=== PATIENT | male | born 1960 | race Caucasian/White ===

== ENCOUNTER 2017-01-20 23:49 | Inpatient (IN) | payer MEDICARE, OTHER ==
[2017-01-21] MEDS ORDERED: methylPREDNISolone SOD SUCCI 125 MG/2 ML VIAL IV STA (00:07)
[2017-01-21] MEDS ORDERED: SODIUM CHLORIDE 0.9% 500 ML IV STA (00:07)
[2017-01-21] MEDS ORDERED: SODIUM CHLORIDE 0.9% 1,000 ML IV STA (00:07)
[2017-01-21] MEDS ORDERED: IPRATROPIUM 0.5 MG/2.5 ML NEBU INHALATION STA (00:07)
[2017-01-21] MEDS ORDERED: ALBUTEROL NEBULIZED 2.5 MG/3 ML INHALATION STA (00:07)
[2017-01-21] MEDS ORDERED: ACETAMINOPHEN TAB 500 MG TAB PO STA (00:09)
[2017-01-21 00:23] LABS: Basophils # (A) 0.1 k/uL (0-0.2); Basophils % (A) 0 %; CH 32.5; CHCM 33.1; Eosinophils # (A) 0.1 k/uL (0-0.7); Eosinophils % (A) 0 %; HCT 37.3 % (39.0-53.0); HDW 2.47; HGB 12.6 gm/dL (13.0-17.5); Luc # (Auto) 0.12; Luc % (Auto) 1; Lymphocytes # (A) 0.4 k/uL (1.0-4.8); Lymphocytes % (A) 2 %; MCH 33.4 pg (25.0-35.0); MCHC 33.8 g/dL (31.0-37.0); MCV 98.6 fL (80.0-100.0); Monocytes % (A) 5 %; Neutrophils # (A) 20.5 k/uL (1.3-7.7); Neutrophils % (A) 92 %; RBC 3.78 m/uL (4.30-5.90); RDW 13.5 % (11.5-15.5); WBC 22.3 k/uL (3.8-10.6); WBC (Perox) 21.92
[2017-01-21 00:31] LABS: INR 1.1 (<1.2); Partial Thromboplastin Time 23.6 sec (22.0-30.0); Prothrombin Time 10.7 sec (9.0-12.0)
[2017-01-21 00:35] LABS: ALT 81 U/L (21-72); AST 54 U/L (17-59); Alkaline Phosphatase 142 U/L (38-126); Blood Urea Nitrogen 18 mg/dL (9-20); Calcium 9.7 mg/dL (8.4-10.2); Carbon Dioxide 20 mmol/L (22-30); Glucose 290 mg/dL (74-99); Magnesium 1.6 mg/dL (1.6-2.3); Non-African American GFR(MDRD) >60 (>60 ml/min/1.73 sqM); Total Bilirubin 2.4 mg/dL (0.2-1.3); Total Protein 7.2 g/dL (6.3-8.2)
--- NOTE | 2017-01-21 00:45 | XR ---
EXAM: XR Chest, 2 Views CLINICAL HISTORY: Reason: difficulty breathing TECHNIQUE: Frontal and lateral views of the chest. COMPARISON: No relevant prior studies available. FINDINGS: Lungs: Subsegmental atelectasis noted in the lingula. Pleural space: Small right pleural effusion. No pneumothorax. Heart: Unremarkable. No cardiomegaly. Mediastinum: Unremarkable. Bones/joints: Unremarkable. IMPRESSION: No lobar consolidation or pulmonary edema. Small left pleural effusion.
[2017-01-21 00:55] LABS: Chloride 104 mmol/L (98-107)
[2017-01-21 00:58] LABS: Anion Gap 11 mmol/L; Sodium 135 mmol/L (137-145)
[2017-01-21 01:02] LABS: Creatine Kinase 37 U/L (55-170)
[2017-01-21 01:11] LABS: Appearance,Urine Clear (Clear); Bilirubin,Urine Negative (Negative); Glucose,Urine (UA) 4+ (Negative); Ketones,Urine Trace (Negative); Leukocyte Esterase,Urine Negative (Negative); Mucus,Urine Rare /hpf; Nitrite,Urine Negative (Negative); Particle Count 700; Protein,Urine 2+ (Negative); RBC,Urine 2 /hpf (0-5); Specific Gravity,Urine 1.011 (1.001-1.035); UA Billing (MACRO vs. MICRO) MICRO; WBC,Urine 1 /hpf (0-5)
[2017-01-21 01:15] LABS: Creatine Kinase MB 0.3 ng/mL (0.0-2.4); Troponin I <0.012 ng/mL (0.000-0.034)
--- NOTE | 2017-01-21 02:38 | US ---
ADDENDUM - Added by Sanford Mcgee MD on 01/24/2017 11:35 AM (-07:00) Correction. Exam should read as follows: EXAM: US Abdomen limited EXAM: US Abdomen Complete CLINICAL HISTORY: Reason: Pain TECHNIQUE: Real-time ultrasound of the abdomen (complete) with image documentation. COMPARISON: No relevant prior studies available. FINDINGS: Liver: Unremarkable. No mass. No intrahepatic bile duct dilation. Gallbladder: Unremarkable. No gallstones. Positive sonographic Candelario sign. Common bile duct: Unremarkable as visualized. No stones. No dilation. Pancreas: Unremarkable as visualized. Kidneys: Unremarkable. No stones. No solid mass. No hydronephrosis. Spleen: Unremarkable. No splenomegaly. Aorta: Unremarkable. No aneurysm. Inferior vena cava: Unremarkable. IMPRESSION: Normal ultrasound exam of the abdomen. Positive sonographic Candelario sign was elicited; however, gallbladder imaging was otherwise normal.
[2017-01-21] MEDS ORDERED: AZITHROMYCIN 500 MG in SODIUM CHLORIDE 0.9% 250 ML IVPB STA (03:16)
[2017-01-21] MEDS ORDERED: ALPRAZolam 0.5 MG TAB PO PRN (03:21)
[2017-01-21] MEDS ORDERED: SODIUM CHLORIDE 0.9% 1,000 ML IV SCH (03:30)
--- NOTE | 2017-01-21 03:35 | ED ---
General Adult HPI - General Chief complaint: Shortness of Breath Stated complaint: ZOLTAN Time Seen by Provider: 01/20/17 23:50 Source: patient, EMS, RN notes reviewed Mode of arrival: EMS Limitations: no limitations - History of Present Illness Initial comments: 50 male with history diabetes, hypertension, and COPD presents with four-hour history of cough, fever. Patient's cough is productive of sputum. Patient also reports worsening shortness of breath. Has been taking his inhalers at home with minimal relief. He does have baseline dyspnea and is on 2 L home O2. Denies any chest pain. Denies nausea vomiting or diarrhea. Patient does report some right upper quadrant abdominal pain which isn't present for approximately one week. This is dull achy pain. Constant in nature. - Related Data Home Medications Medication Instructions Recorded Confirmed ALPRAZolam [Xanax] 0.5 mg PO HS PRN 01/21/17 01/21/17 Fluticasone Propionate 1 spray EA NOSTRIL DAILY 01/21/17 01/21/17 Furosemide [Lasix] 20 mg PO DAILY 01/21/17 01/21/17 Gabapentin [Neurontin] 100 mg PO BID 01/21/17 01/21/17 Insulin Aspart [NovoLOG] 10 unit SQ QID 01/21/17 01/21/17 Insulin Glargine [Lantus] 37 unit SQ HS 01/21/17 01/21/17 Ipratropium [place] [Atrovent Hfa] 2 puff INHALATION QID PRN 01/21/17 01/21/17 Lisinopril 40 mg PO DAILY 01/21/17 01/21/17 Montelukast [Singulair] 10 mg PO HS 01/21/17 01/21/17 metFORMIN HCL [Glucophage] 500 mg PO TID 01/21/17 01/21/17 Allergies Allergy/AdvReac Type Severity Reaction Status Date / Time iodine Allergy Unknown Verified 01/20/17 23:56 Penicillins Allergy Unknown Verified 01/20/17 23:56 Sulfa (Sulfonamide Allergy Unknown Verified 01/20/17 23:56 Antibiotics) Review of Systems ROS Statement: Those systems with pertinent positive or pertinent negative responses have been documented in the HPI. ROS Other: All systems not noted in ROS Statement are negative. Past Medical History Past Medical History: Asthma, COPD, Diabetes Mellitus, Sleep Apnea/CPAP/BIPAP Additional Past Medical History / Comment(s): edema, type 1 diabetic History of Any Multi-Drug Resistant Organisms: None Reported Past Surgical History: Orthopedic Surgery, Tonsillectomy Past Psychological History: No Psychological Hx Reported Smoking Status: Former smoker Past Alcohol Use History: None Reported Past Drug Use History: None Reported General Exam Limitations: no limitations General appearance: alert, in distress Head exam: Present: atraumatic, normocephalic Eye exam: Present: normal appearance, PERRL ENT exam: Present: normal exam, mucous membranes moist Neck exam: Present: normal inspection. Absent: meningismus Respiratory exam: Present: respiratory distress, wheezes, decreased breath sounds, prolonged expiratory. Absent: rhonchi Cardiovascular Exam: Present: normal rhythm, tachycardia GI/Abdominal exam: Present: soft, tenderness (Tenderness in the right upper quadrant). Absent: distended, guarding, rebound Extremities exam: Present: normal capillary refill, pedal edema Back exam: Present: normal inspection Neurological exam: Present: alert, oriented X3. Absent: motor sensory deficit Psychiatric exam: Present: normal affect, normal mood Skin exam: Present: warm, dry. Absent: cyanosis, diaphoretic Course Vital Signs 01/20/17 01/21/17 01/21/17 23:51 00:38 01:01 Temperature 101.4 F H Pulse Rate 117 H 102 H 104 H Respiratory 22 Rate Blood Pressure 169/81 O2 Sat by Pulse 93 L Oximetry - Reevaluation(s) Reevaluation #1: 01/21/17 03:31 On reevaluation patient is feeling somewhat better. As an extremely wheeze. Still moderate respiratory distress. EKG Findings - EKG Comments: EKG Findings:: EKG shows sinus tachycardia with ventricular rate of 108, NV interval 148, castration 82, QTC 436, there is no ST segment elevation or depression, no signs of ischemia Medical Decision Making - Medical Decision Making 56-year-old male with history of COPD presents with a one-day history of cough and fever. At one week history of right upper quadrant abdominal pain. On examination patient is in moderate respiratory distress, with end expiratory wheezing and decreased air entry throughout. He also has tenderness in the right upper quadrant. No rebound or guarding. Chest x-ray shows no lobar consolidation, no pulmonary edema. Patient's history is consistent with pneumonia. I do suspect early clinical pneumonia. Ultrasound is obtained of the abdomen given the right upper quadrant tenderness and fever. This is negative for acute cholecystitis. Laboratory studies reveal white blood cell count 22.3, mild hyponatremia 134, alk phos 142, and bili is mildly elevated at 2.5. Patient is started on IV antibiotics. He will be admitted for acquired pneumonia and COPD exacerbation. - Lab Data Result diagrams: 01/21/17 00:00 01/21/17 00:00 Lab Results 01/21/17 01/21/17 01/21/17 Range/Units 00:00 00:00 00:00 WBC 22.3 H (3.8-10.6) k/uL RBC 3.78 L (4.30-5.90) m/uL Hgb 12.6 L (13.0-17.5) gm/dL Hct 37.3 L (39.0-53.0) % MCV 98.6 (80.0-100.0) fL MCH 33.4 (25.0-35.0) pg MCHC 33.8 (31.0-37.0) g/dL RDW 13.5 (11.5-15.5) % Plt Count 266 (150-450) k/uL Neutrophils % 92 % Lymphocytes % 2 % Monocytes % 5 % Eosinophils % 0 % Basophils % 0 % Neutrophils # 20.5 H (1.3-7.7) k/uL Lymphocytes # 0.4 L (1.0-4.8) k/uL Monocytes # 1.0 (0-1.0) k/uL Eosinophils # 0.1 (0-0.7) k/uL Basophils # 0.1 (0-0.2) k/uL PT (9.0-12.0) sec INR (<1.2) APTT (22.0-30.0) sec Sodium 135 L (137-145) mmol/L Potassium 4.0 (3.5-5.1) mmol/L Chloride 104 (98-107) mmol/L Carbon Dioxide 20 L (22-30) mmol/L Anion Gap 11 mmol/L BUN 18 (9-20) mg/dL Creatinine 0.80 (0.66-1.25) mg/dL Est GFR (MDRD) Af Amer >60 (>60 ml/min/1.73 sqM) Est GFR (MDRD) Non-Af >60 (>60 ml/min/1.73 sqM) Glucose 290 H (74-99) mg/dL Calcium 9.7 (8.4-10.2) mg/dL Magnesium 1.6 (1.6-2.3) mg/dL Total Bilirubin 2.4 H (0.2-1.3) mg/dL AST 54 (17-59) U/L ALT 81 H (21-72) U/L Alkaline Phosphatase 142 H (38-126) U/L Total Creatine Kinase 37 L (55-170) U/L CK-MB (CK-2) 0.3 (0.0-2.4) ng/mL CK-MB (CK-2) Rel Index 0.8 Troponin I <0.012 (0.000-0.034) ng/mL NT-Pro-B Natriuret Pep pg/mL Total Protein 7.2 (6.3-8.2) g/dL Albumin 3.7 (3.5-5.0) g/dL Lipase 53 (23-300) U/L Urine Color Urine Appearance (Clear) Urine pH (5.0-8.0) Ur Specific [place] (1.001-1.035) Urine Protein (Negative) Urine Glucose (UA) (Negative) Urine Ketones (Negative) Urine Blood (Negative) Urine Nitrite (Negative) Urine Bilirubin (Negative) Urine Urobilinogen (<2.0) mg/dL Ur Leukocyte Esterase (Negative) Urine RBC (0-5) /hpf Urine WBC (0-5) /hpf Urine Mucus (None) /hpf 01/21/17 01/21/17 01/21/17 Range/Units 00:00 00:00 01:01 WBC (3.8-10.6) k/uL RBC (4.30-5.90) m/uL Hgb (13.0-17.5) gm/dL Hct (39.0-53.0) % MCV (80.0-100.0) fL MCH (25.0-35.0) pg MCHC (31.0-37.0) g/dL RDW (11.5-15.5) % Plt Count (150-450) k/uL Neutrophils % % Lymphocytes % % Monocytes % % Eosinophils % % Basophils % % Neutrophils # (1.3-7.7) k/uL Lymphocytes # (1.0-4.8) k/uL Monocytes # (0-1.0) k/uL Eosinophils # (0-0.7) k/uL Basophils # (0-0.2) k/uL PT 10.7 (9.0-12.0) sec INR 1.1 (<1.2) APTT 23.6 (22.0-30.0) sec Sodium (137-145) mmol/L Potassium (3.5-5.1) mmol/L Chloride (98-107) mmol/L Carbon Dioxide (22-30) mmol/L Anion Gap mmol/L BUN (9-20) mg/dL Creatinine (0.66-1.25) mg/dL Est GFR (MDRD) Af Amer (>60 ml/min/1.73 sqM) Est GFR (MDRD) Non-Af (>60 ml/min/1.73 sqM) Glucose (74-99) mg/dL Calcium (8.4-10.2) mg/dL Magnesium (1.6-2.3) mg/dL Total Bilirubin (0.2-1.3) mg/dL AST (17-59) U/L ALT (21-72) U/L Alkaline Phosphatase (38-126) U/L Total Creatine Kinase (55-170) U/L CK-MB (CK-2) (0.0-2.4) ng/mL CK-MB (CK-2) Rel Index Troponin I (0.000-0.034) ng/mL NT-Pro-B Natriuret Pep 284 pg/mL Total Protein (6.3-8.2) g/dL Albumin (3.5-5.0) g/dL Lipase (23-300) U/L Urine Color Yellow Urine Appearance Clear (Clear) Urine pH 6.0 (5.0-8.0) Ur Specific [place] 1.011 (1.001-1.035) Urine Protein 2+ H (Negative) Urine Glucose (UA) 4+ H (Negative) Urine Ketones Trace H (Negative) Urine Blood Trace H (Negative) Urine Nitrite Negative (Negative) Urine Bilirubin Negative (Negative) Urine Urobilinogen 3.0 (<2.0) mg/dL Ur Leukocyte Esterase Negative (Negative) Urine RBC 2 (0-5) /hpf Urine WBC 1 (0-5) /hpf Urine Mucus Rare H (None) /hpf Critical Care Time Critical Care Time: Yes Total Critical Care Time: 35 Disposition Clinical Impression: Community acquired pneumonia, COPD exacerbation Disposition: ADMITTED IP TO THIS [facility] Condition: Stable Referrals: Maciej Valles MD [Primary Care Provider] - 1-2 days Decision to Admit Reason: Admit from EC Decision Date: 01/21/17 Decision Time: 02:50
[2017-01-21 05:26] VITALS: BMI 34.9
[2017-01-21] MEDS: INSULIN LISPRO (humaLOG) 300 UNIT/3 ML VIAL SQ SCH ×4 (08:00→13:13)
[2017-01-21] MEDS: IPRATROPIUM-ALBUTEROL 3 ML NEB INHALATION PRN ×3 (08:37→14:43)
[2017-01-21] MEDS ORDERED: FUROSEMIDE 20 MG TAB PO SCH (09:00)
[2017-01-21] MEDS ORDERED: LISINOPRIL 20 MG TAB PO SCH (09:00)
[2017-01-21] MEDS ORDERED: metFORMIN 500 MG TAB PO SCH (09:00)
[2017-01-21] MEDS ORDERED: predniSONE 20 MG TAB PO SCH (09:00)
[2017-01-21 09:47] LABS: Glucose,Whole Blood 418 mg/dL (75-99)
[2017-01-21] MEDS ORDERED: INSULIN REGULAR 100 UNIT/ML VIAL IV ONE (10:03)
--- NOTE | 2017-01-21 10:07 | P.HPIM ---
History of Present Illness H&P Date: 01/21/17 (discharge Summary as well) This is a 56-year-old gentleman with history of COPD comes into the hospital with an episode of fever and chills. Patient apparently has had episodes of hypoxemia in the past and so scared and came to the hospital patient was noted to have leukocytosis and chest x-ray reviewed by me was noted to have a right lower lobe infiltrate. Patient does state to have increased sputum production Patient was given Rocephin and Zithromax breathing treatment has improved significantly since his admission Is able to ambulate without any need for oxygen is tolerating oral intake Patient states that his symptoms are improved No episode of fever in the last 12 hours Denies having headaches blurry vision nausea vomiting diarrhea chest pain his only symptom is cough with increased sputum production and transient episode of difficulty breathing prior to admission. Review of Systems All systems: negative (Noted in HPI) Past Medical History Past Medical History: Asthma, COPD, Diabetes Mellitus, Hypertension, Sleep Apnea /CPAP/BIPAP Additional Past Medical History / Comment(s): edema, type 1 diabetic History of Any Multi-Drug Resistant Organisms: None Reported Past Surgical History: Orthopedic Surgery, Tonsillectomy Additional Past Surgical History / Comment(s): right leg and hip surgery Past Anesthesia/Blood Transfusion Reactions: No Reported Reaction Past Psychological History: No Psychological Hx Reported Smoking Status: Former smoker Past Alcohol Use History: None Reported Past Drug Use History: None Reported - Past Family History Father Family Medical History: Diabetes Mellitus Mother Family Medical History: COPD Medications and Allergies Home Medications Medication Instructions Recorded Confirmed Type ALPRAZolam [Xanax] 0.5 mg PO HS PRN 01/21/17 01/21/17 History Fluticasone Propionate 1 spray EA NOSTRIL DAILY 01/21/17 01/21/17 History Furosemide [Lasix] 20 mg PO DAILY 01/21/17 01/21/17 History Gabapentin [Neurontin] 100 mg PO BID 01/21/17 01/21/17 History Insulin Aspart [NovoLOG] 10 unit SQ QID 01/21/17 01/21/17 History Insulin Glargine [Lantus] 37 unit SQ HS 01/21/17 01/21/17 History Ipratropium [place] [Atrovent Hfa] 2 puff INHALATION QID PRN 01/21/17 01/21/17 History Lisinopril 40 mg PO DAILY 01/21/17 01/21/17 History Montelukast [Singulair] 10 mg PO HS 01/21/17 01/21/17 History metFORMIN HCL [Glucophage] 500 mg PO TID 01/21/17 01/21/17 History Allergies Allergy/AdvReac Type Severity Reaction Status Date / Time iodine Allergy Unknown Verified 01/21/17 08:09 Penicillins Allergy Unknown Verified 01/21/17 08:09 Sulfa (Sulfonamide Allergy Unknown Verified 01/21/17 08:09 Antibiotics) Physical Exam Vitals: Vital Signs Temp Pulse Pulse Resp BP BP Pulse Ox 01/21/17 08:46 85 01/21/17 08:37 80 01/21/17 07:00 97.4 F L 79 18 158/74 95 01/21/17 04:11 97.3 F L 01/21/17 03:52 90 20 156/74 95 01/21/17 01:01 104 H 01/21/17 00:38 102 H 01/20/17 23:51 101.4 F H 117 H 22 169/81 93 L Intake and Output 01/20/17 01/21/17 01/21/17 22:59 06:59 14:59 Intake Total 800 Balance 800 Intake: Intake, IV Titration 500 Amount Sodium Chloride 0.9% 500 500 ml @ 999 mls/hr IV .Q31M STA Rx#:[id number] Oral 300 Other: # Voids 1 Weight 104.326 kg Physical exam Gen. appearance oriented 3 in no distress Neck is supple no JVD Lungs diminished breath sounds no expiratory wheezing appreciated no rhonchi noted Heart S1-S2 heard regular rate and rhythm no murmurs appreciated Abdomen is soft nontender no organomegaly bowel sounds are intact Neurologically cranial nerves II-12 grossly intact no focal motor or sensory deficits noted Skin no abnormalities appreciated Results CBC & Chem 7: 01/21/17 00:00 01/21/17 00:00 Labs: Abnormal Lab Results - Last 24 Hours (Table) 01/21/17 01/21/17 01/21/17 Range/Units 00:00 00:00 00:00 WBC 22.3 H (3.8-10.6) k/uL RBC 3.78 L (4.30-5.90) m/uL Hgb 12.6 L (13.0-17.5) gm/dL Hct 37.3 L (39.0-53.0) % Neutrophils # 20.5 H (1.3-7.7) k/uL Lymphocytes # 0.4 L (1.0-4.8) k/uL Sodium 135 L (137-145) mmol/L Carbon Dioxide 20 L (22-30) mmol/L Glucose 290 H (74-99) mg/dL POC Glucose (mg/dL) (75-99) mg/dL Total Bilirubin 2.4 H (0.2-1.3) mg/dL ALT 81 H (21-72) U/L Alkaline Phosphatase 142 H (38-126) U/L Total Creatine Kinase 37 L (55-170) U/L Urine Protein (Negative) Urine Glucose (UA) (Negative) Urine Ketones (Negative) Urine Blood (Negative) Urine Mucus (None) /hpf 01/21/17 01/21/17 Range/Units 01:01 09:35 WBC (3.8-10.6) k/uL RBC (4.30-5.90) m/uL Hgb (13.0-17.5) gm/dL Hct (39.0-53.0) % Neutrophils # (1.3-7.7) k/uL Lymphocytes # (1.0-4.8) k/uL Sodium (137-145) mmol/L Carbon Dioxide (22-30) mmol/L Glucose (74-99) mg/dL POC Glucose (mg/dL) 418 H (75-99) mg/dL Total Bilirubin (0.2-1.3) mg/dL ALT (21-72) U/L Alkaline Phosphatase (38-126) U/L Total Creatine Kinase (55-170) U/L Urine Protein 2+ H (Negative) Urine Glucose (UA) 4+ H (Negative) Urine Ketones Trace H (Negative) Urine Blood Trace H (Negative) Urine Mucus Rare H (None) /hpf Thrombosis Risk Factor Assmnt - Choose All That Apply Any of the Below Risk Factors Present?: Yes Each Factor Represents 1 point: Abnormal pulmonary function (COPD), Age 41-60 years, Obesity (BMI >25), Serious lung disease incl. pneumonia (< 1month), Swollen legs (current) Other Risk Factors: Yes Each Risk Factor Represents 3 Points: Family history of DVT/PE Thrombosis Risk Factor Assessment Total Risk Factor Score: 8 Thrombosis Risk Factor Assessment Level: High Risk Assessment and Plan Plan: #1 sepsis secondary to an acute right lower lobe community-acquired pneumonia #2 COPD with an acute exacerbation #3 essential hypertension #4 diabetes mellitus type 2 poorly controlled #5 dyslipidemia #6 obesity #7 BPH Plan Patient will be monitored for another 12 hours if there is no recurrent episodes of fever it appears to be a community-acquired organism. Hence we'll discharge the patient on Ceftin 500 mg by mouth twice a day for a total of 7 days patient will also be given a burst of steroids for 5 days discussed increasing his Levemir to 45 units and using sliding scale in addition to his pre-meal insulin Patient's blood glucose level at this time is 418 patient will be given 1 dose of 10 units IV regular insulin will be monitored and discharged home later if patient is stable and is able to ambulate without the need of any supplemental oxygen.
[2017-01-21 15:34] VITALS: BP 164/72; PULSE 86; RESP 20; TEMP 97.8
[2017-01-21] MEDS ORDERED: MONTELUKAST 10 MG TAB PO SCH (21:00)
[2017-01-21] MEDS ORDERED: INSULIN GLARGINE 100 UNIT/ML 10 ML VIAL SQ SCH (21:00)
[2017-01-22] MEDS ORDERED: AZITHROMYCIN 500 MG in SODIUM CHLORIDE 0.9% 250 ML IVPB SCH (06:00)
[2017-01-22 07:34] LABS: Glucose,Whole Blood 345 mg/dL (75-99)
[2017-01-22 07:34] LABS: Glucose,Whole Blood 350 mg/dL (75-99)
== END 2017-01-21 16:55 | disposition home or self-care (01) | DRG 871 ==
LOC: EC 23:49 → SUPCPDRO 23:49 → 5MS5E 01-21 03:19
PROVIDERS: ADMIT Hospitalist; ATTEND Hospitalist
DX: A41.9 Sepsis, unspecified organism (principal); J18.9 Pneumonia, unspecified organism; Z99.81 Dependence on supplemental oxygen; J44.0 Chronic obstructive pulmonary disease with (acute) lower respiratory infection; J44.1 Chronic obstructive pulmonary disease with (acute) exacerbation; E87.1 Hypo-osmolality and hyponatremia; I10 Essential (primary) hypertension; E10.65 Type 1 diabetes mellitus with hyperglycemia; E78.5 Hyperlipidemia, unspecified; G47.30 Sleep apnea, unspecified; E66.9 Obesity, unspecified; N40.0 Benign prostatic hyperplasia without lower urinary tract symptoms; Z79.84 Long term (current) use of oral hypoglycemic drugs; Z79.4 Long term (current) use of insulin; Z79.899 Other long term (current) drug therapy; Z87.891 Personal history of nicotine dependence; Z88.0 Allergy status to penicillin; Z88.2 Allergy status to sulfonamides; Z91.041 Radiographic dye allergy status; Z82.5 Family history of asthma and other chronic lower respiratory diseases
CPT/HCPCS: 36415; 71020; 76705; 80053; 81001; 82550; 82553; 83690; 83735; 83880; 84484; 85025; 85610; 85730; 87040; 93005; 94640; 96361; 96365; 96375; 99291

== ENCOUNTER 2019-12-18 14:54 | Inpatient (IN) | payer MEDICARE ==
[2019-12-18] MEDS ORDERED: SODIUM CHLORIDE 0.9% 1,000 ML IV STA ×2 (15:26→17:33)
--- NOTE | 2019-12-18 15:45 | ED ---
Fall HPI - General Chief Complaint: Fall Stated Complaint: Fall Time Seen by Provider: 12/18/19 15:16 Source: patient, RN notes reviewed, old records reviewed Mode of arrival: EMS - History of Present Illness Initial Comments: This is a 59-year-old male DF for evaluation patient is found to have multiple complaints today. He states he has significantly elevated blood pressure elevated heart rate overall not feeling well. Patient of fall yesterday landing on his chest as anterior chest wall pain and some abdominal pain. Patient states he did not take his medications today. 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 Witnessed: no Place Fall Occurred: home Loss of Consciousness: none Prolonged Down Time?: no Symptoms Prior to Fall: none Location: chest Severity: moderate Severity scale (1-10): 6 Quality: dull Context: tripped/slipped Associated Symptoms: denies - Related Data Home Medications Medication Instructions Recorded Confirmed ALPRAZolam [Xanax] 0.5 mg PO HS PRN 01/21/17 12/18/19 Diltiazem HCl [Diltiazem 24Hr ER] 180 mg PO DAILY 01/21/17 12/18/19 Fluticasone Propionate 1 spray EA NOSTRIL DAILY 01/21/17 12/18/19 INSULIN ASPART (NovoLOG) [NovoLOG See Protocol SQ TID 01/21/17 12/18/19 (formulary)] Lisinopril 40 mg PO DAILY 01/21/17 12/18/19 Montelukast [Singulair] 10 mg PO DAILY 01/21/17 12/18/19 metFORMIN HCL [Glucophage] 500 mg PO TID 01/21/17 12/18/19 Albuterol Sulfate [Ventolin HFA] 2 puff INHALATION RT-Q6H PRN 12/18/19 12/18/19 Furosemide [Lasix] 40 mg PO DAILY 12/18/19 12/18/19 Ibuprofen 200 - 400 mg PO Q6H PRN 12/18/19 12/18/19 Insulin Glargine,Hum.rec.anlog 45 unit SQ HS 12/18/19 12/18/19 [Basaglar Kwikpen U-100] Umeclidinium [place] [Incruse 1 puff INHALATION RT-DAILY 12/18/19 12/18/19 Ellipta] Allergies Allergy/AdvReac Type Severity Reaction Status Date / Time iodine Allergy Unknown Verified 12/18/19 17:51 Penicillins Allergy Unknown Verified 12/18/19 17:51 Sulfa (Sulfonamide Allergy Unknown Verified 12/18/19 17:51 Antibiotics) Review of Systems ROS Statement: Those systems with pertinent positive or pertinent negative responses have been documented in the HPI. ROS Other: All systems not noted in ROS Statement are negative. Past Medical History Past Medical History: Asthma, COPD, Diabetes Mellitus, Hypertension, Sleep Apnea/CPAP/BIPAP Additional Past Medical History / Comment(s): edema, type 1 diabetic History of Any Multi-Drug Resistant Organisms: None Reported Past Surgical History: Orthopedic Surgery, Tonsillectomy Additional Past Surgical History / Comment(s): right leg and hip surgery Past Anesthesia/Blood Transfusion Reactions: No Reported Reaction Past Psychological History: No Psychological Hx Reported Smoking Status: Former smoker Past Alcohol Use History: None Reported Past Drug Use History: None Reported - Past Family History Father Family Medical History: Diabetes Mellitus Mother Family Medical History: COPD General Exam Limitations: no limitations, physical limitation General appearance: alert, in no apparent distress Head exam: Present: atraumatic, normocephalic, normal inspection Eye exam: Present: normal appearance, PERRL, EOMI. Absent: scleral icterus, conjunctival injection, periorbital swelling ENT exam: Present: normal exam, mucous membranes moist Neck exam: Present: normal inspection. Absent: tenderness, meningismus, lymphadenopathy Respiratory exam: Present: normal lung sounds bilaterally. Absent: respiratory distress, wheezes, rales, rhonchi, stridor Cardiovascular Exam: Present: normal rhythm, tachycardia, normal heart sounds. Absent: systolic murmur, diastolic murmur, rubs, gallop, clicks GI/Abdominal exam: Present: soft, normal bowel sounds. Absent: distended, tenderness, guarding, rebound, rigid Extremities exam: Present: normal inspection, full ROM, normal capillary refill. Absent: tenderness, pedal edema, joint swelling, calf tenderness Back exam: Present: normal inspection Neurological exam: Present: alert, oriented X3, CN II-XII intact Psychiatric exam: Present: normal affect, normal mood Skin exam: Present: warm, dry, intact, normal color. Absent: rash Course Vital Signs 12/18/19 12/18/19 12/18/19 14:56 16:29 16:30 Temperature 98.5 F Pulse Rate 128 H 121 H 121 H Respiratory 24 22 Rate Blood Pressure 203/93 194/94 170/79 O2 Sat by Pulse 92 L 92 L Oximetry 12/18/19 12/18/19 12/18/19 16:42 17:04 17:30 Temperature Pulse Rate 122 H 129 H 129 H Respiratory 20 22 22 Rate Blood Pressure 180/69 163/76 O2 Sat by Pulse 94 L 94 L Oximetry 12/18/19 12/18/19 12/18/19 19:00 20:00 20:08 Temperature Pulse Rate 129 H 125 H 125 H Respiratory 20 20 22 Rate Blood Pressure 190/92 O2 Sat by Pulse 94 L Oximetry 12/18/19 12/18/19 12/18/19 20:22 20:30 21:46 Temperature 98.5 F Pulse Rate 128 H 129 H 131 H Respiratory 23 26 H 24 Rate Blood Pressure 192/93 180/76 184/81 O2 Sat by Pulse 94 L 94 L 94 L Oximetry 12/18/19 22:00 Temperature Pulse Rate 119 H Respiratory 25 H Rate Blood Pressure 172/96 O2 Sat by Pulse 94 L Oximetry - Reevaluation(s) Reevaluation #1: 12/18/19 17:58 Medical records reviewed Reevaluation #2: 12/18/19 17:58 Blood pressure heart rate still remained elevated Reevaluation #3: 12/18/19 20:37 Family denies any history of alcohol or drug abuse patient's blood pressure remained significantly elevated Medical Decision Making - Medical Decision Making 59-year-old male DF for evaluation of fall and chest pain. Patient has some bruising from fall with no significant injury persistent chest pain [place] for persistent chest pain blood pressure control blood pressure severely elevated patient also found to be in significant COPD exacerbation with hypoxia and increased work of breathing - Lab Data Result diagrams: 12/22/19 04:06 12/22/19 04:06 Lab Results 12/18/19 12/18/19 12/18/19 Range/Units 15:57 16:01 16:01 WBC 14.6 H (3.8-10.6) k/uL RBC 3.31 L (4.30-5.90) m/uL Hgb 11.3 L (13.0-17.5) gm/dL Hct 34.2 L (39.0-53.0) % MCV 103.4 H (80.0-100.0) fL MCH 34.2 (25.0-35.0) pg MCHC 33.1 (31.0-37.0) g/dL RDW 13.9 (11.5-15.5) % Plt Count 258 (150-450) k/uL Neutrophils % 84 % Lymphocytes % 9 % Monocytes % 6 % Eosinophils % 0 % Basophils % 0 % Neutrophils # 12.3 H (1.3-7.7) k/uL Lymphocytes # 1.3 (1.0-4.8) k/uL Monocytes # 0.9 (0-1.0) k/uL Eosinophils # 0.1 (0-0.7) k/uL Basophils # 0.1 (0-0.2) k/uL Macrocytosis Slight PT 10.0 (9.0-12.0) sec INR 1.0 (<1.2) APTT 23.8 (22.0-30.0) sec Sodium 135 L (137-145) mmol/L Potassium 4.7 (3.5-5.1) mmol/L Chloride 107 (98-107) mmol/L Carbon Dioxide 26 (22-30) mmol/L Anion Gap 2 mmol/L BUN 20 (9-20) mg/dL Creatinine 0.69 (0.66-1.25) mg/dL Est GFR (CKD-EPI)AfAm >90 (>60 ml/min/1.73 sqM) Est GFR (CKD-EPI)NonAf >90 (>60 ml/min/1.73 sqM) Glucose 213 H (74-99) mg/dL Plasma Lactic Acid Ruddy (0.7-2.0) mmol/L Calcium 8.7 (8.4-10.2) mg/dL Phosphorus 3.5 (2.5-4.5) mg/dL Magnesium 2.2 (1.6-2.3) mg/dL Total Bilirubin 2.6 H (0.2-1.3) mg/dL AST 68 H (17-59) U/L ALT 65 H (4-49) U/L Alkaline Phosphatase 158 H (38-126) U/L Troponin I (0.000-0.034) ng/mL Total Protein 6.7 (6.3-8.2) g/dL Albumin 3.1 L (3.5-5.0) g/dL TSH 1.680 (0.465-4.680) mIU/L Urine Color Urine Appearance (Clear) Urine pH (5.0-8.0) Ur Specific [place] (1.001-1.035) Urine Protein (Negative) Urine Glucose (UA) (Negative) Urine Ketones (Negative) Urine Blood (Negative) Urine Nitrite (Negative) Urine Bilirubin (Negative) Urine Urobilinogen (<2.0) mg/dL Ur Leukocyte Esterase (Negative) Urine WBC (0-5) /hpf Ur Squamous Epith Cells (0-4) /hpf Hyaline Casts (0-2) /lpf Urine Mucus (None) /hpf 12/18/19 12/18/19 12/18/19 Range/Units 16:01 16:01 18:38 WBC (3.8-10.6) k/uL RBC (4.30-5.90) m/uL Hgb (13.0-17.5) gm/dL Hct (39.0-53.0) % MCV (80.0-100.0) fL MCH (25.0-35.0) pg MCHC (31.0-37.0) g/dL RDW (11.5-15.5) % Plt Count (150-450) k/uL Neutrophils % % Lymphocytes % % Monocytes % % Eosinophils % % Basophils % % Neutrophils # (1.3-7.7) k/uL Lymphocytes # (1.0-4.8) k/uL Monocytes # (0-1.0) k/uL Eosinophils # (0-0.7) k/uL Basophils # (0-0.2) k/uL Macrocytosis PT (9.0-12.0) sec INR (<1.2) APTT (22.0-30.0) sec Sodium (137-145) mmol/L Potassium (3.5-5.1) mmol/L Chloride (98-107) mmol/L Carbon Dioxide (22-30) mmol/L Anion Gap mmol/L BUN (9-20) mg/dL Creatinine (0.66-1.25) mg/dL Est GFR (CKD-EPI)AfAm (>60 ml/min/1.73 sqM) Est GFR (CKD-EPI)NonAf (>60 ml/min/1.73 sqM) Glucose (74-99) mg/dL Plasma Lactic Acid Ruddy 1.1 (0.7-2.0) mmol/L Calcium (8.4-10.2) mg/dL Phosphorus (2.5-4.5) mg/dL Magnesium (1.6-2.3) mg/dL Total Bilirubin (0.2-1.3) mg/dL AST (17-59) U/L ALT (4-49) U/L Alkaline Phosphatase (38-126) U/L Troponin I <0.012 (0.000-0.034) ng/mL Total Protein (6.3-8.2) g/dL Albumin (3.5-5.0) g/dL TSH (0.465-4.680) mIU/L Urine Color Yellow Urine Appearance Clear (Clear) Urine pH 6.5 (5.0-8.0) Ur Specific [place] 1.020 (1.001-1.035) Urine Protein 3+ H (Negative) Urine Glucose (UA) 2+ H (Negative) Urine Ketones Trace H (Negative) Urine Blood Small H (Negative) Urine Nitrite Negative (Negative) Urine Bilirubin 1+ H (Negative) Urine Urobilinogen 2.0 (<2.0) mg/dL Ur Leukocyte Esterase Negative (Negative) Urine WBC 1 (0-5) /hpf Ur Squamous Epith Cells <1 (0-4) /hpf Hyaline Casts 7 H (0-2) /lpf Urine Mucus Rare H (None) /hpf - EKG Data -: EKG Interpreted by Me (EKG shows sinus tachycardia 122 MN 154 QRS 76 QTc 461) - Radiology Data Radiology results: report reviewed (Chest x-rays negative for acute disease ultrasound of the gallbladder possible for acute cholecystitis), image reviewed Critical Care Time Critical Care Time: Yes Total Critical Care Time: 31 Disposition Clinical Impression: Community acquired pneumonia, COPD exacerbation, Hypertensive urgency, Fall, Chest pain, Cholecystitis, Pneumonia, Hypoxia Disposition: ADMITTED IP TO THIS HOSP Condition: Serious Is patient prescribed a controlled substance at d/c from ED?: No
[2019-12-18 16:12] LABS: Basophils # (A) 0.1 k/uL (0-0.2); Basophils % (A) 0 %; Eosinophils # (A) 0.1 k/uL (0-0.7); Eosinophils % (A) 0 %; HCT 34.2 % (39.0-53.0); HGB 11.3 gm/dL (13.0-17.5); Lymphocytes # (A) 1.3 k/uL (1.0-4.8); Lymphocytes % (A) 9 %; MCH 34.2 pg (25.0-35.0); MCHC 33.1 g/dL (31.0-37.0); MCV 103.4 fL (80.0-100.0); Macrocytosis Slight; Mean Platelet Volume 9.1; Monocytes # (A) 0.9 k/uL (0-1.0); Monocytes % (A) 6 %; Neutrophils # (A) 12.3 k/uL (1.3-7.7); Neutrophils % (A) 84 %; Platelet Count 258 k/uL (150-450); RBC 3.31 m/uL (4.30-5.90); RDW 13.9 % (11.5-15.5); WBC 14.6 k/uL (3.8-10.6)
[2019-12-18] MEDS ORDERED: MORPHINE SULFATE 4 MG/ML SYRINGE IVP STA (16:12)
[2019-12-18] MEDS ORDERED: IPRATROPIUM-ALBUTEROL 3 ML NEB INHALATION STA (16:12)
[2019-12-18] MEDS ORDERED: hydrALAZINE HCL 20 MG/ML 1 ML VIAL IVP STA ×2 (16:12→20:13)
[2019-12-18] MEDS ORDERED: IPRATROPIUM 0.5 MG/2.5 ML NEBU INHALATION STA (16:16)
[2019-12-18] MEDS ORDERED: BUDESONIDE 0.5 MG/2 ML NEBU INHALATION STA (16:16)
[2019-12-18 16:18] LABS: Partial Thromboplastin Time 23.8 sec (22.0-30.0)
[2019-12-18 16:37] LABS: ALT 65 U/L (4-49); AST 68 U/L (17-59); African American GFR (CKD) >90 (>60 ml/min/1.73 sqM); Albumin 3.1 g/dL (3.5-5.0); Alkaline Phosphatase 158 U/L (38-126); Anion Gap 2 mmol/L; Blood Urea Nitrogen 20 mg/dL (9-20); Calcium 8.7 mg/dL (8.4-10.2); Carbon Dioxide 26 mmol/L (22-30); Chloride 107 mmol/L (98-107); Glucose 213 mg/dL (74-99); Magnesium 2.2 mg/dL (1.6-2.3); Non-African American GFR(CKD) >90 (>60 ml/min/1.73 sqM); Phosphorus 3.5 mg/dL (2.5-4.5); Potassium 4.7 mmol/L (3.5-5.1); Sodium 135 mmol/L (137-145); Total Bilirubin 2.6 mg/dL (0.2-1.3); Total Protein 6.7 g/dL (6.3-8.2)
--- NOTE | 2019-12-18 17:13 | XR ---
EXAMINATION TYPE: XR chest 2V DATE OF EXAM: 12/18/2019 COMPARISON: Prior chest x-ray dated 01/21/2017, 12/26/2017 HISTORY: COPD TECHNIQUE: Frontal and lateral views of the chest are obtained. FINDINGS: Technique somewhat apical lordotic and rotated. The pulmonary vascularity is not changed, there is questionable left hilar prominence. Heart size is likely stable. There is some blunting of t he right costophrenic angle, patchy increased density at the right lung base. There is no pneumothora x. Increased AP diameter chest with relative flattening of hemidiaphragms is noted. Suspect some pleu ral thickening may be present. IMPRESSION: Question some prominence of left hilum, there is blunting of the right costophrenic angl e which may be indicative of effusion, patchy basilar density, correlate for possible atelectasis, sc arring, difficult to exclude pneumonia, likely there is underlying COPD
[2019-12-18] MEDS ORDERED: LORazepam 2 MG/ML INJ IV STA (17:33)
[2019-12-18 18:51] LABS: Appearance,Urine Clear (Clear); Bilirubin,Urine 1+ (Negative); Blood,Urine Small (Negative); Color,Urine Yellow; Glucose,Urine (UA) 2+ (Negative); Hyaline Casts,Urine 7 /lpf (0-2); Ketones,Urine Trace (Negative); Leukocyte Esterase,Urine Negative (Negative); Mucus,Urine Rare /hpf; Nitrite,Urine Negative (Negative); PH, Urine 6.5 (5.0-8.0); Protein,Urine 3+ (Negative); Squamous Epithelial Cell,Urine <1 /hpf (0-4); WBC,Urine 1 /hpf (0-5)
--- NOTE | 2019-12-18 18:53 | US ---
EXAMINATION TYPE: US gallbladder DATE OF EXAM: 12/18/2019 COMPARISON: Ultrasound dated 01/21/2017 CLINICAL HISTORY: pain. abdominal pain EXAM MEASUREMENTS: Liver Length: 22.1 cm Gallbladder Wall: 0.4 cm CBD: 0.5 cm Right Kidney: 13.2 x 4.9 x 5.3 cm Technical limitations, patient unable to turn into LLD position, patient breathing heavily with selina p breaths Pancreas: Obscured by bowel gas Liver: enlarged with heterogeneous echotexture Gallbladder: hydropic, GB wall upper limits of normal Evidence for sonographic Candelario's sign: no CBD: wnl Right Kidney: no evidence of hydronephrosis IMPRESSION: Findings suggest hepatocellular disease, hepatic steatosis. Hydropic gallbladder. Suspect there is wall thickening, correlate for cholecystitis. Exam is limited.
[2019-12-18] MEDS ORDERED: THIAMINE 100 MG/ML 2 ML VIAL IM STA (19:13)
[2019-12-18] MEDS ORDERED: LORazepam 2 MG/ML INJ IV PRN ×3 (19:13)
[2019-12-18] MEDS ORDERED: ALBUTEROL NEBULIZED 2.5 MG/3 ML INHALATION PRN (19:13)
[2019-12-18] MEDS ORDERED: methylPREDNISolone SOD SUCCI 125 MG/2 ML VIAL IV STA (19:13)
[2019-12-18] MEDS ORDERED: hydrALAZINE HCL 20 MG/ML 1 ML VIAL IVP PRN (20:13)
[2019-12-18] MEDS: MORPHINE SULFATE 4 MG/ML SYRINGE IVP PRN ×2 (20:17→23:14)
[2019-12-18] MEDS ORDERED: PNEUMONIA PROTOCOL UTILIZED 1 EACH MISC PO PRN (20:39)
[2019-12-18] MEDS ORDERED: LEVOFLOXACIN 750MG-D5W PMX 750 MG in DEXTROSE/WATER 1 150ML.BAG IVPB STA (20:39)
[2019-12-18] MEDS ORDERED: SODIUM CHLORIDE 0.9% 1,000 ML IV SCH (20:45)
[2019-12-18] MEDS: cloNIDine 0.3 MG/24HR PATCH TRANSDERM SCH (20:46)
[2019-12-18] MEDS ORDERED: DILTIAZEM DRIP BOLUS FROM BAG 1 MG SOLN IV ONE (21:16)
[2019-12-18] MEDS: IPRATROPIUM-ALBUTEROL 3 ML NEB INHALATION SCH (21:20)
[2019-12-18] MEDS ORDERED: DILTIAZEM 5 MG/ML 10 ML VIAL IVP STA (21:42)
[2019-12-18] MEDS ORDERED: FUROSEMIDE 10 MG/ML 4 ML VIAL ONE (22:46)
[2019-12-18 23:05] LABS: Glucose,Whole Blood 288 mg/dL (75-99)
[2019-12-18 23:11] LABS: ABG Base Excess -2.2 mmol/L; ABG HCO3 24 mmol/L (21-25); ABG Oxygen Saturation 99.4 % (94-97); ABG PCO2 45 mmHg (35-45); ABG PH 7.33 (7.35-7.45); ABG PO2 186 mmHg (83-108); ABG TCO2 25 mmol/L (19-24); Allen Test Performed? Yes
[2019-12-18] MEDS ORDERED: FUROSEMIDE 10 MG/ML 4 ML VIAL IV STA (23:15)
--- NOTE | 2019-12-18 23:42 | XR ---
EXAMINATION TYPE: XR chest 1V portable DATE OF EXAM: 12/18/2019 COMPARISON: Today HISTORY: Weakness respiratory distress. TECHNIQUE: FINDINGS: There is some patchy airspace infiltrate right lower lobe. There is no gross heart failure. There is coarsening of interstitial markings. There are chest leads. There is no obvious heart failu re. IMPRESSION: There is some right lower lobe infiltrate that is increased compared to exam 6 hours ago. No obvious heart failure.
[2019-12-19] MEDS: methylPREDNISolone SOD SUCCI 125 MG/2 ML VIAL IV SCH ×4 (00:30→18:06)
[2019-12-19] MEDS: INSULIN ASPART (NovoLOG) 100 UNIT/ML VIAL SQ SCH ×2 (00:31→07:43)
[2019-12-19] MEDS: CLEVIDIPINE BUTYRATE 25 MG in EMPTY BAG 1 BAG IV SCH ×4 (01:30→10:40)
[2019-12-19] MEDS ORDERED: NALOXONE 0.4 MG/ML 1 ML VIAL IV PRN (04:47)
[2019-12-19 04:58] LABS: Basophils % (A) 0 %; Eosinophils % (A) 0 %; HCT 35.1 % (39.0-53.0); HGB 11.4 gm/dL (13.0-17.5); Hypochromasia Slight; Lymphocytes # (A) 0.7 k/uL (1.0-4.8); Lymphocytes % (A) 4 %; MCH 34.2 pg (25.0-35.0); MCHC 32.3 g/dL (31.0-37.0); MCV 105.8 fL (80.0-100.0); Macrocytosis Moderate; Mean Platelet Volume 8.6; Monocytes # (A) 0.4 k/uL (0-1.0); Monocytes % (A) 2 %; Neutrophils # (A) 18.9 k/uL (1.3-7.7); Neutrophils % (A) 94 %; Platelet Count 377 k/uL (150-450); RBC 3.32 m/uL (4.30-5.90); RDW 14.1 % (11.5-15.5)
[2019-12-19] MEDS: MORPHINE SULFATE 4 MG/ML SYRINGE IVP PRN ×4 (05:05→21:59)
[2019-12-19 05:18] LABS: African American GFR (CKD) >90 (>60 ml/min/1.73 sqM); Anion Gap 5 mmol/L; Blood Urea Nitrogen 25 mg/dL (9-20); Calcium 8.4 mg/dL (8.4-10.2); Carbon Dioxide 23 mmol/L (22-30); Chloride 106 mmol/L (98-107); Glucose 316 mg/dL (74-99); Non-African American GFR(CKD) >90 (>60 ml/min/1.73 sqM); Sodium 134 mmol/L (137-145)
[2019-12-19 07:17] LABS: Glucose,Whole Blood 413 mg/dL (75-99)
--- NOTE | 2019-12-19 07:26 | XR ---
EXAMINATION TYPE: XR chest 1V portable DATE OF EXAM: 12/19/2019 HISTORY: Shortness of breath. COMPARISON: 12/18/2019 TECHNIQUE: Single view of the chest is submitted. FINDINGS: Demonstrated are scattered senescent parenchymal change. Right lower lobe infiltrate is unchanged. Correlate clinically and progress studies are advised. The heart is stable. Hilar and mediastinal structures are within normal limits. Degenerative changes are seen of the dorsal spine. IMPRESSION: 1. Right lower lobe infiltrate is unchanged. Correlate clinically and progress studies are advised.
[2019-12-19] MEDS ORDERED: THIAMINE 100 MG TAB PO SCH (07:30)
[2019-12-19] MEDS: IPRATROPIUM-ALBUTEROL 3 ML NEB INHALATION SCH ×4 (07:36→20:42)
[2019-12-19] MEDS ORDERED: INSULIN REGULAR BOLUS (FROM DRIP BAG) IV PRN (08:18)
[2019-12-19] MEDS: PANTOPRAZOLE 40 MG/10 ML VIAL IV SCH (09:04)
[2019-12-19] MEDS: lisinopriL 20 MG TAB PO SCH (09:04)
[2019-12-19] MEDS: HEPARIN SODIUM,PORCINE 5,000 UNIT/ML 1 ML VIAL SQ SCH ×2 (09:04→16:01)
[2019-12-19] MEDS: METOPROLOL TARTRATE 12.5 MG TAB PO SCH ×3 (09:04→21:29)
[2019-12-19] MEDS: DILTIAZEM CD 180 MG CAP.ER.24H PO SCH (09:05)
[2019-12-19] MEDS: amLODIPine 5 MG TAB PO SCH ×2 (09:05→21:29)
[2019-12-19 09:20] LABS: Glucose,Whole Blood 348 mg/dL (75-99)
[2019-12-19] MEDS: INSULIN REGULAR 100 UNIT in SODIUM CHLORIDE 0.9% 100 ML IV SCH (09:20)
[2019-12-19] MEDS: metroNIDAZOLE-NS PMX 500 MG in SALINE 1 100ML.BAG IVPB SCH ×2 (09:26→16:01)
[2019-12-19 09:53] LABS: Glucose,Whole Blood 365 mg/dL (75-99)
[2019-12-19 11:02] LABS: Glucose,Whole Blood 230 mg/dL (75-99)
[2019-12-19 11:54] LABS: Glucose,Whole Blood 158 mg/dL (75-99)
[2019-12-19] MEDS ORDERED: IPRATROPIUM-ALBUTEROL 3 ML NEB INHALATION SCH (12:00)
[2019-12-19] MEDS ORDERED: SODIUM CHLORIDE 0.9% 1,000 ML IV ONE (12:40)
--- NOTE | 2019-12-19 12:51 | P.CNPUL ---
History of Present Illness Consult date: 12/19/19 Reason for consult: dyspnea, COPD History of present illness: This is a 59-year-old male patient with known history of severe COPD with an FEV1 of 34% of predicted maintained on a cruise on outpatient basis. He also doesn't rescue inhaler and albuterol chest on a when necessary basis. The patient has obstructive sleep apnea maintained on CPAP therapy, and his other comorbidities include obesity, diabetes mellitus, hypertension and he has c hronic peripheral edema. The patient had a fall prior to him coming to the hospital. He landed on his left side of the chest. He has bruising over the left lateral wall of the abdomen and upper thigh. He did also have some blunt trauma to his chest. He started complaining of increased pain and for that reason he came into the hospital. His blood pressure was found to be quite elevated and he was also getting progressively more short of breath. Apparently the patient stopped taking his medication. No head trauma. No altered mentation. No nausea or vomiting. No abdominal pain. At a time of the arrival to the emergency department, the patient's blood pressure was in the order of 190/92. In any rate, he was admitted to the medical floor where he was found to be progressively more short of breath. He COPD exacerbated. A chest x-ray was done that showed also some right lower lobe pulmonary infiltrate without any obvious signs of congestion heart failure. There was some patchy airspace infiltrate in the right lung base. Also, there was some prominence of the left hilum and blunting of the right costophrenic angle. He got ultimately transferred to the intensive care unit. He was placed on Levophed drip which is currently running at 8 mg an hour. IV fluids were cut down to KVO. His blood pressure is under better control. He was placed on BiPAP throughout the night at a pressure of 14/7 cm of water with an FiO2 of 40%. The blood gases showed a pH of 7.33 with a pCO2 of 45 and a pO2 of 186 and this was done while him on the BiPAP with an FiO2 of 100%. This blood gas isfrom yesterday. He was given empiric antibiotic coverage with a combination of Rocephin and Levaquin. His blood work also showed abnormal LFTs including a bilirubin of 2.6 with an AST of 68 ALT of 65 and alkaline phosphatase of 158. Ultrasound of the liver was done and the patient was found to have hepatocellular disease, hepatic steatosis, hydropic gallbladder. Suspect some thickening yet there was no sonographic evidence of any Candelario's sign and the common bile duct was within normal limits and there was evidence hydronephrosis. Review of Systems Constitutional: Reports fatigue, Reports weight gain Eyes: denies as per HPI, denies blurred vision, denies bulging eye, denies decreased vision, denies diplopia, denies discharge, denies dry eye, denies irritation, denies itching, denies pain, denies photophobia, denies loss of peripheral vision, denies loss of vision, denies tunnel vision/blind spots Ears: deny: decreased hearing, ear discharge, earache, tinnitus Ears, nose, mouth and throat: Denies headache, Denies sore throat Breasts: absent: as per HPI, gynecomastia Cardiovascular: Reports decreased exercise tolerance, Reports leg edema Respiratory: Reports cough, Reports dyspnea, Reports sleep apnea, Reports wheezing Gastrointestinal: Reports as per HPI Genitourinary: Reports as per HPI Musculoskeletal: Reports as per HPI (On the left side of the body) Musculoskeletal: bilateral: ankle swelling, absent: ankle pain, ankle stiffness Integumentary: Reports as per HPI Neurological: Reports as per HPI Psychiatric: Reports as per HPI Endocrine: Reports as per HPI, Reports fatigue Hematologic/Lymphatic: Reports as per HPI Allergic/Immunologic: Reports as per HPI Past Medical History Past Medical History: COPD, Diabetes Mellitus, Hypertension, Sleep Apnea/CPAP/BIPAP Additional Past Medical History / Comment(s): Severe COPD, obstructive sleep apnea, diabetes mellitus type 2, hypertension, chronic anxiety, chronic lower extremity edema History of Any Multi-Drug Resistant Organisms: None Reported Past Surgical History: Orthopedic Surgery, Tonsillectomy Additional Past Surgical History / Comment(s): right leg and hip surgery Past Anesthesia/Blood Transfusion Reactions: No Reported Reaction Past Psychological History: No Psychological Hx Reported Smoking Status: Former smoker Past Alcohol Use History: None Reported Past Drug Use History: None Reported - Past Family History Father Family Medical History: Diabetes Mellitus Mother Family Medical History: COPD Medications and Allergies Home Medications Medication Instructions Recorded Confirmed Type ALPRAZolam [Xanax] 0.5 mg PO HS PRN 01/21/12/18/19 History Diltiazem HCl [Diltiazem 24Hr ER] 180 mg PO DAILY 01/21/17 12/18/19 History Fluticasone Propionate 1 spray EA NOSTRIL DAILY 01/21/17 12/18/19 History INSULIN ASPART (NovoLOG) [NovoLOG See Protocol SQ TID 01/21/17 12/18/19 History (formulary)] Lisinopril 40 mg PO DAILY 01/21/17 12/18/19 History Montelukast [Singulair] 10 mg PO DAILY 01/21/17 12/18/19 History metFORMIN HCL [Glucophage] 500 mg PO TID 01/21/17 12/18/19 History Albuterol Sulfate [Ventolin HFA] 2 puff INHALATION RT-Q6H PRN 12/18/19 12/18/19 History Furosemide [Lasix] 40 mg PO DAILY 12/18/19 12/18/19 History Ibuprofen 200 - 400 mg PO Q6H PRN 12/18/19 12/18/19 History Insulin Glargine,Hum.rec.anlog 45 unit SQ HS 12/18/19 12/18/19 History [Basaglar Kwikpen U-100] Umeclidinium [place] [Incruse 1 puff INHALATION RT-DAILY 12/18/19 12/18/19 History Ellipta] Allergies Allergy/AdvReac Type Severity Reaction Status Date / Time iodine Allergy Unknown Verified 12/18/19 17:51 Penicillins Allergy Unknown Verified 12/18/19 17:51 Sulfa (Sulfonamide Allergy Unknown Verified 12/18/19 17:51 Antibiotics) Physical Exam Vitals: Vital Signs Temp Pulse Pulse Resp BP BP Pulse Ox 12/19/19 12:30 101 H 24 122/65 92 L 12/19/19 12:15 94 20 130/65 94 L 12/19/19 12:00 98.1 F 98 23 126/71 96 12/19/19 11:56 98 12/19/19 11:46 96 12/19/19 11:45 93 20 120/67 92 L 12/19/19 11:30 95 21 125/63 92 L 12/19/19 11:15 93 21 132/70 92 L 12/19/19 11:00 94 20 135/65 92 L 12/19/19 10:45 101 H 21 137/60 93 L 12/19/19 10:30 95 19 142/64 95 12/19/19 10:15 101 H 22 149/86 97 12/19/19 10:00 101 H 23 149/73 92 L 12/19/19 09:45 98 21 167/87 93 L 12/19/19 09:30 110 H 21 195/80 96 12/19/19 09:15 121 H 24 172/86 95 12/19/19 09:00 116 H 24 175/85 95 12/19/19 08:45 115 H 24 174/70 97 12/19/19 08:30 116 H 19 170/92 96 12/19/19 08:15 97.6 F 115 H 24 171/79 96 12/19/19 08:00 114 H 23 167/77 98 12/19/19 07:47 112 H 12/19/19 07:45 112 H 22 162/75 99 12/19/19 07:36 113 H 12/19/19 07:30 112 H 21 169/82 96 12/19/19 07:15 115 H 26 H 164/78 96 12/19/19 07:00 113 H 21 157/83 97 12/19/19 06:45 112 H 21 166/73 96 12/19/19 06:30 113 H 22 166/77 97 12/19/19 06:15 113 H 23 157/72 97 12/19/19 06:00 113 H 21 165/94 97 12/19/19 05:45 113 H 22 160/80 95 12/19/19 05:30 111 H 22 162/82 98 12/19/19 05:15 115 H 22 186/87 99 12/19/19 05:00 116 H 27 H 172/84 99 12/19/19 04:45 120 H 25 H 163/79 100 12/19/19 04:30 121 H 24 148/78 99 12/19/19 04:15 112 H 23 156/77 98 12/19/19 04:00 97.9 F 113 H 23 163/79 98 12/19/19 03:45 114 H 26 H 161/75 98 12/19/19 03:30 115 H 24 164/78 98 12/19/19 03:15 116 H 23 156/72 99 12/19/19 03:00 115 H 25 H 133/72 98 12/19/19 02:45 115 H 24 152/77 98 12/19/19 02:30 115 H 24 140/66 99 12/19/19 02:15 98.7 F 117 H 24 179/78 99 12/19/19 00:52 124 H 44 H 168/93 99 12/19/19 00:39 110 H 180/77 12/19/19 00:24 122 H 170/87 12/19/19 00:16 146 H 193/101 12/19/19 00:04 132 H 42 H 211/99 99 12/18/19 23:58 134 H 42 H 174/147 88 L 12/18/19 22:00 119 H 25 H 172/96 94 L 12/18/19 21:46 98.5 F 131 H 24 184/81 94 L 12/18/19 20:30 129 H 26 H 180/76 94 L 12/18/19 20:22 128 H 23 192/93 94 L 12/18/19 20:08 125 H 22 12/18/19 20:00 125 H 20 12/18/19 19:00 129 H 20 190/92 94 L 12/18/19 17:30 129 H 22 163/76 94 L 12/18/19 17:04 129 H 22 180/69 94 L 12/18/19 16:42 122 H 20 12/18/19 16:30 121 H 170/79 12/18/19 16:29 121 H 22 194/94 92 L 12/18/19 14:56 98.5 F 128 H 24 203/93 92 L Intake and Output 12/18/19 12/19/19 12/19/19 22:59 06:59 14:59 Intake Total 174.001 445.100 Output Total 1375 205 Balance -1200.999 240.100 Intake: IV 40 300 .9 NS 40 150 cefTRIAXone 1 gm In 50 Sodium Chloride 0.9% 50 ml @ 100 mls/hr IVPB Q24HR [facility] Rx#:[id number] metroNIDAZOLE-NS PMX 500 100 mg In Saline 1 100ml.bag @ 100 mls/hr IVPB Q8HR [facility] Rx#:[id number] Intake, IV Titration 34.001 145.100 Amount Clevidipine Butyrate 25 34.001 89.467 mg In Empty Bag 1 bag @ 1 MG/HR 2 mls/hr IV .Q24H [facility] Rx#:[id number] Insulin Regular 100 unit 55.633 In Sodium Chloride 0.9% 100 ml @ Per Protocol IV .Q0M [facility] Rx#:[id number] Oral 100 Output: Urine 1375 205 Other: Voiding Method Indwelling Catheter Indwelling Catheter Weight 113.398 kg 116.3 kg The patient is in a mild degree of respiratory distress on a BiPAP at a pressure of 14/7 cm of water with an FiO2 of 40% Head exam was generally normal. There was no scleral icterus or corneal arcus. Mucous membranes were moist. Neck was supple and without jugular venous distension, thyromegaly, or carotid bruits. Carotids were easily palpable bilaterally. There was no adenopathy. The patient is a Mallampati class IV with significant crowding of the posterior pharynx. No goiter or neck masses. He is able to tolerate a full face BiPAP ma sk without any major difficulties. Lungs sounds are diminished and the patient has scattered expiratory wheezes throughout the lung dunn bilaterally. Cardiac exam revealed the PMI to be normally situated and sized. The rhythm was regular and no extrasystoles were noted during several minutes of auscultation. The first and second heart sounds were normal and physiologic splitting of the second heart sound was noted. There were no murmurs, rubs, clicks, or gallops. Abdomen is obese soft nontender. No direct tenderness no rebound tensile guarding. No tenderness in the right upper quadrant. Extremities revealed +1-2 pitting edema. Distal cyanosis or clubbing. Examination of the skin revealed no evidence of significant rashes, suspicious appearing nevi or other concerning lesions. Neurologically the patient is awake and alert. No focal neurological deficits. Results - Laboratory Findings CBC and BMP: 12/19/19 04:45 12/19/19 04:45 ABG ABG pH 7.33 (7.35-7.45) L 12/18/19 23:08 ABG pCO2 45 mmHg (35-45) 12/18/19 23:08 ABG pO2 186 mmHg (83-108) H 12/18/19 23:08 ABG O2 Saturation 99.4 % (94-97) H 12/18/19 23:08 PT/INR, D-dimer PT 10.0 sec (9.0-12.0) 12/18/19 16:01 INR 1.0 (<1.2) 12/18/19 16:01 Abnormal lab findings: Abnormal Labs 12/18/19 12/18/19 12/18/19 15:57 16:01 18:38 WBC 14.6 H RBC 3.31 L Hgb 11.3 L Hct 34.2 L MCV 103.4 H Neutrophils # 12.3 H Lymphocytes # ABG pH ABG pO2 ABG Total CO2 ABG O2 Saturation Sodium 135 L BUN Glucose 213 H POC Glucose (mg/dL) Total Bilirubin 2.6 H AST 68 H ALT 65 H Alkaline Phosphatase 158 H Albumin 3.1 L Urine Protein 3+ H Urine Glucose (UA) 2+ H Urine Ketones Trace H Urine Blood Small H Urine Bilirubin 1+ H Hyaline Casts 7 H Urine Mucus Rare H 12/18/19 12/18/19 12/19/19 23:03 23:08 04:45 WBC 20.0 H RBC 3.32 L Hgb 11.4 L Hct 35.1 L MCV 105.8 H Neutrophils # 18.9 H Lymphocytes # 0.7 L ABG pH 7.33 L ABG pO2 186 H ABG Total CO2 25 H ABG O2 Saturation 99.4 H Sodium BUN Glucose POC Glucose (mg/dL) 288 H Total Bilirubin AST ALT Alkaline Phosphatase Albumin Urine Protein Urine Glucose (UA) Urine Ketones Urine Blood Urine Bilirubin Hyaline Casts Urine Mucus 12/19/19 12/19/19 12/19/19 04:45 07:16 09:18 WBC RBC Hgb Hct MCV Neutrophils # Lymphocytes # ABG pH ABG pO2 ABG Total CO2 ABG O2 Saturation Sodium 134 L BUN 25 H Glucose 316 H POC Glucose (mg/dL) 413 H 348 H Total Bilirubin AST ALT Alkaline Phosphatase Albumin Urine Protein Urine Glucose (UA) Urine Ketones Urine Blood Urine Bilirubin Hyaline Casts Urine Mucus 12/19/19 12/19/19 12/19/19 09:52 11:01 11:52 WBC RBC Hgb Hct MCV Neutrophils # Lymphocytes # ABG pH ABG pO2 ABG Total CO2 ABG O2 Saturation Sodium BUN Glucose POC Glucose (mg/dL) 365 H 230 H 158 H Total Bilirubin AST ALT Alkaline Phosphatase Albumin Urine Protein Urine Glucose (UA) Urine Ketones Urine Blood Urine Bilirubin Hyaline Casts Urine Mucus - Diagnostic Findings Chest x-ray: image reviewed Assessment and Plan Plan: 1 acute COPD exacerbation with a suspected right lower lobe pneumonia, currently on a BiPAP at a pressure of 14/7 cm of water. Blood gas showed acute respiratory acidosis, acute hypoxic and hypercapnic respiratory failure secondary to above 2 severe COPD with an FEV1 of 34% of predicted at baseline 3 hypertensive urgency treated with Cleviprex drip currently running at 8 mg an hour 4 fall with blunt trauma to the left abdomen and chest area without any fractures 5 abnormal LFTs with suspected cholelithiasis/cholecystitis 6 obstructive sleep apnea maintained on CPAP therapy on outpatient basis 7 diabetes mellitus type 2, on insulin outpatient basis 8 history of hypertension 9 chronic anxiety 10 obesity with a BMI of 40.2. 11 leukocytosis, secondary to above Plan Continue BiPAP for respiratory support Start the patient on a combination of IV Rocephin and Flagyl Nebulized albuterol and Atrovent nebulized treatments around the clock IV Solu Medrol 60 mg every 6 hours Restart the patient a combination of Norvasc and Cardizem and Lopressor was added also by cardiology. We will going to gradually wean off the clevidipine drip. Initiate insulin drip for blood sugar control Surgical consultation regarding his gallbladder findings Check an echocardiogram to evaluate his LV function Awaiting coronavirus Covid 19 nasal swab Check pro calcitonin level We'll continue to follow Time with Patient: Greater than 30
--- NOTE | 2019-12-19 12:56 | CONS ---
CONSULTATION Sammy Bates is a gentleman with a history of is hypertension, COPD, who came into the hospital after having fallen. It is unclear how he fell or the circumstances, but the insists he did not lose consciousness. He fell on his left side, hurt himself and had some discomfort on the left side of the chest. I was asked to see him for chest pain. However, after he arrived here, he was hypertensive and was quite short of breath and tachycardic, placed on a BiPAP and his breathing improved. Heart rate came down. He feels better. However, he also complained of some abdominal discomfort. There is a question of cholecystitis with ultrasound of the gallbladder suggesting the same. The patient is resting comfortably. Denies chest pain, but is tachycardic. We do not know the status of his LV function. He has of a history of alcoholism and smoking in the past which he insists he has quit a few years ago. He has type 2 diabetes, hypertension, and history of alcoholism in the past. At the time of my evaluation, he seems comfortable, but is tachycardic, hemodynamically stable. Blood pressure is somewhat elevated. PAST MEDICAL HISTORY: 1. Type 2 diabetes. 2. Hypertension. 3. History of alcoholism and smoking in the past, which he has quit. MEDICATIONS: At home include insulin, metformin, lisinopril, Lasix 40 mg daily, diltiazem ASR 180 mg daily, and he takes the inhalers. ALLERGIES: He is allergic to IODINE, PENICILLIN and SULFA. PHYSICAL EXAMINATION: On examination, blood pressure is 150/70, pulse rate is 108 per minute. HEENT: Unremarkable. Fundus was not examined by me. NECK: Supple. There is JVD. There is no carotid bruit. HEART: Heart exam reveals S1, S2. No significant murmurs. LUNGS: Lungs reveal diminished air entry. ABDOMEN: Distended. Cannot appreciate organomegaly. Cannot appreciate organomegaly. There is mild right upper quadrant tenderness. EXTREMITIES: Lower extremities reveal diminished pulses. 1+ edema. CENTRAL NERVOUS SYSTEM: Grossly no focal deficits. IMPRESSION: 1. Sinus tachycardia of unclear etiology, rule out congestive heart failure as a possibility, or sepsis. 2. Possible cholecystitis. 3. History of fall, unsteady on his feet. No syncope. 4. Hypertension. 5. History of alcoholism and smoking in the past. 6. Type 2 diabetes mellitus. RECOMMENDATIONS: I am recommending that we will obtain an echocardiogram to assess LV function. Initiate him on Lopressor 12.5 mg t.i.d., amlodipine 5 mg b.i.d. Pursue septic workup. Based on clinical course, I will make further recommendations. The patient's chest pain appears to be purely musculoskeletal and his initial troponin was remarkable. Discussed my thoughts in detail with the patient. Thank you very much for the consult. DANA / DEMARCO: [id number] / GENTRY
[2019-12-19] MEDS: SODIUM CHLORIDE 0.9% 1,000 ML IV SCH (12:58)
--- NOTE | 2019-12-19 12:58 | P.GSCN ---
History of Present Illness Consult date: 12/19/19 History of present illness: 59-year-old male presented to the emergency department with complaints of generally not feeling well. He states that he did have a fall yesterday and landed on his chest. Since that time he has had some chest pain and abdominal pain. On workup in the emergency department patient was noted to have significant hypertension and tachycardia. He is noted to have a history of COPD, diabetes mellitus and hypertension. Due to complaint of abdominal pain, patient did have an ultrasound of the abdomen. The ultrasound of the abdomen revealed hydropic gallbladder that was questionable for cholecystitis. Due to his multiple medical issues, he was admitted to ICU and is under ICU care at this time. He is currently on BiPAP. Review of Systems All systems: negative Past Medical History Past Medical History: Asthma, COPD, Diabetes Mellitus, Hypertension, Sleep Apnea/CPAP/BIPAP Additional Past Medical History / Comment(s): edema, type 1 diabetic History of Any Multi-Drug Resistant Organisms: None Reported Past Surgical History: Orthopedic Surgery, Tonsillectomy Additional Past Surgical History / Comment(s): right leg and hip surgery Past Anesthesia/Blood Transfusion Reactions: No Reported Reaction Past Psychological History: No Psychological Hx Reported Smoking Status: Former smoker Past Alcohol Use History: None Reported Past Drug Use History: None Reported - Past Family History Father Family Medical History: Diabetes Mellitus Mother Family Medical History: COPD Medications and Allergies Home Medications Medication Instructions Recorded Confirmed Type ALPRAZolam [Xanax] 0.5 mg PO HS PRN 01/21/17 12/18/19 History Diltiazem HCl [Diltiazem 24Hr ER] 180 mg PO DAILY 01/21/17 12/18/19 History Fluticasone Propionate 1 spray EA NOSTRIL DAILY 01/21/17 12/18/19 History INSULIN ASPART (NovoLOG) [NovoLOG See Protocol SQ TID 01/21/17 12/18/19 History (formulary)] Lisinopril 40 mg PO DAILY 01/21/17 12/18/19 History Montelukast [Singulair] 10 mg PO DAILY 01/21/17 12/18/19 History metFORMIN HCL [Glucophage] 500 mg PO TID 01/21/17 12/18/19 History Albuterol Sulfate [Ventolin HFA] 2 puff INHALATION RT-Q6H PRN 12/18/19 12/18/19 History Furosemide [Lasix] 40 mg PO DAILY 12/18/19 12/18/19 History Ibuprofen 200 - 400 mg PO Q6H PRN 12/18/19 12/18/19 History Insulin Glargine,Hum.rec.anlog 45 unit SQ HS 12/18/19 12/18/19 History [Basaglar Kwikpen U-100] Umeclidinium [place] [Incruse 1 puff INHALATION RT-DAILY 12/18/19 12/18/19 History Ellipta] Allergies Allergy/AdvReac Type Severity Reaction Status Date / Time iodine Allergy Unknown Verified 12/18/19 17:51 Penicillins Allergy Unknown Verified 12/18/19 17:51 Sulfa (Sulfonamide Allergy Unknown Verified 12/18/19 17:51 Antibiotics) Surgical - Exam Osteopathic Statement: *. No significant issues noted on an osteopathic structural exam other than those noted in the History and Physical/Consult. Vital Signs Temp Pulse Resp BP Pulse Ox 98.5 F 128 H 24 203/93 92 L 12/18/19 14:56 12/18/19 14:56 12/18/19 14:56 12/18/19 14:56 12/18/19 14:56 - General well nourished, no distress - Eyes PERRL, normal ocular movement - ENT normal nares, no hearing loss - Neck trachea midline - Respiratory Currently on BiPAP - Abdomen Soft, nontender, nondistended, no rebound, no guarding - Neurologic normal coordination, normal sensation - Psychiatric oriented to time, oriented to person, oriented to place Results - Labs 12/19/19 04:45 12/19/19 04:45 Abnormal Lab Results - Last 24 Hours (Table) 12/18/19 12/18/19 12/18/19 Range/Units 15:57 16:01 18:38 WBC 14.6 H (3.8-10.6) k/uL RBC 3.31 L (4.30-5.90) m/uL Hgb 11.3 L (13.0-17.5) gm/dL Hct 34.2 L (39.0-53.0) % MCV 103.4 H (80.0-100.0) fL Neutrophils # 12.3 H (1.3-7.7) k/uL Lymphocytes # (1.0-4.8) k/uL ABG pH (7.35-7.45) ABG pO2 (83-108) mmHg ABG Total CO2 (19-24) mmol/L ABG O2 Saturation (94-97) % Sodium 135 L (137-145) mmol/L BUN (9-20) mg/dL Glucose 213 H (74-99) mg/dL POC Glucose (mg/dL) (75-99) mg/dL Total Bilirubin 2.6 H (0.2-1.3) mg/dL AST 68 H (17-59) U/L ALT 65 H (4-49) U/L Alkaline Phosphatase 158 H (38-126) U/L Albumin 3.1 L (3.5-5.0) g/dL Urine Protein 3+ H (Negative) Urine Glucose (UA) 2+ H (Negative) Urine Ketones Trace H (Negative) Urine Blood Small H (Negative) Urine Bilirubin 1+ H (Negative) Hyaline Casts 7 H (0-2) /lpf Urine Mucus Rare H (None) /hpf 12/18/19 12/18/19 12/19/19 Range/Units 23:03 23:08 04:45 WBC 20.0 H (3.8-10.6) k/uL RBC 3.32 L (4.30-5.90) m/uL Hgb 11.4 L (13.0-17.5) gm/dL Hct 35.1 L (39.0-53.0) % MCV 105.8 H (80.0-100.0) fL Neutrophils # 18.9 H (1.3-7.7) k/uL Lymphocytes # 0.7 L (1.0-4.8) k/uL ABG pH 7.33 L (7.35-7.45) ABG pO2 186 H (83-108) mmHg ABG Total CO2 25 H (19-24) mmol/L ABG O2 Saturation 99.4 H (94-97) % Sodium (137-145) mmol/L BUN (9-20) mg/dL Glucose (74-99) mg/dL POC Glucose (mg/dL) 288 H (75-99) mg/dL Total Bilirubin (0.2-1.3) mg/dL AST (17-59) U/L ALT (4-49) U/L Alkaline Phosphatase (38-126) U/L Albumin (3.5-5.0) g/dL Urine Protein (Negative) Urine Glucose (UA) (Negative) Urine Ketones (Negative) Urine Blood (Negative) Urine Bilirubin (Negative) Hyaline Casts (0-2) /lpf Urine Mucus (None) /hpf 12/19/19 12/19/19 12/19/19 Range/Units 04:45 07:16 09:18 WBC (3.8-10.6) k/uL RBC (4.30-5.90) m/uL Hgb (13.0-17.5) gm/dL Hct (39.0-53.0) % MCV (80.0-100.0) fL Neutrophils # (1.3-7.7) k/uL Lymphocytes # (1.0-4.8) k/uL ABG pH (7.35-7.45) ABG pO2 (83-108) mmHg ABG Total CO2 (19-24) mmol/L ABG O2 Saturation (94-97) % Sodium 134 L (137-145) mmol/L BUN 25 H (9-20) mg/dL Glucose 316 H (74-99) mg/dL POC Glucose (mg/dL) 413 H 348 H (75-99) mg/dL Total Bilirubin (0.2-1.3) mg/dL AST (17-59) U/L ALT (4-49) U/L Alkaline Phosphatase (38-126) U/L Albumin (3.5-5.0) g/dL Urine Protein (Negative) Urine Glucose (UA) (Negative) Urine Ketones (Negative) Urine Blood (Negative) Urine Bilirubin (Negative) Hyaline Casts (0-2) /lpf Urine Mucus (None) /hpf 12/19/19 12/19/19 12/19/19 Range/Units 09:52 11:01 11:52 WBC (3.8-10.6) k/uL RBC (4.30-5.90) m/uL Hgb (13.0-17.5) gm/dL Hct (39.0-53.0) % MCV (80.0-100.0) fL Neutrophils # (1.3-7.7) k/uL Lymphocytes # (1.0-4.8) k/uL ABG pH (7.35-7.45) ABG pO2 (83-108) mmHg ABG Total CO2 (19-24) mmol/L ABG O2 Saturation (94-97) % Sodium (137-145) mmol/L BUN (9-20) mg/dL Glucose (74-99) mg/dL POC Glucose (mg/dL) 365 H 230 H 158 H (75-99) mg/dL Total Bilirubin (0.2-1.3) mg/dL AST (17-59) U/L ALT (4-49) U/L Alkaline Phosphatase (38-126) U/L Albumin (3.5-5.0) g/dL Urine Protein (Negative) Urine Glucose (UA) (Negative) Urine Ketones (Negative) Urine Blood (Negative) Urine Bilirubin (Negative) Hyaline Casts (0-2) /lpf Urine Mucus (None) /hpf Diabetes panel 12/18/19 12/19/19 Range/Units 16:01 04:45 Sodium 135 L 134 L (137-145) mmol/L Potassium 4.7 5.0 (3.5-5.1) mmol/L Chloride 107 106 (98-107) mmol/L Carbon Dioxide 26 23 (22-30) mmol/L BUN 20 25 H (9-20) mg/dL Creatinine 0.69 0.88 (0.66-1.25) mg/dL Glucose 213 H 316 H (74-99) mg/dL Calcium 8.7 8.4 (8.4-10.2) mg/dL AST 68 H (17-59) U/L ALT 65 H (4-49) U/L Alkaline Phosphatase 158 H (38-126) U/L Total Protein 6.7 (6.3-8.2) g/dL Albumin 3.1 L (3.5-5.0) g/dL Thyroid panel 12/18/19 Range/Units 16:01 TSH 1.680 (0.465-4.680) mIU/L Calcium panel 12/18/19 12/19/19 Range/Units 16:01 04:45 Calcium 8.7 8.4 (8.4-10.2) mg/dL Phosphorus 3.5 (2.5-4.5) mg/dL Albumin 3.1 L (3.5-5.0) g/dL Pituitary panel 12/18/19 12/19/19 Range/Units 16:01 04:45 Sodium 135 L 134 L (137-145) mmol/L Potassium 4.7 5.0 (3.5-5.1) mmol/L Chloride 107 106 (98-107) mmol/L Carbon Dioxide 26 23 (22-30) mmol/L BUN 20 25 H (9-20) mg/dL Creatinine 0.69 0.88 (0.66-1.25) mg/dL Glucose 213 H 316 H (74-99) mg/dL Calcium 8.7 8.4 (8.4-10.2) mg/dL TSH 1.680 (0.465-4.680) mIU/L Adrenal panel 12/18/19 12/19/19 Range/Units 16:01 04:45 Sodium 135 L 134 L (137-145) mmol/L Potassium 4.7 5.0 (3.5-5.1) mmol/L Chloride 107 106 (98-107) mmol/L Carbon Dioxide 26 23 (22-30) mmol/L BUN 20 25 H (9-20) mg/dL Creatinine 0.69 0.88 (0.66-1.25) mg/dL Glucose 213 H 316 H (74-99) mg/dL Calcium 8.7 8.4 (8.4-10.2) mg/dL Total Bilirubin 2.6 H (0.2-1.3) mg/dL AST 68 H (17-59) U/L ALT 65 H (4-49) U/L Alkaline Phosphatase 158 H (38-126) U/L Total Protein 6.7 (6.3-8.2) g/dL Albumin 3.1 L (3.5-5.0) g/dL - Imaging US - abdomen: report reviewed, image reviewed (Hydropic gallbladder) Assessment and Plan Plan: 59-year-old male with multiple medical comorbidities that presents with hypertensive emergency and COPD exacerbation with hydropic gallbladder - On arrival to the emergency department, patient was noted to have elevated bilirubin at 2.6 along with elevated transaminases and alkaline phosphatase. Currently, he is not having any abdominal pain and denies any pain on palpation or percussion. Ultrasound also did not reveal any significant dilation of the common bile duct or ductal system. Due to these findings and laboratory abnormalities, we will place a consult for gastroenterology for further evaluation for possible choledocholithiasis or hepatobiliary disease. Currently, the patient does not have any significant biliary symptoms. He also is on BiPAP support. He may need further workup for evaluation of biliary di sease when he is more medically stable. We'll continue to follow and make recommendations based on his clinical picture.
[2019-12-19 13:02] LABS: Glucose,Whole Blood 104 mg/dL (75-99)
[2019-12-19 13:50] LABS: Glucose,Whole Blood 111 mg/dL (75-99)
[2019-12-19 15:05] LABS: Glucose,Whole Blood 157 mg/dL (75-99)
[2019-12-19] MEDS: HYDROmorphone 1 MG/ML 1 ML SYRINGE IVP PRN ×2 (15:08→20:17)
[2019-12-19 16:42] LABS: Glucose,Whole Blood 148 mg/dL (75-99)
[2019-12-19] MEDS: HYDROmorphone 0.5 MG/0.5 ML SYRINGE IVP PRN (17:18)
[2019-12-19 18:03] LABS: Glucose,Whole Blood 150 mg/dL (75-99)
[2019-12-19 19:04] LABS: Glucose,Whole Blood 133 mg/dL (75-99)
--- NOTE | 2019-12-19 20:15 | P.CONS ---
History of Present Illness - Reason for Consult Consult date: 12/19/19 Elevated bilirubin, rule out choledocholithiasis Requesting physician: Mirian Mcmahon - Chief Complaint Pain after mechanical fall - History of Present Illness 59-year-old male with a medical history significant for severe COPD, obesity, diabetes mellitus, hypertension, peripheral edema and a prior history of hepatitis C previously treated with antiviral therapy presented to the hospital due to pain in his side and not feeling well after a mechanical fall. The patie nt reports falling while at home with blunt trauma to his chest. Currently he has significant amount of erythema and bruising on his left chest and abdomen. He is being seen in the intensive care unit where he is being managed by the staff reporter service and is currently on BiPAP therapy. Patient was noted to have elevated liver enzymes on presentation predominantly in a cholestatic pattern with a total bilirubin of 2.6, alkaline phosphatase 158, AST 68 and ALT 65. Ultrasound the abdomen showed a hydropic gallbladder with a 0.5 cm CBD and a heterogeneous liver. On questioning the patient reports that he previously been a heavy drinker approximately 10 years ago for a 5 year. During which she was drinking approximately a 6 pack of alcohol daily. He however denies any epigastric abdominal pain or right upper quadrant abdominal pain. No history of gallbladder dysfunction. No problems with bowel movements including constipation, diarrhea or blood per rectum. No nausea or vomiting reported. No prior endoscopic evaluation with either EGD or colonoscopy. Review of Systems REVIEW OF SYSTEMS: CONSTITUTIONAL: Denies any fevers, chills, weight change or fatigue. CARDIOVASCULAR: Denies any palpitations, high or low blood pressure but does report left chest pain status post mechanical fall. RESPIRATORY: Denies any hemoptysis or cough but does have some shortness of breath.. GENITOURINARY: No dysuria or hematuria. MUSCULOSKELETAL: No weakness reported. SKIN: Denies any new rashes or lesions, jaundice or pallor. PSYCHIATRIC: Denies any depression or anxiety. NEUROLOGY: Denies headache, denies any new focal deficits. EARS/NOSE/THROAT: No recent hearing change, congestion, nasal discharge or sore throat. EYES: No pain in eyes, discharge or change in vision. GASTROINTESTINAL: As per HPI. Past Medical History Past Medical History: Asthma, COPD, Diabetes Mellitus, Hypertension, Sleep Apnea/CPAP/BIPAP Additional Past Medical History / Comment(s): edema, type 1 diabetic History of Any Multi-Drug Resistant Organisms: None Reported Past Surgical History: Orthopedic Surgery, Tonsillectomy Additional Past Surgical History / Comment(s): right leg and hip surgery Past Anesthesia/Blood Transfusion Reactions: No Reported Reaction Past Psychological History: No Psychological Hx Reported Smoking Status: Former smoker Past Alcohol Use History: None Reported Past Drug Use History: None Reported - Past Family History Father Family Medical History: Diabetes Mellitus Mother Family Medical History: COPD Medications and Allergies Home Medications Medication Instructions Recorded Confirmed Type ALPRAZolam [Xanax] 0.5 mg PO HS PRN 01/21/17 12/18/19 History Diltiazem HCl [Diltiazem 24Hr ER] 180 mg PO DAILY 01/21/17 12/18/19 History Fluticasone Propionate 1 spray EA NOSTRIL DAILY 01/21/17 12/18/19 History INSULIN ASPART (NovoLOG) [NovoLOG See Protocol SQ TID 01/21/17 12/18/19 History (formulary)] Lisinopril 40 mg PO DAILY 01/21/17 12/18/19 History Montelukast [Singulair] 10 mg PO DAILY 01/21/17 12/18/19 History metFORMIN HCL [Glucophage] 500 mg PO TID 01/21/17 12/18/19 History Albuterol Sulfate [Ventolin HFA] 2 puff INHALATION RT-Q6H PRN 12/18/19 12/18/19 History Furosemide [Lasix] 40 mg PO DAILY 12/18/19 12/18/19 History Ibuprofen 200 - 400 mg PO Q6H PRN 12/18/19 12/18/19 History Insulin Glargine,Hum.rec.anlog 45 unit SQ HS 12/18/19 12/18/19 History [Basaglar Kwikpen U-100] Umeclidinium [place] [Incruse 1 puff INHALATION RT-DAILY 12/18/19 12/18/19 History Ellipta] Allergies Allergy/AdvReac Type Severity Reaction Status Date / Time iodine Allergy Unknown Verified 12/18/19 17:51 Penicillins Allergy Unknown Verified 12/18/19 17:51 Sulfa (Sulfonamide Allergy Unknown Verified 12/18/19 17:51 Antibiotics) Physical Exam Vitals: Vital Signs Temp Pulse Pulse Resp BP BP Pulse Ox 12/19/19 14:00 99 24 149/73 94 L 12/19/19 13:45 100 23 135/68 96 12/19/19 13:30 96 20 144/74 95 12/19/19 13:15 100 23 135/66 97 12/19/19 13:00 98 21 123/60 92 L 12/19/19 12:45 95 19 133/60 92 L 12/19/19 12:30 101 H 24 122/65 92 L 12/19/19 12:15 94 20 130/65 94 L 12/19/19 12:00 98.1 F 98 23 126/71 96 12/19/19 11:56 98 12/19/19 11:46 96 12/19/19 11:45 93 20 120/67 92 L 12/19/19 11:30 95 21 125/63 92 L 12/19/19 11:15 93 21 132/70 92 L 12/19/19 11:00 94 20 135/65 92 L 12/19/19 10:45 101 H 21 137/60 93 L 12/19/19 10:30 95 19 142/64 95 12/19/19 10:15 101 H 22 149/86 97 12/19/19 10:00 101 H 23 149/73 92 L 12/19/19 09:45 98 21 167/87 93 L 12/19/19 09:30 110 H 21 195/80 96 12/19/19 09:15 121 H 24 172/86 95 12/19/19 09:00 116 H 24 175/85 95 12/19/19 08:45 115 H 24 174/70 97 12/19/19 08:30 116 H 19 170/92 96 12/19/19 08:15 97.6 F 115 H 24 171/79 96 12/19/19 08:00 114 H 23 167/77 98 12/19/19 07:47 112 H 12/19/19 07:45 112 H 22 162/75 99 12/19/19 07:36 113 H 12/19/19 07:30 112 H 21 169/82 96 12/19/19 07:15 115 H 26 H 164/78 96 12/19/19 07:00 113 H 21 157/83 97 12/19/19 06:45 112 H 21 166/73 96 12/19/19 06:30 113 H 22 166/77 97 12/19/19 06:15 113 H 23 157/72 97 12/19/19 06:00 113 H 21 165/94 97 12/19/19 05:45 113 H 22 160/80 95 12/19/19 05:30 111 H 22 162/82 98 12/19/19 05:15 115 H 22 186/87 99 12/19/19 05:00 116 H 27 H 172/84 99 12/19/19 04:45 120 H 25 H 163/79 100 12/19/19 04:30 121 H 24 148/78 99 12/19/19 04:15 112 H 23 156/77 98 12/19/19 04:00 97.9 F 113 H 23 163/79 98 12/19/19 03:45 114 H 26 H 161/75 98 12/19/19 03:30 115 H 24 164/78 98 12/19/19 03:15 116 H 23 156/72 99 12/19/19 03:00 115 H 25 H 133/72 98 12/19/19 02:45 115 H 24 152/77 98 12/19/19 02:30 115 H 24 140/66 99 12/19/19 02:15 98.7 F 117 H 24 179/78 99 12/19/19 00:52 124 H 44 H 168/93 99 12/19/19 00:39 110 H 180/77 12/19/19 00:24 122 H 170/87 12/19/19 00:16 146 H 193/101 12/19/19 00:04 132 H 42 H 211/99 99 12/18/19 23:58 134 H 42 H 174/147 88 L 12/18/19 22:00 119 H 25 H 172/96 94 L 12/18/19 21:46 98.5 F 131 H 24 184/81 94 L 12/18/19 20:30 129 H 26 H 180/76 94 L 12/18/19 20:22 128 H 23 192/93 94 L 12/18/19 20:08 125 H 22 12/18/19 20:00 125 H 20 12/18/19 19:00 129 H 20 190/92 94 L 12/18/19 17:30 129 H 22 163/76 94 L 12/18/19 17:04 129 H 22 180/69 94 L 12/18/19 16:42 122 H 20 12/18/19 16:30 121 H 170/79 12/18/19 16:29 121 H 22 194/94 92 L 12/18/19 14:56 98.5 F 128 H 24 203/93 92 L Intake and Output 12/18/19 12/19/19 12/19/19 22:59 06:59 14:59 Intake Total 997.657 1202.567 Output Total 1375 245 Balance -8376.417 2962.567 Intake: IV 40 1340 .9 NS 40 190 Sodium Chloride 0.9% 1, 1000 000 ml @ 999 mls/hr IV . Q1H1M ONE Rx#:[id number] cefTRIAXone 1 gm In 50 Sodium Chloride 0.9% 50 ml @ 100 mls/hr IVPB Q24HR [facility] Rx#:[id number] metroNIDAZOLE-NS PMX 500 100 mg In Saline 1 100ml.bag @ 100 mls/hr IVPB Q8HR [facility] Rx#:[id number] Intake, IV Titration 34.001 152.567 Amount Clevidipine Butyrate 25 34.001 90.134 mg In Empty Bag 1 bag @ 1 MG/HR 2 mls/hr IV .Q24H [facility] Rx#:[id number] Insulin Regular 100 unit 62.433 In Sodium Chloride 0.9% 100 ml @ Per Protocol IV .Q0M [facility] Rx#:[id number] Oral 100 Output: Urine 1375 245 Other: Voiding Method Indwelling Catheter Indwelling Catheter Weight 113.398 kg 116.3 kg On physical examination, patient appears comfortable in no apparent distress. HEAD: Normocephalic, atraumatic. EYES: No scleral icterus. No conjunctival injection. MOUTH: No lesions, tongue midline. NECK: Trachea midline, no gross abnormalities. CHEST: Decreased air entry in all lung dunn. HEART: Regular rate and rhythm. ABDOMEN: Soft, obese, tender to palpation in the left upper and lower quadrant where significant bruising is noted. Bowel sounds are positive. No organomegaly. No guarding or rigidity. EXTREMITIES: No pedal edema. SKIN: No rashes, no jaundice. NEUROLOGIC: Alert and oriented x3. No focal deficits. Results CBC & Chem 7: 12/19/19 04:45 12/19/19 04:45 Labs: Abnormal Lab Results - Last 24 Hours (Table) 12/18/19 12/18/19 12/18/19 Range/Units 15:57 16:01 18:38 WBC 14.6 H (3.8-10.6) k/uL RBC 3.31 L (4.30-5.90) m/uL Hgb 11.3 L (13.0-17.5) gm/dL Hct 34.2 L (39.0-53.0) % MCV 103.4 H (80.0-100.0) fL Neutrophils # 12.3 H (1.3-7.7) k/uL Lymphocytes # (1.0-4.8) k/uL ABG pH (7.35-7.45) ABG pO2 (83-108) mmHg ABG Total CO2 (19-24) mmol/L ABG O2 Saturation (94-97) % Sodium 135 L (137-145) mmol/L BUN (9-20) mg/dL Glucose 213 H (74-99) mg/dL POC Glucose (mg/dL) (75-99) mg/dL Total Bilirubin 2.6 H (0.2-1.3) mg/dL AST 68 H (17-59) U/L ALT 65 H (4-49) U/L Alkaline Phosphatase 158 H (38-126) U/L Albumin 3.1 L (3.5-5.0) g/dL Urine Protein 3+ H (Negative) Urine Glucose (UA) 2+ H (Negative) Urine Ketones Trace H (Negative) Urine Blood Small H (Negative) Urine Bilirubin 1+ H (Negative) Hyaline Casts 7 H (0-2) /lpf Urine Mucus Rare H (None) /hpf 12/18/19 12/18/19 12/19/19 Range/Units 23:03 23:08 04:45 WBC 20.0 H (3.8-10.6) k/uL RBC 3.32 L (4.30-5.90) m/uL Hgb 11.4 L (13.0-17.5) gm/dL Hct 35.1 L (39.0-53.0) % MCV 105.8 H (80.0-100.0) fL Neutrophils # 18.9 H (1.3-7.7) k/uL Lymphocytes # 0.7 L (1.0-4.8) k/uL ABG pH 7.33 L (7.35-7.45) ABG pO2 186 H (83-108) mmHg ABG Total CO2 25 H (19-24) mmol/L ABG O2 Saturation 99.4 H (94-97) % Sodium (137-145) mmol/L BUN (9-20) mg/dL Glucose (74-99) mg/dL POC Glucose (mg/dL) 288 H (75-99) mg/dL Total Bilirubin (0.2-1.3) mg/dL AST (17-59) U/L ALT (4-49) U/L Alkaline Phosphatase (38-126) U/L Albumin (3.5-5.0) g/dL Urine Protein (Negative) Urine Glucose (UA) (Negative) Urine Ketones (Negative) Urine Blood (Negative) Urine Bilirubin (Negative) Hyaline Casts (0-2) /lpf Urine Mucus (None) /hpf 12/19/19 12/19/19 12/19/19 Range/Units 04:45 07:16 09:18 WBC (3.8-10.6) k/uL RBC (4.30-5.90) m/uL Hgb (13.0-17.5) gm/dL Hct (39.0-53.0) % MCV (80.0-100.0) fL Neutrophils # (1.3-7.7) k/uL Lymphocytes # (1.0-4.8) k/uL ABG pH (7.35-7.45) ABG pO2 (83-108) mmHg ABG Total CO2 (19-24) mmol/L ABG O2 Saturation (94-97) % Sodium 134 L (137-145) mmol/L BUN 25 H (9-20) mg/dL Glucose 316 H (74-99) mg/dL POC Glucose (mg/dL) 413 H 348 H (75-99) mg/dL Total Bilirubin (0.2-1.3) mg/dL AST (17-59) U/L ALT (4-49) U/L Alkaline Phosphatase (38-126) U/L Albumin (3.5-5.0) g/dL Urine Protein (Negative) Urine Glucose (UA) (Negative) Urine Ketones (Negative) Urine Blood (Negative) Urine Bilirubin (Negative) Hyaline Casts (0-2) /lpf Urine Mucus (None) /hpf 12/19/19 12/19/19 12/19/19 Range/Units 09:52 11:01 11:52 WBC (3.8-10.6) k/uL RBC (4.30-5.90) m/uL Hgb (13.0-17.5) gm/dL Hct (39.0-53.0) % MCV (80.0-100.0) fL Neutrophils # (1.3-7.7) k/uL Lymphocytes # (1.0-4.8) k/uL ABG pH (7.35-7.45) ABG pO2 (83-108) mmHg ABG Total CO2 (19-24) mmol/L ABG O2 Saturation (94-97) % Sodium (137-145) mmol/L BUN (9-20) mg/dL Glucose (74-99) mg/dL POC Glucose (mg/dL) 365 H 230 H 158 H (75-99) mg/dL Total Bilirubin (0.2-1.3) mg/dL AST (17-59) U/L ALT (4-49) U/L Alkaline Phosphatase (38-126) U/L Albumin (3.5-5.0) g/dL Urine Protein (Negative) Urine Glucose (UA) (Negative) Urine Ketones (Negative) Urine Blood (Negative) Urine Bilirubin (Negative) Hyaline Casts (0-2) /lpf Urine Mucus (None) /hpf 12/19/19 12/19/19 Range/Units 13:01 13:48 WBC (3.8-10.6) k/uL RBC (4.30-5.90) m/uL Hgb (13.0-17.5) gm/dL Hct (39.0-53.0) % MCV (80.0-100.0) fL Neutrophils # (1.3-7.7) k/uL Lymphocytes # (1.0-4.8) k/uL ABG pH (7.35-7.45) ABG pO2 (83-108) mmHg ABG Total CO2 (19-24) mmol/L ABG O2 Saturation (94-97) % Sodium (137-145) mmol/L BUN (9-20) mg/dL Glucose (74-99) mg/dL POC Glucose (mg/dL) 104 H 111 H (75-99) mg/dL Total Bilirubin (0.2-1.3) mg/dL AST (17-59) U/L ALT (4-49) U/L Alkaline Phosphatase (38-126) U/L Albumin (3.5-5.0) g/dL Urine Protein (Negative) Urine Glucose (UA) (Negative) Urine Ketones (Negative) Urine Blood (Negative) Urine Bilirubin (Negative) Hyaline Casts (0-2) /lpf Urine Mucus (None) /hpf US - abdomen: report reviewed (Ultrasound the abdomen showed a hydropic gallbladder with a 0.5 cm CBD and a heterogeneous liver.) Assessment and Plan (1) Elevated liver enzymes Narrative/Plan: 59-year-old male with multiple medical comorbidities including COPD who presented to the hospital after a mechanical fall complaining of pain in his left abdomen and chest with significant ecchymosis and bruising noted. Patient was noted to have elevated liver enzymes on presentation with total bilirubin 2.6, alkaline phosphatase 158, AST 68 and ALT 65. Ultrasound of the abdomen performed in evaluation showed a hydropic gallbladder with a 0.5 cm CBD. On questioning the patient has a history of hepatitis C which she reports was treated with antiviral therapy successfully in [place]. He also reports a previous history of heavy alcohol consumption for 5 year. During which she was drinking a sixpack a day. Elevated liver enzymes are likely multifactorial and may be secondary to hemolysis in the setting of significant bruising and ecchymosis, patient likely also has underlying fibrosis in the setting of prior heavy alcohol use and hepatitis C, ultrasound of the abdomen does not suggest choledocholithiasis with a common bile duct which is normal for the patient's age. Current Visit: Yes Status: Acute Code(s): R74.8 - ABNORMAL LEVELS OF OTHER SERUM ENZYMES SNOMED Code(s): 588748292 (2) History of hepatitis C Current Visit: Yes Status: Acute Code(s): Z86.19 - PERSONAL HISTORY OF OTHER INFECTIOUS AND PARASITIC DISEASES SNOMED Code(s): 99868132840270 Plan: Supportive care Okay for diet Surgical service has been consulted to see the patient Continue care in the ICU with the staff reporter/pulmonary service managing the patient Hepatitis C viral load ordered, based on patient's history should be undetectable treatment of prior antiviral therapy LDH ordered with suspicion for possible hemolysis in the setting of significant ecchymoses Going forward if concern for choledocholithiasis remains can consider MRCP for further evaluation, however will hold off at this time until respiratory status improves Thank you for allowing us to participate in the care of the patient we will continue to follow
[2019-12-19 20:42] LABS: Glucose,Whole Blood 173 mg/dL (75-99)
[2019-12-19] MEDS ORDERED: LEVOFLOXACIN 750MG-D5W PMX 750 MG in DEXTROSE/WATER 1 150ML.BAG IVPB SCH (21:00)
[2019-12-19 21:45] LABS: Glucose,Whole Blood 169 mg/dL (75-99)
[2019-12-19 22:38] LABS: Glucose,Whole Blood 151 mg/dL (75-99)
--- NOTE | 2019-12-19 23:27 | P.HPIM ---
History of Present Illness H&P Date: 12/19/19 Chief Complaint: Abdominal pain Patient is a 59-year-old male with a known history of COPD, hypertension, diabetes type 2, obstructive sleep apnea on CPAP at home, morbid obesity and osteoarthritis and also previous history of smoking initially presented to the hospital with multiple problems including not feeling well and also patient felt yesterday and landed on his left side of his chest and abdomen. Patient has been having abdominal pain since then and presented to ER for evaluation. Patient states that his blood pressure is also elevated when he came to ER and w as also getting progressively short of breath. Patient's blood pressure was elevated on admission with SBP greater than 203/93 mmHg. Patient was initially admitted to medical floor where he became progressively short of breath and hypotensive. Patient was given fluid boluses. Eventually transferred to the MICU for further management. Patient was placed on Levophed drip. Currently patient is on BiPAP. Chest x-ray showed some prominence of left hilum. There is blunting of the right costophrenic angle which may be indicative of effusion. Patchy basilar density, correlate for possible atelectasis scarring difficult to exclude pneumonia likely there is underlying COPD. Ultrasound gallbladder findings suggest hepatocellular disease. Hepatic steatosis. Hydropic gallbladder. Suspect that there is wall thickening. Correlate for cholecystitis. Initial laboratory data showed WBC 14.6, hemoglobin 11.3 and platelets 258 Sodium 135, potassium 4.7, BUN 20 and creatinine 0.69 Total bilirubin is 2.6 AST 68, ALT 65 and alk phos 158 Troponin x1- TSH 1.68 within normal limits Urine negative for infection ABG showed pH of 7.33, PCO2 44 and PO2 186 and bicarb is 24 Review of Systems Constitutional: Patient denies any fever or chills . No generalized weakness or weight loss. Abdomen: Patient does have abdominal pain and right lower pleuritic chestPain. No nausea vomiting or diarrhea.. Cardiovascular: Patient denies any chest pain . + short of breath no palpitations. Respiratory: patient denied any cough is from production. No shortness of breath Neurologic: Patient denied any numbness or tingling headache. Musculoskeletal: Patient denies any complaints of joint swelling or deformity. Skin: Negative Psychiatric: Negative Endocrine: No heat or cold intolerance. No recent weight gain. Genitourinary: No dysuria or hematuria. All other 14 point ROS negative except the above Past Medical History Past Medical History: Asthma, COPD, Diabetes Mellitus, Hypertension, Sleep Apnea /CPAP/BIPAP Additional Past Medical History / Comment(s): edema, type 1 diabetic History of Any Multi-Drug Resistant Organisms: None Reported Past Surgical History: Orthopedic Surgery, Tonsillectomy Additional Past Surgical History / Comment(s): right leg and hip surgery Past Anesthesia/Blood Transfusion Reactions: No Reported Reaction Past Psychological History: No Psychological Hx Reported Smoking Status: Former smoker Past Alcohol Use History: None Reported Past Drug Use History: None Reported - Past Family History Father Family Medical History: Diabetes Mellitus Mother Family Medical History: COPD Medications and Allergies Home Medications Medication Instructions Recorded Confirmed Type ALPRAZolam [Xanax] 0.5 mg PO HS PRN 01/21/17 12/18/19 History Diltiazem HCl [Diltiazem 24Hr ER] 180 mg PO DAILY 01/21/17 12/18/19 History Fluticasone Propionate 1 spray EA NOSTRIL DAILY 01/21/17 12/18/19 History INSULIN ASPART (NovoLOG) [NovoLOG See Protocol SQ TID 01/21/17 12/18/19 History (formulary)] Lisinopril 40 mg PO DAILY 01/21/17 12/18/19 History Montelukast [Singulair] 10 mg PO DAILY 01/21/17 12/18/19 History metFORMIN HCL [Glucophage] 500 mg PO TID 01/21/17 12/18/19 History Albuterol Sulfate [Ventolin HFA] 2 puff INHALATION RT-Q6H PRN 12/18/19 12/18/19 History Furosemide [Lasix] 40 mg PO DAILY 12/18/19 12/18/19 History Ibuprofen 200 - 400 mg PO Q6H PRN 12/18/19 12/18/19 History Insulin Glargine,Hum.rec.anlog 45 unit SQ HS 12/18/19 12/18/19 History [Basaglar Kwikpen U-100] Umeclidinium [place] [Incruse 1 puff INHALATION RT-DAILY 12/18/19 12/18/19 History Ellipta] Allergies Allergy/AdvReac Type Severity Reaction Status Date / Time iodine Allergy Unknown Verified 12/18/19 17:51 Penicillins Allergy Unknown Verified 12/18/19 17:51 Sulfa (Sulfonamide Allergy Unknown Verified 12/18/19 17:51 Antibiotics) Physical Exam Vitals: Vital Signs Temp Pulse Pulse Resp BP BP Pulse Ox 12/19/19 10:00 101 H 23 149/73 92 L 12/19/19 09:45 98 21 167/87 93 L 12/19/19 09:30 110 H 21 195/80 96 12/19/19 09:15 121 H 24 172/86 95 12/19/19 09:00 116 H 24 175/85 95 12/19/19 08:45 115 H 24 174/70 97 12/19/19 08:30 116 H 19 170/92 96 12/19/19 08:15 97.6 F 115 H 24 171/79 96 12/19/19 08:00 114 H 23 167/77 98 12/19/19 07:47 112 H 12/19/19 07:45 112 H 22 162/75 99 12/19/19 07:36 113 H 12/19/19 07:30 112 H 21 169/82 96 12/19/19 07:15 115 H 26 H 164/78 96 12/19/19 07:00 113 H 21 157/83 97 12/19/19 06:45 112 H 21 166/73 96 12/19/19 06:30 113 H 22 166/77 97 12/19/19 06:15 113 H 23 157/72 97 12/19/19 06:00 113 H 21 165/94 97 12/19/19 05:45 113 H 22 160/80 95 12/19/19 05:30 111 H 22 162/82 98 12/19/19 05:15 115 H 22 186/87 99 12/19/19 05:00 116 H 27 H 172/84 99 12/19/19 04:45 120 H 25 H 163/79 100 12/19/19 04:30 121 H 24 148/78 99 12/19/19 04:15 112 H 23 156/77 98 12/19/19 04:00 97.9 F 113 H 23 163/79 98 12/19/19 03:45 114 H 26 H 161/75 98 12/19/19 03:30 115 H 24 164/78 98 12/19/19 03:15 116 H 23 156/72 99 12/19/19 03:00 115 H 25 H 133/72 98 12/19/19 02:45 115 H 24 152/77 98 12/19/19 02:30 115 H 24 140/66 99 12/19/19 02:15 98.7 F 117 H 24 179/78 99 12/19/19 00:52 124 H 44 H 168/93 99 12/19/19 00:39 110 H 180/77 12/19/19 00:24 122 H 170/87 12/19/19 00:16 146 H 193/101 12/19/19 00:04 132 H 42 H 211/99 99 12/18/19 23:58 134 H 42 H 174/147 88 L 12/18/19 22:00 119 H 25 H 172/96 94 L 12/18/19 21:46 98.5 F 131 H 24 184/81 94 L 12/18/19 20:30 129 H 26 H 180/76 94 L 12/18/19 20:22 128 H 23 192/93 94 L 12/18/19 20:08 125 H 22 12/18/19 20:00 125 H 20 12/18/19 19:00 129 H 20 190/92 94 L 12/18/19 17:30 129 H 22 163/76 94 L 12/18/19 17:04 129 H 22 180/69 94 L 12/18/19 16:42 122 H 20 12/18/19 16:30 121 H 170/79 12/18/19 16:29 121 H 22 194/94 92 L 12/18/19 14:56 98.5 F 128 H 24 203/93 92 L Intake and Output 12/18/19 12/19/19 12/19/19 22:59 06:59 14:59 Intake Total 174.001 293.666 Output Total 1375 180 Balance -1200.999 113.666 Intake: IV 40 220 .9 NS 40 70 cefTRIAXone 1 gm In 50 Sodium Chloride 0.9% 50 ml @ 100 mls/hr IVPB Q24HR [facility] Rx#:[id number] metroNIDAZOLE-NS PMX 500 100 mg In Saline 1 100ml.bag @ 100 mls/hr IVPB Q8HR [facility] Rx#:[id number] Intake, IV Titration 34.001 73.666 Amount Clevidipine Butyrate 25 34.001 64.333 mg In Empty Bag 1 bag @ 1 MG/HR 2 mls/hr IV .Q24H [facility] Rx#:[id number] Insulin Regular 100 unit 9.333 In Sodium Chloride 0.9% 100 ml @ Per Protocol IV .Q0M [facility] Rx#:[id number] Oral 100 Output: Urine 1375 180 Other: Voiding Method Indwelling Catheter Weight 113.398 kg 116.3 kg PHYSICAL EXAMINATION: Patient is lying in the bed comfortably, no acute distress, awake alert and oriented.Currently on BiPAP. HEENT: Normocephalic. Neck is supple. Pupils reactive. Nostrils clear. Oral cavity is moist. Ears reveal no drainage. Neck reveals no JVD, carotid bruits, or thyromegaly. CHEST EXAMINATION: Trachea is central. Symmetrical expansion. Bibasilar diminished air entry and minimal right basilar crackles. Expiratory wheezing and scattered rhonchi.. CARDIAC: Normal S1, S2 with no gallops. No murmurs ABDOMEN: Soft. Bowel sounds normal. No organomegaly. No abdominal bruits. Extremities: reveal no edema. No clubbing or cyanosis Neurologically awake, alert, oriented x3 with well-coordinated movements. No focal deficits noted Skin: No rash or skin lesions. Psychiatric: Coperative. Nonsuicidal Musculoskeletal: No joint swelling or deformity. Normal range of motion. Results CBC & Chem 7: 12/19/19 04:45 12/19/19 04:45 Labs: Abnormal Lab Results - Last 24 Hours (Table) 12/18/19 12/18/19 12/18/19 Range/Units 15:57 16:01 18:38 WBC 14.6 H (3.8-10.6) k/uL RBC 3.31 L (4.30-5.90) m/uL Hgb 11.3 L (13.0-17.5) gm/dL Hct 34.2 L (39.0-53.0) % MCV 103.4 H (80.0-100.0) fL Neutrophils # 12.3 H (1.3-7.7) k/uL Lymphocytes # (1.0-4.8) k/uL ABG pH (7.35-7.45) ABG pO2 (83-108) mmHg ABG Total CO2 (19-24) mmol/L ABG O2 Saturation (94-97) % Sodium 135 L (137-145) mmol/L BUN (9-20) mg/dL Glucose 213 H (74-99) mg/dL POC Glucose (mg/dL) (75-99) mg/dL Total Bilirubin 2.6 H (0.2-1.3) mg/dL AST 68 H (17-59) U/L ALT 65 H (4-49) U/L Alkaline Phosphatase 158 H (38-126) U/L Albumin 3.1 L (3.5-5.0) g/dL Urine Protein 3+ H (Negative) Urine Glucose (UA) 2+ H (Negative) Urine Ketones Trace H (Negative) Urine Blood Small H (Negative) Urine Bilirubin 1+ H (Negative) Hyaline Casts 7 H (0-2) /lpf Urine Mucus Rare H (None) /hpf 12/18/19 12/18/19 12/19/19 Range/Units 23:03 23:08 04:45 WBC 20.0 H (3.8-10.6) k/uL RBC 3.32 L (4.30-5.90) m/uL Hgb 11.4 L (13.0-17.5) gm/dL Hct 35.1 L (39.0-53.0) % MCV 105.8 H (80.0-100.0) fL Neutrophils # 18.9 H (1.3-7.7) k/uL Lymphocytes # 0.7 L (1.0-4.8) k/uL ABG pH 7.33 L (7.35-7.45) ABG pO2 186 H (83-108) mmHg ABG Total CO2 25 H (19-24) mmol/L ABG O2 Saturation 99.4 H (94-97) % Sodium (137-145) mmol/L BUN (9-20) mg/dL Glucose (74-99) mg/dL POC Glucose (mg/dL) 288 H (75-99) mg/dL Total Bilirubin (0.2-1.3) mg/dL AST (17-59) U/L ALT (4-49) U/L Alkaline Phosphatase (38-126) U/L Albumin (3.5-5.0) g/dL Urine Protein (Negative) Urine Glucose (UA) (Negative) Urine Ketones (Negative) Urine Blood (Negative) Urine Bilirubin (Negative) Hyaline Casts (0-2) /lpf Urine Mucus (None) /hpf 12/19/19 12/19/19 12/19/19 Range/Units 04:45 07:16 09:18 WBC (3.8-10.6) k/uL RBC (4.30-5.90) m/uL Hgb (13.0-17.5) gm/dL Hct (39.0-53.0) % MCV (80.0-100.0) fL Neutrophils # (1.3-7.7) k/uL Lymphocytes # (1.0-4.8) k/uL ABG pH (7.35-7.45) ABG pO2 (83-108) mmHg ABG Total CO2 (19-24) mmol/L ABG O2 Saturation (94-97) % Sodium 134 L (137-145) mmol/L BUN 25 H (9-20) mg/dL Glucose 316 H (74-99) mg/dL POC Glucose (mg/dL) 413 H 348 H (75-99) mg/dL Total Bilirubin (0.2-1.3) mg/dL AST (17-59) U/L ALT (4-49) U/L Alkaline Phosphatase (38-126) U/L Albumin (3.5-5.0) g/dL Urine Protein (Negative) Urine Glucose (UA) (Negative) Urine Ketones (Negative) Urine Blood (Negative) Urine Bilirubin (Negative) Hyaline Casts (0-2) /lpf Urine Mucus (None) /hpf 12/19/19 Range/Units 09:52 WBC (3.8-10.6) k/uL RBC (4.30-5.90) m/uL Hgb (13.0-17.5) gm/dL Hct (39.0-53.0) % MCV (80.0-100.0) fL Neutrophils # (1.3-7.7) k/uL Lymphocytes # (1.0-4.8) k/uL ABG pH (7.35-7.45) ABG pO2 (83-108) mmHg ABG Total CO2 (19-24) mmol/L ABG O2 Saturation (94-97) % Sodium (137-145) mmol/L BUN (9-20) mg/dL Glucose (74-99) mg/dL POC Glucose (mg/dL) 365 H (75-99) mg/dL Total Bilirubin (0.2-1.3) mg/dL AST (17-59) U/L ALT (4-49) U/L Alkaline Phosphatase (38-126) U/L Albumin (3.5-5.0) g/dL Urine Protein (Negative) Urine Glucose (UA) (Negative) Urine Ketones (Negative) Urine Blood (Negative) Urine Bilirubin (Negative) Hyaline Casts (0-2) /lpf Urine Mucus (None) /hpf Thrombosis Risk Factor Assmnt - DVT/VTE Prophylaxis DVT/VTE Prophylaxis: Pharmacologic Prophylaxis ordered - Choose All That Apply Any of the Below Risk Factors Present?: Yes Each Factor Represents 1 point: Abnormal pulmonary function (COPD), Medical pt on bed rest, Obesity (BMI >25), Swollen legs (current) Other Risk Factors: Yes Each Risk Factor Represents 2 Points: Age 61-74 years Other congenital or acquired thrombophilia - If yes, enter type in comment: No Thrombosis Risk Factor Assessment Total Risk Factor Score: 6 Thrombosis Risk Factor Assessment Level: High Risk Assessment and Plan Assessment: Acute hypoxic respiratory failure secondary to COPD exacerbation and possible right lower lobe pneumonia Acute COPD exacerbation Right lower lobe pneumonia Sepsis secondary to above Hypertensive urgency on admission History of recent fall, fell on his left side onto the abdomen and chest. Suspected gallbladder wall thickening and acute cholecystitis Mild transaminitis Obstructive sleep apnea on CPAP at home Hyperglycemia with uncontrolled diabetes type 2 insulin-dependent Morbid obesity BMI 40.2 Previous history of smoking and alcohol use DVT prophylaxis with heparin subcu Plan: Patient is currently on noninvasive mechanical ventilator. Continue with oxygen therapy. Continue with duo nebs and IV Solu-Medrol. Patient is also started on ceftriaxone azithromycin. Monitor renal function and continue with IV hydration. Cardiology was consulted for possible CHF with right sided small pleural Effusio n. General surgery is on board due to gallbladder findings. Follow-up 2D echocardiogram and monitor CBC and BMP. Prognosis guarded with multi-medical problems and comorbid conditions. Time with Patient: Greater than 30
[2019-12-19 23:53] LABS: Glucose,Whole Blood 129 mg/dL (75-99)
[2019-12-20] MEDS: HYDROmorphone 1 MG/ML 1 ML SYRINGE IVP PRN ×5 (00:32→18:22)
[2019-12-20 01:03] LABS: Glucose,Whole Blood 180 mg/dL (75-99)
[2019-12-20] MEDS: INSULIN REGULAR 100 UNIT in SODIUM CHLORIDE 0.9% 100 ML IV SCH (01:04)
[2019-12-20] MEDS: HEPARIN SODIUM,PORCINE 5,000 UNIT/ML 1 ML VIAL SQ SCH ×3 (01:08→17:15)
[2019-12-20] MEDS: methylPREDNISolone SOD SUCCI 125 MG/2 ML VIAL IV SCH ×4 (01:08→18:23)
[2019-12-20] MEDS: metroNIDAZOLE-NS PMX 500 MG in SALINE 1 100ML.BAG IVPB SCH ×3 (01:09→17:15)
[2019-12-20] MEDS: MORPHINE SULFATE 4 MG/ML SYRINGE IVP PRN ×4 (02:00→16:52)
[2019-12-20 02:22] LABS: Glucose,Whole Blood 202 mg/dL (75-99)
[2019-12-20 03:07] LABS: Glucose,Whole Blood 158 mg/dL (75-99)
[2019-12-20 04:01] LABS: Glucose,Whole Blood 148 mg/dL (75-99)
[2019-12-20 05:00] LABS: Basophils % (A) 0 %; Eosinophils # (A) 0.2 k/uL (0-0.7); Eosinophils % (A) 1 %; HCT 34.1 % (39.0-53.0); HGB 10.9 gm/dL (13.0-17.5); Hypochromasia Slight; Lymphocytes % (A) 4 %; MCH 34.1 pg (25.0-35.0); MCV 106.5 fL (80.0-100.0); Macrocytosis Moderate; Mean Platelet Volume 8.3; Monocytes # (A) 1.7 k/uL (0-1.0); Monocytes % (A) 7 %; Neutrophils # (A) 20.5 k/uL (1.3-7.7); Neutrophils % (A) 87 %; Platelet Count 509 k/uL (150-450); RDW 14.4 % (11.5-15.5); WBC 23.6 k/uL (3.8-10.6)
[2019-12-20 05:09] LABS: Calcium 8.2 mg/dL (8.4-10.2)
[2019-12-20 05:16] LABS: Glucose,Whole Blood 132 mg/dL (75-99)
[2019-12-20 06:23] LABS: Glucose,Whole Blood 150 mg/dL (75-99)
--- NOTE | 2019-12-20 06:38 | XR ---
EXAMINATION TYPE: XR chest 1V portable DATE OF EXAM: 12/20/2019 HISTORY: SOB, CHF vs COPD. REFERENCE: Previous study dated 12/19/2019. FINDINGS: There continues to be right lower lobe infiltrate which may have worsened slightly. Lung vo lumes overall are increased. Heart size upper limits of normal. There is blunting of both CP angles a nd I would be difficult to exclude small effusions. IMPRESSION: WORSENING RIGHT BASILAR INFILTRATE.
[2019-12-20 07:33] LABS: Glucose,Whole Blood 150 mg/dL (75-99)
[2019-12-20] MEDS: IPRATROPIUM-ALBUTEROL 3 ML NEB INHALATION SCH ×4 (07:46→19:11)
[2019-12-20] MEDS: CLEVIDIPINE BUTYRATE 25 MG in EMPTY BAG 1 BAG IV SCH (08:00)
[2019-12-20 08:03] LABS: Glucose,Whole Blood 145 mg/dL (75-99)
[2019-12-20 08:58] LABS: Glucose,Whole Blood 140 mg/dL (75-99)
[2019-12-20] MEDS: METOPROLOL TARTRATE 12.5 MG TAB PO SCH ×3 (09:55→22:22)
[2019-12-20] MEDS: DILTIAZEM CD 180 MG CAP.ER.24H PO SCH (09:55)
[2019-12-20] MEDS: amLODIPine 5 MG TAB PO SCH ×2 (09:55→21:13)
[2019-12-20 10:04] LABS: Glucose,Whole Blood 150 mg/dL (75-99)
[2019-12-20] MEDS: PANTOPRAZOLE 40 MG/10 ML VIAL IV SCH (10:10)
[2019-12-20 10:46] LABS: Albumin 3.1 g/dL (3.5-5.0); Bilirubin, Delta 0.8 mg/dL (0.0-0.2); Bilirubin,Unconjugated 0.8 mg/dL (0.0-1.1); Total Bilirubin 1.6 mg/dL (0.2-1.3); Total Protein 6.8 g/dL (6.3-8.2)
[2019-12-20] MEDS: lisinopriL 20 MG TAB PO SCH (11:12)
--- NOTE | 2019-12-20 11:14 | CT ---
EXAMINATION TYPE: CT ChestAbdPelvis wo con DATE OF EXAM: 12/20/2019 COMPARISON: Previous CT scan of the chest dated 05/17/2012. HISTORY: Pain, fall CT DLP: 1734.8 mGycm Automated exposure control for dose reduction was used. TECHNIQUE: Helical acquisition through the abdomen and pelvis was obtained without oral or intravenou s contrast. The data was formatted in the axial, coronal and sagittal projections. FINDINGS: There is some scarring in the right lung apex. There is also some scarring in the anterior segment of the left upper lobe. There is a small right-sided pleural effusion. There is no pericardia l fluid. Heart size upper limits of normal. There is a small, sliding hiatal hernia. Within the abdomen, the liver is mildly prominent measuring 19 cm. The gallbladder spleen are normal. The right adrenal gland is normal. The left is poorly visualized. There is no evidence of nephrolithiasis or hydronephrosis. Limited views of the pancreas are unremarkable. There is no significant retroperitoneal, iliac or inguinal adenopathy. There is a Galaviz catheter within the bladder. There is no significant diverticular change or evidence of diverticulitis. The appendix is normal. Small bowel loops are normal. There is free fluid within the pelvis. No definite free air is seen although the entire abdomen is no t visualized on this study. There is an S-shaped scoliosis convex to the right in the facets thoracic region and to the left in t he lumbar region. There is mild wedging of the T11 vertebral body. This is likely developmental. There is evidence of a healed intertrochanteric fracture of the right hip. There are degenerative ilir nges within the hips. There is cortical irregularity of the left seventh rib. This may represent an old rib fracture. No de finite acute rib fracture is seen. IMPRESSION: 1. SMALL, RIGHT-SIDED PLEURAL EFFUSION. 2. SMALL HIATAL HERNIA. 3. MILD HEPATOMEGALY. 4. SMALL AMOUNT OF FREE FLUID WITHIN THE PELVIS. 5. MILD WEDGING OF THE T11 VERTEBRAL BODY WHICH IS LIKELY DEVELOPMENTAL. 6. DEGENERATIVE CHANGES WITHIN THE SPINE. 7. EVIDENCE OF AN OLD LEFT SEVENTH RIB FRACTURE.
[2019-12-20 11:26] LABS: Glucose,Whole Blood 146 mg/dL (75-99)
[2019-12-20 12:12] LABS: Glucose,Whole Blood 127 mg/dL (75-99)
--- NOTE | 2019-12-20 12:17 | P.PN ---
Subjective Progress Note Date: 12/20/19 The patient presented with generalized malaise, tachycardia and hypertension. He was having some mild pain in the right side of the chest and complains of pain in the right shoulder. A workup was done to rule out a septic source of there was some shallow hydrops of the gallbladder. The patient denies any abdominal pain today. Continues to have the right shoulder pain Objective - Vital Signs Vital signs: Vital Signs Temp 98.1 F 12/20/19 12:00 Pulse 101 H 12/20/19 12:00 Resp 16 12/20/19 12:00 BP 134/65 12/20/19 12:00 Pulse Ox 96 12/20/19 12:00 Intake & Output 12/19/19 12/20/19 12/20/19 18:59 06:59 18:59 Intake Total 1790.066 519.500 421.867 Output Total 395 480 240 Balance 1395.066 39.500 181.867 Weight 114 kg Intake: IV 1600 480 390 .9 NS 350 480 240 Sodium Chloride 0.9% 1, 1000 000 ml @ 999 mls/hr IV . Q1H1M [facility] Rx#:[id number] cefTRIAXone 1 gm In 50 50 Sodium Chloride 0.9% 50 ml @ 100 mls/hr IVPB Q24HR [facility] Rx#:[id number] metroNIDAZOLE-NS PMX 500 200 100 mg In Saline 1 100ml.bag @ 100 mls/hr IVPB Q8HR [facility] Rx#:[id number] Intake, IV Titration 190.066 39.500 31.867 Amount Clevidipine Butyrate 25 109.733 4.6 2.467 mg In Empty Bag 1 bag @ 1 MG/HR 2 mls/hr IV .Q24H [facility] Rx#:[id number] Insulin Regular 100 unit 80.333 34.900 29.40 In Sodium Chloride 0.9% 100 ml @ Per Protocol IV .Q0M [facility] Rx#:[id number] Output: Urine 395 480 240 Other: Voiding Method Indwelling Catheter Indwelling Catheter Indwelling Catheter - Constitutional General appearance: Present: cooperative - Respiratory Details: Using the BiPAP - Gastrointestinal General gastrointestinal: Present: normal bowel sounds, soft. Absent: tenderness - Labs CBC & Chem 7: 12/20/19 04:44 12/20/19 04:44 Labs: Abnormal Lab Results - Last 24 Hours (Table) 07/17/20 07/17/20 07/17/20 Range/Units 04:45 13:01 13:48 WBC (3.8-10.6) k/uL RBC (4.30-5.90) m/uL Hgb (13.0-17.5) gm/dL Hct (39.0-53.0) % MCV (80.0-100.0) fL Plt Count (150-450) k/uL Neutrophils # (1.3-7.7) k/uL Monocytes # (0-1.0) k/uL Sodium (137-145) mmol/L Chloride (98-107) mmol/L BUN (9-20) mg/dL Creatinine (0.66-1.25) mg/dL Glucose (74-99) mg/dL POC Glucose (mg/dL) 104 H 111 H (75-99) mg/dL Calcium (8.4-10.2) mg/dL Total Bilirubin (0.2-1.3) mg/dL Delta Bilirubin (0.0-0.2) mg/dL Albumin (3.5-5.0) g/dL Procalcitonin 0.30 H (0.02-0.09) ng/mL 12/19/19 12/19/19 12/19/19 Range/Units 15:03 16:41 18:01 WBC (3.8-10.6) k/uL RBC (4.30-5.90) m/uL Hgb (13.0-17.5) gm/dL Hct (39.0-53.0) % MCV (80.0-100.0) fL Plt Count (150-450) k/uL Neutrophils # (1.3-7.7) k/uL Monocytes # (0-1.0) k/uL Sodium (137-145) mmol/L Chloride (98-107) mmol/L BUN (9-20) mg/dL Creatinine (0.66-1.25) mg/dL Glucose (74-99) mg/dL POC Glucose (mg/dL) 157 H 148 H 150 H (75-99) mg/dL Calcium (8.4-10.2) mg/dL Total Bilirubin (0.2-1.3) mg/dL Delta Bilirubin (0.0-0.2) mg/dL Albumin (3.5-5.0) g/dL Procalcitonin (0.02-0.09) ng/mL 12/19/19 12/19/19 12/19/19 Range/Units 19:03 20:29 21:44 WBC (3.8-10.6) k/uL RBC (4.30-5.90) m/uL Hgb (13.0-17.5) gm/dL Hct (39.0-53.0) % MCV (80.0-100.0) fL Plt Count (150-450) k/uL Neutrophils # (1.3-7.7) k/uL Monocytes # (0-1.0) k/uL Sodium (137-145) mmol/L Chloride (98-107) mmol/L BUN (9-20) mg/dL Creatinine (0.66-1.25) mg/dL Glucose (74-99) mg/dL POC Glucose (mg/dL) 133 H 173 H 169 H (75-99) mg/dL Calcium (8.4-10.2) mg/dL Total Bilirubin (0.2-1.3) mg/dL Delta Bilirubin (0.0-0.2) mg/dL Albumin (3.5-5.0) g/dL Procalcitonin (0.02-0.09) ng/mL 12/19/19 12/19/19 12/20/19 Range/Units 22:36 23:41 01:02 WBC (3.8-10.6) k/uL RBC (4.30-5.90) m/uL Hgb (13.0-17.5) gm/dL Hct (39.0-53.0) % MCV (80.0-100.0) fL Plt Count (150-450) k/uL Neutrophils # (1.3-7.7) k/uL Monocytes # (0-1.0) k/uL Sodium (137-145) mmol/L Chloride (98-107) mmol/L BUN (9-20) mg/dL Creatinine (0.66-1.25) mg/dL Glucose (74-99) mg/dL POC Glucose (mg/dL) 151 H 129 H 180 H (75-99) mg/dL Calcium (8.4-10.2) mg/dL Total Bilirubin (0.2-1.3) mg/dL Delta Bilirubin (0.0-0.2) mg/dL Albumin (3.5-5.0) g/dL Procalcitonin (0.02-0.09) ng/mL 12/20/19 12/20/19 12/20/19 Range/Units 02:20 03:04 03:59 WBC (3.8-10.6) k/uL RBC (4.30-5.90) m/uL Hgb (13.0-17.5) gm/dL Hct (39.0-53.0) % MCV (80.0-100.0) fL Plt Count (150-450) k/uL Neutrophils # (1.3-7.7) k/uL Monocytes # (0-1.0) k/uL Sodium (137-145) mmol/L Chloride (98-107) mmol/L BUN (9-20) mg/dL Creatinine (0.66-1.25) mg/dL Glucose (74-99) mg/dL POC Glucose (mg/dL) 202 H 158 H 148 H (75-99) mg/dL Calcium (8.4-10.2) mg/dL Total Bilirubin (0.2-1.3) mg/dL Delta Bilirubin (0.0-0.2) mg/dL Albumin (3.5-5.0) g/dL Procalcitonin (0.02-0.09) ng/mL 12/20/19 12/20/19 12/20/19 Range/Units 04:44 04:44 04:44 WBC 23.6 H (3.8-10.6) k/uL RBC 3.20 L (4.30-5.90) m/uL Hgb 10.9 L (13.0-17.5) gm/dL Hct 34.1 L (39.0-53.0) % MCV 106.5 H (80.0-100.0) fL Plt Count 509 H (150-450) k/uL Neutrophils # 20.5 H (1.3-7.7) k/uL Monocytes # 1.7 H (0-1.0) k/uL Sodium 136 L (137-145) mmol/L Chloride 110 H (98-107) mmol/L BUN 57 H (9-20) mg/dL Creatinine 1.42 H (0.66-1.25) mg/dL Glucose 136 H (74-99) mg/dL POC Glucose (mg/dL) (75-99) mg/dL Calcium 8.2 L (8.4-10.2) mg/dL Total Bilirubin 1.6 H (0.2-1.3) mg/dL Delta Bilirubin 0.8 H (0.0-0.2) mg/dL Albumin 3.1 L (3.5-5.0) g/dL Procalcitonin (0.02-0.09) ng/mL 12/20/19 12/20/19 12/20/19 Range/Units 05:15 06:10 07:30 WBC (3.8-10.6) k/uL RBC (4.30-5.90) m/uL Hgb (13.0-17.5) gm/dL Hct (39.0-53.0) % MCV (80.0-100.0) fL Plt Count (150-450) k/uL Neutrophils # (1.3-7.7) k/uL Monocytes # (0-1.0) k/uL Sodium (137-145) mmol/L Chloride (98-107) mmol/L BUN (9-20) mg/dL Creatinine (0.66-1.25) mg/dL Glucose (74-99) mg/dL POC Glucose (mg/dL) 132 H 150 H 150 H (75-99) mg/dL Calcium (8.4-10.2) mg/dL Total Bilirubin (0.2-1.3) mg/dL Delta Bilirubin (0.0-0.2) mg/dL Albumin (3.5-5.0) g/dL Procalcitonin (0.02-0.09) ng/mL 12/20/19 12/20/19 12/20/19 Range/Units 08:02 08:57 10:03 WBC (3.8-10.6) k/uL RBC (4.30-5.90) m/uL Hgb (13.0-17.5) gm/dL Hct (39.0-53.0) % MCV (80.0-100.0) fL Plt Count (150-450) k/uL Neutrophils # (1.3-7.7) k/uL Monocytes # (0-1.0) k/uL Sodium (137-145) mmol/L Chloride (98-107) mmol/L BUN (9-20) mg/dL Creatinine (0.66-1.25) mg/dL Glucose (74-99) mg/dL POC Glucose (mg/dL) 145 H 140 H 150 H (75-99) mg/dL Calcium (8.4-10.2) mg/dL Total Bilirubin (0.2-1.3) mg/dL Delta Bilirubin (0.0-0.2) mg/dL Albumin (3.5-5.0) g/dL Procalcitonin (0.02-0.09) ng/mL 12/20/19 Range/Units 11:24 WBC (3.8-10.6) k/uL RBC (4.30-5.90) m/uL Hgb (13.0-17.5) gm/dL Hct (39.0-53.0) % MCV (80.0-100.0) fL Plt Count (150-450) k/uL Neutrophils # (1.3-7.7) k/uL Monocytes # (0-1.0) k/uL Sodium (137-145) mmol/L Chloride (98-107) mmol/L BUN (9-20) mg/dL Creatinine (0.66-1.25) mg/dL Glucose (74-99) mg/dL POC Glucose (mg/dL) 146 H (75-99) mg/dL Calcium (8.4-10.2) mg/dL Total Bilirubin (0.2-1.3) mg/dL Delta Bilirubin (0.0-0.2) mg/dL Albumin (3.5-5.0) g/dL Procalcitonin (0.02-0.09) ng/mL Microbiology - Last 24 Hours (Table) 12/19/19 04:45 Blood Culture - Preliminary Blood No Growth after 24 hours 12/19/19 04:21 Blood Culture - Preliminary Blood No Growth after 24 hours 12/18/19 21:08 Blood Culture - Preliminary Blood No Growth after 24 hours - Imaging and Cardiology CT scan - abdomen: report reviewed CT scan - chest: report reviewed CT scan - pelvis: report reviewed Assessment and Plan (1) COPD exacerbation Current Visit: Yes Status: Acute Code(s): J44.1 - CHRONIC OBSTRUCTIVE PULMONARY DISEASE W (ACUTE) EXACERBATION SNOMED Code(s): 349073653 (2) Chest pain Current Visit: Yes Status: Acute Code(s): R07.9 - CHEST PAIN, UNSPECIFIED SNOMED Code(s): 51935536 (3) Elevated liver enzymes Current Visit: Yes Status: Acute Code(s): R74.8 - ABNORMAL LEVELS OF OTHER SERUM ENZYMES SNOMED Code(s): 697783994 (4) Leukocytosis Current Visit: Yes Status: Acute Code(s): D72.829 - ELEVATED WHITE BLOOD CELL COUNT, UNSPECIFIED SNOMED Code(s): 454311447 Plan: The liver function tests have normalized. His abdomen is benign. Computed tomography scan of the chest, abdomen, pelvis don't show any acute inflammatory process in the abdomen. At this point the patient is nonsurgical. We will sign off. Please notify us if the patient's condition changes and new would like him reevaluated.
[2019-12-20] MEDS ORDERED: SODIUM CHLORIDE 0.9% 1,000 ML IV ONE (12:41)
[2019-12-20] MEDS: SODIUM CHLORIDE 0.9% 1,000 ML IV SCH (12:47)
[2019-12-20 13:48] LABS: Hemoglobin A1C 6.1 % (4.0-6.0)
[2019-12-20] MEDS: HYDROmorphone 0.5 MG/0.5 ML SYRINGE IVP PRN (14:00)
[2019-12-20 14:05] LABS: Glucose,Whole Blood 179 mg/dL (75-99)
--- NOTE | 2019-12-20 14:29 | P.PN ---
Subjective Progress Note Date: 12/20/19 This is a 59-year-old male patient with known history of severe COPD with an FEV1 of 34% of predicted maintained on a cruise on outpatient basis. He also doesn't rescue inhaler and albuterol chest on a when necessary basis. The patient has obstructive sleep apnea maintained on CPAP therapy, and his other comorbidities include obesity, diabetes mellitus, hypertension and he has chronic peripheral edema. The patient had a fall prior to him coming to the hospital. He landed on his left side of the chest. He has bruising over the left lateral wall of the abdomen and upper thigh. He did also have some blunt trauma to his chest. He started complaining of increased pain and for that reason he came into the hospital. His blood pressure was found to be quite elevated and he was also getting progressively more short of breath. Apparently the patient stopped taking his medication. No head trauma. No altered mentation. No nausea or vomiting. No abdominal pain. At a time of the arrival to the emergency department, the patient's blood pressure was in the order of 190/92. In any rate, he was admitted to the medical floor where he was found to be progressively more short of breath. He COPD exacerbated. A chest x-ray was done that showed also some right lower lobe pulmonary infiltrate without any obvious signs of congestion heart failure. There was some patchy airspace infiltrate in the right lung base. Also, there was some prominence of the left hilum and blunting of the right costophrenic angle. He got ultimately transferred to the intensive care unit. He was placed on Levophed drip which is currently running at 8 mg an hour. IV fluids were cut down to KVO. His blood p ressure is under better control. He was placed on BiPAP throughout the night at a pressure of 14/7 cm of water with an FiO2 of 40%. The blood gases showed a pH of 7.33 with a pCO2 of 45 and a pO2 of 186 and this was done while him on the BiPAP with an FiO2 of 100%. This blood gas isfrom yesterday. He was given empiric antibiotic coverage with a combination of Rocephin and Levaquin. His blood work also showed abnormal LFTs including a bilirubin of 2.6 with an AST of 68 ALT of 65 and alkaline phosphatase of 158. Ultrasound of the liver was done and the patient was found to have hepatocellular disease, hepatic steatosis, hydropic gallbladder. Suspect some thickening yet there was no sonographic evidence of any Candelario's sign and the common bile duct was within normal limits and there was evidence hydronephrosis. On today's evaluation of 12/20/2019, the patient is still struggling with his breathing. His main complaint is pain across his left chest wall area where the patient a trauma in the fall. He remains on a BiPAP pressure of 14/7 cm of water and FiO2 of 50%. He is awake and alert. He is following commands. His last bronchus spastic compared to yesterday. No significant cough or sputum production. Meanwhile, his blood pressure is under better control. The patient was taken off the clevidipine drip and the patient was covered with a combination of metoprolol, Cardizem and lisinopril. Meanwhile, I noted an acute kidney injury in the creatinine is up to 1.4. I and up stopping the lisinopril and the patient will utilize hydralazine as needed for blood pressure control on a when necessary basis in addition to his oral medications. Note that his BP is under better control and likely that the patient's elevated BP was partly related to the pain that he has been experiencing. He is still receiving Dilaudid 1 mg every 4 hours on a when necessary basis for pain control. A CAT scan of the chest abdomen and pelvis was done. A surgical consultation was also obtained for the possibility of gallbladder disease gallbladder was cleared by the surgeons. CAT scan of the abdomen and pelvis did not show any cholelithiasis. There was no evidence of any cholecystitis. There was a small right-sided pleural effusion. Small hiatal hernia. Mild hepatomegaly. Mild free fluid within the pelvis. Mild wedging of the T11 vertebral body probably developmental in addition to degenerative changes of the spine. There was evidence of an altered left seventh rib fracture. Lungs are essentially clear and there was no evidence of any significant pneumonia. The patient remains on an empiric antibiotic coverage with a combination of low-dose Rocephin and Flagyl for now. He remains on bronchodilators. He remains on IV Solu-Medrol. Urine output was low and the patient be given another liter bolus for now. Objective - Vital Signs Vital signs: Vital Signs Temp 98.1 F 12/20/19 12:00 Pulse 114 H 12/20/19 14:00 Resp 20 12/20/19 14:00 BP 200/93 12/20/19 14:00 Pulse Ox 95 12/20/19 14:00 Intake & Output 12/19/19 12/20/19 12/20/19 18:59 06:59 18:59 Intake Total 1790.066 454.104 3264.217 Output Total 395 480 305 Balance 1395.066 39.500 1199.217 Weight 114 kg Intake: IV 1666 859 2029 .9 NS 350 480 320 Sodium Chloride 0.9% 1, 1000 000 ml @ 999 mls/hr IV . Q1H1M [facility] Rx#:[id number] Sodium Chloride 0.9% 1, 1000 000 ml @ 999 mls/hr IV . Q1H1M [facility] Rx#:[id number] cefTRIAXone 1 gm In 50 50 Sodium Chloride 0.9% 50 ml @ 100 mls/hr IVPB Q24HR [facility] Rx#:[id number] metroNIDAZOLE-NS PMX 500 200 100 mg In Saline 1 100ml.bag @ 100 mls/hr IVPB Q8HR [facility] Rx#:[id number] Intake, IV Titration 190.066 39.500 34.217 Amount Clevidipine Butyrate 25 109.733 4.6 2.467 mg In Empty Bag 1 bag @ 1 MG/HR 2 mls/hr IV .Q24H [facility] Rx#:[id number] Insulin Regular 100 unit 80.333 34.900 31.75 In Sodium Chloride 0.9% 100 ml @ Per Protocol IV .Q0M [facility] Rx#:[id number] Output: Urine 395 480 305 Other: Voiding Method Indwelling Catheter Indwelling Catheter Indwelling Catheter - Exam The patient is in a mild degree of respiratory distress on a BiPAP at a pressure of 14/7 cm of water with an FiO2 of 40% Head exam was generally normal. There was no scleral icterus or corneal arcus. Mucous membranes were moist. Neck was supple and without jugular venous distension, thyromegaly, or carotid bruits. Carotids were easily palpable bilaterally. There was no adenopathy. The patient is a Mallampati class IV with significant crowding of the posterior pharynx. No goiter or neck masses. He is able to tolerate a full face BiPAP mask without any major difficulties. Lungs sounds are diminished and the patient has scattered expiratory wheezes th roughout the lung dunn bilaterally. Cardiac exam revealed the PMI to be normally situated and sized. The rhythm was regular and no extrasystoles were noted during several minutes of auscultation. The first and second heart sounds were normal and physiologic splitting of the second heart sound was noted. There were no murmurs, rubs, clicks, or gallops. Abdomen is obese soft nontender. No direct tenderness no rebound tensile guarding. No tenderness in the right upper quadrant. Extremities revealed +1-2 pitting edema. Distal cyanosis or clubbing. Examination of the skin revealed no evidence of significant rashes, suspicious appearing nevi or other concerning lesions. Neurologically the patient is awake and alert. No focal neurological deficits. - Labs CBC & Chem 7: 12/20/19 04:44 12/20/19 04:44 Labs: Abnormal Lab Results - Last 24 Hours (Table) 12/19/19 12/19/19 12/19/19 Range/Units 04:45 15:03 16:41 WBC (3.8-10.6) k/uL RBC (4.30-5.90) m/uL Hgb (13.0-17.5) gm/dL Hct (39.0-53.0) % MCV (80.0-100.0) fL Plt Count (150-450) k/uL Neutrophils # (1.3-7.7) k/uL Monocytes # (0-1.0) k/uL Sodium (137-145) mmol/L Chloride (98-107) mmol/L BUN (9-20) mg/dL Creatinine (0.66-1.25) mg/dL Glucose (74-99) mg/dL POC Glucose (mg/dL) 157 H 148 H (75-99) mg/dL Hemoglobin A1c (4.0-6.0) % Calcium (8.4-10.2) mg/dL Total Bilirubin (0.2-1.3) mg/dL Delta Bilirubin (0.0-0.2) mg/dL Albumin (3.5-5.0) g/dL Procalcitonin 0.30 H (0.02-0.09) ng/mL 12/19/19 12/19/19 12/19/19 Range/Units 18:01 19:03 20:29 WBC (3.8-10.6) k/uL RBC (4.30-5.90) m/uL Hgb (13.0-17.5) gm/dL Hct (39.0-53.0) % MCV (80.0-100.0) fL Plt Count (150-450) k/uL Neutrophils # (1.3-7.7) k/uL Monocytes # (0-1.0) k/uL Sodium (137-145) mmol/L Chloride (98-107) mmol/L BUN (9-20) mg/dL Creatinine (0.66-1.25) mg/dL Glucose (74-99) mg/dL POC Glucose (mg/dL) 150 H 133 H 173 H (75-99) mg/dL Hemoglobin A1c (4.0-6.0) % Calcium (8.4-10.2) mg/dL Total Bilirubin (0.2-1.3) mg/dL Delta Bilirubin (0.0-0.2) mg/dL Albumin (3.5-5.0) g/dL Procalcitonin (0.02-0.09) ng/mL 12/19/19 12/19/19 12/19/19 Range/Units 21:44 22:36 23:41 WBC (3.8-10.6) k/uL RBC (4.30-5.90) m/uL Hgb (13.0-17.5) gm/dL Hct (39.0-53.0) % MCV (80.0-100.0) fL Plt Count (150-450) k/uL Neutrophils # (1.3-7.7) k/uL Monocytes # (0-1.0) k/uL Sodium (137-145) mmol/L Chloride (98-107) mmol/L BUN (9-20) mg/dL Creatinine (0.66-1.25) mg/dL Glucose (74-99) mg/dL POC Glucose (mg/dL) 169 H 151 H 129 H (75-99) mg/dL Hemoglobin A1c (4.0-6.0) % Calcium (8.4-10.2) mg/dL Total Bilirubin (0.2-1.3) mg/dL Delta Bilirubin (0.0-0.2) mg/dL Albumin (3.5-5.0) g/dL Procalcitonin (0.02-0.09) ng/mL 12/20/19 12/20/19 12/20/19 Range/Units 01:02 02:20 03:04 WBC (3.8-10.6) k/uL RBC (4.30-5.90) m/uL Hgb (13.0-17.5) gm/dL Hct (39.0-53.0) % MCV (80.0-100.0) fL Plt Count (150-450) k/uL Neutrophils # (1.3-7.7) k/uL Monocytes # (0-1.0) k/uL Sodium (137-145) mmol/L Chloride (98-107) mmol/L BUN (9-20) mg/dL Creatinine (0.66-1.25) mg/dL Glucose (74-99) mg/dL POC Glucose (mg/dL) 180 H 202 H 158 H (75-99) mg/dL Hemoglobin A1c (4.0-6.0) % Calcium (8.4-10.2) mg/dL Total Bilirubin (0.2-1.3) mg/dL Delta Bilirubin (0.0-0.2) mg/dL Albumin (3.5-5.0) g/dL Procalcitonin (0.02-0.09) ng/mL 12/20/19 12/20/19 12/20/19 Range/Units 03:59 04:44 04:44 WBC 23.6 H (3.8-10.6) k/uL RBC 3.20 L (4.30-5.90) m/uL Hgb 10.9 L (13.0-17.5) gm/dL Hct 34.1 L (39.0-53.0) % MCV 106.5 H (80.0-100.0) fL Plt Count 509 H (150-450) k/uL Neutrophils # 20.5 H (1.3-7.7) k/uL Monocytes # 1.7 H (0-1.0) k/uL Sodium (137-145) mmol/L Chloride (98-107) mmol/L BUN (9-20) mg/dL Creatinine (0.66-1.25) mg/dL Glucose (74-99) mg/dL POC Glucose (mg/dL) 148 H (75-99) mg/dL Hemoglobin A1c 6.1 H (4.0-6.0) % Calcium (8.4-10.2) mg/dL Total Bilirubin (0.2-1.3) mg/dL Delta Bilirubin (0.0-0.2) mg/dL Albumin (3.5-5.0) g/dL Procalcitonin (0.02-0.09) ng/mL 12/20/19 12/20/19 12/20/19 Range/Units 04:44 04:44 05:15 WBC (3.8-10.6) k/uL RBC (4.30-5.90) m/uL Hgb (13.0-17.5) gm/dL Hct (39.0-53.0) % MCV (80.0-100.0) fL Plt Count (150-450) k/uL Neutrophils # (1.3-7.7) k/uL Monocytes # (0-1.0) k/uL Sodium 136 L (137-145) mmol/L Chloride 110 H (98-107) mmol/L BUN 57 H (9-20) mg/dL Creatinine 1.42 H (0.66-1.25) mg/dL Glucose 136 H (74-99) mg/dL POC Glucose (mg/dL) 132 H (75-99) mg/dL Hemoglobin A1c (4.0-6.0) % Calcium 8.2 L (8.4-10.2) mg/dL Total Bilirubin 1.6 H (0.2-1.3) mg/dL Delta Bilirubin 0.8 H (0.0-0.2) mg/dL Albumin 3.1 L (3.5-5.0) g/dL Procalcitonin (0.02-0.09) ng/mL 12/20/19 12/20/19 12/20/19 Range/Units 06:10 07:30 08:02 WBC (3.8-10.6) k/uL RBC (4.30-5.90) m/uL Hgb (13.0-17.5) gm/dL Hct (39.0-53.0) % MCV (80.0-100.0) fL Plt Count (150-450) k/uL Neutrophils # (1.3-7.7) k/uL Monocytes # (0-1.0) k/uL Sodium (137-145) mmol/L Chloride (98-107) mmol/L BUN (9-20) mg/dL Creatinine (0.66-1.25) mg/dL Glucose (74-99) mg/dL POC Glucose (mg/dL) 150 H 150 H 145 H (75-99) mg/dL Hemoglobin A1c (4.0-6.0) % Calcium (8.4-10.2) mg/dL Total Bilirubin (0.2-1.3) mg/dL Delta Bilirubin (0.0-0.2) mg/dL Albumin (3.5-5.0) g/dL Procalcitonin (0.02-0.09) ng/mL 12/20/19 12/20/19 12/20/19 Range/Units 08:57 10:03 11:24 WBC (3.8-10.6) k/uL RBC (4.30-5.90) m/uL Hgb (13.0-17.5) gm/dL Hct (39.0-53.0) % MCV (80.0-100.0) fL Plt Count (150-450) k/uL Neutrophils # (1.3-7.7) k/uL Monocytes # (0-1.0) k/uL Sodium (137-145) mmol/L Chloride (98-107) mmol/L BUN (9-20) mg/dL Creatinine (0.66-1.25) mg/dL Glucose (74-99) mg/dL POC Glucose (mg/dL) 140 H 150 H 146 H (75-99) mg/dL Hemoglobin A1c (4.0-6.0) % Calcium (8.4-10.2) mg/dL Total Bilirubin (0.2-1.3) mg/dL Delta Bilirubin (0.0-0.2) mg/dL Albumin (3.5-5.0) g/dL Procalcitonin (0.02-0.09) ng/mL 12/20/19 12/20/19 Range/Units 12:11 14:04 WBC (3.8-10.6) k/uL RBC (4.30-5.90) m/uL Hgb (13.0-17.5) gm/dL Hct (39.0-53.0) % MCV (80.0-100.0) fL Plt Count (150-450) k/uL Neutrophils # (1.3-7.7) k/uL Monocytes # (0-1.0) k/uL Sodium (137-145) mmol/L Chloride (98-107) mmol/L BUN (9-20) mg/dL Creatinine (0.66-1.25) mg/dL Glucose (74-99) mg/dL POC Glucose (mg/dL) 127 H 179 H (75-99) mg/dL Hemoglobin A1c (4.0-6.0) % Calcium (8.4-10.2) mg/dL Total Bilirubin (0.2-1.3) mg/dL Delta Bilirubin (0.0-0.2) mg/dL Albumin (3.5-5.0) g/dL Procalcitonin (0.02-0.09) ng/mL Microbiology - Last 24 Hours (Table) 12/19/19 04:45 Blood Culture - Preliminary Blood No Growth after 24 hours 12/19/19 04:21 Blood Culture - Preliminary Blood No Growth after 24 hours 12/18/19 21:08 Blood Culture - Preliminary Blood No Growth after 24 hours Assessment and Plan Plan: 1 acute COPD exacerbation with a suspected right lower lobe pneumonia, currently on a BiPAP at a pressure of 14/7 cm of water. Blood gas showed acute respiratory acidosis, acute hypoxic and hypercapnic respiratory failure secondary to above. CAT scan of the chest was done and showed no evidence of any rib fractures which is acute. No evidence of any pleural effusion. No evidence of any pneumonias. I think patient's respiratory failure essentially due to COPD exacerbation condition to significant amount of chest wall pain related to the fall and blunt trauma. 2 severe COPD with an FEV1 of 34% of predicted at baseline 3 hypertensive urgency treated with Cleviprex drip currently off the drip and the patient is well-controlled with blood pressure medication orally and pain control also helped with a blood pressure control. 4 fall with blunt trauma to the left abdomen and chest area without any fractures 5 abnormal LFTs with suspected cholelithiasis/cholecystitis 6 obstructive sleep apnea maintained on CPAP therapy on outpatient basis 7 diabetes mellitus type 2, on insulin outpatient basis 8 history of hypertension 9 chronic anxiety 10 obesity with a BMI of 40.2. 11 leukocytosis, secondary to above 12 acute kidney injury in the creatinine is up to 1.4. Patient's has also dropped his urine output. Plan Continue BiPAP for respiratory support Start the patient on a combination of IV Rocephin and Flagyl Give the patient another bolus of normal saline 1 L. Nebulized albuterol and Atrovent nebulized treatments around the clock IV Solu Medrol 60 mg every 6 hours Blood pressure is under better control. Blood sugars under better control. The patient is currently on an insulin drip for blood sugar control Surgical consultation regarding his gallbladder findings indicated that the gallbladder was essentially benign. Check an echocardiogram to evaluate his LV function coronavirus Covid 19 nasal swab came back negative. Check pro calcitonin level is elevated at 0.3. We'll monitor that. We'll continue to follow condition is still critical. High likelihood that the patient may end up requiring intubation or mechanical ventilation. This largely dependent on his progression his outcome. We'll continue to follow.
[2019-12-20 15:07] LABS: Glucose,Whole Blood 176 mg/dL (75-99)
--- NOTE | 2019-12-20 15:42 | PN ---
PROGRESS NOTE Mr. Bates was seen by me because of chest pain, but pain appears to be related more or less to the right upper quadrant. Possibility of a cholecystitis is being considered. Patient has multiple comorbid conditions, being seen by the tow bar driver. Cardiac-garrido, no active issues at this time. However, his echocardiogram was performed, reviewed and the ejection fraction is in the 60% range without any significant abnormalities. I am recommending that he can go ahead with any gallbladder surgery if necessary. The risk is higher than usual but no contraindication. I am recommending that I will continue to see him as needed. Vitals are stable. S1-S2 heard normally but distant. Lungs reveal diminished air entry. Rest of physical examination is unchanged. Prognosis remains guarded. MMODL / IJN: [id number] /
[2019-12-20] MEDS ORDERED: propofoL 100 ML IV ONE ×2 (15:47→16:43)
[2019-12-20] MEDS ORDERED: SUCCINYLCHOLINE CHLORIDE VIAL 200 MG/10 ML VIAL IV ONE (16:00)
--- NOTE | 2019-12-20 16:00 | XR ---
EXAMINATION TYPE: XR shoulder complete LT DATE OF EXAM: 12/20/2019 COMPARISON: NONE HISTORY: 59-year-old male left shoulder pain TECHNIQUE: 3 views FINDINGS: AC joint appears congruent and intact. Subacromial space is preserved. No acute fracture, subluxation , or dislocation. IMPRESSION: No acute osseous abnormality seen.
--- NOTE | 2019-12-20 16:24 | P.PCN ---
Date of Procedure: 12/20/19 Preoperative Diagnosis: Acute respiratory failure, hypoxic, hypercapnic Postoperative Diagnosis: Same Procedure(s) Performed: Intubation, insertion of a triple-lumen catheter, insertion of an arterial line catheter Anesthesia: local Surgeon: Epifanio Chahal Estimated Blood Loss (ml): 0 Pathology: none sent Condition: critical Disposition: ICU Operative Findings: Indication: Respiratory compromise. A time-out was completed verifying correct patient, procedure, site, positio monse, and implant(s) or special equipment if applicable. The patient was positioned appropriately and a #8.5 endotracheal tube was placed under direct laryngoscopy. The tube was anchored at 22 cm at the teeth. Correct placement was confirmed by presence of bilateral breath sounds without air sounds in the abdomen on auscultation. An end-tidal CO2 monitor was also used to confirm tracheal placement of the ET tube. A chest x-ray was ordered to assess for pneumothorax and verify endotracheal tube placement. The patient tolerated the procedure well and there were no complications. Indication: Hemodynamic monitoring/Intravenous access. A time-out was completed verifying correct patient, procedure, site, positioning, and implant(s) or special equipment if applicable. The patient was placed in a dependent position appropriate for central line placement based on the vein to be cannulated. The patient's left shoulder - was prepped and draped in sterile fashion. 1% Lidocaine was used to anesthetize the surrounding skin area. A triple lumen 9F Cordis catheter was introduced into the Lt subclavian vein using Seldinger technique. The catheter was threaded smoothly over the guide wire and appropriate blood return was obtained. Each lumen of the catheter was evacuated of air and flushed with sterile saline. The catheter was then sutured in place to the skin and a sterile dressing applied. Perfusion to the extremity distal to the point of catheter insertion was checked and found to be adequate. The patient tolerated the procedure well and there were no complications. Indication: Hemodynamic monitoring. A time-out was completed verifying correct patient, procedure, site, positioning, and implant(s) or special equipment if applicable. Allens test was performed to ensure adequate perfusion. The patients right wrist was prepped and draped in sterile fashion. 1% Lidocaine was used to anesthetize the area. An 18G Arrow arterial line was introduced into the [radial/femoral] artery. The catheter was threaded over the guide wire and the needle was removed with appropriate pulsatile blood return. Blood loss was minimal. The catheter was then sutured in place to the skin and a sterile dressing applied. Perfusion to the extremity distal to the point of catheter insertion was checked and found to be adequate. The patient tolerated the procedure well and there were no complications.
--- NOTE | 2019-12-20 16:44 | XR ---
EXAMINATION TYPE: XR chest 1V portable DATE OF EXAM: 12/20/2019 Comparison: 12/20/2019 Clinical History: 59-year-old male ETT placement Findings: Regular patient rotation MYOCARDIAL mediastinal contours. The patient is also off centered. Supine im aging. ET tube is satisfactory. Distal aspect of the NG tube courses outside the [id number]. Left subclavian CVC tip at the mid SVC level. Low lung volumes obscuring the lower heart margins. Suspect the heart to be mildly enlarged. There is continued patchy right basilar opacity. Impression: 1. Satisfactory ET tube. Unable to visualize the distal aspect of the NG tube as it courses outside t he [id number]. 2. Limited, rotated and off centered exam. Continued patchy airspace disease at the right base.
[2019-12-20 16:58] LABS: ABG Base Excess -4.1 mmol/L; ABG HCO3 24 mmol/L (21-25); ABG Oxygen Saturation 99.8 % (94-97); ABG PCO2 57 mmHg (35-45); ABG PH 7.22 (7.35-7.45); ABG PO2 394 mmHg (83-108); ABG TCO2 25 mmol/L (19-24); Allen Test Performed? Yes
[2019-12-20 17:04] LABS: Glucose,Whole Blood 178 mg/dL (75-99)
[2019-12-20 18:11] LABS: Glucose,Whole Blood 151 mg/dL (75-99)
[2019-12-20 19:04] LABS: Glucose,Whole Blood 137 mg/dL (75-99)
[2019-12-20 20:21] LABS: Glucose,Whole Blood 151 mg/dL (75-99)
[2019-12-20] MEDS: CHLORHEXIDINE GLUCONATE 15 ML CUP MUCOUS MEM SCH (21:13)
[2019-12-20 21:26] LABS: Glucose,Whole Blood 165 mg/dL (75-99)
[2019-12-20 22:17] LABS: Glucose,Whole Blood 187 mg/dL (75-99)
[2019-12-20 23:09] LABS: Glucose,Whole Blood 191 mg/dL (75-99)
--- NOTE | 2019-12-20 23:29 | P.PN ---
Subjective Progress Note Date: 12/20/19 Principal diagnosis: Acute hypoxic respiratory failure secondary to COPD exacerbation Right lower lobe pneumonia with sepsis. Patient is a 59-year-old male with a known history of COPD, hypertension, diabetes type 2, obstructive sleep apnea on CPAP at home, morbid obesity and os teoarthritis and also previous history of smoking initially presented to the hospital with multiple problems including not feeling well and also patient felt yesterday and landed on his left side of his chest and abdomen. Patient has been having abdominal pain since then and presented to ER for evaluation. Patient states that his blood pressure is also elevated when he came to ER and was also getting progressively short of breath. Patient's blood pressure was elevated on admission with SBP greater than 203/93 mmHg. Patient was initially admitted to medical floor where he became progressively short of breath and hypotensive. Patient was given fluid boluses. Eventually transferred to the MICU for further management. Patient was placed on Levophed drip. Currently patient is on BiPAP. Chest x-ray showed some prominence of left hilum. There is blunting of the right costophrenic angle which may be indicative of effusion. Patchy basilar density, correlate for possible atelectasis scarring difficult to exclude pneumonia likely there is underlying COPD. Ultrasound gallbladder findings suggest hepatocellular disease. Hepatic steatosis. Hydropic gallbladder. Suspect that there is wall thickening. Correlate for cholecystitis. Initial laboratory data showed WBC 14.6, hemoglobin 11.3 and platelets 258 Sodium 135, potassium 4.7, BUN 20 and creatinine 0.69 Total bilirubin is 2.6 AST 68, ALT 65 and alk phos 158 Troponin x1- TSH 1.68 within normal limits Urine negative for infection ABG showed pH of 7.33, PCO2 44 and PO2 186 and bicarb is 24 12/20/2019 Patient is currently on BiPAP and is using accessory muscles as well. Patient is complaining of left shoulder pain and also upper chest pain due to prior fall. Blood pressure is still elevated and is requiring IV hydralazine. CT of the abdomen pelvis was done which showed small right-sided pleural effusion, small hiatal hernia, mild hepatomegaly, small amount of free fluid within the pelvis, mild wedging of the T1 vertebral body which is likely developmental. Degenerative lumbar spine evidence of old left seventh rib fracture. Chest x-ray today morning showed worsening right basilar infiltrate. Patient is being continued on IV Solu-Medrol and duo nebs. Patient is on antibiotics, ceftriaxone and Flagyl was added. Continued on pain medications in the form of IV Dilaudid. Urine output is improved compared to yesterday. General surgery has seen the patient regarding gallbladder wall thickening rec ommends no intervention recommended at this time. Laboratory data showed WBC 23.6, hemoglobin 10.9, platelets 509, and sodium level is 136, potassium 5.0, chloride 110, BUN 57 creatinine 1.42 A1c level is 6.1 Total bilirubin is 1.6 Liver enzymes are not elevated Current medications reviewed. Objective - Vital Signs Vital signs: Vital Signs Temp 98.2 F 12/20/19 20:00 Pulse 94 12/20/19 23:00 Resp 24 12/20/19 23:00 BP 112/50 12/20/19 19:00 Pulse Ox 95 12/20/19 23:00 Intake & Output 12/20/19 12/20/19 12/21/19 06:59 18:59 06:59 Intake Total 887.340 3345.493 213.883 Output Total 480 460 230 Balance 39.500 1363.493 -16.117 Weight 114 kg Intake: IV 480 1748 206 .9 NS 480 480 200 Pressure bags 18 6 Sodium Chloride 0.9% 1, 1000 000 ml @ 999 mls/hr IV . Q1H1M [facility] Rx#:[id number] cefTRIAXone 1 gm In 50 Sodium Chloride 0.9% 50 ml @ 100 mls/hr IVPB Q24HR [facility] Rx#:[id number] metroNIDAZOLE-NS PMX 500 200 mg In Saline 1 100ml.bag @ 100 mls/hr IVPB Q8HR [facility] Rx#:[id number] Intake, IV Titration 39.500 75.493 7.883 Amount Clevidipine Butyrate 25 4.6 2.467 mg In Empty Bag 1 bag @ 1 MG/HR 2 mls/hr IV .Q24H [facility] Rx#:[id number] Insulin Regular 100 unit 34.900 50.283 7.883 In Sodium Chloride 0.9% 100 ml @ Per Protocol IV .Q0M [facility] Rx#:[id number] Propofol 1,000 mg In 22.743 Empty Bag 1 bag @ Titrate IV .Q0M [facility] Rx#: [id number] Output: Urine 480 460 230 Other: Voiding Method Indwelling Catheter Indwelling Catheter Indwelling Catheter ABP, PAP, CO, CI - Last Documented Arterial Blood Pressure 116/47 - Exam PHYSICAL EXAMINATION: Patient is lying in the bed comfortably, no acute distress, awake alert and oriented.Currently on BiPAP. HEENT: Normocephalic. Neck is supple. Pupils reactive. Nostrils clear. Oral cavity is moist. Ears reveal no drainage. Neck reveals no JVD, carotid bruits, or thyromegaly. CHEST EXAMINATION: Trachea is central. Symmetrical expansion. Bibasilar diminished air entry and minimal right basilar crackles. Expiratory wheezing and scattered rhonchi.. CARDIAC: Normal S1, S2 with no gallops. No murmurs ABDOMEN: Soft. Bowel sounds normal. No organomegaly. No abdominal bruits. Extremities: reveal no edema. No clubbing or cyanosis Neurologically awake, alert, oriented x3 with well-coordinated movements. No focal deficits noted Skin: No rash or skin lesions. Psychiatric: Coperative. Nonsuicidal Musculoskeletal: No joint swelling or deformity. Normal range of motion. - Labs CBC & Chem 7: 12/20/19 04:44 12/20/19 04:44 Labs: Abnormal Lab Results - Last 24 Hours (Table) 12/19/19 12/20/19 12/20/19 Range/Units 23:41 01:02 02:20 WBC (3.8-10.6) k/uL RBC (4.30-5.90) m/uL Hgb (13.0-17.5) gm/dL Hct (39.0-53.0) % MCV (80.0-100.0) fL Plt Count (150-450) k/uL Neutrophils # (1.3-7.7) k/uL Monocytes # (0-1.0) k/uL ABG pH (7.35-7.45) ABG pCO2 (35-45) mmHg ABG pO2 (83-108) mmHg ABG Total CO2 (19-24) mmol/L ABG O2 Saturation (94-97) % Sodium (137-145) mmol/L Chloride (98-107) mmol/L BUN (9-20) mg/dL Creatinine (0.66-1.25) mg/dL Glucose (74-99) mg/dL POC Glucose (mg/dL) 129 H 180 H 202 H (75-99) mg/dL Hemoglobin A1c (4.0-6.0) % Calcium (8.4-10.2) mg/dL Total Bilirubin (0.2-1.3) mg/dL Delta Bilirubin (0.0-0.2) mg/dL Albumin (3.5-5.0) g/dL 12/20/19 12/20/19 12/20/19 Range/Units 03:04 03:59 04:44 WBC (3.8-10.6) k/uL RBC (4.30-5.90) m/uL Hgb (13.0-17.5) gm/dL Hct (39.0-53.0) % MCV (80.0-100.0) fL Plt Count (150-450) k/uL Neutrophils # (1.3-7.7) k/uL Monocytes # (0-1.0) k/uL ABG pH (7.35-7.45) ABG pCO2 (35-45) mmHg ABG pO2 (83-108) mmHg ABG Total CO2 (19-24) mmol/L ABG O2 Saturation (94-97) % Sodium (137-145) mmol/L Chloride (98-107) mmol/L BUN (9-20) mg/dL Creatinine (0.66-1.25) mg/dL Glucose (74-99) mg/dL POC Glucose (mg/dL) 158 H 148 H (75-99) mg/dL Hemoglobin A1c 6.1 H (4.0-6.0) % Calcium (8.4-10.2) mg/dL Total Bilirubin (0.2-1.3) mg/dL Delta Bilirubin (0.0-0.2) mg/dL Albumin (3.5-5.0) g/dL 12/20/19 12/20/19 12/20/19 Range/Units 04:44 04:44 04:44 WBC 23.6 H (3.8-10.6) k/uL RBC 3.20 L (4.30-5.90) m/uL Hgb 10.9 L (13.0-17.5) gm/dL Hct 34.1 L (39.0-53.0) % MCV 106.5 H (80.0-100.0) fL Plt Count 509 H (150-450) k/uL Neutrophils # 20.5 H (1.3-7.7) k/uL Monocytes # 1.7 H (0-1.0) k/uL ABG pH (7.35-7.45) ABG pCO2 (35-45) mmHg ABG pO2 (83-108) mmHg ABG Total CO2 (19-24) mmol/L ABG O2 Saturation (94-97) % Sodium 136 L (137-145) mmol/L Chloride 110 H (98-107) mmol/L BUN 57 H (9-20) mg/dL Creatinine 1.42 H (0.66-1.25) mg/dL Glucose 136 H (74-99) mg/dL POC Glucose (mg/dL) (75-99) mg/dL Hemoglobin A1c (4.0-6.0) % Calcium 8.2 L (8.4-10.2) mg/dL Total Bilirubin 1.6 H (0.2-1.3) mg/dL Delta Bilirubin 0.8 H (0.0-0.2) mg/dL Albumin 3.1 L (3.5-5.0) g/dL 12/20/19 12/20/19 12/20/19 Range/Units 05:15 06:10 07:30 WBC (3.8-10.6) k/uL RBC (4.30-5.90) m/uL Hgb (13.0-17.5) gm/dL Hct (39.0-53.0) % MCV (80.0-100.0) fL Plt Count (150-450) k/uL Neutrophils # (1.3-7.7) k/uL Monocytes # (0-1.0) k/uL ABG pH (7.35-7.45) ABG pCO2 (35-45) mmHg ABG pO2 (83-108) mmHg ABG Total CO2 (19-24) mmol/L ABG O2 Saturation (94-97) % Sodium (137-145) mmol/L Chloride (98-107) mmol/L BUN (9-20) mg/dL Creatinine (0.66-1.25) mg/dL Glucose (74-99) mg/dL POC Glucose (mg/dL) 132 H 150 H 150 H (75-99) mg/dL Hemoglobin A1c (4.0-6.0) % Calcium (8.4-10.2) mg/dL Total Bilirubin (0.2-1.3) mg/dL Delta Bilirubin (0.0-0.2) mg/dL Albumin (3.5-5.0) g/dL 12/20/19 12/20/19 12/20/19 Range/Units 08:02 08:57 10:03 WBC (3.8-10.6) k/uL RBC (4.30-5.90) m/uL Hgb (13.0-17.5) gm/dL Hct (39.0-53.0) % MCV (80.0-100.0) fL Plt Count (150-450) k/uL Neutrophils # (1.3-7.7) k/uL Monocytes # (0-1.0) k/uL ABG pH (7.35-7.45) ABG pCO2 (35-45) mmHg ABG pO2 (83-108) mmHg ABG Total CO2 (19-24) mmol/L ABG O2 Saturation (94-97) % Sodium (137-145) mmol/L Chloride (98-107) mmol/L BUN (9-20) mg/dL Creatinine (0.66-1.25) mg/dL Glucose (74-99) mg/dL POC Glucose (mg/dL) 145 H 140 H 150 H (75-99) mg/dL Hemoglobin A1c (4.0-6.0) % Calcium (8.4-10.2) mg/dL Total Bilirubin (0.2-1.3) mg/dL Delta Bilirubin (0.0-0.2) mg/dL Albumin (3.5-5.0) g/dL 12/20/19 12/20/19 12/20/19 Range/Units 11:24 12:11 14:04 WBC (3.8-10.6) k/uL RBC (4.30-5.90) m/uL Hgb (13.0-17.5) gm/dL Hct (39.0-53.0) % MCV (80.0-100.0) fL Plt Count (150-450) k/uL Neutrophils # (1.3-7.7) k/uL Monocytes # (0-1.0) k/uL ABG pH (7.35-7.45) ABG pCO2 (35-45) mmHg ABG pO2 (83-108) mmHg ABG Total CO2 (19-24) mmol/L ABG O2 Saturation (94-97) % Sodium (137-145) mmol/L Chloride (98-107) mmol/L BUN (9-20) mg/dL Creatinine (0.66-1.25) mg/dL Glucose (74-99) mg/dL POC Glucose (mg/dL) 146 H 127 H 179 H (75-99) mg/dL Hemoglobin A1c (4.0-6.0) % Calcium (8.4-10.2) mg/dL Total Bilirubin (0.2-1.3) mg/dL Delta Bilirubin (0.0-0.2) mg/dL Albumin (3.5-5.0) g/dL 12/20/19 12/20/19 12/20/19 Range/Units 15:05 16:50 17:02 WBC (3.8-10.6) k/uL RBC (4.30-5.90) m/uL Hgb (13.0-17.5) gm/dL Hct (39.0-53.0) % MCV (80.0-100.0) fL Plt Count (150-450) k/uL Neutrophils # (1.3-7.7) k/uL Monocytes # (0-1.0) k/uL ABG pH 7.22 L (7.35-7.45) ABG pCO2 57 H (35-45) mmHg ABG pO2 394 H (83-108) mmHg ABG Total CO2 25 H (19-24) mmol/L ABG O2 Saturation 99.8 H (94-97) % Sodium (137-145) mmol/L Chloride (98-107) mmol/L BUN (9-20) mg/dL Creatinine (0.66-1.25) mg/dL Glucose (74-99) mg/dL POC Glucose (mg/dL) 176 H 178 H (75-99) mg/dL Hemoglobin A1c (4.0-6.0) % Calcium (8.4-10.2) mg/dL Total Bilirubin (0.2-1.3) mg/dL Delta Bilirubin (0.0-0.2) mg/dL Albumin (3.5-5.0) g/dL 12/20/19 12/20/19 12/20/19 Range/Units 18:09 19:01 20:08 WBC (3.8-10.6) k/uL RBC (4.30-5.90) m/uL Hgb (13.0-17.5) gm/dL Hct (39.0-53.0) % MCV (80.0-100.0) fL Plt Count (150-450) k/uL Neutrophils # (1.3-7.7) k/uL Monocytes # (0-1.0) k/uL ABG pH (7.35-7.45) ABG pCO2 (35-45) mmHg ABG pO2 (83-108) mmHg ABG Total CO2 (19-24) mmol/L ABG O2 Saturation (94-97) % Sodium (137-145) mmol/L Chloride (98-107) mmol/L BUN (9-20) mg/dL Creatinine (0.66-1.25) mg/dL Glucose (74-99) mg/dL POC Glucose (mg/dL) 151 H 137 H 151 H (75-99) mg/dL Hemoglobin A1c (4.0-6.0) % Calcium (8.4-10.2) mg/dL Total Bilirubin (0.2-1.3) mg/dL Delta Bilirubin (0.0-0.2) mg/dL Albumin (3.5-5.0) g/dL 12/20/19 12/20/19 12/20/19 Range/Units 21:15 22:08 23:06 WBC (3.8-10.6) k/uL RBC (4.30-5.90) m/uL Hgb (13.0-17.5) gm/dL Hct (39.0-53.0) % MCV (80.0-100.0) fL Plt Count (150-450) k/uL Neutrophils # (1.3-7.7) k/uL Monocytes # (0-1.0) k/uL ABG pH (7.35-7.45) ABG pCO2 (35-45) mmHg ABG pO2 (83-108) mmHg ABG Total CO2 (19-24) mmol/L ABG O2 Saturation (94-97) % Sodium (137-145) mmol/L Chloride (98-107) mmol/L BUN (9-20) mg/dL Creatinine (0.66-1.25) mg/dL Glucose (74-99) mg/dL POC Glucose (mg/dL) 165 H 187 H 191 H (75-99) mg/dL Hemoglobin A1c (4.0-6.0) % Calcium (8.4-10.2) mg/dL Total Bilirubin (0.2-1.3) mg/dL Delta Bilirubin (0.0-0.2) mg/dL Albumin (3.5-5.0) g/dL Microbiology - Last 24 Hours (Table) 12/18/19 21:08 Blood Culture - Preliminary Blood No Growth after 48 hours 12/19/19 04:45 Blood Culture - Preliminary Blood No Growth after 24 hours 12/19/19 04:21 Blood Culture - Preliminary Blood No Growth after 24 hours Assessment and Plan Assessment: Acute hypoxic respiratory failure secondary to COPD exacerbation and right lower lobe pneumonia Acute COPD exacerbation Right lower lobe pneumonia Sepsis secondary to above Hypertensive urgency on admission History of recent fall, fell on his left side onto the abdomen and chest. CT of the abdomen pelvis showed no significant changes. Suspected gallbladder wall thickening and acute cholecystitis Mild transaminitis Obstructive sleep apnea on CPAP at home Hyperglycemia with uncontrolled diabetes type 2 insulin-dependent Morbid obesity BMI 40.2 Previous history of smoking and alcohol use DVT prophylaxis with heparin subcu Plan: Patient is currently on noninvasive mechanical ventilator. Continue with oxygen therapy. Continue with duo nebs and IV Solu-Medrol. Patient is also started on ceftriaxone and flagyl added. Monitor renal function and continue with IV hydration. Cardiology was consulted for possible CHF with right sided small pleural Effusion. General surgery is on board due to gallbladder findings. Follow-up 2D echocardiogram and monitor CBC and BMP. Prognosis guarded with multi-medical problems and comorbid conditions. Time with Patient: Greater than 30
[2019-12-21 00:02] LABS: Glucose,Whole Blood 147 mg/dL (75-99)
[2019-12-21] MEDS: metroNIDAZOLE-NS PMX 500 MG in SALINE 1 100ML.BAG IVPB SCH ×4 (00:15→23:28)
[2019-12-21] MEDS: methylPREDNISolone SOD SUCCI 125 MG/2 ML VIAL IV SCH ×5 (00:16→23:27)
[2019-12-21] MEDS: HEPARIN SODIUM,PORCINE 5,000 UNIT/ML 1 ML VIAL SQ SCH ×4 (00:16→23:27)
[2019-12-21 01:09] LABS: Glucose,Whole Blood 143 mg/dL (75-99)
[2019-12-21 02:57] LABS: Glucose,Whole Blood 142 mg/dL (75-99)
[2019-12-21] MEDS: HYDROmorphone 1 MG/ML 1 ML SYRINGE IVP PRN ×2 (04:03→10:21)
[2019-12-21 04:30] LABS: ABG HCO3 23 mmol/L (21-25); ABG Oxygen Saturation 98.3 % (94-97); ABG PCO2 47 mmHg (35-45); ABG PH 7.29 (7.35-7.45); ABG PO2 111 mmHg (83-108); ABG TCO2 24 mmol/L (19-24)
[2019-12-21 04:30] LABS: Glucose,Whole Blood 132 mg/dL (75-99)
[2019-12-21 04:44] LABS: Allen Test Performed? no
[2019-12-21 05:19] LABS: Glucose,Whole Blood 130 mg/dL (75-99)
[2019-12-21 05:31] LABS: Basophils % (A) 0 %; Eosinophils # (A) 0.1 k/uL (0-0.7); Eosinophils % (A) 1 %; HCT 29.2 % (39.0-53.0); HGB 9.5 gm/dL (13.0-17.5); Hypochromasia Moderate; Lymphocytes # (A) 0.3 k/uL (1.0-4.8); Lymphocytes % (A) 3 %; MCH 34.6 pg (25.0-35.0); MCHC 32.5 g/dL (31.0-37.0); MCV 106.3 fL (80.0-100.0); Macrocytosis Moderate; Mean Platelet Volume 8.4; Monocytes # (A) 0.6 k/uL (0-1.0); Monocytes % (A) 6 %; Neutrophils # (A) 8.1 k/uL (1.3-7.7); Neutrophils % (A) 89 %; Platelet Count 286 k/uL (150-450); RBC 2.75 m/uL (4.30-5.90); RDW 14.4 % (11.5-15.5); WBC 9.1 k/uL (3.8-10.6)
[2019-12-21 05:44] LABS: Calcium 7.4 mg/dL (8.4-10.2); Potassium 4.9 mmol/L (3.5-5.1)
[2019-12-21 06:13] LABS: Glucose,Whole Blood 138 mg/dL (75-99)
--- NOTE | 2019-12-21 06:54 | XR ---
EXAMINATION TYPE: XR chest 1V portable DATE OF EXAM: 12/21/2019 HISTORY: Tube placement. REFERENCE: Previous study dated 12/20/2019. FINDINGS: The patient's ET tube and NG tube remain in place, unchanged in appearance. Lung volumes are prominent. Heart size is upper limits of normal. There is bibasilar atelectasis. The re is blunting of both CP angles. I could not exclude small effusions. IMPRESSION: 1. PLEASE CORRELATE FOR COPD. 2. BIBASILAR INFILTRATES LIKELY REPRESENTING ATELECTASIS. 3. SMALL, BILATERAL EFFUSIONS.
[2019-12-21] MEDS: IPRATROPIUM-ALBUTEROL 3 ML NEB INHALATION SCH ×4 (07:29→19:48)
[2019-12-21] MEDS: MORPHINE SULFATE 4 MG/ML SYRINGE IVP PRN ×2 (07:39→21:04)
[2019-12-21] MEDS: DILTIAZEM CD 180 MG CAP.ER.24H PO SCH (07:41)
[2019-12-21 08:01] LABS: Glucose,Whole Blood 203 mg/dL (75-99)
[2019-12-21] MEDS: PANTOPRAZOLE 40 MG/10 ML VIAL IV SCH (08:29)
[2019-12-21] MEDS: METOPROLOL TARTRATE 12.5 MG TAB PO SCH ×3 (08:29→22:00)
[2019-12-21] MEDS: CHLORHEXIDINE GLUCONATE 15 ML CUP MUCOUS MEM SCH ×2 (08:29→22:00)
[2019-12-21] MEDS: amLODIPine 5 MG TAB PO SCH ×2 (08:29→22:46)
[2019-12-21 09:22] LABS: Glucose,Whole Blood 203 mg/dL (75-99)
[2019-12-21 10:04] LABS: Glucose,Whole Blood 160 mg/dL (75-99)
[2019-12-21] MEDS: INSULIN REGULAR 100 UNIT in SODIUM CHLORIDE 0.9% 100 ML IV SCH (10:04)
--- NOTE | 2019-12-21 11:11 | P.PN ---
Subjective Progress Note Date: 12/20/19 Principal diagnosis: Elevated liver enzymes, history of hepatitis C Patient still sitting in bed on BiPAP. No abdominal pain but still reporting shoulder pain. No signs or symptoms of GI bleed. Objective - Vital Signs Vital signs: Vital Signs Temp 97.6 F 12/20/19 08:00 Pulse 106 H 12/20/19 11:07 Resp 26 H 12/20/19 11:00 BP 140/82 12/20/19 11:00 Pulse Ox 98 12/20/19 11:00 Intake & Output 12/19/19 12/20/19 12/20/19 18:59 06:59 18:59 Intake Total 1790.066 519.500 381.867 Output Total 395 480 210 Balance 1395.066 39.500 171.867 Weight 114 kg Intake: IV 1600 480 350 .9 NS 350 480 200 Sodium Chloride 0.9% 1, 1000 000 ml @ 999 mls/hr IV . Q1H1M [facility] Rx#:[id number] cefTRIAXone 1 gm In 50 50 Sodium Chloride 0.9% 50 ml @ 100 mls/hr IVPB Q24HR [facility] Rx#:[id number] metroNIDAZOLE-NS PMX 500 200 100 mg In Saline 1 100ml.bag @ 100 mls/hr IVPB Q8HR [facility] Rx#:[id number] Intake, IV Titration 190.066 39.500 31.867 Amount Clevidipine Butyrate 25 109.733 4.6 2.467 mg In Empty Bag 1 bag @ 1 MG/HR 2 mls/hr IV .Q24H [facility] Rx#:[id number] Insulin Regular 100 unit 80.333 34.900 29.40 In Sodium Chloride 0.9% 100 ml @ Per Protocol IV .Q0M [facility] Rx#:[id number] Output: Urine 395 480 210 Other: Voiding Method Indwelling Catheter Indwelling Catheter Indwelling Catheter - Exam On physical examination, patient appears comfortable in no apparent distress. HEAD: Normocephalic, atraumatic. EYES: No scleral icterus. No conjunctival injection. MOUTH: No lesions, tongue midline. NECK: Trachea midline, no gross abnormalities. CHEST: Decreased air entry in all lung dunn. HEART: Regular rate and rhythm. ABDOMEN: Soft, obese, tender to palpation in the left upper and lower quadrant where significant bruising is noted. Bowel sounds are positive. No organomegaly. No guarding or rigidity. EXTREMITIES: No pedal edema. SKIN: No rashes, no jaundice. NEUROLOGIC: Alert and oriented x3. No focal deficits. - Labs CBC & Chem 7: 12/21/19 05:21 12/21/19 05:21 Labs: Abnormal Lab Results - Last 24 Hours (Table) 12/19/19 12/19/19 12/19/19 Range/Units 04:45 11:52 13:01 WBC (3.8-10.6) k/uL RBC (4.30-5.90) m/uL Hgb (13.0-17.5) gm/dL Hct (39.0-53.0) % MCV (80.0-100.0) fL Plt Count (150-450) k/uL Neutrophils # (1.3-7.7) k/uL Monocytes # (0-1.0) k/uL Sodium (137-145) mmol/L Chloride (98-107) mmol/L BUN (9-20) mg/dL Creatinine (0.66-1.25) mg/dL Glucose (74-99) mg/dL POC Glucose (mg/dL) 158 H 104 H (75-99) mg/dL Calcium (8.4-10.2) mg/dL Total Bilirubin (0.2-1.3) mg/dL Delta Bilirubin (0.0-0.2) mg/dL Albumin (3.5-5.0) g/dL Procalcitonin 0.30 H (0.02-0.09) ng/mL 12/19/19 12/19/19 12/19/19 Range/Units 13:48 15:03 16:41 WBC (3.8-10.6) k/uL RBC (4.30-5.90) m/uL Hgb (13.0-17.5) gm/dL Hct (39.0-53.0) % MCV (80.0-100.0) fL Plt Count (150-450) k/uL Neutrophils # (1.3-7.7) k/uL Monocytes # (0-1.0) k/uL Sodium (137-145) mmol/L Chloride (98-107) mmol/L BUN (9-20) mg/dL Creatinine (0.66-1.25) mg/dL Glucose (74-99) mg/dL POC Glucose (mg/dL) 111 H 157 H 148 H (75-99) mg/dL Calcium (8.4-10.2) mg/dL Total Bilirubin (0.2-1.3) mg/dL Delta Bilirubin (0.0-0.2) mg/dL Albumin (3.5-5.0) g/dL Procalcitonin (0.02-0.09) ng/mL 12/19/19 12/19/19 12/19/19 Range/Units 18:01 19:03 20:29 WBC (3.8-10.6) k/uL RBC (4.30-5.90) m/uL Hgb (13.0-17.5) gm/dL Hct (39.0-53.0) % MCV (80.0-100.0) fL Plt Count (150-450) k/uL Neutrophils # (1.3-7.7) k/uL Monocytes # (0-1.0) k/uL Sodium (137-145) mmol/L Chloride (98-107) mmol/L BUN (9-20) mg/dL Creatinine (0.66-1.25) mg/dL Glucose (74-99) mg/dL POC Glucose (mg/dL) 150 H 133 H 173 H (75-99) mg/dL Calcium (8.4-10.2) mg/dL Total Bilirubin (0.2-1.3) mg/dL Delta Bilirubin (0.0-0.2) mg/dL Albumin (3.5-5.0) g/dL Procalcitonin (0.02-0.09) ng/mL 12/19/19 12/19/19 12/19/19 Range/Units 21:44 22:36 23:41 WBC (3.8-10.6) k/uL RBC (4.30-5.90) m/uL Hgb (13.0-17.5) gm/dL Hct (39.0-53.0) % MCV (80.0-100.0) fL Plt Count (150-450) k/uL Neutrophils # (1.3-7.7) k/uL Monocytes # (0-1.0) k/uL Sodium (137-145) mmol/L Chloride (98-107) mmol/L BUN (9-20) mg/dL Creatinine (0.66-1.25) mg/dL Glucose (74-99) mg/dL POC Glucose (mg/dL) 169 H 151 H 129 H (75-99) mg/dL Calcium (8.4-10.2) mg/dL Total Bilirubin (0.2-1.3) mg/dL Delta Bilirubin (0.0-0.2) mg/dL Albumin (3.5-5.0) g/dL Procalcitonin (0.02-0.09) ng/mL 12/20/19 12/20/19 12/20/19 Range/Units 01:02 02:20 03:04 WBC (3.8-10.6) k/uL RBC (4.30-5.90) m/uL Hgb (13.0-17.5) gm/dL Hct (39.0-53.0) % MCV (80.0-100.0) fL Plt Count (150-450) k/uL Neutrophils # (1.3-7.7) k/uL Monocytes # (0-1.0) k/uL Sodium (137-145) mmol/L Chloride (98-107) mmol/L BUN (9-20) mg/dL Creatinine (0.66-1.25) mg/dL Glucose (74-99) mg/dL POC Glucose (mg/dL) 180 H 202 H 158 H (75-99) mg/dL Calcium (8.4-10.2) mg/dL Total Bilirubin (0.2-1.3) mg/dL Delta Bilirubin (0.0-0.2) mg/dL Albumin (3.5-5.0) g/dL Procalcitonin (0.02-0.09) ng/mL 12/20/19 12/20/19 12/20/19 Range/Units 03:59 04:44 04:44 WBC 23.6 H (3.8-10.6) k/uL RBC 3.20 L (4.30-5.90) m/uL Hgb 10.9 L (13.0-17.5) gm/dL Hct 34.1 L (39.0-53.0) % MCV 106.5 H (80.0-100.0) fL Plt Count 509 H (150-450) k/uL Neutrophils # 20.5 H (1.3-7.7) k/uL Monocytes # 1.7 H (0-1.0) k/uL Sodium 136 L (137-145) mmol/L Chloride 110 H (98-107) mmol/L BUN 57 H (9-20) mg/dL Creatinine 1.42 H (0.66-1.25) mg/dL Glucose 136 H (74-99) mg/dL POC Glucose (mg/dL) 148 H (75-99) mg/dL Calcium 8.2 L (8.4-10.2) mg/dL Total Bilirubin (0.2-1.3) mg/dL Delta Bilirubin (0.0-0.2) mg/dL Albumin (3.5-5.0) g/dL Procalcitonin (0.02-0.09) ng/mL 12/20/19 12/20/19 12/20/19 Range/Units 04:44 05:15 06:10 WBC (3.8-10.6) k/uL RBC (4.30-5.90) m/uL Hgb (13.0-17.5) gm/dL Hct (39.0-53.0) % MCV (80.0-100.0) fL Plt Count (150-450) k/uL Neutrophils # (1.3-7.7) k/uL Monocytes # (0-1.0) k/uL Sodium (137-145) mmol/L Chloride (98-107) mmol/L BUN (9-20) mg/dL Creatinine (0.66-1.25) mg/dL Glucose (74-99) mg/dL POC Glucose (mg/dL) 132 H 150 H (75-99) mg/dL Calcium (8.4-10.2) mg/dL Total Bilirubin 1.6 H (0.2-1.3) mg/dL Delta Bilirubin 0.8 H (0.0-0.2) mg/dL Albumin 3.1 L (3.5-5.0) g/dL Procalcitonin (0.02-0.09) ng/mL 12/20/19 12/20/19 12/20/19 Range/Units 07:30 08:02 08:57 WBC (3.8-10.6) k/uL RBC (4.30-5.90) m/uL Hgb (13.0-17.5) gm/dL Hct (39.0-53.0) % MCV (80.0-100.0) fL Plt Count (150-450) k/uL Neutrophils # (1.3-7.7) k/uL Monocytes # (0-1.0) k/uL Sodium (137-145) mmol/L Chloride (98-107) mmol/L BUN (9-20) mg/dL Creatinine (0.66-1.25) mg/dL Glucose (74-99) mg/dL POC Glucose (mg/dL) 150 H 145 H 140 H (75-99) mg/dL Calcium (8.4-10.2) mg/dL Total Bilirubin (0.2-1.3) mg/dL Delta Bilirubin (0.0-0.2) mg/dL Albumin (3.5-5.0) g/dL Procalcitonin (0.02-0.09) ng/mL 12/20/19 12/20/19 Range/Units 10:03 11:24 WBC (3.8-10.6) k/uL RBC (4.30-5.90) m/uL Hgb (13.0-17.5) gm/dL Hct (39.0-53.0) % MCV (80.0-100.0) fL Plt Count (150-450) k/uL Neutrophils # (1.3-7.7) k/uL Monocytes # (0-1.0) k/uL Sodium (137-145) mmol/L Chloride (98-107) mmol/L BUN (9-20) mg/dL Creatinine (0.66-1.25) mg/dL Glucose (74-99) mg/dL POC Glucose (mg/dL) 150 H 146 H (75-99) mg/dL Calcium (8.4-10.2) mg/dL Total Bilirubin (0.2-1.3) mg/dL Delta Bilirubin (0.0-0.2) mg/dL Albumin (3.5-5.0) g/dL Procalcitonin (0.02-0.09) ng/mL Microbiology - Last 24 Hours (Table) 12/19/19 04:45 Blood Culture - Preliminary Blood No Growth after 24 hours 12/19/19 04:21 Blood Culture - Preliminary Blood No Growth after 24 hours 12/18/19 21:08 Blood Culture - Preliminary Blood No Growth after 24 hours Assessment and Plan (1) Elevated liver enzymes Narrative/Plan: 59-year-old male with multiple medical comorbidities including COPD who presented to the hospital after a mechanical fall complaining of pain in his left abdomen and chest with significant ecchymosis and bruising noted. Patient was noted to have elevated liver enzymes on presentation with total bilirubin 2.6, alkaline phosphatase 158, AST 68 and ALT 65. Ultrasound of the abdomen performed in evaluation showed a hydropic gallbladder with a 0.5 cm CBD. On questioning the patient has a history of hepatitis C which she reports was treated with antiviral therapy successfully in [place]. He also reports a previous history of heavy alcohol consumption for 5 year. During which she was drinking a sixpack a day. Elevated liver enzymes are likely multifactorial and may be secondary to hemolysis in the setting of significant bruising and ecchymosis, patient likely also has underlying fibrosis in the setting of prior heavy alcohol use and hepatitis C, ultrasound of the abdomen does not suggest choledocholithiasis with a common bile duct which is normal for the patient's age. Liver enzymes improved today. Current Visit: Yes Status: Acute Code(s): R74.8 - ABNORMAL LEVELS OF OTHER S CHARIS ENZYMES SNOMED Code(s): 776051749 (2) History of hepatitis C Current Visit: Yes Status: Acute Code(s): Z86.19 - PERSONAL HISTORY OF OTHER INFECTIOUS AND PARASITIC DISEASES SNOMED Code(s): 48496826838575 Plan: Supportive care Okay for diet Surgical service has been consulted with no interventions planned Continue care in the ICU with the environmental research project manager/pulmonary service managing the patient Hepatitis C viral load ordered, based on patient's history should be undetectable due to prior antiviral therapy LDH ordered with suspicion for possible hemolysis in the setting of significant ecchymoses Liver enzymes improves, no plans for further intervention for MRCP The GI service will stand by, please call us back with any questions or concerns Thank you for allowing us to participate in the care of the patient
[2019-12-21 11:13] LABS: Glucose,Whole Blood 113 mg/dL (75-99)
[2019-12-21 12:25] LABS: Glucose,Whole Blood 125 mg/dL (75-99)
--- NOTE | 2019-12-21 12:52 | P.PN ---
Subjective Progress Note Date: 12/21/19 This is a 59-year-old male patient with known history of severe COPD with an FEV1 of 34% of predicted maintained on a cruise on outpatient basis. He also doesn't rescue inhaler and albuterol chest on a when necessary basis. The patient has obstructive sleep apnea maintained on CPAP therapy, and his other comorbidities include obesity, diabetes mellitus, hypertension and he has chronic peripheral edema. The patient had a fall prior to him coming to the hospital. He landed on his left side of the chest. He has bruising over the left lateral wall of the abdomen and upper thigh. He did also have some blunt trauma to his chest. On 12/21/1999 and answering the patient for a follow-up. Note that the patient got intubated yesterday and placed on a mechanical ventilator. He progressively went into respiratory failure and became unresponsive for that reason he had to be intubated. Intubation process was very successful. The patient remained hemodynamically stable. The patient is currently on propofol at 35 g per KG per minute. The patient is also on normal saline at rate of 40 mL an hour. The patient is on insulin drip at 7 units an hour. The patient was started on enteral feeding for nutritional support. This morning, the patient is an assist-control at the rate of 24 with a tidal volume of 400 and FiO2 of 50% with a PEEP of 5. Blood gas showed a patient of 7.29 with a pCO2 47 and pO2 111. The peak air pressures around 26. The patient is obviously less bronchospastic and wheezy. He was given IV sedation holiday and he was able to arouse and follows some simple commands. He seems to be quite comfortable while on the mechanical ventilator. No active pain issues. I also performed CAT scan of the chest abdomen and pelvis on him yesterday. A CAT scan of the chest abdomen and pelvis was done. A surgical consultation was also obtained for the possibility of gallbladder disease gallbladder was cleared by the surgeons. CAT scan of the abdomen and pelvis did not show any cholelithiasis. There was no evidence of any cholecystitis. There was a small right-sided pleural effusion. Small hiatal hernia. Mild hepatomegaly. Mild free fluid within the pelvis. Mild wedging of the T11 vertebral body probably developmental in addition to degenerative changes of the spine. There was evidence of an altered left seventh rib fracture. Lungs are essentially clear and there was no evidence of any significant pneumonia. The patient remains on an empiric antibiotic coverage with a combination of low-dose Rocephin and Flagyl for now. He remains on bronchodilators. He remains on IV Solu-Medrol. Urine output was low and the patient be given another liter bolus for now. Objective - Vital Signs Vital signs: Vital Signs Temp 98.9 F 12/21/19 12:00 Pulse 86 12/21/19 12:00 Resp 24 12/21/19 12:00 BP 112/50 12/20/19 19:00 Pulse Ox 94 L 12/21/19 12:00 Intake & Output 12/20/19 12/21/19 12/21/19 18:59 06:59 18:59 Intake Total 1823.493 502.883 533.918 Output Total 460 565 395 Balance 1363.493 -62.117 138.918 Weight 118 kg 118 kg Intake: IV 1748 486 426 .9 NS 480 480 240 Pressure bags 18 6 36 Sodium Chloride 0.9% 1, 1000 000 ml @ 999 mls/hr IV . Q1H1M ONE Rx#:[id number] cefTRIAXone 1 gm In 50 50 Sodium Chloride 0.9% 50 ml @ 100 mls/hr IVPB Q24HR [facility] Rx#:[id number] metroNIDAZOLE-NS PMX 500 200 100 mg In Saline 1 100ml.bag @ 100 mls/hr IVPB Q8HR [facility] Rx#:[id number] Intake, IV Titration 75.493 16.883 107.918 Amount Clevidipine Butyrate 25 2.467 mg In Empty Bag 1 bag @ 1 MG/HR 2 mls/hr IV .Q24H [facility] Rx#:[id number] Insulin Regular 100 unit 50.283 16.883 25.351 In Sodium Chloride 0.9% 100 ml @ Per Protocol IV .Q0M [facility] Rx#:[id number] Propofol 1,000 mg In 22.743 82.567 Empty Bag 1 bag @ Titrate IV .Q0M [facility] Rx#: [id number] Output: Urine 460 565 395 Other: Voiding Method Indwelling Catheter Indwelling Catheter Indwelling Catheter ABP, PAP, CO, CI - Last Documented Arterial Blood Pressure 122/52 - Exam The patient is currently intubated on mechanical ventilator, comfortable sedated on propofol Head exam was generally normal. There was no scleral icterus or corneal arcus. Mucous membranes were moist. Neck was supple and without jugular venous distension, thyromegaly, or carotid bruits. Carotids were easily palpable bilaterally. There was no adenopathy. The patient is an orogastric and orotracheal tube are both of them are in place. The patient is a #8.5 ET tube. Lung sounds are diminished and there is some few scattered expiratory wheezes throughout the lung his bilaterally. Cardiac exam revealed the PMI to be normally situated and sized. The rhythm was regular and no extrasystoles were noted during several minutes of auscultation. The first and second heart sounds were normal and physiologic splitting of the second heart sound was noted. There were no murmurs, rubs, clicks, or gallops. Abdominal exam revealed normal bowel sounds. The abdomen was soft, non-tender, and without masses, organomegaly, or appreciable enlargement of the abdominal aorta. Examination of the extremities revealed easily palpable radial, femoral and pedal pulses. There was no cyanosis, clubbing and there is +1 pitting edema lower extremities bilaterally. Examination of the skin revealed no evidence of significant rashes, suspicious appearing nevi or other concerning lesions. Neurologically the patient was given a sedation holiday and the patient seems to be responding well and following commands. Nevertheless currently is well sedated - Labs CBC & Chem 7: 12/21/19 05:21 12/21/19 05:21 Labs: Abnormal Lab Results - Last 24 Hours (Table) 12/20/19 12/20/19 12/20/19 Range/Units 04:44 14:04 15:05 RBC (4.30-5.90) m/uL Hgb (13.0-17.5) gm/dL Hct (39.0-53.0) % MCV (80.0-100.0) fL Neutrophils # (1.3-7.7) k/uL Lymphocytes # (1.0-4.8) k/uL ABG pH (7.35-7.45) ABG pCO2 (35-45) mmHg ABG pO2 (83-108) mmHg ABG Total CO2 (19-24) mmol/L ABG O2 Saturation (94-97) % Chloride (98-107) mmol/L Carbon Dioxide (22-30) mmol/L BUN (9-20) mg/dL Creatinine (0.66-1.25) mg/dL Glucose (74-99) mg/dL POC Glucose (mg/dL) 179 H 176 H (75-99) mg/dL Hemoglobin A1c 6.1 H (4.0-6.0) % Calcium (8.4-10.2) mg/dL 12/20/19 12/20/19 12/20/19 Range/Units 16:50 17:02 18:09 RBC (4.30-5.90) m/uL Hgb (13.0-17.5) gm/dL Hct (39.0-53.0) % MCV (80.0-100.0) fL Neutrophils # (1.3-7.7) k/uL Lymphocytes # (1.0-4.8) k/uL ABG pH 7.22 L (7.35-7.45) ABG pCO2 57 H (35-45) mmHg ABG pO2 394 H (83-108) mmHg ABG Total CO2 25 H (19-24) mmol/L ABG O2 Saturation 99.8 H (94-97) % Chloride (98-107) mmol/L Carbon Dioxide (22-30) mmol/L BUN (9-20) mg/dL Creatinine (0.66-1.25) mg/dL Glucose (74-99) mg/dL POC Glucose (mg/dL) 178 H 151 H (75-99) mg/dL Hemoglobin A1c (4.0-6.0) % Calcium (8.4-10.2) mg/dL 12/20/19 12/20/19 12/20/19 Range/Units 19:01 20:08 21:15 RBC (4.30-5.90) m/uL Hgb (13.0-17.5) gm/dL Hct (39.0-53.0) % MCV (80.0-100.0) fL Neutrophils # (1.3-7.7) k/uL Lymphocytes # (1.0-4.8) k/uL ABG pH (7.35-7.45) ABG pCO2 (35-45) mmHg ABG pO2 (83-108) mmHg ABG Total CO2 (19-24) mmol/L ABG O2 Saturation (94-97) % Chloride (98-107) mmol/L Carbon Dioxide (22-30) mmol/L BUN (9-20) mg/dL Creatinine (0.66-1.25) mg/dL Glucose (74-99) mg/dL POC Glucose (mg/dL) 137 H 151 H 165 H (75-99) mg/dL Hemoglobin A1c (4.0-6.0) % Calcium (8.4-10.2) mg/dL 12/20/19 12/20/19 12/21/19 Range/Units 22:08 23:06 00:00 RBC (4.30-5.90) m/uL Hgb (13.0-17.5) gm/dL Hct (39.0-53.0) % MCV (80.0-100.0) fL Neutrophils # (1.3-7.7) k/uL Lymphocytes # (1.0-4.8) k/uL ABG pH (7.35-7.45) ABG pCO2 (35-45) mmHg ABG pO2 (83-108) mmHg ABG Total CO2 (19-24) mmol/L ABG O2 Saturation (94-97) % Chloride (98-107) mmol/L Carbon Dioxide (22-30) mmol/L BUN (9-20) mg/dL Creatinine (0.66-1.25) mg/dL Glucose (74-99) mg/dL POC Glucose (mg/dL) 187 H 191 H 147 H (75-99) mg/dL Hemoglobin A1c (4.0-6.0) % Calcium (8.4-10.2) mg/dL 12/21/19 12/21/19 12/21/19 Range/Units 01:08 02:46 04:17 RBC (4.30-5.90) m/uL Hgb (13.0-17.5) gm/dL Hct (39.0-53.0) % MCV (80.0-100.0) fL Neutrophils # (1.3-7.7) k/uL Lymphocytes # (1.0-4.8) k/uL ABG pH (7.35-7.45) ABG pCO2 (35-45) mmHg ABG pO2 (83-108) mmHg ABG Total CO2 (19-24) mmol/L ABG O2 Saturation (94-97) % Chloride (98-107) mmol/L Carbon Dioxide (22-30) mmol/L BUN (9-20) mg/dL Creatinine (0.66-1.25) mg/dL Glucose (74-99) mg/dL POC Glucose (mg/dL) 143 H 142 H 132 H (75-99) mg/dL Hemoglobin A1c (4.0-6.0) % Calcium (8.4-10.2) mg/dL 12/21/19 12/21/19 12/21/19 Range/Units 04:30 05:17 05:21 RBC 2.75 L (4.30-5.90) m/uL Hgb 9.5 L (13.0-17.5) gm/dL Hct 29.2 L (39.0-53.0) % MCV 106.3 H (80.0-100.0) fL Neutrophils # 8.1 H (1.3-7.7) k/uL Lymphocytes # 0.3 L (1.0-4.8) k/uL ABG pH 7.29 L (7.35-7.45) ABG pCO2 47 H (35-45) mmHg ABG pO2 111 H (83-108) mmHg ABG Total CO2 (19-24) mmol/L ABG O2 Saturation 98.3 H (94-97) % Chloride (98-107) mmol/L Carbon Dioxide (22-30) mmol/L BUN (9-20) mg/dL Creatinine (0.66-1.25) mg/dL Glucose (74-99) mg/dL POC Glucose (mg/dL) 130 H (75-99) mg/dL Hemoglobin A1c (4.0-6.0) % Calcium (8.4-10.2) mg/dL 12/21/19 12/21/19 12/21/19 Range/Units 05:21 06:01 07:59 RBC (4.30-5.90) m/uL Hgb (13.0-17.5) gm/dL Hct (39.0-53.0) % MCV (80.0-100.0) fL Neutrophils # (1.3-7.7) k/uL Lymphocytes # (1.0-4.8) k/uL ABG pH (7.35-7.45) ABG pCO2 (35-45) mmHg ABG pO2 (83-108) mmHg ABG Total CO2 (19-24) mmol/L ABG O2 Saturation (94-97) % Chloride 113 H (98-107) mmol/L Carbon Dioxide 20 L (22-30) mmol/L BUN 83 H (9-20) mg/dL Creatinine 1.69 H (0.66-1.25) mg/dL Glucose 126 H (74-99) mg/dL POC Glucose (mg/dL) 138 H 203 H (75-99) mg/dL Hemoglobin A1c (4.0-6.0) % Calcium 7.4 L (8.4-10.2) mg/dL 12/21/19 12/21/19 12/21/19 Range/Units 09:19 10:03 11:13 RBC (4.30-5.90) m/uL Hgb (13.0-17.5) gm/dL Hct (39.0-53.0) % MCV (80.0-100.0) fL Neutrophils # (1.3-7.7) k/uL Lymphocytes # (1.0-4.8) k/uL ABG pH (7.35-7.45) ABG pCO2 (35-45) mmHg ABG pO2 (83-108) mmHg ABG Total CO2 (19-24) mmol/L ABG O2 Saturation (94-97) % Chloride (98-107) mmol/L Carbon Dioxide (22-30) mmol/L BUN (9-20) mg/dL Creatinine (0.66-1.25) mg/dL Glucose (74-99) mg/dL POC Glucose (mg/dL) 203 H 160 H 113 H (75-99) mg/dL Hemoglobin A1c (4.0-6.0) % Calcium (8.4-10.2) mg/dL 12/21/19 Range/Units 12:23 RBC (4.30-5.90) m/uL Hgb (13.0-17.5) gm/dL Hct (39.0-53.0) % MCV (80.0-100.0) fL Neutrophils # (1.3-7.7) k/uL Lymphocytes # (1.0-4.8) k/uL ABG pH (7.35-7.45) ABG pCO2 (35-45) mmHg ABG pO2 (83-108) mmHg ABG Total CO2 (19-24) mmol/L ABG O2 Saturation (94-97) % Chloride (98-107) mmol/L Carbon Dioxide (22-30) mmol/L BUN (9-20) mg/dL Creatinine (0.66-1.25) mg/dL Glucose (74-99) mg/dL POC Glucose (mg/dL) 125 H (75-99) mg/dL Hemoglobin A1c (4.0-6.0) % Calcium (8.4-10.2) mg/dL Microbiology - Last 24 Hours (Table) 12/19/19 04:45 Blood Culture - Preliminary Blood No Growth after 48 hours 12/19/19 04:21 Blood Culture - Preliminary Blood No Growth after 48 hours 12/18/19 21:08 Blood Culture - Preliminary Blood No Growth after 48 hours Assessment and Plan Plan: 1 acute hypoxic/hypercapnic respiratory failure essentially due to advanced COPD and addition to a blunt trauma to the chest which resulted in significant amount of chest wall pain and COPD exacerbation. Based on the computed tomography scan of the chest, there is no evidence of any acute pneumonia or any skeletal fractures. No evidence of any hemothorax or pneumothorax. Please refer to the CAT scan of the chest. The patient is less bronchospastic and wheezy. The patient is currently intubated on a mechanical ventilator. The patient is a currently on DuoNeb the treatment [id number] on IV Solu-Medrol. Pain is under good control with Dilaudid. Patient is on propofol for sedation. 2 severe COPD with an FEV1 of 34% of predicted at baseline 3 hypertensive urgency improved and the patient is currently off Cleviprex. Controlling the patient's pain helped also with a blood pressure control. 4 fall with blunt trauma to the left abdomen and chest area without any fractures 5 abnormal LFTs with suspected cholelithiasis/cholecystitis, nonsurgical based on surgical evaluation 6 obstructive sleep apnea maintained on CPAP therapy on outpatient basis 7 diabetes mellitus type 2, on insulin outpatient basis, currently on insulin drip for blood sugar control 8 history of hypertension 9 chronic anxiety 10 obesity with a BMI of 40.2. 11 leukocytosis, secondary to above 12 acute kidney injury in the creatinine is up to 1.6 Plan Continue ventilator support Continue tube feeds for enteral feeding and nutritional support Drop the FiO2 down to 40% Continue Rocephin and Flagyl IV fluids at 40 mL an hour Insulin drip for blood sugar control Pain control with Dilaudid Blood pressure control with a combination of Norvasc and clonidine patch and metoprolol and Cardizem. coronavirus Covid 19 nasal swab came back negative. Check pro calcitonin level is elevated at 0.3. We'll monitor that. We'll continue to follow condition is still critical. This evaluation was done and more than 30 minutes. Time with Patient: Greater than 30
[2019-12-21 13:24] LABS: Glucose,Whole Blood 133 mg/dL (75-99)
[2019-12-21] MEDS: SODIUM CHLORIDE 0.9% 1,000 ML IV SCH (13:24)
[2019-12-21 14:10] LABS: Glucose,Whole Blood 133 mg/dL (75-99)
[2019-12-21 15:29] LABS: Glucose,Whole Blood 188 mg/dL (75-99)
[2019-12-21 16:29] LABS: Glucose,Whole Blood 180 mg/dL (75-99)
[2019-12-21 17:15] LABS: Glucose,Whole Blood 162 mg/dL (75-99)
[2019-12-21] MEDS: HYDROmorphone 0.5 MG/0.5 ML SYRINGE IVP PRN ×2 (17:16→23:49)
[2019-12-21 18:02] LABS: Glucose,Whole Blood 127 mg/dL (75-99)
[2019-12-21 19:00] LABS: Glucose,Whole Blood 151 mg/dL (75-99)
[2019-12-21 20:11] LABS: Glucose,Whole Blood 158 mg/dL (75-99)
[2019-12-21 21:17] LABS: Glucose,Whole Blood 160 mg/dL (75-99)
[2019-12-21 22:14] LABS: Glucose,Whole Blood 160 mg/dL (75-99)
[2019-12-21 22:58] LABS: Glucose,Whole Blood 148 mg/dL (75-99)
[2019-12-22 00:05] LABS: Glucose,Whole Blood 136 mg/dL (75-99)
[2019-12-22 01:29] LABS: Glucose,Whole Blood 186 mg/dL (75-99)
[2019-12-22 02:06] LABS: Glucose,Whole Blood 216 mg/dL (75-99)
[2019-12-22 03:12] LABS: Glucose,Whole Blood 183 mg/dL (75-99)
[2019-12-22] MEDS: HYDROmorphone 0.5 MG/0.5 ML SYRINGE IVP PRN (03:28)
[2019-12-22 04:05] LABS: Glucose,Whole Blood 189 mg/dL (75-99)
[2019-12-22 04:13] LABS: Basophils % (A) 0 %; Eosinophils # (A) 0.1 k/uL (0-0.7); Eosinophils % (A) 2 %; HCT 30.2 % (39.0-53.0); HGB 9.4 gm/dL (13.0-17.5); Hypochromasia Moderate; Lymphocytes # (A) 0.2 k/uL (1.0-4.8); Lymphocytes % (A) 4 %; MCH 33.1 pg (25.0-35.0); MCV 106.7 fL (80.0-100.0); Macrocytosis Moderate; Mean Platelet Volume 10.1; Monocytes # (A) 0.3 k/uL (0-1.0); Monocytes % (A) 5 %; Neutrophils # (A) 4.9 k/uL (1.3-7.7); Neutrophils % (A) 89 %; Platelet Count 243 k/uL (150-450); RBC 2.83 m/uL (4.30-5.90); RDW 14.1 % (11.5-15.5); WBC 5.5 k/uL (3.8-10.6)
[2019-12-22 04:24] LABS: Calcium 7.2 mg/dL (8.4-10.2); Potassium 4.8 mmol/L (3.5-5.1)
[2019-12-22 05:10] LABS: Glucose,Whole Blood 155 mg/dL (75-99)
[2019-12-22 05:22] LABS: ABG Base Excess -5.4 mmol/L; ABG HCO3 21 mmol/L (21-25); ABG Oxygen Saturation 94.1 % (94-97); ABG PCO2 43 mmHg (35-45); ABG PO2 74 mmHg (83-108); ABG TCO2 22 mmol/L (19-24); Allen Test Performed? Yes
[2019-12-22] MEDS: methylPREDNISolone SOD SUCCI 125 MG/2 ML VIAL IV SCH ×3 (05:25→18:48)
[2019-12-22 06:02] LABS: Glucose,Whole Blood 138 mg/dL (75-99)
[2019-12-22 07:06] LABS: Glucose,Whole Blood 164 mg/dL (75-99)
[2019-12-22] MEDS: IPRATROPIUM-ALBUTEROL 3 ML NEB INHALATION SCH ×4 (07:55→19:39)
--- NOTE | 2019-12-22 08:12 | XR ---
EXAMINATION TYPE: XR chest 1V portable DATE OF EXAM: 12/22/2019 Comparison: 12/21/2019 Clinical History: 59-year-old male Tube placement Findings: Patient is rotated towards the left and also obliquely toward the left. This alters the normal cardia c mediastinal contours. It also makes it difficult to visualize the jaclyn with accuracy. NG tube cou rses below the diaphragm. ET tube tip estimated about 1 cm from the jaclyn. However, note that this m easurement may not be accurate. Left subclavian CVC tip in the mid to lower SVC. Continued small righ t and trace left effusions with patchy bibasilar opacities, increasing on the right. Impression: 1. Patient is obliqued and rotated limiting visualization of the jaclyn. ET tube tip estimated at 1 c m away. Attention on follow-up. Consider pulling back 2 cm now as a precautionary measure. 2. Continued small right and trace left effusions with adjacent atelectasis and or consolidation. Air space disease is increasing at the right base.
[2019-12-22] MEDS ORDERED: SODIUM CHLORIDE 0.9% 1,000 ML IV ONE (09:05)
[2019-12-22] MEDS: CHLORHEXIDINE GLUCONATE 15 ML CUP MUCOUS MEM SCH ×2 (09:08→20:56)
[2019-12-22] MEDS: metroNIDAZOLE-NS PMX 500 MG in SALINE 1 100ML.BAG IVPB SCH ×2 (09:08→16:16)
[2019-12-22] MEDS: PANTOPRAZOLE 40 MG/10 ML VIAL IV SCH (09:09)
[2019-12-22] MEDS: METOPROLOL TARTRATE 12.5 MG TAB PO SCH ×3 (09:09→21:02)
[2019-12-22] MEDS: HEPARIN SODIUM,PORCINE 5,000 UNIT/ML 1 ML VIAL SQ SCH ×2 (09:09→16:16)
[2019-12-22] MEDS: amLODIPine 5 MG TAB PO SCH ×2 (09:09→20:56)
[2019-12-22] MEDS: DILTIAZEM CD 180 MG CAP.ER.24H PO SCH (09:09)
[2019-12-22] MEDS: SODIUM CHLORIDE 0.9% 1,000 ML IV SCH (09:10)
[2019-12-22 09:17] LABS: Glucose,Whole Blood 167 mg/dL (75-99)
[2019-12-22 10:53] LABS: Glucose,Whole Blood 170 mg/dL (75-99)
[2019-12-22 12:08] LABS: Glucose,Whole Blood 169 mg/dL (75-99)
--- NOTE | 2019-12-22 13:03 | P.PN ---
Subjective Progress Note Date: 12/22/19 Principal diagnosis: Acute hypoxic and hypercapnic respiratory failure secondary to advanced COPD and blunt trauma to the chest, possible right pulmonary contusion. This is a 59-year-old male patient with known history of severe COPD with an FEV1 of 34% of predicted maintained on a cruise on outpatient basis. He also doesn't rescue inhaler and albuterol chest on a when necessary basis. The patient has obstructive sleep apnea maintained on CPAP therapy, and his other comorbidities include obesity, diabetes mellitus, hypertension and he has chronic peripheral edema. The patient had a fall prior to him coming to the hospital. He landed on his left side of the chest. He has bruising over the left lateral wall of the abdomen and upper thigh. He did also have some blunt trauma to his chest. On 12/21/1999 and answering the patient for a follow-up. Note that the patient got intubated yesterday and placed on a mechanical ventilator. He progressively went into respiratory failure and became unresponsive for that reason he had to be intubated. Intubation process was very successful. The patient remained hemodynamically stable. The patient is currently on propofol at 35 g per KG per minute. The patient is also on normal saline at rate of 40 mL an hour. The patient is on insulin drip at 7 units an hour. The patient was started on enteral feeding for nutritional support. This morning, the patient is an assist-control at the rate of 24 with a tidal volume of 400 and FiO2 of 50% with a PEEP of 5. Blood gas showed a patient of 7.29 with a pCO2 47 and pO2 111. The peak air pressures around 26. The patient is obviously less bronchospastic and wheezy. He was given IV sedation holiday and he was able to arouse and follows some simple commands. He seems to be quite comfortable while on the mechanical ventilator. No active pain issues. I also performed CAT scan of the chest abdomen and pelvis on him yesterday. A CAT scan of the chest abdomen and pelvis was done. A surgical consultation was also obtained for the possibility of gallbladder disease gallbladder was cleared by the surgeons. CAT scan of the abdomen and pelvis did not show any cholelithiasis. There was no evidence of any cholecystitis. There was a small right-sided pleural effusion. Small hiatal hernia. Mild hepatomegaly. Mild free fluid within the pelvis. Mild wedging of the T11 vertebral body probably developmental in addition to degenerative changes of the spine. There was evidence of an altered left seventh rib fracture. Lungs are essentially clear and there was no evidence of any significant pneumonia. The patient remains on an empiric antibiotic coverage with a combination of low-dose Rocephin and Flagyl for now. He remains on bronchodilators. He remains on IV Solu-Medrol. Urine output was low and the patient be given another liter bolus for now. Patient was reevaluated today on 12/22/19, patient remains in the ICU, intubated and mechanically ventilated. Patient has severe underlying COPD, and what seems to be underlying pulmonary contusion of the right lung, doubt pneumonia. Patient is on assist control rate of 24 tidal volume is 400 FiO2 is 40% and PEEP is 5 ABG showed a pO2 of 74 pCO2 of 43 pH of 7.3. Patient is on insulin drip at 5 units per hour he is also on propofol at 55 mcg/kg/m, and IV fluid at 20 mL per hour. Considering his low urine output, I will give the patient a liter of IV fluid and will increase his IV fluid to 75 mL per hour. I have also increased his tidal volume to 450. Chest x-ray showed right lower lobe consolidation, I believe this is most likely a pulmonary contusion from his recent trauma. Although the possibility of pneumonia is not entirely ruled out. Patient is known to have history of severe COPD, his baseline FEV1 is 34%. Remains empirically on antibiotics, and I plan today to hold sedation and assessment of his status on this patient although the patient is not quite ready for extubation considering his ABG is marginal. Labs today showed relatively normal CBC, hemoglobin is a bit low at 9.4. His renal profile has been gradually getting worse since admission he had normal renal profile on admission and today his BUN is 100 creatinine is 1.96, hence I plan to hydrate the patient , and hold any diuretics. Objective - Vital Signs Vital signs: Vital Signs Temp 98 F 12/22/19 12:00 Pulse 81 12/22/19 12:00 Resp 24 12/22/19 12:00 BP 114/52 12/21/19 20:00 Pulse Ox 92 L 12/22/19 12:00 Intake & Output 12/21/19 12/22/19 12/22/19 18:59 06:59 18:59 Intake Total 4076.942 5906.306 1751 Output Total 935 755 755 Balance 306.709 480.306 996 Weight 118 kg 118 kg Intake: IV 440 367 6788 .9 NS 513 879 8199 Pressure bags 72 72 36 cefTRIAXone 1 gm In 50 50 Sodium Chloride 0.9% 50 ml @ 100 mls/hr IVPB Q24HR [facility] Rx#:[id number] metroNIDAZOLE-NS PMX 500 200 100 100 mg In Saline 1 100ml.bag @ 100 mls/hr IVPB Q8HR [facility] Rx#:[id number] Intake, IV Titration 379.709 353.306 0 Amount Insulin Regular 100 unit 43.152 58.434 0 In Sodium Chloride 0.9% 100 ml @ Per Protocol IV .Q0M [facility] Rx#:[id number] Propofol 1,000 mg In 336.557 294.872 Empty Bag 1 bag @ Titrate IV .Q0M [facility] Rx#: [id number] Tube Feeding 30 190 125 Other 30 60 60 Output: Urine 935 755 755 Other: Voiding Method Indwelling Catheter Indwelling Catheter Indwelling Catheter ABP, PAP, CO, CI - Last Documented Arterial Blood Pressure 160/59 - Exam Physical Exam: Revealed 59-year-old white male intubated, on mechanical ventilation, sedated, on propofol. Head: Atraumatic, normocephalic. Orogastric tube and endotracheal tube are intact. However the endotracheal tube will be pulled out to see him because of his chest x-ray findings today. HEENT:[Neck is supple.] [No neck masses.] [No thyromegaly.] [No JVD. ashley,EOMI, no icterus, Chest: [Rhonchi and wheezes noted bilaterally. Symmetrical chest expansion.] Cardiac Exam: [Normal S1 and S2, no S3 gallop, no murmur.] Abdomen: [Obese, Soft, nontender, no megaly, no rebound, no guarding, normal bowel sounds.] Extremities: [No clubbing, 3+ bipedal edema, no cyanosis.] Neurological Exam: Could not be assessed, patient is sedated, and on propofol. Psychiatric: Could not be assessed. Skin: Venous stasis changes in lower extremities noted with significant swelling. - Labs CBC & Chem 7: 12/22/19 04:06 12/22/19 04:06 Labs: Abnormal Lab Results - Last 24 Hours (Table) 12/20/19 12/21/19 12/21/19 Range/Units 04:44 13:23 14:09 RBC (4.30-5.90) m/uL Hgb (13.0-17.5) gm/dL Hct (39.0-53.0) % MCV (80.0-100.0) fL Lymphocytes # (1.0-4.8) k/uL ABG pH (7.35-7.45) ABG pO2 (83-108) mmHg Chloride (98-107) mmol/L Carbon Dioxide (22-30) mmol/L BUN (9-20) mg/dL Creatinine (0.66-1.25) mg/dL Glucose (74-99) mg/dL POC Glucose (mg/dL) 133 H 133 H (75-99) mg/dL Calcium (8.4-10.2) mg/dL Hepatitis C RNA Quant [id number] H (0-0) IU/mL 12/21/19 12/21/19 12/21/19 Range/Units 15:28 16:28 17:13 RBC (4.30-5.90) m/uL Hgb (13.0-17.5) gm/dL Hct (39.0-53.0) % MCV (80.0-100.0) fL Lymphocytes # (1.0-4.8) k/uL ABG pH (7.35-7.45) ABG pO2 (83-108) mmHg Chloride (98-107) mmol/L Carbon Dioxide (22-30) mmol/L BUN (9-20) mg/dL Creatinine (0.66-1.25) mg/dL Glucose (74-99) mg/dL POC Glucose (mg/dL) 188 H 180 H 162 H (75-99) mg/dL Calcium (8.4-10.2) mg/dL Hepatitis C RNA Quant (0-0) IU/mL 12/21/19 12/21/19 12/21/19 Range/Units 18:00 18:59 20:09 RBC (4.30-5.90) m/uL Hgb (13.0-17.5) gm/dL Hct (39.0-53.0) % MCV (80.0-100.0) fL Lymphocytes # (1.0-4.8) k/uL ABG pH (7.35-7.45) ABG pO2 (83-108) mmHg Chloride (98-107) mmol/L Carbon Dioxide (22-30) mmol/L BUN (9-20) mg/dL Creatinine (0.66-1.25) mg/dL Glucose (74-99) mg/dL POC Glucose (mg/dL) 127 H 151 H 158 H (75-99) mg/dL Calcium (8.4-10.2) mg/dL Hepatitis C RNA Quant (0-0) IU/mL 12/21/19 12/21/19 12/21/19 Range/Units 21:16 22:12 22:57 RBC (4.30-5.90) m/uL Hgb (13.0-17.5) gm/dL Hct (39.0-53.0) % MCV (80.0-100.0) fL Lymphocytes # (1.0-4.8) k/uL ABG pH (7.35-7.45) ABG pO2 (83-108) mmHg Chloride (98-107) mmol/L Carbon Dioxide (22-30) mmol/L BUN (9-20) mg/dL Creatinine (0.66-1.25) mg/dL Glucose (74-99) mg/dL POC Glucose (mg/dL) 160 H 160 H 148 H (75-99) mg/dL Calcium (8.4-10.2) mg/dL Hepatitis C RNA Quant (0-0) IU/mL 12/22/19 12/22/19 12/22/19 Range/Units 00:03 01:27 02:05 RBC (4.30-5.90) m/uL Hgb (13.0-17.5) gm/dL Hct (39.0-53.0) % MCV (80.0-100.0) fL Lymphocytes # (1.0-4.8) k/uL ABG pH (7.35-7.45) ABG pO2 (83-108) mmHg Chloride (98-107) mmol/L Carbon Dioxide (22-30) mmol/L BUN (9-20) mg/dL Creatinine (0.66-1.25) mg/dL Glucose (74-99) mg/dL POC Glucose (mg/dL) 136 H 186 H 216 H (75-99) mg/dL Calcium (8.4-10.2) mg/dL Hepatitis C RNA Quant (0-0) IU/mL 12/22/19 12/22/19 12/22/19 Range/Units 03:10 04:03 04:06 RBC 2.83 L (4.30-5.90) m/uL Hgb 9.4 L (13.0-17.5) gm/dL Hct 30.2 L (39.0-53.0) % MCV 106.7 H (80.0-100.0) fL Lymphocytes # 0.2 L (1.0-4.8) k/uL ABG pH (7.35-7.45) ABG pO2 (83-108) mmHg Chloride (98-107) mmol/L Carbon Dioxide (22-30) mmol/L BUN (9-20) mg/dL Creatinine (0.66-1.25) mg/dL Glucose (74-99) mg/dL POC Glucose (mg/dL) 183 H 189 H (75-99) mg/dL Calcium (8.4-10.2) mg/dL Hepatitis C RNA Quant (0-0) IU/mL 12/22/19 12/22/19 12/22/19 Range/Units 04:06 05:08 05:17 RBC (4.30-5.90) m/uL Hgb (13.0-17.5) gm/dL Hct (39.0-53.0) % MCV (80.0-100.0) fL Lymphocytes # (1.0-4.8) k/uL ABG pH 7.30 L (7.35-7.45) ABG pO2 74 L (83-108) mmHg Chloride 115 H (98-107) mmol/L Carbon Dioxide 19 L (22-30) mmol/L BUN 100 H (9-20) mg/dL Creatinine 1.96 H (0.66-1.25) mg/dL Glucose 174 H (74-99) mg/dL POC Glucose (mg/dL) 155 H (75-99) mg/dL Calcium 7.2 L (8.4-10.2) mg/dL Hepatitis C RNA Quant (0-0) IU/mL 12/22/19 12/22/19 12/22/19 Range/Units 06:01 07:05 09:16 RBC (4.30-5.90) m/uL Hgb (13.0-17.5) gm/dL Hct (39.0-53.0) % MCV (80.0-100.0) fL Lymphocytes # (1.0-4.8) k/uL ABG pH (7.35-7.45) ABG pO2 (83-108) mmHg Chloride (98-107) mmol/L Carbon Dioxide (22-30) mmol/L BUN (9-20) mg/dL Creatinine (0.66-1.25) mg/dL Glucose (74-99) mg/dL POC Glucose (mg/dL) 138 H 164 H 167 H (75-99) mg/dL Calcium (8.4-10.2) mg/dL Hepatitis C RNA Quant (0-0) IU/mL 12/22/19 12/22/19 Range/Units 10:52 12:06 RBC (4.30-5.90) m/uL Hgb (13.0-17.5) gm/dL Hct (39.0-53.0) % MCV (80.0-100.0) fL Lymphocytes # (1.0-4.8) k/uL ABG pH (7.35-7.45) ABG pO2 (83-108) mmHg Chloride (98-107) mmol/L Carbon Dioxide (22-30) mmol/L BUN (9-20) mg/dL Creatinine (0.66-1.25) mg/dL Glucose (74-99) mg/dL POC Glucose (mg/dL) 170 H 169 H (75-99) mg/dL Calcium (8.4-10.2) mg/dL Hepatitis C RNA Quant (0-0) IU/mL Microbiology - Last 24 Hours (Table) 12/19/19 04:45 Blood Culture - Preliminary Blood No Growth after 72 hours 12/19/19 04:21 Blood Culture - Preliminary Blood No Growth after 72 hours 12/21/19 11:50 Gram Stain - Preliminary Sputum Sputum Culture - Preliminary 12/18/19 21:08 Blood Culture - Preliminary Blood No Growth after 72 hours Assessment and Plan Assessment: Impression: Acute hypoxic/hypercapnic respiratory failure secondary to advanced COPD and blunt trauma to the chest with suspected pulmonary contusion. Severe COPD, FEV1 of 34%. Hypertensive urgency requiring clevidipine upon initial presentation, presently he is off clevidipine. History of obstructive sleep apnea syndrome, on CPAP on outpatient basis. Type 2 diabetes. Benign essential hypertension. Chronic generalized anxiety disorder. Acute kidney injury, will hydrate and ask nephrology to evaluate. Recommendation: Continue ventilatory support. Continue GI and DVT prophylaxis. Continue nutritional support/enteral feeding. Nephrology consultation for acute kidney injury. Continue antibiotics empirically, Increase IV fluid to 75 mL/h, and hold any diuretics. Adjust tidal volume on the ventilator up to 450 Daily assessment of mental status off sedation Patient is not quite ready for any weaning trial at this point, we'll continue to follow. Patient is critically ill, critical care time is 35 minutes. Time with Patient: Greater than 30
[2019-12-22 14:12] LABS: Glucose,Whole Blood 165 mg/dL (75-99)
[2019-12-22 15:10] LABS: Glucose,Whole Blood 160 mg/dL (75-99)
[2019-12-22] MEDS: HYDROmorphone 1 MG/ML 1 ML SYRINGE IVP PRN ×2 (16:16→22:57)
[2019-12-22] MEDS: INSULIN REGULAR 100 UNIT in SODIUM CHLORIDE 0.9% 100 ML IV SCH (16:55)
[2019-12-22 18:38] LABS: Glucose,Whole Blood 168 mg/dL (75-99)
[2019-12-22] MEDS ORDERED: SODIUM BICARB 8.4% 50 ML SYR (1 MEQ/ML) ONE (19:03)
[2019-12-22 20:13] LABS: Glucose,Whole Blood 165 mg/dL (75-99)
[2019-12-22 21:03] LABS: Glucose,Whole Blood 163 mg/dL (75-99)
[2019-12-22 23:04] LABS: Glucose,Whole Blood 136 mg/dL (75-99)
[2019-12-23 00:47] LABS: Glucose,Whole Blood 208 mg/dL (75-99)
[2019-12-23] MEDS: methylPREDNISolone SOD SUCCI 125 MG/2 ML VIAL IV SCH ×5 (00:52→23:01)
[2019-12-23] MEDS: HEPARIN SODIUM,PORCINE 5,000 UNIT/ML 1 ML VIAL SQ SCH ×4 (00:53→23:01)
[2019-12-23] MEDS: metroNIDAZOLE-NS PMX 500 MG in SALINE 1 100ML.BAG IVPB SCH ×4 (00:53→23:03)
--- NOTE | 2019-12-23 01:11 | P.PN ---
Subjective Progress Note Date: 12/21/19 Principal diagnosis: Acute hypoxic respiratory failure secondary to COPD exacerbation Right lower lobe pneumonia with sepsis. Patient is a 59-year-old male with a known history of COPD, hypertension, diabetes type 2, obstructive sleep apnea on CPAP at home, morbid obesity and os teoarthritis and also previous history of smoking initially presented to the hospital with multiple problems including not feeling well and also patient felt yesterday and landed on his left side of his chest and abdomen. Patient has been having abdominal pain since then and presented to ER for evaluation. Patient states that his blood pressure is also elevated when he came to ER and was also getting progressively short of breath. Patient's blood pressure was elevated on admission with SBP greater than 203/93 mmHg. Patient was initially admitted to medical floor where he became progressively short of breath and hypotensive. Patient was given fluid boluses. Eventually transferred to the MICU for further management. Patient was placed on Levophed drip. Currently patient is on BiPAP. Chest x-ray showed some prominence of left hilum. There is blunting of the right costophrenic angle which may be indicative of effusion. Patchy basilar density, correlate for possible atelectasis scarring difficult to exclude pneumonia likely there is underlying COPD. Ultrasound gallbladder findings suggest hepatocellular disease. Hepatic steatosis. Hydropic gallbladder. Suspect that there is wall thickening. Correlate for cholecystitis. Initial laboratory data showed WBC 14.6, hemoglobin 11.3 and platelets 258 Sodium 135, potassium 4.7, BUN 20 and creatinine 0.69 Total bilirubin is 2.6 AST 68, ALT 65 and alk phos 158 Troponin x1- TSH 1.68 within normal limits Urine negative for infection ABG showed pH of 7.33, PCO2 44 and PO2 186 and bicarb is 24 12/20/2019 Patient is currently on BiPAP and is using accessory muscles as well. Patient is complaining of left shoulder pain and also upper chest pain due to prior fall. Blood pressure is still elevated and is requiring IV hydralazine. CT of the abdomen pelvis was done which showed small right-sided pleural effusion, small hiatal hernia, mild hepatomegaly, small amount of free fluid within the pelvis, mild wedging of the T1 vertebral body which is likely developmental. Degenerative lumbar spine evidence of old left seventh rib fracture. Chest x-ray today morning showed worsening right basilar infiltrate. Patient is being continued on IV Solu-Medrol and duo nebs. Patient is on antibiotics, ceftriaxone and Flagyl was added. Continued on pain medications in the form of IV Dilaudid. Urine output is improved compared to yesterday. General surgery has seen the patient regarding gallbladder wall thickening rec ommends no intervention recommended at this time. Laboratory data showed WBC 23.6, hemoglobin 10.9, platelets 509, and sodium level is 136, potassium 5.0, chloride 110, BUN 57 creatinine 1.42 A1c level is 6.1 Total bilirubin is 1.6 Liver enzymes are not elevated 12/21/2019 Patient was intubated and was placed on mechanical ventilator yesterday due to respiratory failure. Patient is also sedated. Currently being continued IV Solu-Medrol and antibiotics in the form of ceftriaxone and Flagyl. Chest x-ray showed correlate for COPD. Bibasilar infiltrates likely representing atelectasis. Small bilateral effusions. Pulmonary, GI and general surgery is following. Current medications reviewed. Objective - Vital Signs Vital signs: Vital Signs Temp 99.1 F 12/21/19 20:00 Pulse 89 12/21/19 22:00 Resp 26 H 12/21/19 22:00 BP 114/52 12/21/19 20:00 Pulse Ox 92 L 12/21/19 22:00 Intake & Output 12/21/19 12/21/19 12/22/19 06:59 18:59 06:59 Intake Total 165.779 2274.709 348.872 Output Total 565 935 265 Balance -62.117 306.709 83.872 Weight 118 kg 118 kg Intake: IV 486 802 184 .9 NS 480 480 160 Pressure bags 6 72 24 cefTRIAXone 1 gm In 50 Sodium Chloride 0.9% 50 ml @ 100 mls/hr IVPB Q24HR [facility] Rx#:[id number] metroNIDAZOLE-NS PMX 500 200 mg In Saline 1 100ml.bag @ 100 mls/hr IVPB Q8HR [facility] Rx#:[id number] Intake, IV Titration 16.883 379.709 94.872 Amount Insulin Regular 100 unit 16.883 43.152 0 In Sodium Chloride 0.9% 100 ml @ Per Protocol IV .Q0M [facility] Rx#:[id number] Propofol 1,000 mg In 336.557 94.872 Empty Bag 1 bag @ Titrate IV .Q0M [facility] Rx#: [id number] Tube Feeding 30 40 Other 30 30 Output: Urine 565 935 265 Other: Voiding Method Indwelling Catheter Indwelling Catheter Indwelling Catheter ABP, PAP, CO, CI - Last Documented Arterial Blood Pressure 107/43 - Exam PHYSICAL EXAMINATION: Patient is Currently sedated and intubated.on [facility] ventilator.. HEENT: Normocephalic. Neck is supple. Pupils reactive. Nostrils clear. Oral cavity is moist. Ears reveal no drainage. Neck reveals no JVD, carotid bruits, or thyromegaly. CHEST EXAMINATION: Trachea is central. Symmetrical expansion. Bibasilar diminished air entry and minimal right basilar crackles. Expiratory wheezing and scattered rhonchi.. CARDIAC: Normal S1, S2 with no gallops. No murmurs ABDOMEN: Soft. Bowel sounds normal. No organomegaly. No abdominal bruits. Extremities: reveal no edema. No clubbing or cyanosis Neurologically . sedated. No focal deficits noted Skin: No rash or skin lesions. Psychiatric: could not be assesed completely. Musculoskeletal: No joint swelling or deformity. - Labs CBC & Chem 7: 12/22/19 04:06 12/22/19 04:06 Labs: Abnormal Lab Results - Last 24 Hours (Table) 12/20/19 12/20/19 12/21/19 Range/Units 04:44 23:06 00:00 RBC (4.30-5.90) m/uL Hgb (13.0-17.5) gm/dL Hct (39.0-53.0) % MCV (80.0-100.0) fL Neutrophils # (1.3-7.7) k/uL Lymphocytes # (1.0-4.8) k/uL ABG pH (7.35-7.45) ABG pCO2 (35-45) mmHg ABG pO2 (83-108) mmHg ABG O2 Saturation (94-97) % Chloride (98-107) mmol/L Carbon Dioxide (22-30) mmol/L BUN (9-20) mg/dL Creatinine (0.66-1.25) mg/dL Glucose (74-99) mg/dL POC Glucose (mg/dL) 191 H 147 H (75-99) mg/dL Calcium (8.4-10.2) mg/dL Hepatitis C RNA Quant [id number] H (0-0) IU/mL 12/21/19 12/21/19 12/21/19 Range/Units 01:08 02:46 04:17 RBC (4.30-5.90) m/uL Hgb (13.0-17.5) gm/dL Hct (39.0-53.0) % MCV (80.0-100.0) fL Neutrophils # (1.3-7.7) k/uL Lymphocytes # (1.0-4.8) k/uL ABG pH (7.35-7.45) ABG pCO2 (35-45) mmHg ABG pO2 (83-108) mmHg ABG O2 Saturation (94-97) % Chloride (98-107) mmol/L Carbon Dioxide (22-30) mmol/L BUN (9-20) mg/dL Creatinine (0.66-1.25) mg/dL Glucose (74-99) mg/dL POC Glucose (mg/dL) 143 H 142 H 132 H (75-99) mg/dL Calcium (8.4-10.2) mg/dL Hepatitis C RNA Quant (0-0) IU/mL 12/21/19 12/21/19 12/21/19 Range/Units 04:30 05:17 05:21 RBC 2.75 L (4.30-5.90) m/uL Hgb 9.5 L (13.0-17.5) gm/dL Hct 29.2 L (39.0-53.0) % MCV 106.3 H (80.0-100.0) fL Neutrophils # 8.1 H (1.3-7.7) k/uL Lymphocytes # 0.3 L (1.0-4.8) k/uL ABG pH 7.29 L (7.35-7.45) ABG pCO2 47 H (35-45) mmHg ABG pO2 111 H (83-108) mmHg ABG O2 Saturation 98.3 H (94-97) % Chloride (98-107) mmol/L Carbon Dioxide (22-30) mmol/L BUN (9-20) mg/dL Creatinine (0.66-1.25) mg/dL Glucose (74-99) mg/dL POC Glucose (mg/dL) 130 H (75-99) mg/dL Calcium (8.4-10.2) mg/dL Hepatitis C RNA Quant (0-0) IU/mL 12/21/19 12/21/19 12/21/19 Range/Units 05:21 06:01 07:59 RBC (4.30-5.90) m/uL Hgb (13.0-17.5) gm/dL Hct (39.0-53.0) % MCV (80.0-100.0) fL Neutrophils # (1.3-7.7) k/uL Lymphocytes # (1.0-4.8) k/uL ABG pH (7.35-7.45) ABG pCO2 (35-45) mmHg ABG pO2 (83-108) mmHg ABG O2 Saturation (94-97) % Chloride 113 H (98-107) mmol/L Carbon Dioxide 20 L (22-30) mmol/L BUN 83 H (9-20) mg/dL Creatinine 1.69 H (0.66-1.25) mg/dL Glucose 126 H (74-99) mg/dL POC Glucose (mg/dL) 138 H 203 H (75-99) mg/dL Calcium 7.4 L (8.4-10.2) mg/dL Hepatitis C RNA Quant (0-0) IU/mL 12/21/19 12/21/19 12/21/19 Range/Units 09:19 10:03 11:13 RBC (4.30-5.90) m/uL Hgb (13.0-17.5) gm/dL Hct (39.0-53.0) % MCV (80.0-100.0) fL Neutrophils # (1.3-7.7) k/uL Lymphocytes # (1.0-4.8) k/uL ABG pH (7.35-7.45) ABG pCO2 (35-45) mmHg ABG pO2 (83-108) mmHg ABG O2 Saturation (94-97) % Chloride (98-107) mmol/L Carbon Dioxide (22-30) mmol/L BUN (9-20) mg/dL Creatinine (0.66-1.25) mg/dL Glucose (74-99) mg/dL POC Glucose (mg/dL) 203 H 160 H 113 H (75-99) mg/dL Calcium (8.4-10.2) mg/dL Hepatitis C RNA Quant (0-0) IU/mL 12/21/19 12/21/19 12/21/19 Range/Units 12:23 13:23 14:09 RBC (4.30-5.90) m/uL Hgb (13.0-17.5) gm/dL Hct (39.0-53.0) % MCV (80.0-100.0) fL Neutrophils # (1.3-7.7) k/uL Lymphocytes # (1.0-4.8) k/uL ABG pH (7.35-7.45) ABG pCO2 (35-45) mmHg ABG pO2 (83-108) mmHg ABG O2 Saturation (94-97) % Chloride (98-107) mmol/L Carbon Dioxide (22-30) mmol/L BUN (9-20) mg/dL Creatinine (0.66-1.25) mg/dL Glucose (74-99) mg/dL POC Glucose (mg/dL) 125 H 133 H 133 H (75-99) mg/dL Calcium (8.4-10.2) mg/dL Hepatitis C RNA Quant (0-0) IU/mL 12/21/19 12/21/19 12/21/19 Range/Units 15:28 16:28 17:13 RBC (4.30-5.90) m/uL Hgb (13.0-17.5) gm/dL Hct (39.0-53.0) % MCV (80.0-100.0) fL Neutrophils # (1.3-7.7) k/uL Lymphocytes # (1.0-4.8) k/uL ABG pH (7.35-7.45) ABG pCO2 (35-45) mmHg ABG pO2 (83-108) mmHg ABG O2 Saturation (94-97) % Chloride (98-107) mmol/L Carbon Dioxide (22-30) mmol/L BUN (9-20) mg/dL Creatinine (0.66-1.25) mg/dL Glucose (74-99) mg/dL POC Glucose (mg/dL) 188 H 180 H 162 H (75-99) mg/dL Calcium (8.4-10.2) mg/dL Hepatitis C RNA Quant (0-0) IU/mL 12/21/19 12/21/19 12/21/19 Range/Units 18:00 18:59 20:09 RBC (4.30-5.90) m/uL Hgb (13.0-17.5) gm/dL Hct (39.0-53.0) % MCV (80.0-100.0) fL Neutrophils # (1.3-7.7) k/uL Lymphocytes # (1.0-4.8) k/uL ABG pH (7.35-7.45) ABG pCO2 (35-45) mmHg ABG pO2 (83-108) mmHg ABG O2 Saturation (94-97) % Chloride (98-107) mmol/L Carbon Dioxide (22-30) mmol/L BUN (9-20) mg/dL Creatinine (0.66-1.25) mg/dL Glucose (74-99) mg/dL POC Glucose (mg/dL) 127 H 151 H 158 H (75-99) mg/dL Calcium (8.4-10.2) mg/dL Hepatitis C RNA Quant (0-0) IU/mL 12/21/19 12/21/19 12/21/19 Range/Units 21:16 22:12 22:57 RBC (4.30-5.90) m/uL Hgb (13.0-17.5) gm/dL Hct (39.0-53.0) % MCV (80.0-100.0) fL Neutrophils # (1.3-7.7) k/uL Lymphocytes # (1.0-4.8) k/uL ABG pH (7.35-7.45) ABG pCO2 (35-45) mmHg ABG pO2 (83-108) mmHg ABG O2 Saturation (94-97) % Chloride (98-107) mmol/L Carbon Dioxide (22-30) mmol/L BUN (9-20) mg/dL Creatinine (0.66-1.25) mg/dL Glucose (74-99) mg/dL POC Glucose (mg/dL) 160 H 160 H 148 H (75-99) mg/dL Calcium (8.4-10.2) mg/dL Hepatitis C RNA Quant (0-0) IU/mL Microbiology - Last 24 Hours (Table) 12/21/19 11:50 Sputum Culture - Preliminary Sputum 12/19/19 04:45 Blood Culture - Preliminary Blood No Growth after 48 hours 12/19/19 04:21 Blood Culture - Preliminary Blood No Growth after 48 hours 12/18/19 21:08 Blood Culture - Preliminary Blood No Growth after 48 hours Assessment and Plan Assessment: Acute hypoxic respiratory failure secondary to COPD exacerbation and right lower lobe pneumonia Acute COPD exacerbation Right lower lobe pneumonia Sepsis secondary to above Hypertensive urgency on admission History of recent fall, fell on his left side onto the abdomen and chest. CT of the abdomen pelvis showed no significant changes. Suspected gallbladder wall thickening and acute cholecystitis Mild transaminitis Obstructive sleep apnea on CPAP at home Hyperglycemia with uncontrolled diabetes type 2 insulin-dependent Morbid obesity BMI 40.2 Previous history of smoking and alcohol use DVT prophylaxis with heparin subcu Plan: Patient is currently on mechanical ventilator. Continue with oxygen therapy. Continue with duo nebs and IV Solu-Medrol. Patient is also started on ceftriaxone and flagyl added. Monitor renal function and continue with IV hydration. Cardiology was consulted for possible CHF with right sided small pleural Effusion. General surgery is on board due to gallbladder findings. Follow-up 2D echocardiogram and monitor CBC and BMP. Prognosis guarded with multi-medical problems and comorbid conditions. Time with Patient: Greater than 30
--- NOTE | 2019-12-23 01:14 | P.PN ---
Subjective Progress Note Date: 12/22/19 Principal diagnosis: Acute hypoxic respiratory failure secondary to COPD exacerbation Right lower lobe pneumonia with sepsis. Patient is a 59-year-old male with a known history of COPD, hypertension, diabetes type 2, obstructive sleep apnea on CPAP at home, morbid obesity and os teoarthritis and also previous history of smoking initially presented to the hospital with multiple problems including not feeling well and also patient felt yesterday and landed on his left side of his chest and abdomen. Patient has been having abdominal pain since then and presented to ER for evaluation. Patient states that his blood pressure is also elevated when he came to ER and was also getting progressively short of breath. Patient's blood pressure was elevated on admission with SBP greater than 203/93 mmHg. Patient was initially admitted to medical floor where he became progressively short of breath and hypotensive. Patient was given fluid boluses. Eventually transferred to the MICU for further management. Patient was placed on Levophed drip. Currently patient is on BiPAP. Chest x-ray showed some prominence of left hilum. There is blunting of the right costophrenic angle which may be indicative of effusion. Patchy basilar density, correlate for possible atelectasis scarring difficult to exclude pneumonia likely there is underlying COPD. Ultrasound gallbladder findings suggest hepatocellular disease. Hepatic steatosis. Hydropic gallbladder. Suspect that there is wall thickening. Correlate for cholecystitis. Initial laboratory data showed WBC 14.6, hemoglobin 11.3 and platelets 258 Sodium 135, potassium 4.7, BUN 20 and creatinine 0.69 Total bilirubin is 2.6 AST 68, ALT 65 and alk phos 158 Troponin x1- TSH 1.68 within normal limits Urine negative for infection ABG showed pH of 7.33, PCO2 44 and PO2 186 and bicarb is 24 12/20/2019 Patient is currently on BiPAP and is using accessory muscles as well. Patient is complaining of left shoulder pain and also upper chest pain due to prior fall. Blood pressure is still elevated and is requiring IV hydralazine. CT of the abdomen pelvis was done which showed small right-sided pleural effusion, small hiatal hernia, mild hepatomegaly, small amount of free fluid within the pelvis, mild wedging of the T1 vertebral body which is likely developmental. Degenerative lumbar spine evidence of old left seventh rib fracture. Chest x-ray today morning showed worsening right basilar infiltrate. Patient is being continued on IV Solu-Medrol and duo nebs. Patient is on antibiotics, ceftriaxone and Flagyl was added. Continued on pain medications in the form of IV Dilaudid. Urine output is improved compared to yesterday. General surgery has seen the patient regarding gallbladder wall thickening rec ommends no intervention recommended at this time. Laboratory data showed WBC 23.6, hemoglobin 10.9, platelets 509, and sodium level is 136, potassium 5.0, chloride 110, BUN 57 creatinine 1.42 A1c level is 6.1 Total bilirubin is 1.6 Liver enzymes are not elevated 12/21/2019 Patient was intubated and was placed on mechanical ventilator yesterday due to respiratory failure. Patient is also sedated. Currently being continued IV Solu-Medrol and antibiotics in the form of ceftriaxone and Flagyl. Chest x-ray showed correlate for COPD. Bibasilar infiltrates likely representing atelectasis. Small bilateral effusions. Pulmonary, GI and general surgery is following. 12/22/2019 Patient remained on mechanical ventilator. ABG showed pH of 7.3, PCO2 43 and PO2 74 PEEP of 5. Chest x-ray showed right lower lobe consolidation, possibly pneumonia. Currently on antibiotics now ceftriaxone and azithromycin. Lower data showed WBC 5.5, hemoglobin 9.4 and platelets 243 MCV 106.7 BUN 100 and creatinine 1.96 Calcium 7.2 Sodium 138, chloride 115 and bicarb is 19 Pulmonary is on board. Current medications reviewed. Objective - Vital Signs Vital signs: Vital Signs Temp 98.1 F 12/22/19 16:00 Pulse 74 12/22/19 19:54 Resp 24 12/22/19 19:00 BP 114/52 12/21/19 20:00 Pulse Ox 92 L 12/22/19 19:00 Intake & Output 12/22/19 12/22/19 12/23/19 06:59 18:59 06:59 Intake Total 4475.529 4057.265 81 Output Total 755 1655 150 Balance 480.306 890.265 -69 Weight 118 kg Intake: IV 632 2052 81 .9 NS 460 1830 75 Pressure bags 72 72 6 cefTRIAXone 1 gm In 50 Sodium Chloride 0.9% 50 ml @ 100 mls/hr IVPB Q24HR [facility] Rx#:[id number] metroNIDAZOLE-NS PMX 500 100 100 mg In Saline 1 100ml.bag @ 100 mls/hr IVPB Q8HR [facility] Rx#:[id number] Intake, IV Titration 353.306 228.265 Amount Insulin Regular 100 unit 58.434 28.265 In Sodium Chloride 0.9% 100 ml @ Per Protocol IV .Q0M [facility] Rx#:[id number] Propofol 1,000 mg In 294.872 200 Empty Bag 1 bag @ Titrate IV .Q0M [facility] Rx#: [id number] Tube Feeding 190 175 Other 60 90 Output: Urine 755 1655 150 Other: Voiding Method Indwelling Catheter Indwelling Catheter ABP, PAP, CO, CI - Last Documented Arterial Blood Pressure 128/50 - Exam PHYSICAL EXAMINATION: Patient is Currently sedated and intubated.on [facility] ventilator.. HEENT: Normocephalic. Neck is supple. Pupils reactive. Nostrils clear. Oral cavity is moist. Ears reveal no drainage. Neck reveals no JVD, carotid bruits, or thyromegaly. CHEST EXAMINATION: Trachea is central. Symmetrical expansion. Bibasilar diminished air entry and minimal right basilar crackles. Expiratory wheezing and scattered rhonchi.. CARDIAC: Normal S1, S2 with no gallops. No murmurs ABDOMEN: Soft. Bowel sounds normal. No organomegaly. No abdominal bruits. Extremities: reveal no edema. No clubbing or cyanosis Neurologically . sedated. No focal deficits noted Skin: No rash or skin lesions. Psychiatric: could not be assesed completely. Musculoskeletal: No joint swelling or deformity. - Labs CBC & Chem 7: 12/22/19 04:06 12/22/19 04:06 Labs: Abnormal Lab Results - Last 24 Hours (Table) 12/21/19 12/21/19 12/22/19 Range/Units 22:12 22:57 00:03 RBC (4.30-5.90) m/uL Hgb (13.0-17.5) gm/dL Hct (39.0-53.0) % MCV (80.0-100.0) fL Lymphocytes # (1.0-4.8) k/uL ABG pH (7.35-7.45) ABG pO2 (83-108) mmHg Chloride (98-107) mmol/L Carbon Dioxide (22-30) mmol/L BUN (9-20) mg/dL Creatinine (0.66-1.25) mg/dL Glucose (74-99) mg/dL POC Glucose (mg/dL) 160 H 148 H 136 H (75-99) mg/dL Calcium (8.4-10.2) mg/dL 12/22/19 12/22/19 12/22/19 Range/Units 01:27 02:05 03:10 RBC (4.30-5.90) m/uL Hgb (13.0-17.5) gm/dL Hct (39.0-53.0) % MCV (80.0-100.0) fL Lymphocytes # (1.0-4.8) k/uL ABG pH (7.35-7.45) ABG pO2 (83-108) mmHg Chloride (98-107) mmol/L Carbon Dioxide (22-30) mmol/L BUN (9-20) mg/dL Creatinine (0.66-1.25) mg/dL Glucose (74-99) mg/dL POC Glucose (mg/dL) 186 H 216 H 183 H (75-99) mg/dL Calcium (8.4-10.2) mg/dL 12/22/19 12/22/19 12/22/19 Range/Units 04:03 04:06 04:06 RBC 2.83 L (4.30-5.90) m/uL Hgb 9.4 L (13.0-17.5) gm/dL Hct 30.2 L (39.0-53.0) % MCV 106.7 H (80.0-100.0) fL Lymphocytes # 0.2 L (1.0-4.8) k/uL ABG pH (7.35-7.45) ABG pO2 (83-108) mmHg Chloride 115 H (98-107) mmol/L Carbon Dioxide 19 L (22-30) mmol/L BUN 100 H (9-20) mg/dL Creatinine 1.96 H (0.66-1.25) mg/dL Glucose 174 H (74-99) mg/dL POC Glucose (mg/dL) 189 H (75-99) mg/dL Calcium 7.2 L (8.4-10.2) mg/dL 12/22/19 12/22/19 12/22/19 Range/Units 05:08 05:17 06:01 RBC (4.30-5.90) m/uL Hgb (13.0-17.5) gm/dL Hct (39.0-53.0) % MCV (80.0-100.0) fL Lymphocytes # (1.0-4.8) k/uL ABG pH 7.30 L (7.35-7.45) ABG pO2 74 L (83-108) mmHg Chloride (98-107) mmol/L Carbon Dioxide (22-30) mmol/L BUN (9-20) mg/dL Creatinine (0.66-1.25) mg/dL Glucose (74-99) mg/dL POC Glucose (mg/dL) 155 H 138 H (75-99) mg/dL Calcium (8.4-10.2) mg/dL 12/22/19 12/22/19 12/22/19 Range/Units 07:05 09:16 10:52 RBC (4.30-5.90) m/uL Hgb (13.0-17.5) gm/dL Hct (39.0-53.0) % MCV (80.0-100.0) fL Lymphocytes # (1.0-4.8) k/uL ABG pH (7.35-7.45) ABG pO2 (83-108) mmHg Chloride (98-107) mmol/L Carbon Dioxide (22-30) mmol/L BUN (9-20) mg/dL Creatinine (0.66-1.25) mg/dL Glucose (74-99) mg/dL POC Glucose (mg/dL) 164 H 167 H 170 H (75-99) mg/dL Calcium (8.4-10.2) mg/dL 12/22/19 12/22/19 12/22/19 Range/Units 12:06 14:10 15:08 RBC (4.30-5.90) m/uL Hgb (13.0-17.5) gm/dL Hct (39.0-53.0) % MCV (80.0-100.0) fL Lymphocytes # (1.0-4.8) k/uL ABG pH (7.35-7.45) ABG pO2 (83-108) mmHg Chloride (98-107) mmol/L Carbon Dioxide (22-30) mmol/L BUN (9-20) mg/dL Creatinine (0.66-1.25) mg/dL Glucose (74-99) mg/dL POC Glucose (mg/dL) 169 H 165 H 160 H (75-99) mg/dL Calcium (8.4-10.2) mg/dL 12/22/19 12/22/19 12/22/19 Range/Units 18:37 20:12 21:02 RBC (4.30-5.90) m/uL Hgb (13.0-17.5) gm/dL Hct (39.0-53.0) % MCV (80.0-100.0) fL Lymphocytes # (1.0-4.8) k/uL ABG pH (7.35-7.45) ABG pO2 (83-108) mmHg Chloride (98-107) mmol/L Carbon Dioxide (22-30) mmol/L BUN (9-20) mg/dL Creatinine (0.66-1.25) mg/dL Glucose (74-99) mg/dL POC Glucose (mg/dL) 168 H 165 H 163 H (75-99) mg/dL Calcium (8.4-10.2) mg/dL Microbiology - Last 24 Hours (Table) 12/21/19 11:50 Gram Stain - Preliminary Sputum Sputum Culture - Preliminary 12/19/19 04:45 Blood Culture - Preliminary Blood No Growth after 72 hours 12/19/19 04:21 Blood Culture - Preliminary Blood No Growth after 72 hours 12/18/19 21:08 Blood Culture - Preliminary Blood No Growth after 72 hours Assessment and Plan Assessment: Acute hypoxic respiratory failure secondary to COPD exacerbation and right lower lobe pneumonia Acute COPD exacerbation Right lower lobe pneumonia Sepsis secondary to above Acute kidney injury likely prerenal. possible ATN Hypertensive urgency on admission History of recent fall, fell on his left side onto the abdomen and chest. CT of the abdomen pelvis showed no significant changes. Suspected gallbladder wall thickening and acute cholecystitis Mild transaminitis Obstructive sleep apnea on CPAP at home Hyperglycemia with uncontrolled diabetes type 2 insulin-dependent Morbid obesity BMI 40.2 Previous history of smoking and alcohol use DVT prophylaxis with heparin subcu Plan: Patient is currently on mechanical ventilator. Continue with oxygen therapy. Continue with duo nebs and IV Solu-Medrol. Patient is also started on ce ftriaxone and flagyl added. Monitor renal function and continue with IV hydration. Cardiology was consulted for possible CHF with right sided small pleural Effusion. General surgery is on board due to gallbladder findings.No surgical intervention recommended. Follow-up 2D echocardiogram and monitor CBC and BMP. Prognosis guarded with multi-medical problems and comorbid conditions. Time with Patient: Greater than 30
[2019-12-23 02:21] LABS: Glucose,Whole Blood 199 mg/dL (75-99)
[2019-12-23] MEDS: HYDROmorphone 1 MG/ML 1 ML SYRINGE IVP PRN ×3 (03:29→21:36)
[2019-12-23] MEDS: SODIUM CHLORIDE 0.9% 1,000 ML IV SCH ×2 (03:33→15:23)
[2019-12-23 03:44] LABS: Glucose,Whole Blood 183 mg/dL (75-99)
[2019-12-23 04:24] LABS: Glucose,Whole Blood 172 mg/dL (75-99)
[2019-12-23 04:35] LABS: Basophils % (A) 0 %; Eosinophils % (A) 0 %; HCT 33.5 % (39.0-53.0); HGB 10.7 gm/dL (13.0-17.5); Hypochromasia Slight; Lymphocytes # (A) 0.2 k/uL (1.0-4.8); Lymphocytes % (A) 4 %; MCHC 32.1 g/dL (31.0-37.0); MCV 106.1 fL (80.0-100.0); Macrocytosis Moderate; Mean Platelet Volume 9.7; Monocytes # (A) 0.4 k/uL (0-1.0); Monocytes % (A) 7 %; Neutrophils # (A) 5.3 k/uL (1.3-7.7); Neutrophils % (A) 89 %; Platelet Count 268 k/uL (150-450); RBC 3.16 m/uL (4.30-5.90); RDW 13.9 % (11.5-15.5)
[2019-12-23 04:42] LABS: Calcium 7.4 mg/dL (8.4-10.2); Potassium 4.5 mmol/L (3.5-5.1)
[2019-12-23 06:15] LABS: Glucose,Whole Blood 157 mg/dL (75-99)
[2019-12-23] MEDS: MORPHINE SULFATE 4 MG/ML SYRINGE IVP PRN (06:20)
[2019-12-23 07:01] LABS: Glucose,Whole Blood 123 mg/dL (75-99)
[2019-12-23] MEDS: IPRATROPIUM-ALBUTEROL 3 ML NEB INHALATION SCH ×4 (07:44→19:29)
[2019-12-23 07:53] LABS: ABG Base Excess -5.2 mmol/L; ABG HCO3 21 mmol/L (21-25); ABG Oxygen Saturation 93.8 % (94-97); ABG PCO2 38 mmHg (35-45); ABG PH 7.34 (7.35-7.45); ABG PO2 72 mmHg (83-108); ABG TCO2 22 mmol/L (19-24)
[2019-12-23 07:54] LABS: Allen Test Performed? no
[2019-12-23 08:12] LABS: Glucose,Whole Blood 171 mg/dL (75-99)
--- NOTE | 2019-12-23 08:22 | XR ---
EXAMINATION TYPE: XR chest 1V portable DATE OF EXAM: 12/23/2019 COMPARISON: Prior chest x-ray 12/22/2019 HISTORY: Intubated TECHNIQUE: Single frontal view of the chest is obtained. FINDINGS: Endotracheal tube and NG tube, left: Since venous catheter are all overlying appropriate p ositions. Bibasilar increased density is noted, the hemidiaphragms are obscured. No evident pneumotho rax. Heart size is enlarged. Central vascularity appears prominently. IMPRESSION: Interval progression of basilar effusions, associated atelectasis versus edema, correlat e to exclude pneumonia. Correlate for congestive heart failure.
[2019-12-23] MEDS: amLODIPine 5 MG TAB PO SCH ×2 (08:45→20:19)
[2019-12-23] MEDS: CHLORHEXIDINE GLUCONATE 15 ML CUP MUCOUS MEM SCH ×2 (08:46→20:19)
[2019-12-23] MEDS: PANTOPRAZOLE 40 MG/10 ML VIAL IV SCH (08:46)
[2019-12-23] MEDS: METOPROLOL TARTRATE 12.5 MG TAB PO SCH ×3 (08:46→20:19)
[2019-12-23] MEDS: DILTIAZEM CD 180 MG CAP.ER.24H PO SCH (08:46)
[2019-12-23 09:05] LABS: Glucose,Whole Blood 206 mg/dL (75-99)
[2019-12-23 10:14] LABS: Glucose,Whole Blood 206 mg/dL (75-99)
[2019-12-23 11:10] LABS: Glucose,Whole Blood 186 mg/dL (75-99)
[2019-12-23] MEDS: INSULIN REGULAR 100 UNIT in SODIUM CHLORIDE 0.9% 100 ML IV SCH (11:38)
[2019-12-23 11:58] LABS: Glucose,Whole Blood 186 mg/dL (75-99)
[2019-12-23 13:06] LABS: Glucose,Whole Blood 146 mg/dL (75-99)
--- NOTE | 2019-12-23 13:13 | P.PN ---
Subjective Progress Note Date: 12/23/19 Principal diagnosis: Acute hypoxic and hypercapnic respiratory failure secondary to advanced COPD and blunt trauma to the chest, possible right pulmonary contusion. This is a 59-year-old male patient with known history of severe COPD with an FEV1 of 34% of predicted maintained on a cruise on outpatient basis. He also doesn't rescue inhaler and albuterol chest on a when necessary basis. The patient has obstructive sleep apnea maintained on CPAP therapy, and his other comorbidities include obesity, diabetes mellitus, hypertension and he has chronic peripheral edema. The patient had a fall prior to him coming to the hospital. He landed on his left side of the chest. He has bruising over the left lateral wall of the abdomen and upper thigh. He did also have some blunt trauma to his chest. On 12/21/1999 and answering the patient for a follow-up. Note that the patient got intubated yesterday and placed on a mechanical ventilator. He progressively went into respiratory failure and became unresponsive for that reason he had to be intubated. Intubation process was very successful. The patient remained hemodynamically stable. The patient is currently on propofol at 35 g per KG per minute. The patient is also on normal saline at rate of 40 mL an hour. The patient is on insulin drip at 7 units an hour. The patient was started on enteral feeding for nutritional support. This morning, the patient is an assist-control at the rate of 24 with a tidal volume of 400 and FiO2 of 50% with a PEEP of 5. Blood gas showed a patient of 7.29 with a pCO2 47 and pO2 111. The peak air pressures around 26. The patient is obviously less bronchospastic and wheezy. He was given IV sedation holiday and he was able to arouse and follows some simple commands. He seems to be quite comfortable while on the mechanical ventilator. No active pain issues. I also performed CAT scan of the chest abdomen and pelvis on him yesterday. A CAT scan of the chest abdomen and pelvis was done. A surgical consultation was also obtained for the possibility of gallbladder disease gallbladder was cleared by the surgeons. CAT scan of the abdomen and pelvis did not show any cholelithiasis. There was no evidence of any cholecystitis. There was a small right-sided pleural effusion. Small hiatal hernia. Mild hepatomegaly. Mild free fluid within the pelvis. Mild wedging of the T11 vertebral body probably developmental in addition to degenerative changes of the spine. There was evidence of an altered left seventh rib fracture. Lungs are essentially clear and there was no evidence of any significant pneumonia. The patient remains on an empiric antibiotic coverage with a combination of low-dose Rocephin and Flagyl for now. He remains on bronchodilators. He remains on IV Solu-Medrol. Urine output was low and the patient be given another liter bolus for now. Patient was reevaluated today on 12/22/19, patient remains in the ICU, intubated and mechanically ventilated. Patient has severe underlying COPD, and what seems to be underlying pulmonary contusion of the right lung, doubt pneumonia. Patient is on assist control rate of 24 tidal volume is 400 FiO2 is 40% and PEEP is 5 ABG showed a pO2 of 74 pCO2 of 43 pH of 7.3. Patient is on insulin drip at 5 units per hour he is also on propofol at 55 mcg/kg/m, and IV fluid at 20 mL per hour. Considering his low urine output, I will give the patient a liter of IV fluid and will increase his IV fluid to 75 mL per hour. I have also increased his tidal volume to 450. Chest x-ray showed right lower lobe consolidation, I believe this is most likely a pulmonary contusion from his recent trauma. Although the possibility of pneumonia is not entirely ruled out. Patient is known to have history of severe COPD, his baseline FEV1 is 34%. Remains empirically on antibiotics, and I plan today to hold sedation and assessment of his status on this patient although the patient is not quite ready for extubation considering his ABG is marginal. Labs today showed relatively normal CBC, hemoglobin is a bit low at 9.4. His renal profile has been gradually getting worse since admission he had normal renal profile on admission and today his BUN is 100 creatinine is 1.96, hence I plan to hydrate the patient , and hold any diuretics. Patient was reevaluated today on 12/23/19, remains in the ICU, remains intubated and mechanically ventilated. His assist-control rate is 24 tidal volume is 450 FiO2 is 40% and PEEP is 5 ABG showed a pO2 of 72 pCO2 of 38 pH of 7.34. Hence no changes made with the ventilator settings. He remains on propofol at 55 mcg/kg/m, IV fluid 0.9 normal saline at 75 mL per hour and insulin at 8 units per hour. Patient is not requiring any pressors, seems to be hemodynamically st able. Chest x-ray is showing atelectasis and pleural effusion, I suspect that we may be dealing with pulmonary contusion. Patient is seen more fluids yesterday, and his renal functioning is improving today, creatinine is down to 1.57, hence I plan to continue IV fluids. Patient remains on Rocephin and Flagyl. His blood cultures and sputum cultures have remained negative. CBC is relatively normal today. Basic metabolic profile is relatively normal. BUN is down to 97 creatinine is down to 1.57. Patient remains sedated, however I plan to hold sedation awaken the patient, and at least check weaning parameters today. Objective - Vital Signs Vital signs: Vital Signs Temp 98.3 F 12/23/19 12:00 Pulse 71 12/23/19 13:00 Resp 24 12/23/19 13:00 BP 120/66 12/23/19 07:00 Pulse Ox 91 L 12/23/19 13:00 Intake & Output 12/22/19 12/23/19 12/23/19 18:59 06:59 18:59 Intake Total 2545.265 8315.220 2633.586 Output Total 1655 1290 575 Balance 890.265 562.467 662.586 Weight 118 kg 120 kg Intake: IV 2 1053 786 .9 NS 1830 975 600 Pressure bags 72 78 36 cefTRIAXone 1 gm In 50 50 Sodium Chloride 0.9% 50 ml @ 100 mls/hr IVPB Q24HR [facility] Rx#:[id number] metroNIDAZOLE-NS PMX 500 100 100 mg In Saline 1 100ml.bag @ 100 mls/hr IVPB Q8HR [facility] Rx#:[id number] Intake, IV Titration 228.265 439.467 241.586 Amount Insulin Regular 100 unit 28.265 64.183 42.234 In Sodium Chloride 0.9% 100 ml @ Per Protocol IV .Q0M [facility] Rx#:[id number] Propofol 1,000 mg In 200 375.284 199.352 Empty Bag 1 bag @ Titrate IV .Q0M [facility] Rx#: [id number] Tube Feeding 175 300 150 Other 90 60 60 Output: Urine 1655 1290 575 Other: Voiding Method Indwelling Catheter Indwelling Catheter Indwelling Catheter ABP, PAP, CO, CI - Last Documented Arterial Blood Pressure 124/46 - Exam Physical Exam: Revealed 59-year-old white male intubated, on mechanical ventilation, sedated, on propofol. Fully sedated. Head: Atraumatic, normocephalic. Orogastric tube and endotracheal tube are intact. HEENT:[Neck is supple.] [No neck masses.] [No thyromegaly.] [No JVD. ashley,EOMI, no icterus, Chest: [Rhonchi and wheezes noted bilaterally. Symmetrical chest expansion.] Cardiac Exam: [Normal S1 and S2, no S3 gallop, no murmur.] Abdomen: [Obese, Soft, nontender, no megaly, no rebound, no guarding, normal bowel sounds.] Extremities: [No clubbing, 2 + bipedal edema, no cyanosis.] Neurological Exam: Could not be assessed, patient is sedated, and on propofol. Psychiatric: Could not be assessed. Skin: Venous stasis changes in lower extremities some swelling. - Labs CBC & Chem 7: 12/23/19 04:20 12/23/19 04:20 Labs: Abnormal Lab Results - Last 24 Hours (Table) 12/22/19 12/22/19 12/22/19 Range/Units 14:10 15:08 18:37 RBC (4.30-5.90) m/uL Hgb (13.0-17.5) gm/dL Hct (39.0-53.0) % MCV (80.0-100.0) fL Lymphocytes # (1.0-4.8) k/uL ABG pH (7.35-7.45) ABG pO2 (83-108) mmHg ABG O2 Saturation (94-97) % Chloride (98-107) mmol/L Carbon Dioxide (22-30) mmol/L BUN (9-20) mg/dL Creatinine (0.66-1.25) mg/dL Glucose (74-99) mg/dL POC Glucose (mg/dL) 165 H 160 H 168 H (75-99) mg/dL Calcium (8.4-10.2) mg/dL 12/22/19 12/22/19 12/22/19 Range/Units 20:12 21:02 23:03 RBC (4.30-5.90) m/uL Hgb (13.0-17.5) gm/dL Hct (39.0-53.0) % MCV (80.0-100.0) fL Lymphocytes # (1.0-4.8) k/uL ABG pH (7.35-7.45) ABG pO2 (83-108) mmHg ABG O2 Saturation (94-97) % Chloride (98-107) mmol/L Carbon Dioxide (22-30) mmol/L BUN (9-20) mg/dL Creatinine (0.66-1.25) mg/dL Glucose (74-99) mg/dL POC Glucose (mg/dL) 165 H 163 H 136 H (75-99) mg/dL Calcium (8.4-10.2) mg/dL 12/23/19 12/23/19 12/23/19 Range/Units 00:46 02:20 03:41 RBC (4.30-5.90) m/uL Hgb (13.0-17.5) gm/dL Hct (39.0-53.0) % MCV (80.0-100.0) fL Lymphocytes # (1.0-4.8) k/uL ABG pH (7.35-7.45) ABG pO2 (83-108) mmHg ABG O2 Saturation (94-97) % Chloride (98-107) mmol/L Carbon Dioxide (22-30) mmol/L BUN (9-20) mg/dL Creatinine (0.66-1.25) mg/dL Glucose (74-99) mg/dL POC Glucose (mg/dL) 208 H 199 H 183 H (75-99) mg/dL Calcium (8.4-10.2) mg/dL 12/23/19 12/23/19 12/23/19 Range/Units 04:20 04:20 04:22 RBC 3.16 L (4.30-5.90) m/uL Hgb 10.7 L (13.0-17.5) gm/dL Hct 33.5 L (39.0-53.0) % MCV 106.1 H (80.0-100.0) fL Lymphocytes # 0.2 L (1.0-4.8) k/uL ABG pH (7.35-7.45) ABG pO2 (83-108) mmHg ABG O2 Saturation (94-97) % Chloride 118 H (98-107) mmol/L Carbon Dioxide 19 L (22-30) mmol/L BUN 97 H (9-20) mg/dL Creatinine 1.57 H (0.66-1.25) mg/dL Glucose 169 H (74-99) mg/dL POC Glucose (mg/dL) 172 H (75-99) mg/dL Calcium 7.4 L (8.4-10.2) mg/dL 12/23/19 12/23/19 12/23/19 Range/Units 06:14 07:00 07:50 RBC (4.30-5.90) m/uL Hgb (13.0-17.5) gm/dL Hct (39.0-53.0) % MCV (80.0-100.0) fL Lymphocytes # (1.0-4.8) k/uL ABG pH 7.34 L (7.35-7.45) ABG pO2 72 L (83-108) mmHg ABG O2 Saturation 93.8 L (94-97) % Chloride (98-107) mmol/L Carbon Dioxide (22-30) mmol/L BUN (9-20) mg/dL Creatinine (0.66-1.25) mg/dL Glucose (74-99) mg/dL POC Glucose (mg/dL) 157 H 123 H (75-99) mg/dL Calcium (8.4-10.2) mg/dL 12/23/19 12/23/19 12/23/19 Range/Units 08:11 09:03 10:13 RBC (4.30-5.90) m/uL Hgb (13.0-17.5) gm/dL Hct (39.0-53.0) % MCV (80.0-100.0) fL Lymphocytes # (1.0-4.8) k/uL ABG pH (7.35-7.45) ABG pO2 (83-108) mmHg ABG O2 Saturation (94-97) % Chloride (98-107) mmol/L Carbon Dioxide (22-30) mmol/L BUN (9-20) mg/dL Creatinine (0.66-1.25) mg/dL Glucose (74-99) mg/dL POC Glucose (mg/dL) 171 H 206 H 206 H (75-99) mg/dL Calcium (8.4-10.2) mg/dL 12/23/19 12/23/19 12/23/19 Range/Units 11:08 11:56 13:04 RBC (4.30-5.90) m/uL Hgb (13.0-17.5) gm/dL Hct (39.0-53.0) % MCV (80.0-100.0) fL Lymphocytes # (1.0-4.8) k/uL ABG pH (7.35-7.45) ABG pO2 (83-108) mmHg ABG O2 Saturation (94-97) % Chloride (98-107) mmol/L Carbon Dioxide (22-30) mmol/L BUN (9-20) mg/dL Creatinine (0.66-1.25) mg/dL Glucose (74-99) mg/dL POC Glucose (mg/dL) 186 H 186 H 146 H (75-99) mg/dL Calcium (8.4-10.2) mg/dL Microbiology - Last 24 Hours (Table) 12/21/19 11:50 Gram Stain - Final Sputum Sputum Culture - Final 12/19/19 04:45 Blood Culture - Preliminary Blood No Growth after 96 hours 12/19/19 04:21 Blood Culture - Preliminary Blood No Growth after 96 hours 12/18/19 21:08 Blood Culture - Preliminary Blood No Growth after 96 hours Assessment and Plan Assessment: Impression: Acute hypoxic/hypercapnic respiratory failure secondary to advanced COPD and blunt trauma to the chest with suspected pulmonary contusion. Severe COPD, FEV1 of 34%. History of obstructive sleep apnea syndrome, on CPAP on outpatient basis. Type 2 diabetes. Benign essential hypertension. Chronic generalized anxiety disorder. Acute kidney injury, will hydrate and ask nephrology to evaluate. Hepatitis C infection with positive hepatitis C RNA PCR, and significant C RNA quantitative load. Over 5.26 million Recommendation: Continue ventilatory support. Continue GI and DVT prophylaxis. Continue nutritional support/enteral feeding. Nephrology to evaluate patient today. Continue antibiotics empirically, Increase IV fluid to 125 mL per hour. Daily assessment of mental status off sedation Patient is not quite ready for any weaning however will try to hold sedation and assessment of his status and assess weaning parameters today. Patient is critically ill, critical care time is 33 minutes. Time with Patient: Greater than 30
--- NOTE | 2019-12-23 14:04 | CONS ---
CONSULTATION REASON FOR CONSULT: Renal failure. HISTORY OF PRESENT ILLNESS: The patient is a 59-year-old male who was initially admitted to the hospital on December 17, status post fall. He was found to have left-sided significant bruising as well as pulmonary contusion. CAT scan on December 19 showed a small right pleural effusion. There was no intraabdominal bleed. The patient was subsequently intubated and is currently in the ICU. He developed hypoxic respiratory failure. Patient's serum creatinine increased from about 0.8 on initial admission to 1.96 yesterday. The patient was started on IV fluids and his creatinine has improved to 1.57. Urine output had been low, but has now picked up. Currently, patient has an indwelling Galaviz catheter. Patient's blood pressure had been low, currently improved with systolics staying around 130-140 mmHg. Patient did not receive IV contrast for the CT scan. There was no evidence of obstruction noted on the CT of the abdomen. PAST MEDICAL HISTORY: Significant for asthma, COPD, type 2 diabetes, hypertension, obstructive sleep apnea. PAST SURGICAL HISTORY: Tonsillectomy, right leg and hip surgery. SOCIAL HISTORY: Patient is a former smoker. No history of drug abuse or alcohol abuse. MEDICATIONS: Medications prior to admission included Xanax, diltiazem, insulin, lisinopril, Singulair, Glucophage, Lasix, ibuprofen. ALLERGIES: Include IODINE, PENICILLIN, SULFA. PHYSICAL EXAMINATION: Patient is currently sedated. He is on the vent. He is comfortable. Blood pressure was 132/50, heart rate 71 per minute. He is afebrile. Examination of the heart S1, S2. Examination of the lungs, bilateral breath sounds are heard. Abdomen is soft, nontender. Examination of lower extremities shows edema 1+ bilaterally, mostly chronic in the lower extremities. There is 1+ edema noted in his upper extremities as well. 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 LABS: Show hemoglobin 10.7, sodium 141, potassium 4.5, chloride 118, CO2 is 19, BUN 97, serum creatinine 1.57. UA shows 3+ protein, 2+ glucose, blood small, leukocyte esterase negative. WBCs 1. ASSESSMENT: 1. Acute kidney injury, acute tubular necrosis, currently nonoliguric and improving. Continue with IV fluids. Decrease rate from 125 mL an hour to 70 mL an hour. 2. Acute hypoxic respiratory failure, currently on the vent. The patient is stable. Etiology is chronic obstructive pulmonary disease and pulmonary contusion. 3. Hypertensive urgency on initial admission, currently improved. The fluctuation and blood pressure has also definitely contributed to his acute kidney injury. 4. Type 2 diabetes. 5. Status post fall with bruising and left pulmonary contusion. PLAN: Decrease IV fluids. Repeat labs in a.m. Continue to avoid nephrotoxic agents. Thank you for this consultation. We will continue to follow the patient with you during his hospitalization. MMODL / IJN: [id number] /
[2019-12-23 14:24] LABS: Glucose,Whole Blood 105 mg/dL (75-99)
[2019-12-23 15:00] LABS: Glucose,Whole Blood 115 mg/dL (75-99)
--- NOTE | 2019-12-23 15:42 | P.PN ---
Subjective Progress Note Date: 12/23/19 Principal diagnosis: This is a 59-year-old male who was recently admitted with a known history of COPD and obstructive sleep apnea on a CPAP at home and had not been feeling well and subsequently fell the day prior landing on his left chest and abdomen and having abdominal pain since and was being closely monitored. Patient continued to have respiratory distress and becomes severely dyspneic and hypotensive and was given multiple fluid boluses. Patient respiratory status continued to deteriorate and was put on BiPAP along with pressors. Patient was sent to the MICU for close monitoring and was intubated and currently remains on Ventilator for acute hypoxic respiratory failure secondary to COPD exacerbation. Chest x- ray also showed right lower lobe pneumonia with sepsis. She is currently maintained on IV antibiotics in the form of IV ceftriaxone and Flagyl and will continue at this time. Multiple medical consultations following including pulmonary, GI, and general surgery as an ultrasound of the gallbladder was done showing hepatocellular disease with hepatic steatosis and hypertrophic gallbladder with some thickening and possible cholecystitis although no surgical intervention is being recommended at this time. Patient is also maintained on bronchodilators and IV steroids and will continue at this time. Will repeat a.m. labs and continue to monitor closely. Review of systems: Unable to obtain as patient is currently intubated and sedated. Active Medications Albuterol Sulfate (Ventolin Nebulized) 2.5 mg INHALATION RT-QID PRN PRN Reason: Shortness Of Breath Last Admin: 12/18/19 20:00 Dose: 2.5 mg Documented by: Albuterol/Ipratropium (Duoneb 0.5 Mg-3 Mg/3 Ml Soln) 3 ml INHALATION RT-QID [facility] Last Admin: 12/23/19 11:06 Dose: 3 ml Documented by: Amlodipine Besylate (Norvasc) 5 mg PO BID [facility] Last Admin: 12/23/19 08:45 Dose: 5 mg Documented by: Chlorhexidine Gluconate (Peridex) 15 ml MUCOUS MEM BID [facility] Last Admin: 12/23/19 08:46 Dose: 15 ml Documented by: Clonidine HCl (Catapres-Tts 0.3mg Patch) 1 patch TRANSDERM Q7D [facility] Last Admin: 12/18/19 20:46 Dose: 1 patch Documented by: Diltiazem HCl (Cardizem Cd) 180 mg PO DAILY [facility] Last Admin: 12/23/19 08:46 Dose: Not Given Documented by: Heparin Sodium (Porcine) (Heparin) 5,000 unit SQ Q8HR [facility] Last Admin: 12/23/19 08:46 Dose: 5,000 unit Documented by: Hydralazine HCl (Apresoline) 10 mg IVP Q4HR PRN PRN Reason: Blood Pressure - High Last Admin: 12/18/19 23:14 Dose: 10 mg Documented by: Hydromorphone HCl (Dilaudid) 0.5 mg IVP Q4HR PRN PRN Reason: Pain Last Admin: 12/22/19 03:28 Dose: 0.5 mg Documented by: Hydromorphone HCl (Dilaudid) 1 mg IVP Q4HR PRN PRN Reason: Pain Last Admin: 12/23/19 03:29 Dose: 1 mg Documented by: Ceftriaxone Sodium 1 gm/ (Sodium Chloride) 50 mls @ 100 mls/hr IVPB Q24HR [facility] Last Admin: 12/23/19 08:45 Dose: 100 mls/hr Documented by: Metronidazole 500 mg/ IV (Solution) 100 mls @ 100 mls/hr IVPB Q8HR [facility] Last Admin: 12/23/19 08:45 Dose: 100 mls/hr Documented by: Insulin Human Regular 100 unit (/ Sodium Chloride) 101 mls @ 0 mls/hr IV .Q0M [facility]; Protocol Last Titration: 12/23/19 14:25 Dose: 0 mls/hr, 0 mls/hr Documented by: Sodium Chloride (Saline 0.9%) 1,000 mls @ 75 mls/hr IV .[id number] [facility] Last Admin: 12/23/19 03:33 Dose: 75 mls/hr Documented by: Propofol 1,000 mg/ IV Solution 100 mls @ 0 mls/hr IV .Q0M [facility]; Protocol Last Admin: 12/23/19 11:43 Dose: 55 mcg/kg/min, 39.6 mls/hr Documented by: Insulin Human Regular (Humulin R Bolus From Bag) 11.6 unit 0.1 unit/kg (11.6 unit) IV ONCE PRN PRN Reason: Blood Sugar - High Stop: 01/18/20 08:19 Methylprednisolone Sodium Succinate (Solu-Medrol) 60 mg IV Q6HR [facility] Last Admin: 12/23/19 11:43 Dose: 60 mg Documented by: Metoprolol Tartrate (Lopressor) 12.5 mg PO TID [facility] Last Admin: 12/23/19 08:46 Dose: 12.5 mg Documented by: Miscellaneous Information (Pneumonia Protocol Utilized) 1 each PO ONCE PRN PRN Reason: Per Protocol Morphine Sulfate (Morphine Sulfate (Inj)) 4 mg IVP Q4HR PRN PRN Reason: Pain Last Admin: 12/23/19 06:20 Dose: 4 mg Documented by: Naloxone HCl (Narcan) 0.2 mg IV Q2M PRN PRN Reason: Opioid Reversal Pantoprazole Sodium (Protonix) 40 mg IV DAILY [facility] Last Admin: 12/23/19 08:46 Dose: 40 mg Documented by: Objective - Vital Signs Vital signs: Vital Signs Temp 98.3 F 12/23/19 12:00 Pulse 69 12/23/19 14:00 Resp 24 12/23/19 14:00 BP 120/66 12/23/19 07:00 Pulse Ox 91 L 12/23/19 14:00 Intake & Output 12/22/19 12/23/19 12/23/19 18:59 06:59 18:59 Intake Total 2545.265 7401.872 2234.803 Output Total 1655 1290 575 Balance 890.265 562.467 671.803 Weight 118 kg 120 kg Intake: IV 2052 1053 786 .9 NS 1830 975 600 Pressure bags 72 78 36 cefTRIAXone 1 gm In 50 50 Sodium Chloride 0.9% 50 ml @ 100 mls/hr IVPB Q24HR [facility] Rx#:[id number] metroNIDAZOLE-NS PMX 500 100 100 mg In Saline 1 100ml.bag @ 100 mls/hr IVPB Q8HR [facility] Rx#:[id number] Intake, IV Titration 228.265 439.467 250.803 Amount Insulin Regular 100 unit 28.265 64.183 51.451 In Sodium Chloride 0.9% 100 ml @ Per Protocol IV .Q0M [facility] Rx#:[id number] Propofol 1,000 mg In 200 375.284 199.352 Empty Bag 1 bag @ Titrate IV .Q0M [facility] Rx#: [id number] Tube Feeding 175 300 150 Other 90 60 60 Output: Urine 1655 1290 575 Other: Voiding Method Indwelling Catheter Indwelling Catheter Indwelling Catheter ABP, PAP, CO, CI - Last Documented Arterial Blood Pressure 112/43 - Exam Patient is Currently sedated and intubated.on [facility] ventilator. Temp is 98.3F, pulse is 88, respirations are 24, blood pressure is 152/55, oxygen saturation is 92% on mechanical vent with an FiO2 of 40. HEENT: Normocephalic. Neck is supple. Pupils reactive. Nostrils clear. Oral cavity is moist. Ears reveal no drainage. ET tube noted Neck reveals no JVD, carotid bruits, or thyromegaly. CHEST EXAMINATION: Trachea is central. Symmetrical expansion. Bibasilar diminished air entry and minimal right basilar crackles. Expiratory wheezing and scattered rhonchi noted on exam CARDIAC: Normal S1, S2 with no gallops. No murmurs ABDOMEN: Soft. Obese. Bowel sounds normal. No organomegaly. No abdominal bruits. Extremities: reveal no edema. No clubbing or cyanosis Neurologically . sedated. No focal deficits noted Skin: No rash or skin lesions. Psychiatric: could not be assesed completely. Musculoskeletal: No joint swelling or deformity. - Labs CBC & Chem 7: 12/23/19 04:20 12/23/19 04:20 Labs: Abnormal Lab Results - Last 24 Hours (Table) 12/22/19 12/22/19 12/22/19 Range/Units 18:37 20:12 21:02 RBC (4.30-5.90) m/uL Hgb (13.0-17.5) gm/dL Hct (39.0-53.0) % MCV (80.0-100.0) fL Lymphocytes # (1.0-4.8) k/uL ABG pH (7.35-7.45) ABG pO2 (83-108) mmHg ABG O2 Saturation (94-97) % Chloride (98-107) mmol/L Carbon Dioxide (22-30) mmol/L BUN (9-20) mg/dL Creatinine (0.66-1.25) mg/dL Glucose (74-99) mg/dL POC Glucose (mg/dL) 168 H 165 H 163 H (75-99) mg/dL Calcium (8.4-10.2) mg/dL 12/22/19 12/23/19 12/23/19 Range/Units 23:03 00:46 02:20 RBC (4.30-5.90) m/uL Hgb (13.0-17.5) gm/dL Hct (39.0-53.0) % MCV (80.0-100.0) fL Lymphocytes # (1.0-4.8) k/uL ABG pH (7.35-7.45) ABG pO2 (83-108) mmHg ABG O2 Saturation (94-97) % Chloride (98-107) mmol/L Carbon Dioxide (22-30) mmol/L BUN (9-20) mg/dL Creatinine (0.66-1.25) mg/dL Glucose (74-99) mg/dL POC Glucose (mg/dL) 136 H 208 H 199 H (75-99) mg/dL Calcium (8.4-10.2) mg/dL 12/23/19 12/23/19 12/23/19 Range/Units 03:41 04:20 04:20 RBC 3.16 L (4.30-5.90) m/uL Hgb 10.7 L (13.0-17.5) gm/dL Hct 33.5 L (39.0-53.0) % MCV 106.1 H (80.0-100.0) fL Lymphocytes # 0.2 L (1.0-4.8) k/uL ABG pH (7.35-7.45) ABG pO2 (83-108) mmHg ABG O2 Saturation (94-97) % Chloride 118 H (98-107) mmol/L Carbon Dioxide 19 L (22-30) mmol/L BUN 97 H (9-20) mg/dL Creatinine 1.57 H (0.66-1.25) mg/dL Glucose 169 H (74-99) mg/dL POC Glucose (mg/dL) 183 H (75-99) mg/dL Calcium 7.4 L (8.4-10.2) mg/dL 12/23/19 12/23/19 12/23/19 Range/Units 04:22 06:14 07:00 RBC (4.30-5.90) m/uL Hgb (13.0-17.5) gm/dL Hct (39.0-53.0) % MCV (80.0-100.0) fL Lymphocytes # (1.0-4.8) k/uL ABG pH (7.35-7.45) ABG pO2 (83-108) mmHg ABG O2 Saturation (94-97) % Chloride (98-107) mmol/L Carbon Dioxide (22-30) mmol/L BUN (9-20) mg/dL Creatinine (0.66-1.25) mg/dL Glucose (74-99) mg/dL POC Glucose (mg/dL) 172 H 157 H 123 H (75-99) mg/dL Calcium (8.4-10.2) mg/dL 12/23/19 12/23/19 12/23/19 Range/Units 07:50 08:11 09:03 RBC (4.30-5.90) m/uL Hgb (13.0-17.5) gm/dL Hct (39.0-53.0) % MCV (80.0-100.0) fL Lymphocytes # (1.0-4.8) k/uL ABG pH 7.34 L (7.35-7.45) ABG pO2 72 L (83-108) mmHg ABG O2 Saturation 93.8 L (94-97) % Chloride (98-107) mmol/L Carbon Dioxide (22-30) mmol/L BUN (9-20) mg/dL Creatinine (0.66-1.25) mg/dL Glucose (74-99) mg/dL POC Glucose (mg/dL) 171 H 206 H (75-99) mg/dL Calcium (8.4-10.2) mg/dL 12/23/19 12/23/19 12/23/19 Range/Units 10:13 11:08 11:56 RBC (4.30-5.90) m/uL Hgb (13.0-17.5) gm/dL Hct (39.0-53.0) % MCV (80.0-100.0) fL Lymphocytes # (1.0-4.8) k/uL ABG pH (7.35-7.45) ABG pO2 (83-108) mmHg ABG O2 Saturation (94-97) % Chloride (98-107) mmol/L Carbon Dioxide (22-30) mmol/L BUN (9-20) mg/dL Creatinine (0.66-1.25) mg/dL Glucose (74-99) mg/dL POC Glucose (mg/dL) 206 H 186 H 186 H (75-99) mg/dL Calcium (8.4-10.2) mg/dL 12/23/19 12/23/19 12/23/19 Range/Units 13:04 14:22 14:59 RBC (4.30-5.90) m/uL Hgb (13.0-17.5) gm/dL Hct (39.0-53.0) % MCV (80.0-100.0) fL Lymphocytes # (1.0-4.8) k/uL ABG pH (7.35-7.45) ABG pO2 (83-108) mmHg ABG O2 Saturation (94-97) % Chloride (98-107) mmol/L Carbon Dioxide (22-30) mmol/L BUN (9-20) mg/dL Creatinine (0.66-1.25) mg/dL Glucose (74-99) mg/dL POC Glucose (mg/dL) 146 H 105 H 115 H (75-99) mg/dL Calcium (8.4-10.2) mg/dL Microbiology - Last 24 Hours (Table) 12/21/19 11:50 Gram Stain - Final Sputum Sputum Culture - Final 12/19/19 04:45 Blood Culture - Preliminary Blood No Growth after 96 hours 12/19/19 04:21 Blood Culture - Preliminary Blood No Growth after 96 hours 12/18/19 21:08 Blood Culture - Preliminary Blood No Growth after 96 hours Assessment and Plan Assessment: Acute hypoxic respiratory failure secondary to COPD exacerbation and right lower lobe pneumonia requiring intubation on mechanical ventilator Acute COPD exacerbation Right lower lobe pneumonia Sepsis secondary to above Acute kidney injury likely prerenal. possible ATN Hypertensive urgency on admission History of recent fall, fell on his left side onto the abdomen and chest. CT of the abdomen pelvis showed no significant changes. Suspected gallbladder wall thickening and acute cholecystitis Mild transaminitis Obstructive sleep apnea on CPAP at home Hyperglycemia with uncontrolled diabetes type 2 insulin-dependent Morbid obesity BMI 40.2 Previous history of smoking and alcohol use DVT prophylaxis with heparin subq Recommendations and discussion: Patient is currently remains on mechanical ventilator and is being closely monitored in the ICU. Multiple medical consultations following. Continue with duo nebs and IV Solu-Medrol. Patient is maintained on IV antibiotics in the form of Flagyl and ceftriaxone and will continue at this time. Monitor renal function and continue with gentle IV hydration at 70 ML per hour. Nephrology also following. Cardiology was consulted for possible CHF with right sided small pleural Effusion. Echo ordered and currently pending. Chest x-ray today shows interval progression of the basilar effusions with associated atelectasis versus edema and correlate for possible pneumonia or congestive heart failure. General surgery is on board due to gallbladder findings although not recommending any surgical intervention at this time. He to multiple complex medical issues, prognosis is guarded. Further recommendations to follow.
[2019-12-23 16:12] LABS: Glucose,Whole Blood 175 mg/dL (75-99)
[2019-12-23 17:15] LABS: Glucose,Whole Blood 174 mg/dL (75-99)
[2019-12-23 18:47] LABS: Glucose,Whole Blood 151 mg/dL (75-99)
[2019-12-23 19:56] LABS: Glucose,Whole Blood 139 mg/dL (75-99)
[2019-12-23 21:48] LABS: Glucose,Whole Blood 193 mg/dL (75-99)
[2019-12-23 23:03] LABS: Glucose,Whole Blood 193 mg/dL (75-99)
[2019-12-23 23:57] LABS: Glucose,Whole Blood 194 mg/dL (75-99)
[2019-12-24 01:05] LABS: Glucose,Whole Blood 174 mg/dL (75-99)
[2019-12-24 02:56] LABS: Glucose,Whole Blood 153 mg/dL (75-99)
[2019-12-24 03:54] LABS: Glucose,Whole Blood 110 mg/dL (75-99)
[2019-12-24] MEDS: SODIUM CHLORIDE 0.9% 1,000 ML IV SCH ×2 (04:02→15:54)
[2019-12-24 04:36] LABS: Basophils % (A) 0 %; Eosinophils % (A) 0 %; HCT 32.7 % (39.0-53.0); HGB 10.5 gm/dL (13.0-17.5); Hypochromasia Slight; Lymphocytes # (A) 0.2 k/uL (1.0-4.8); Lymphocytes % (A) 4 %; MCH 34.4 pg (25.0-35.0); MCHC 32.1 g/dL (31.0-37.0); MCV 107.2 fL (80.0-100.0); Macrocytosis Moderate; Mean Platelet Volume 9.1; Monocytes # (A) 0.5 k/uL (0-1.0); Monocytes % (A) 8 %; Neutrophils # (A) 5.4 k/uL (1.3-7.7); Neutrophils % (A) 87 %; Platelet Count 258 k/uL (150-450); RBC 3.05 m/uL (4.30-5.90); RDW 13.9 % (11.5-15.5); WBC 6.2 k/uL (3.8-10.6)
[2019-12-24 04:45] LABS: Calcium 7.2 mg/dL (8.4-10.2)
[2019-12-24 04:58] LABS: Glucose,Whole Blood 132 mg/dL (75-99)
[2019-12-24] MEDS: methylPREDNISolone SOD SUCCI 125 MG/2 ML VIAL IV SCH ×4 (05:35→23:35)
[2019-12-24 05:50] LABS: Glucose,Whole Blood 195 mg/dL (75-99)
[2019-12-24] MEDS: INSULIN REGULAR 100 UNIT in SODIUM CHLORIDE 0.9% 100 ML IV SCH ×2 (05:52→22:52)
[2019-12-24] MEDS: HYDROmorphone 1 MG/ML 1 ML SYRINGE IVP PRN ×2 (06:53→19:51)
[2019-12-24 06:59] LABS: Glucose,Whole Blood 192 mg/dL (75-99)
[2019-12-24 07:52] LABS: ABG Base Excess -7.6 mmol/L; ABG HCO3 19 mmol/L (21-25); ABG Oxygen Saturation 92.5 % (94-97); ABG PCO2 37 mmHg (35-45); ABG PH 7.31 (7.35-7.45); ABG PO2 69 mmHg (83-108); ABG TCO2 20 mmol/L (19-24)
[2019-12-24 07:54] LABS: Allen Test Performed? no
[2019-12-24] MEDS: IPRATROPIUM-ALBUTEROL 3 ML NEB INHALATION SCH ×4 (07:56→19:28)
--- NOTE | 2019-12-24 07:58 | XR ---
EXAMINATION TYPE: XR chest 1V portable DATE OF EXAM: 12/24/2019 COMPARISON: 12/23/2019 HISTORY: Tube placement TECHNIQUE: Single frontal view of the chest is obtained. FINDINGS: ET tube approximately 1.5 cm above jaclyn. NG tube noted. Curvature of the spine with hype rtrophic and degenerative changes. Left-sided central line seen with the tip overlying the SVC. Bilat eral consolidation, pleural effusion and diffuse interstitial pattern. No pneumothorax. IMPRESSION: 1. Stable chest x-ray correlate for CHF otherwise consider diffuse pneumonia.
[2019-12-24 08:05] LABS: Glucose,Whole Blood 168 mg/dL (75-99)
[2019-12-24] MEDS: metroNIDAZOLE-NS PMX 500 MG in SALINE 1 100ML.BAG IVPB SCH ×3 (08:38→23:36)
[2019-12-24] MEDS: METOPROLOL TARTRATE 12.5 MG TAB PO SCH ×3 (08:38→19:43)
[2019-12-24] MEDS: HEPARIN SODIUM,PORCINE 5,000 UNIT/ML 1 ML VIAL SQ SCH ×3 (08:38→23:35)
[2019-12-24] MEDS: CHLORHEXIDINE GLUCONATE 15 ML CUP MUCOUS MEM SCH ×2 (08:38→19:43)
[2019-12-24] MEDS: DILTIAZEM CD 180 MG CAP.ER.24H PO SCH (08:39)
[2019-12-24] MEDS: amLODIPine 5 MG TAB PO SCH ×2 (08:39→19:44)
[2019-12-24] MEDS: PANTOPRAZOLE 40 MG/10 ML VIAL IV SCH (08:39)
[2019-12-24 09:22] LABS: Glucose,Whole Blood 147 mg/dL (75-99)
[2019-12-24 10:13] LABS: Glucose,Whole Blood 109 mg/dL (75-99)
[2019-12-24 11:09] LABS: Glucose,Whole Blood 106 mg/dL (75-99)
--- NOTE | 2019-12-24 11:54 | PN ---
PROGRESS NOTE Patient is seen for followup for acute kidney injury. Patient is currently maintained on IV fluids. His renal function has improved with creatinine staying at about 1.5 mg/dL. Urine output is good at 100-85 mL an hour. IV fluids were decreased yesterday to 75 mL from 125 mL. Patient remains on the vent. Blood pressure is 115/63, heart rate 94 per minute he is afebrile. Patient is sedated. Examination of the heart S1, S2. Examination of lungs, bilateral breath sounds are heard. Abdomen is soft, nontender. Examination of the lower extremities shows edema 1+ bilaterally. 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 LABS: Show sodium 143, potassium 5.0, chloride 122, CO2 is 18, BUN 108, creatinine 1.5 mg/dL. ASSESSMENT: 1. Acute kidney injury, acute tubular necrosis, currently nonoliguric, somewhat improved. Decrease IV fluids as patient is hypervolemic. 2. Hypoxic respiratory failure. 3. Pulmonary contusion. 4. Chronic obstructive pulmonary disease exacerbation. 5. Disproportionately elevated BUN secondary to steroids. 6. Hypertension currently better controlled. PLAN: Decrease IV fluids further, add oral sodium bicarb for metabolic acidosis. Repeat labs in a.m. Avoid nephrotoxic agents. MMODL / IJN: [id number] /
[2019-12-24 12:08] LABS: Glucose,Whole Blood 120 mg/dL (75-99)
--- NOTE | 2019-12-24 12:13 | CDI ---
Documentation Clarification Form Date: 12/24/2019 11:53:45 AM From: Antonia Franco CCS, CCDS Admit Date: 12/18/2019 07:13:00 PM Patient Name: Sammy Bates Visit Number: [id number] Discharge Date: ATTENTION: The Clinical Documentation Specialists (CDI) and [facility] Coding Staff appreciate your assistance in clarifying documentation. Please respond to the clarification below the line at the bottom and electronically sign. The CDI & [facility] Coding staff will review the response and follow-up if needed. Please note: Queries are made part of the Legal Health Record. If you have any questions, please contact the author of this message via ITS. Dr. Gabi Gupta: Per the History & Physical on 12/18: "Patient was initially admitted to medical floor where he became progressively short of breath and hypotensive. Patient was given fluid boluses. Eventually transferred to the MICU for further management. Patient was placed on Levophed drip. Currently patient is on BiPAP." Patient history: COPD, Hypertension, DM type 1, Sleep Apnea, Asthma, Former smoker. Clinical Indicators: Presented to the ED on 12/17 via EMS after a trip & fall and chest & abdominal pain, BP severely elevated, found to be in COPD exacerbation with hypoxia. Per the 12/18 History & Physical Assessment: Acute hypoxic respiratory failure secondary to COPD exacerbation & RLL Pneumonia. Sepsis secondary to above. Hypertensive urgency on admission. Suspected Acute Cholecystitis. VS 12/17: T 98.5, P 128^, R 24, BP 203/93^, PO 92 2Lnc, increased to 4Lnc, increased to NRB 15% w/PO 88; increased to BiPAP on 12/18. Per the 12/21 Attending Progress Note: Acute hypoxic respiratory failure secondary to COPD exacerbation & RLL Pneumonia, Sepsis, JE possible ATN. VS 12/19: T 98.4, P 98 (weak), R 20-24, BP 98/44-91/40; PO 96 on vent. Treatment on admission: IV fluid bolus 1,000 mls @ 999 mls/hr q1, INH Albuterol, IV Apresoline, IV Ms, INH Pulmicort & Atrovent, IV Ativan, IV Solumedrol. 4L O2 nc, BiPAP-NRB. 12/19: IV Diprivan, IV Propofol, intubated. In your professional opinion, can you please specify the type of shock if known? Septic Shock o Suspected or known causative organism o Any associated organ failure Hypovolemic Shock o Cause Other, please specify Unable to determine (Last Revision: March 2017) Septic Shock MTDD
[2019-12-24 12:17] LABS: Glucose,Whole Blood 118 mg/dL (75-99)
[2019-12-24] MEDS: METOCLOPRAMIDE 5 MG/ML 2 ML VIAL IVP SCH ×3 (12:46→23:35)
[2019-12-24 13:09] LABS: Glucose,Whole Blood 123 mg/dL (75-99)
--- NOTE | 2019-12-24 13:16 | P.PN ---
Subjective Progress Note Date: 12/24/19 Principal diagnosis: Acute hypoxic and hypercapnic respiratory failure secondary to advanced COPD and blunt trauma to the chest, possible right pulmonary contusion. This is a 59-year-old male patient with known history of severe COPD with an FEV1 of 34% of predicted maintained on a cruise on outpatient basis. He also doesn't rescue inhaler and albuterol chest on a when necessary basis. The patient has obstructive sleep apnea maintained on CPAP therapy, and his other comorbidities include obesity, diabetes mellitus, hypertension and he has chronic peripheral edema. The patient had a fall prior to him coming to the hospital. He landed on his left side of the chest. He has bruising over the left lateral wall of the abdomen and upper thigh. He did also have some blunt trauma to his chest. On 12/21/1999 and answering the patient for a follow-up. Note that the patient got intubated yesterday and placed on a mechanical ventilator. He progressively went into respiratory failure and became unresponsive for that reason he had to be intubated. Intubation process was very successful. The patient remained hemodynamically stable. The patient is currently on propofol at 35 g per KG per minute. The patient is also on normal saline at rate of 40 mL an hour. The patient is on insulin drip at 7 units an hour. The patient was started on enteral feeding for nutritional support. This morning, the patient is an assist-control at the rate of 24 with a tidal volume of 400 and FiO2 of 50% with a PEEP of 5. Blood gas showed a patient of 7.29 with a pCO2 47 and pO2 111. The peak air pressures around 26. The patient is obviously less bronchospastic and wheezy. He was given IV sedation holiday and he was able to arouse and follows some simple commands. He seems to be quite comfortable while on the mechanical ventilator. No active pain issues. I also performed CAT scan of the chest abdomen and pelvis on him yesterday. A CAT scan of the chest abdomen and pelvis was done. A surgical consultation was also obtained for the possibility of gallbladder disease gallbladder was cleared by the surgeons. CAT scan of the abdomen and pelvis did not show any cholelithiasis. There was no evidence of any cholecystitis. There was a small right-sided pleural effusion. Small hiatal hernia. Mild hepatomegaly. Mild free fluid within the pelvis. Mild wedging of the T11 vertebral body probably developmental in addition to degenerative changes of the spine. There was evidence of an altered left seventh rib fracture. Lungs are essentially clear and there was no evidence of any significant pneumonia. The patient remains on an empiric antibiotic coverage with a combination of low-dose Rocephin and Flagyl for now. He remains on bronchodilators. He remains on IV Solu-Medrol. Urine output was low and the patient be given another liter bolus for now. Patient was reevaluated today on 12/22/19, patient remains in the ICU, intubated and mechanically ventilated. Patient has severe underlying COPD, and what seems to be underlying pulmonary contusion of the right lung, doubt pneumonia. Patient is on assist control rate of 24 tidal volume is 400 FiO2 is 40% and PEEP is 5 ABG showed a pO2 of 74 pCO2 of 43 pH of 7.3. Patient is on insulin drip at 5 units per hour he is also on propofol at 55 mcg/kg/m, and IV fluid at 20 mL per hour. Considering his low urine output, I will give the patient a liter of IV fluid and will increase his IV fluid to 75 mL per hour. I have also increased his tidal volume to 450. Chest x-ray showed right lower lobe consolidation, I believe this is most likely a pulmonary contusion from his recent trauma. Although the possibility of pneumonia is not entirely ruled out. Patient is known to have history of severe COPD, his baseline FEV1 is 34%. Remains empirically on antibiotics, and I plan today to hold sedation and assessment of his status on this patient although the patient is not quite ready for extubation considering his ABG is marginal. Labs today showed relatively normal CBC, hemoglobin is a bit low at 9.4. His renal profile has been gradually getting worse since admission he had normal renal profile on admission and today his BUN is 100 creatinine is 1.96, hence I plan to hydrate the patient , and hold any diuretics. Patient was reevaluated today on 12/23/19, remains in the ICU, remains intubated and mechanically ventilated. His assist-control rate is 24 tidal volume is 450 FiO2 is 40% and PEEP is 5 ABG showed a pO2 of 72 pCO2 of 38 pH of 7.34. Hence no changes made with the ventilator settings. He remains on propofol at 55 mcg/kg/m, IV fluid 0.9 normal saline at 75 mL per hour and insulin at 8 units per hour. Patient is not requiring any pressors, seems to be hemodynamically st able. Chest x-ray is showing atelectasis and pleural effusion, I suspect that we may be dealing with pulmonary contusion. Patient is seen more fluids yesterday, and his renal functioning is improving today, creatinine is down to 1.57, hence I plan to continue IV fluids. Patient remains on Rocephin and Flagyl. His blood cultures and sputum cultures have remained negative. CBC is relatively normal today. Basic metabolic profile is relatively normal. BUN is down to 97 creatinine is down to 1.57. Patient remains sedated, however I plan to hold sedation awaken the patient, and at least check weaning parameters today. Reevaluated today on 12/24/19, remains in the ICU, intubated mechanically ventilated. His ventilator settings are assist control rate 24 tidal volume 450 FiO2 40%. ABG showed a pO2 of 69 pCO2 of 37 pH of 7.31, hence FiO2 was increased to 45%. Trial of sedation holiday was given yesterday, however the patient became extremely agitated, restless, did not follow any instructions, and he was quite tachypneic and tachycardic. Hence he had to be placed back on sedation, and he remains on propofol at 55 mcg/kg/m. He is also on insulin at 8 units per hour, IV fluid at 0.9 normal saline 1 25 mL per hour. And he is on enteral feeding which is being tolerated. Chest x-ray continues to show by basilar opacities, doubt congestive heart failure, patient is improving with IV fluids, and his renal profile is getting better on a daily basis with fluid challenges. Antibiotics remain about the same. Again the patient failed weaning trials yesterday, will try again to hold sedation and assessment of status and proceed to weaning trials as tolerated. All blood cultures and sputum cultures have been negative so far Objective - Vital Signs Vital signs: Vital Signs Temp 98.8 F 12/24/19 12:00 Pulse 96 12/24/19 12:00 Resp 20 12/24/19 12:00 BP 123/62 12/24/19 12:00 Pulse Ox 92 L 12/24/19 12:00 Intake & Output 12/23/19 12/24/19 12/24/19 18:59 06:59 18:59 Intake Total 2418.083 2357.477 1103.393 Output Total 1100 850 575 Balance 9400.918 3636.477 528.393 Weight 120 kg 125.3 kg Intake: IV 1572 1541 726 .9 NS 1350 1375 490 Pressure bags 72 66 36 cefTRIAXone 1 gm In 50 100 Sodium Chloride 0.9% 50 ml @ 100 mls/hr IVPB Q24HR [facility] Rx#:[id number]-NS PMX 500 100 100 100 mg In Saline 1 100ml.bag @ 100 mls/hr IVPB Q8HR [facility] Rx#:[id number] Intake, IV Titration 456.083 451.477 227.393 Amount Insulin Regular 100 unit 68.951 68.317 27.733 In Sodium Chloride 0.9% 100 ml @ Per Protocol IV .Q0M [facility] Rx#:[id number] propofoL 1,000 mg In 387.132 383.16 199.66 Empty Bag 1 bag @ Titrate IV .Q0M [facility] Rx#: [id number] Tube Feeding 300 275 150 Other 90 90 Output: Urine 1100 850 575 Other: Voiding Method Indwelling Catheter Indwelling Catheter Indwelling Catheter ABP, PAP, CO, CI - Last Documented Arterial Blood Pressure 124/53 - Exam Physical Exam: Revealed 59-year-old white male intubated, on mechanical ventilation, sedated, on propofol. Fully sedated. Head: Atraumatic, normocephalic. Orogastric tube and endotracheal tube are intact. HEENT:[Neck is supple.] [No neck masses.] [No thyromegaly.] [No JVD. ashley,EOMI, no icterus, Chest: [Rhonchi and wheezes noted bilaterally. Symmetrical chest expansion.] Cardiac Exam: [Normal S1 and S2, no S3 gallop, no murmur.] Abdomen: [Obese, Soft, nontender, no megaly, no rebound, no guarding, normal bowel sounds.] Extremities: [No clubbing, 2 + bipedal edema, no cyanosis.] Neurological Exam: Could not be assessed, patient is sedated, and on propofol. Psychiatric: Could not be assessed. Skin: Venous stasis changes in lower extremities some swelling. - Labs CBC & Chem 7: 12/24/19 04:20 12/24/19 04:20 Labs: Abnormal Lab Results - Last 24 Hours (Table) 12/23/19 12/23/19 12/23/19 Range/Units 14:22 14:59 16:11 RBC (4.30-5.90) m/uL Hgb (13.0-17.5) gm/dL Hct (39.0-53.0) % MCV (80.0-100.0) fL Lymphocytes # (1.0-4.8) k/uL ABG pH (7.35-7.45) ABG pO2 (83-108) mmHg ABG HCO3 (21-25) mmol/L ABG O2 Saturation (94-97) % Chloride (98-107) mmol/L Carbon Dioxide (22-30) mmol/L BUN (9-20) mg/dL Creatinine (0.66-1.25) mg/dL Glucose (74-99) mg/dL POC Glucose (mg/dL) 105 H 115 H 175 H (75-99) mg/dL Calcium (8.4-10.2) mg/dL 12/23/19 12/23/19 12/23/19 Range/Units 17:14 18:46 19:55 RBC (4.30-5.90) m/uL Hgb (13.0-17.5) gm/dL Hct (39.0-53.0) % MCV (80.0-100.0) fL Lymphocytes # (1.0-4.8) k/uL ABG pH (7.35-7.45) ABG pO2 (83-108) mmHg ABG HCO3 (21-25) mmol/L ABG O2 Saturation (94-97) % Chloride (98-107) mmol/L Carbon Dioxide (22-30) mmol/L BUN (9-20) mg/dL Creatinine (0.66-1.25) mg/dL Glucose (74-99) mg/dL POC Glucose (mg/dL) 174 H 151 H 139 H (75-99) mg/dL Calcium (8.4-10.2) mg/dL 12/23/19 12/23/19 12/23/19 Range/Units 21:46 23:02 23:55 RBC (4.30-5.90) m/uL Hgb (13.0-17.5) gm/dL Hct (39.0-53.0) % MCV (80.0-100.0) fL Lymphocytes # (1.0-4.8) k/uL ABG pH (7.35-7.45) ABG pO2 (83-108) mmHg ABG HCO3 (21-25) mmol/L ABG O2 Saturation (94-97) % Chloride (98-107) mmol/L Carbon Dioxide (22-30) mmol/L BUN (9-20) mg/dL Creatinine (0.66-1.25) mg/dL Glucose (74-99) mg/dL POC Glucose (mg/dL) 193 H 193 H 194 H (75-99) mg/dL Calcium (8.4-10.2) mg/dL 12/24/19 12/24/19 12/24/19 Range/Units 01:03 02:54 03:52 RBC (4.30-5.90) m/uL Hgb (13.0-17.5) gm/dL Hct (39.0-53.0) % MCV (80.0-100.0) fL Lymphocytes # (1.0-4.8) k/uL ABG pH (7.35-7.45) ABG pO2 (83-108) mmHg ABG HCO3 (21-25) mmol/L ABG O2 Saturation (94-97) % Chloride (98-107) mmol/L Carbon Dioxide (22-30) mmol/L BUN (9-20) mg/dL Creatinine (0.66-1.25) mg/dL Glucose (74-99) mg/dL POC Glucose (mg/dL) 174 H 153 H 110 H (75-99) mg/dL Calcium (8.4-10.2) mg/dL 12/24/19 12/24/19 12/24/19 Range/Units 04:20 04:20 04:56 RBC 3.05 L (4.30-5.90) m/uL Hgb 10.5 L (13.0-17.5) gm/dL Hct 32.7 L (39.0-53.0) % MCV 107.2 H (80.0-100.0) fL Lymphocytes # 0.2 L (1.0-4.8) k/uL ABG pH (7.35-7.45) ABG pO2 (83-108) mmHg ABG HCO3 (21-25) mmol/L ABG O2 Saturation (94-97) % Chloride 122 H (98-107) mmol/L Carbon Dioxide 18 L (22-30) mmol/L BUN 108 H* (9-20) mg/dL Creatinine 1.55 H (0.66-1.25) mg/dL Glucose 115 H (74-99) mg/dL POC Glucose (mg/dL) 132 H (75-99) mg/dL Calcium 7.2 L (8.4-10.2) mg/dL 12/24/19 12/24/19 12/24/19 Range/Units 05:48 06:58 07:44 RBC (4.30-5.90) m/uL Hgb (13.0-17.5) gm/dL Hct (39.0-53.0) % MCV (80.0-100.0) fL Lymphocytes # (1.0-4.8) k/uL ABG pH 7.31 L (7.35-7.45) ABG pO2 69 L (83-108) mmHg ABG HCO3 19 L (21-25) mmol/L ABG O2 Saturation 92.5 L (94-97) % Chloride (98-107) mmol/L Carbon Dioxide (22-30) mmol/L BUN (9-20) mg/dL Creatinine (0.66-1.25) mg/dL Glucose (74-99) mg/dL POC Glucose (mg/dL) 195 H 192 H (75-99) mg/dL Calcium (8.4-10.2) mg/dL 12/24/19 12/24/19 12/24/19 Range/Units 08:04 09:20 10:11 RBC (4.30-5.90) m/uL Hgb (13.0-17.5) gm/dL Hct (39.0-53.0) % MCV (80.0-100.0) fL Lymphocytes # (1.0-4.8) k/uL ABG pH (7.35-7.45) ABG pO2 (83-108) mmHg ABG HCO3 (21-25) mmol/L ABG O2 Saturation (94-97) % Chloride (98-107) mmol/L Carbon Dioxide (22-30) mmol/L BUN (9-20) mg/dL Creatinine (0.66-1.25) mg/dL Glucose (74-99) mg/dL POC Glucose (mg/dL) 168 H 147 H 109 H (75-99) mg/dL Calcium (8.4-10.2) mg/dL 12/24/19 12/24/19 12/24/19 Range/Units 11:08 12:06 12:14 RBC (4.30-5.90) m/uL Hgb (13.0-17.5) gm/dL Hct (39.0-53.0) % MCV (80.0-100.0) fL Lymphocytes # (1.0-4.8) k/uL ABG pH (7.35-7.45) ABG pO2 (83-108) mmHg ABG HCO3 (21-25) mmol/L ABG O2 Saturation (94-97) % Chloride (98-107) mmol/L Carbon Dioxide (22-30) mmol/L BUN (9-20) mg/dL Creatinine (0.66-1.25) mg/dL Glucose (74-99) mg/dL POC Glucose (mg/dL) 106 H 120 H 118 H (75-99) mg/dL Calcium (8.4-10.2) mg/dL 12/24/19 Range/Units 13:07 RBC (4.30-5.90) m/uL Hgb (13.0-17.5) gm/dL Hct (39.0-53.0) % MCV (80.0-100.0) fL Lymphocytes # (1.0-4.8) k/uL ABG pH (7.35-7.45) ABG pO2 (83-108) mmHg ABG HCO3 (21-25) mmol/L ABG O2 Saturation (94-97) % Chloride (98-107) mmol/L Carbon Dioxide (22-30) mmol/L BUN (9-20) mg/dL Creatinine (0.66-1.25) mg/dL Glucose (74-99) mg/dL POC Glucose (mg/dL) 123 H (75-99) mg/dL Calcium (8.4-10.2) mg/dL Microbiology - Last 24 Hours (Table) 12/19/19 04:45 Blood Culture - Preliminary Blood No Growth after 120 hours 12/19/19 04:21 Blood Culture - Preliminary Blood No Growth after 120 hours 12/18/19 21:08 Blood Culture - Preliminary Blood No Growth after 120 hours Assessment and Plan Assessment: Impression: Acute hypoxic/hypercapnic respiratory failure secondary to advanced COPD and blunt trauma to the chest with suspected pulmonary contusion. Severe COPD, FEV1 of 34%. History of obstructive sleep apnea syndrome, on CPAP on outpatient basis. Type 2 diabetes. Benign essential hypertension. Chronic generalized anxiety disorder. Acute kidney injury, improving mostly with hydration. Hepatitis C infection with positive hepatitis C RNA PCR, and significant C RNA quantitative load. Over 5.26 million Recommendation: Continue ventilatory support. Continue GI and DVT prophylaxis. Continue nutritional support/enteral feeding. Continue hydration cautiously. Continue antibiotics empirically, assessment of mental status off sedation, today again. Patient is not quite ready for any weaning Patient is critically ill, critical care time is 32 minutes. Time with Patient: Greater than 30
[2019-12-24 14:15] LABS: Glucose,Whole Blood 128 mg/dL (75-99)
[2019-12-24 15:12] LABS: Glucose,Whole Blood 138 mg/dL (75-99)
[2019-12-24] MEDS: MORPHINE SULFATE 4 MG/ML SYRINGE IVP PRN ×2 (15:21→22:42)
--- NOTE | 2019-12-24 15:56 | P.PN ---
Subjective Progress Note Date: 12/24/19 Principal diagnosis: This is a 59-year-old male who was recently admitted with a known history of COPD and obstructive sleep apnea on a CPAP at home and had not been feeling well and subsequently fell the day prior landing on his left chest and abdomen and having abdominal pain since and was being closely monitored. Patient continued to have respiratory distress and becomes severely dyspneic and hypotensive and was given multiple fluid boluses. Patient respiratory status continued to deteriorate and was put on BiPAP along with pressors. Patient was sent to the MICU for close monitoring and was intubated and currently remains on Ventilator for acute hypoxic respiratory failure secondary to COPD exacerbation. Chest x- ray also showed right lower lobe pneumonia with sepsis. She is currently maintained on IV antibiotics in the form of IV ceftriaxone and Flagyl and will continue at this time. Multiple medical consultations following including pulmonary, GI, and general surgery as an ultrasound of the gallbladder was done showing hepatocellular disease with hepatic steatosis and hypertrophic gallbladder with some thickening and possible cholecystitis although no surgical intervention is being recommended at this time. Patient is also maintained on bronchodilators and IV steroids and will continue at this time. Will repeat a.m. labs and continue to monitor closely. 12/24/2019 Patient is seen and evaluated in follow-up and continues to be intubated on a Verafinical ventilator and is currently being monitored closely in the ICU. Patient remains on IV antibiotics in the form of ceftriaxone and Flagyl along with IV steroids and bronchodilators. She continues on an insulin drip at 8 units per hour. Chest x-ray today shows stable and correlate for CHF otherwise consider diffuse pneumonia. As mentioned previously patient is maintained on IV antibiotics and will continue at this time. White blood count is 6.2. Patient's BUNs is 108 and current creatinine is 1.55. Weaning was attempted yesterday although patient became agitated and restless and tachycardic and tachypneic and is maintained on propofol for sedation. Will repeat a.m. labs. Review of systems: Unable to obtain as patient is currently intubated and sedated. Active Medications Albuterol Sulfate (Ventolin Nebulized) 2.5 mg INHALATION RT-QID PRN PRN Reason: Shortness Of Breath Last Admin: 12/18/19 20:00 Dose: 2.5 mg Documented by: Albuterol/Ipratropium (Duoneb 0.5 Mg-3 Mg/3 Ml Soln) 3 ml INHALATION RT-QID [facility] Last Admin: 12/24/19 11:34 Dose: 3 ml Documented by: Amlodipine Besylate (Norvasc) 5 mg PO BID [facility] Last Admin: 12/24/19 08:39 Dose: 5 mg Documented by: Chlorhexidine Gluconate (Peridex) 15 ml MUCOUS MEM BID [facility] Last Admin: 12/24/19 08:38 Dose: 15 ml Documented by: Clonidine HCl (Catapres-Tts 0.3mg Patch) 1 patch TRANSDERM Q7D [facility] Last Admin: 12/18/19 20:46 Dose: 1 patch Documented by: Diltiazem HCl (Cardizem Cd) 180 mg PO DAILY [facility] Last Admin: 12/24/19 08:39 Dose: 180 mg Documented by: Heparin Sodium (Porcine) (Heparin) 5,000 unit SQ Q8HR [facility] Last Admin: 12/24/19 08:38 Dose: 5,000 unit Documented by: Hydralazine HCl (Apresoline) 10 mg IVP Q4HR PRN PRN Reason: Blood Pressure - High Last Admin: 12/18/19 23:14 Dose: 10 mg Documented by: Hydromorphone HCl (Dilaudid) 0.5 mg IVP Q4HR PRN PRN Reason: Pain Last Admin: 12/22/19 03:28 Dose: 0.5 mg Documented by: Hydromorphone HCl (Dilaudid) 1 mg IVP Q4HR PRN PRN Reason: Pain Last Admin: 12/24/19 06:53 Dose: 1 mg Documented by: Ceftriaxone Sodium 1 gm/ (Sodium Chloride) 50 mls @ 100 mls/hr IVPB Q24HR [facility] Last Admin: 12/24/19 08:38 Dose: 100 mls/hr Documented by: Metronidazole 500 mg/ IV (Solution) 100 mls @ 100 mls/hr IVPB Q8HR [facility] Last Admin: 12/24/19 08:38 Dose: 100 mls/hr Documented by: Insulin Human Regular 100 unit (/ Sodium Chloride) 101 mls @ 0 mls/hr IV .Q0M [facility]; Protocol Last Titration: 12/24/19 15:12 Dose: 0 mls/hr, 0 mls/hr Documented by: Propofol 1,000 mg/ IV Solution 100 mls @ 0 mls/hr IV .Q0M [facility]; Protocol Last Admin: 12/24/19 15:14 Dose: 55 mcg/kg/min, 39.6 mls/hr Documented by: Sodium Chloride (Saline 0.9%) 1,000 mls @ 20 mls/hr IV .Q24H [facility] Insulin Human Regular (Humulin R Bolus From Bag) 11.6 unit 0.1 unit/kg (11.6 unit) IV ONCE PRN PRN Reason: Blood Sugar - High Stop: 01/18/20 08:19 Methylprednisolone Sodium Succinate (Solu-Medrol) 60 mg IV Q6HR [facility] Last Admin: 12/24/19 12:45 Dose: 60 mg Documented by: Metoclopramide HCl (Reglan) 10 mg IVP Q6HR [facility] Last Admin: 12/24/19 12:46 Dose: 10 mg Documented by: Metoprolol Tartrate (Lopressor) 12.5 mg PO TID [facility] Last Admin: 12/24/19 08:38 Dose: 12.5 mg Documented by: Miscellaneous Information (Pneumonia Protocol Utilized) 1 each PO ONCE PRN PRN Reason: Per Protocol Morphine Sulfate (Morphine Sulfate (Inj)) 4 mg IVP Q4HR PRN PRN Reason: Pain Last Admin: 12/24/19 15:21 Dose: 4 mg Documented by: Naloxone HCl (Narcan) 0.2 mg IV Q2M PRN PRN Reason: Opioid Reversal Pantoprazole Sodium (Protonix) 40 mg IV DAILY [facility] Last Admin: 12/24/19 08:39 Dose: 40 mg Documented by: Sodium Bicarbonate (Sodium Bicarbonate Tab) 650 mg PO BID [facility] Objective - Vital Signs Vital signs: Vital Signs Temp 98.8 F 12/24/19 12:00 Pulse 96 12/24/19 15:00 Resp 21 12/24/19 15:00 BP 132/73 12/24/19 15:00 Pulse Ox 92 L 12/24/19 15:00 Intake & Output 12/23/19 12/24/19 12/24/19 18:59 06:59 18:59 Intake Total 2418.083 2357.477 1356.393 Output Total 1100 850 910 Balance 3797.272 0504.477 446.393 Weight 120 kg 125.3 kg Intake: IV 1572 1541 804 .9 NS 1350 1375 550 Pressure bags 72 66 54 cefTRIAXone 1 gm In 50 100 Sodium Chloride 0.9% 50 ml @ 100 mls/hr IVPB Q24HR [facility] Rx#:[id number] metroNIDAZOLE-NS PMX 500 100 100 100 mg In Saline 1 100ml.bag @ 100 mls/hr IVPB Q8HR [facility] Rx#:[id number] Intake, IV Titration 456.083 451.477 327.393 Amount Insulin Regular 100 unit 68.951 68.317 27.733 In Sodium Chloride 0.9% 100 ml @ Per Protocol IV .Q0M [facility] Rx#:[id number] propofoL 1,000 mg In 387.132 383.16 299.66 Empty Bag 1 bag @ Titrate IV .Q0M [facility] Rx#: [id number] Tube Feeding 300 275 225 Other 90 90 Output: Urine 1100 850 910 Other: Voiding Method Indwelling Catheter Indwelling Catheter Indwelling Catheter ABP, PAP, CO, CI - Last Documented Arterial Blood Pressure 151/61 - Exam Patient is Currently sedated and intubated.on Mechanical ventilator. Temp is 98.8F, pulse is 96, respirations are 20, blood pressure is 123/62, oxygen saturation is 92% on mechanical vent with an FiO2 of 45. HEENT: Normocephalic. Neck is supple. Pupils reactive. Nostrils clear. Oral cavity is moist. Ears reveal no drainage. ET tube noted Neck reveals no JVD, carotid bruits, or thyromegaly. CHEST EXAMINATION: Trachea is central. Symmetrical expansion. Bibasilar diminished air entry and minimal right basilar crackles. Expiratory wheezing an d scattered rhonchi noted on exam CARDIAC: Normal S1, S2 with no gallops. No murmurs ABDOMEN: Soft. Obese. Bowel sounds normal. No organomegaly. No abdominal bruits. Extremities: reveal no edema. No clubbing or cyanosis Neurologically . sedated. No focal deficits noted Skin: No rash or skin lesions. Psychiatric: could not be assesed completely. Musculoskeletal: No joint swelling or deformity. - Labs CBC & Chem 7: 12/24/19 04:20 12/24/19 04:20 Labs: Abnormal Lab Results - Last 24 Hours (Table) 12/23/19 12/23/19 12/23/19 Range/Units 16:11 17:14 18:46 RBC (4.30-5.90) m/uL Hgb (13.0-17.5) gm/dL Hct (39.0-53.0) % MCV (80.0-100.0) fL Lymphocytes # (1.0-4.8) k/uL ABG pH (7.35-7.45) ABG pO2 (83-108) mmHg ABG HCO3 (21-25) mmol/L ABG O2 Saturation (94-97) % Chloride (98-107) mmol/L Carbon Dioxide (22-30) mmol/L BUN (9-20) mg/dL Creatinine (0.66-1.25) mg/dL Glucose (74-99) mg/dL POC Glucose (mg/dL) 175 H 174 H 151 H (75-99) mg/dL Calcium (8.4-10.2) mg/dL 12/23/19 12/23/19 12/23/19 Range/Units 19:55 21:46 23:02 RBC (4.30-5.90) m/uL Hgb (13.0-17.5) gm/dL Hct (39.0-53.0) % MCV (80.0-100.0) fL Lymphocytes # (1.0-4.8) k/uL ABG pH (7.35-7.45) ABG pO2 (83-108) mmHg ABG HCO3 (21-25) mmol/L ABG O2 Saturation (94-97) % Chloride (98-107) mmol/L Carbon Dioxide (22-30) mmol/L BUN (9-20) mg/dL Creatinine (0.66-1.25) mg/dL Glucose (74-99) mg/dL POC Glucose (mg/dL) 139 H 193 H 193 H (75-99) mg/dL Calcium (8.4-10.2) mg/dL 12/23/19 12/24/19 12/24/19 Range/Units 23:55 01:03 02:54 RBC (4.30-5.90) m/uL Hgb (13.0-17.5) gm/dL Hct (39.0-53.0) % MCV (80.0-100.0) fL Lymphocytes # (1.0-4.8) k/uL ABG pH (7.35-7.45) ABG pO2 (83-108) mmHg ABG HCO3 (21-25) mmol/L ABG O2 Saturation (94-97) % Chloride (98-107) mmol/L Carbon Dioxide (22-30) mmol/L BUN (9-20) mg/dL Creatinine (0.66-1.25) mg/dL Glucose (74-99) mg/dL POC Glucose (mg/dL) 194 H 174 H 153 H (75-99) mg/dL Calcium (8.4-10.2) mg/dL 12/24/19 12/24/19 12/24/19 Range/Units 03:52 04:20 04:20 RBC 3.05 L (4.30-5.90) m/uL Hgb 10.5 L (13.0-17.5) gm/dL Hct 32.7 L (39.0-53.0) % MCV 107.2 H (80.0-100.0) fL Lymphocytes # 0.2 L (1.0-4.8) k/uL ABG pH (7.35-7.45) ABG pO2 (83-108) mmHg ABG HCO3 (21-25) mmol/L ABG O2 Saturation (94-97) % Chloride 122 H (98-107) mmol/L Carbon Dioxide 18 L (22-30) mmol/L BUN 108 H* (9-20) mg/dL Creatinine 1.55 H (0.66-1.25) mg/dL Glucose 115 H (74-99) mg/dL POC Glucose (mg/dL) 110 H (75-99) mg/dL Calcium 7.2 L (8.4-10.2) mg/dL 12/24/19 12/24/19 12/24/19 Range/Units 04:56 05:48 06:58 RBC (4.30-5.90) m/uL Hgb (13.0-17.5) gm/dL Hct (39.0-53.0) % MCV (80.0-100.0) fL Lymphocytes # (1.0-4.8) k/uL ABG pH (7.35-7.45) ABG pO2 (83-108) mmHg ABG HCO3 (21-25) mmol/L ABG O2 Saturation (94-97) % Chloride (98-107) mmol/L Carbon Dioxide (22-30) mmol/L BUN (9-20) mg/dL Creatinine (0.66-1.25) mg/dL Glucose (74-99) mg/dL POC Glucose (mg/dL) 132 H 195 H 192 H (75-99) mg/dL Calcium (8.4-10.2) mg/dL 12/24/19 12/24/19 12/24/19 Range/Units 07:44 08:04 09:20 RBC (4.30-5.90) m/uL Hgb (13.0-17.5) gm/dL Hct (39.0-53.0) % MCV (80.0-100.0) fL Lymphocytes # (1.0-4.8) k/uL ABG pH 7.31 L (7.35-7.45) ABG pO2 69 L (83-108) mmHg ABG HCO3 19 L (21-25) mmol/L ABG O2 Saturation 92.5 L (94-97) % Chloride (98-107) mmol/L Carbon Dioxide (22-30) mmol/L BUN (9-20) mg/dL Creatinine (0.66-1.25) mg/dL Glucose (74-99) mg/dL POC Glucose (mg/dL) 168 H 147 H (75-99) mg/dL Calcium (8.4-10.2) mg/dL 12/24/19 12/24/19 12/24/19 Range/Units 10:11 11:08 12:06 RBC (4.30-5.90) m/uL Hgb (13.0-17.5) gm/dL Hct (39.0-53.0) % MCV (80.0-100.0) fL Lymphocytes # (1.0-4.8) k/uL ABG pH (7.35-7.45) ABG pO2 (83-108) mmHg ABG HCO3 (21-25) mmol/L ABG O2 Saturation (94-97) % Chloride (98-107) mmol/L Carbon Dioxide (22-30) mmol/L BUN (9-20) mg/dL Creatinine (0.66-1.25) mg/dL Glucose (74-99) mg/dL POC Glucose (mg/dL) 109 H 106 H 120 H (75-99) mg/dL Calcium (8.4-10.2) mg/dL 12/24/19 12/24/19 12/24/19 Range/Units 12:14 13:07 14:14 RBC (4.30-5.90) m/uL Hgb (13.0-17.5) gm/dL Hct (39.0-53.0) % MCV (80.0-100.0) fL Lymphocytes # (1.0-4.8) k/uL ABG pH (7.35-7.45) ABG pO2 (83-108) mmHg ABG HCO3 (21-25) mmol/L ABG O2 Saturation (94-97) % Chloride (98-107) mmol/L Carbon Dioxide (22-30) mmol/L BUN (9-20) mg/dL Creatinine (0.66-1.25) mg/dL Glucose (74-99) mg/dL POC Glucose (mg/dL) 118 H 123 H 128 H (75-99) mg/dL Calcium (8.4-10.2) mg/dL 12/24/19 Range/Units 15:10 RBC (4.30-5.90) m/uL Hgb (13.0-17.5) gm/dL Hct (39.0-53.0) % MCV (80.0-100.0) fL Lymphocytes # (1.0-4.8) k/uL ABG pH (7.35-7.45) ABG pO2 (83-108) mmHg ABG HCO3 (21-25) mmol/L ABG O2 Saturation (94-97) % Chloride (98-107) mmol/L Carbon Dioxide (22-30) mmol/L BUN (9-20) mg/dL Creatinine (0.66-1.25) mg/dL Glucose (74-99) mg/dL POC Glucose (mg/dL) 138 H (75-99) mg/dL Calcium (8.4-10.2) mg/dL Microbiology - Last 24 Hours (Table) 12/19/19 04:45 Blood Culture - Preliminary Blood No Growth after 120 hours 12/19/19 04:21 Blood Culture - Preliminary Blood No Growth after 120 hours 12/18/19 21:08 Blood Culture - Preliminary Blood No Growth after 120 hours Assessment and Plan Assessment: Acute hypoxic respiratory failure secondary to COPD exacerbation and right lower lobe pneumonia requiring intubation on mechanical ventilator Acute COPD exacerbation Right lower lobe pneumonia Septic shock Sepsis secondary to above Acute kidney injury likely prerenal. possible ATN Hypertensive urgency on admission History of recent fall, fell on his left side onto the abdomen and chest. CT of the abdomen pelvis showed no significant changes. Suspected gallbladder wall thickening and acute cholecystitis Mild transaminitis Obstructive sleep apnea on CPAP at home Hyperglycemia with uncontrolled diabetes type 2 insulin-dependent Morbid obesity BMI 40.2 Previous history of smoking and alcohol use DVT prophylaxis with heparin subq Recommendations and discussion: Patient is currently remains on mechanical ventilator and is being closely monitored in the ICU. Multiple medical consultations following. Continue with duo nebs and IV Solu-Medrol. Patient is maintained on IV antibiotics in the form of Flagyl and ceftriaxone and will continue at this time. Monitor renal fu nction and continue with gentle IV hydration at 20 ML per hour. Patient will be initiated on sodium bicarb tablets. Nephrology also following. Cardiology was consulted for possible CHF with right sided small pleural Effusion. Echo ordered and currently pending. Chest x-ray today Continues to show interval progression of the basilar effusions with associated atelectasis versus edema and correlate for possible pneumonia or congestive heart failure. General surgery is on board due to gallbladder findings although not recommending any surgical intervention at this time. Due to multiple complex medical issues, prognosis is guarded. Further recommendations to follow.
[2019-12-24 16:15] LABS: Glucose,Whole Blood 142 mg/dL (75-99)
[2019-12-24 17:14] LABS: Glucose,Whole Blood 140 mg/dL (75-99)
[2019-12-24 18:17] LABS: Glucose,Whole Blood 131 mg/dL (75-99)
[2019-12-24 19:12] LABS: Glucose,Whole Blood 132 mg/dL (75-99)
[2019-12-24] MEDS: SODIUM BICARBONATE TAB 650 MG TAB PO SCH (19:43)
[2019-12-24 20:04] LABS: Glucose,Whole Blood 120 mg/dL (75-99)
[2019-12-24 21:02] LABS: Glucose,Whole Blood 144 mg/dL (75-99)
[2019-12-24 22:06] LABS: Glucose,Whole Blood 167 mg/dL (75-99)
[2019-12-24 22:58] LABS: Glucose,Whole Blood 152 mg/dL (75-99)
[2019-12-24 23:56] LABS: Glucose,Whole Blood 146 mg/dL (75-99)
[2019-12-25] MEDS: HYDROmorphone 1 MG/ML 1 ML SYRINGE IVP PRN ×4 (00:19→22:10)
[2019-12-25 00:53] LABS: Glucose,Whole Blood 130 mg/dL (75-99)
[2019-12-25] MEDS: MORPHINE SULFATE 4 MG/ML SYRINGE IVP PRN (01:48)
[2019-12-25 02:02] LABS: Glucose,Whole Blood 155 mg/dL (75-99)
[2019-12-25 03:01] LABS: Glucose,Whole Blood 153 mg/dL (75-99)
[2019-12-25 04:02] LABS: Glucose,Whole Blood 161 mg/dL (75-99)
[2019-12-25 04:59] LABS: Glucose,Whole Blood 168 mg/dL (75-99)
[2019-12-25] MEDS: METOCLOPRAMIDE 5 MG/ML 2 ML VIAL IVP SCH ×3 (05:17→17:32)
[2019-12-25] MEDS: methylPREDNISolone SOD SUCCI 125 MG/2 ML VIAL IV SCH (05:17)
[2019-12-25 05:45] LABS: Basophils % (A) 0 %; Eosinophils # (A) 0.1 k/uL (0-0.7); Eosinophils % (A) 1 %; HCT 35.8 % (39.0-53.0); HGB 11.4 gm/dL (13.0-17.5); Hypochromasia Moderate; Lymphocytes # (A) 0.3 k/uL (1.0-4.8); Lymphocytes % (A) 4 %; MCH 34.4 pg (25.0-35.0); MCHC 31.9 g/dL (31.0-37.0); Macrocytosis Moderate; Mean Platelet Volume 8.9; Monocytes # (A) 0.4 k/uL (0-1.0); Monocytes % (A) 5 %; Neutrophils # (A) 7.6 k/uL (1.3-7.7); Neutrophils % (A) 90 %; Platelet Count 237 k/uL (150-450); RBC 3.31 m/uL (4.30-5.90); RDW 13.9 % (11.5-15.5); WBC 8.4 k/uL (3.8-10.6)
[2019-12-25 05:50] LABS: Calcium 7.5 mg/dL (8.4-10.2); Potassium 5.1 mmol/L (3.5-5.1)
[2019-12-25 06:05] LABS: Glucose,Whole Blood 199 mg/dL (75-99)
[2019-12-25 06:54] LABS: Glucose,Whole Blood 151 mg/dL (75-99)
[2019-12-25 07:45] LABS: Glucose,Whole Blood 165 mg/dL (75-99)
[2019-12-25] MEDS: IPRATROPIUM-ALBUTEROL 3 ML NEB INHALATION SCH ×4 (07:45→18:40)
[2019-12-25 07:49] LABS: ABG HCO3 19 mmol/L (21-25); ABG Oxygen Saturation 95.9 % (94-97); ABG PCO2 39 mmHg (35-45); ABG PH 7.31 (7.35-7.45); ABG PO2 84 mmHg (83-108); ABG TCO2 21 mmol/L (19-24)
--- NOTE | 2019-12-25 07:57 | XR ---
EXAMINATION TYPE: XR chest 1V portable DATE OF EXAM: 12/25/2019 CLINICAL HISTORY: Difficulty breathing progress study. TECHNIQUE: Single AP portable upright view of the chest is obtained. COMPARISON: Chest x-ray from one day earlier and older studies. FINDINGS: Stable endotracheal tube, left subclavian central venous catheter, and orogastric tube. Cardiac silhouette size stable and upper limits of normal with central vascular congestion and bibasi lar opacities. Osseous structures remain intact. IMPRESSION: Overall stable findings, central vascular congestion with small to moderate-sized bilat eral pleural effusions and associated bibasilar atelectasis and/or infiltrate are all redemonstrated.
[2019-12-25] MEDS: metroNIDAZOLE-NS PMX 500 MG in SALINE 1 100ML.BAG IVPB SCH ×2 (08:04→15:10)
[2019-12-25] MEDS: HEPARIN SODIUM,PORCINE 5,000 UNIT/ML 1 ML VIAL SQ SCH ×2 (08:14→15:10)
[2019-12-25] MEDS: CHLORHEXIDINE GLUCONATE 15 ML CUP MUCOUS MEM SCH ×2 (08:14→19:55)
[2019-12-25] MEDS: PANTOPRAZOLE 40 MG/10 ML VIAL IV SCH (08:15)
[2019-12-25] MEDS: DILTIAZEM CD 180 MG CAP.ER.24H PO SCH (08:15)
[2019-12-25] MEDS: amLODIPine 5 MG TAB PO SCH ×2 (08:15→19:55)
[2019-12-25] MEDS: SODIUM BICARBONATE TAB 650 MG TAB PO SCH ×2 (08:15→19:55)
[2019-12-25] MEDS: METOPROLOL TARTRATE 12.5 MG TAB PO SCH ×3 (08:15→19:55)
[2019-12-25] MEDS: cloNIDine 0.3 MG/24HR PATCH TRANSDERM SCH (08:15)
[2019-12-25] MEDS: SODIUM CHLORIDE 0.9% 1,000 ML IV SCH (08:19)
[2019-12-25 09:28] LABS: Glucose,Whole Blood 179 mg/dL (75-99)
[2019-12-25] MEDS: BARIUM SULFATE 450 ML ORAL.SUSP BOTTLE PO PRN ×2 (09:40→12:01)
[2019-12-25 11:02] LABS: Glucose,Whole Blood 190 mg/dL (75-99)
[2019-12-25 12:01] LABS: Glucose,Whole Blood 168 mg/dL (75-99)
--- NOTE | 2019-12-25 12:03 | PN ---
PROGRESS NOTE Patient is seen for followup for acute kidney injury. Patient currently remains on the vent. He has had good urine output with 24 hour urine output at 2.1 L. The patient is sedated. FiO2 is at 45%. Examination shows blood pressure is 142/55, heart rate 74 per minute, FiO2 94% on 45% FiO2. Examination of the heart S1, S2. Examination of the lungs, bilateral breath sounds are heard. Abdomen is soft, nontender. Examination of the lower extremities shows chronic skin changes. Trace edema noted, 1+ edema noted bilaterally. METHODS ANALYST DATA PROCESSING exam cannot be performed. LABS: Show sodium 144, potassium 5.1, chloride 121, CO2 is 18, BUN 115, creatinine 1.69, calcium 7.5, hemoglobin 11.4 g/dL. ASSESSMENT: 1. Acute kidney injury, acute tubular necrosis, currently nonoliguric. Stable renal function. Serum creatinine is slightly higher from yesterday. I will continue to maintain patient off of IV fluids for now. Continue to avoid nephrotoxic agents. Blood pressure is not significantly low. 2. Acute hypoxic respiratory failure, currently on the vent. 3. Pulmonary contusion on the left side. 4. Chronic obstructive pulmonary disease exacerbation. 5. Disproportionately elevated BUN secondary to steroids. 6. Hypertension, currently controlled. 7. Metabolic acidosis, non gap associated with renal failure. PLAN: Continue with oral sodium bicarb. Continue off IV fluids. Repeat labs in a.m. Continue to avoid nephrotoxic agents. MMODL / IJN: [id number] /
--- NOTE | 2019-12-25 12:59 | P.PN ---
Subjective Progress Note Date: 12/25/19 Principal diagnosis: Acute hypoxic and hypercapnic respiratory failure secondary to advanced COPD and blunt trauma to the chest, possible right pulmonary contusion. This is a 59-year-old male patient with known history of severe COPD with an FEV1 of 34% of predicted maintained on a cruise on outpatient basis. He also doesn't rescue inhaler and albuterol chest on a when necessary basis. The patient has obstructive sleep apnea maintained on CPAP therapy, and his other comorbidities include obesity, diabetes mellitus, hypertension and he has chronic peripheral edema. The patient had a fall prior to him coming to the hospital. He landed on his left side of the chest. He has bruising over the left lateral wall of the abdomen and upper thigh. He did also have some blunt trauma to his chest. On 12/21/1999 and answering the patient for a follow-up. Note that the patient got intubated yesterday and placed on a mechanical ventilator. He progressively went into respiratory failure and became unresponsive for that reason he had to be intubated. Intubation process was very successful. The patient remained hemodynamically stable. The patient is currently on propofol at 35 g per KG per minute. The patient is also on normal saline at rate of 40 mL an hour. The patient is on insulin drip at 7 units an hour. The patient was started on enteral feeding for nutritional support. This morning, the patient is an assist-control at the rate of 24 with a tidal volume of 400 and FiO2 of 50% with a PEEP of 5. Blood gas showed a patient of 7.29 with a pCO2 47 and pO2 111. The peak air pressures around 26. The patient is obviously less bronchospastic and wheezy. He was given IV sedation holiday and he was able to arouse and follows some simple commands. He seems to be quite comfortable while on the mechanical ventilator. No active pain issues. I also performed CAT scan of the chest abdomen and pelvis on him yesterday. A CAT scan of the chest abdomen and pelvis was done. A surgical consultation was also obtained for the possibility of gallbladder disease gallbladder was cleared by the surgeons. CAT scan of the abdomen and pelvis did not show any cholelithiasis. There was no evidence of any cholecystitis. There was a small right-sided pleural effusion. Small hiatal hernia. Mild hepatomegaly. Mild free fluid within the pelvis. Mild wedging of the T11 vertebral body probably developmental in addition to degenerative changes of the spine. There was evidence of an altered left seventh rib fracture. Lungs are essentially clear and there was no evidence of any significant pneumonia. The patient remains on an empiric antibiotic coverage with a combination of low-dose Rocephin and Flagyl for now. He remains on bronchodilators. He remains on IV Solu-Medrol. Urine output was low and the patient be given another liter bolus for now. Patient was reevaluated today on 12/22/19, patient remains in the ICU, intubated and mechanically ventilated. Patient has severe underlying COPD, and what seems to be underlying pulmonary contusion of the right lung, doubt pneumonia. Patient is on assist control rate of 24 tidal volume is 400 FiO2 is 40% and PEEP is 5 ABG showed a pO2 of 74 pCO2 of 43 pH of 7.3. Patient is on insulin drip at 5 units per hour he is also on propofol at 55 mcg/kg/m, and IV fluid at 20 mL per hour. Considering his low urine output, I will give the patient a liter of IV fluid and will increase his IV fluid to 75 mL per hour. I have also increased his tidal volume to 450. Chest x-ray showed right lower lobe consolidation, I believe this is most likely a pulmonary contusion from his recent trauma. Although the possibility of pneumonia is not entirely ruled out. Patient is known to have history of severe COPD, his baseline FEV1 is 34%. Remains empirically on antibiotics, and I plan today to hold sedation and assessment of his status on this patient although the patient is not quite ready for extubation considering his ABG is marginal. Labs today showed relatively normal CBC, hemoglobin is a bit low at 9.4. His renal profile has been gradually getting worse since admission he had normal renal profile on admission and today his BUN is 100 creatinine is 1.96, hence I plan to hydrate the patient , and hold any diuretics. Patient was reevaluated today on 12/23/19, remains in the ICU, remains intubated and mechanically ventilated. His assist-control rate is 24 tidal volume is 450 FiO2 is 40% and PEEP is 5 ABG showed a pO2 of 72 pCO2 of 38 pH of 7.34. Hence no changes made with the ventilator settings. He remains on propofol at 55 mcg/kg/m, IV fluid 0.9 normal saline at 75 mL per hour and insulin at 8 units per hour. Patient is not requiring any pressors, seems to be hemodynamically st able. Chest x-ray is showing atelectasis and pleural effusion, I suspect that we may be dealing with pulmonary contusion. Patient is seen more fluids yesterday, and his renal functioning is improving today, creatinine is down to 1.57, hence I plan to continue IV fluids. Patient remains on Rocephin and Flagyl. His blood cultures and sputum cultures have remained negative. CBC is relatively normal today. Basic metabolic profile is relatively normal. BUN is down to 97 creatinine is down to 1.57. Patient remains sedated, however I plan to hold sedation awaken the patient, and at least check weaning parameters today. Reevaluated today on 12/24/19, remains in the ICU, intubated mechanically ventilated. His ventilator settings are assist control rate 24 tidal volume 450 FiO2 40%. ABG showed a pO2 of 69 pCO2 of 37 pH of 7.31, hence FiO2 was increased to 45%. Trial of sedation holiday was given yesterday, however the patient became extremely agitated, restless, did not follow any instructions, and he was quite tachypneic and tachycardic. Hence he had to be placed back on sedation, and he remains on propofol at 55 mcg/kg/m. He is also on insulin at 8 units per hour, IV fluid at 0.9 normal saline 1 25 mL per hour. And he is on enteral feeding which is being tolerated. Chest x-ray continues to show by basilar opacities, doubt congestive heart failure, patient is improving with IV fluids, and his renal profile is getting better on a daily basis with fluid challenges. Antibiotics remain about the same. Again the patient failed weaning trials yesterday, will try again to hold sedation and assessment of status and proceed to weaning trials as tolerated. All blood cultures and sputum cultures have been negative so far Patient was reevaluated today on 12/25/19, remains in the ICU, intubated and mechanically ventilated. Could not get the patient to wake up enough to assess weaning or start any weaning process. Off the propofol, the patient was noted to be extremely agitated, restless, tachycardic, asynchronous with mechanical ventilation, and he desaturates easily. Hence On mechanical ventilation and on propofol at 60 mcg/kg/m, his IV fluid is at KVO now, insulin drip 4 units per hour. Patient is on assist control rate of 24 tidal volume 450 FiO2 45% PEEP of 5. ABG showed a pO2 of 84 pCO2 of 38 pH of 7.30. No changes made in the vent settings. Again the patient did not tolerate any weaning trials yesterday. Remains on enteral feeding/tube feeding and he is up to goal. Chest x-ray continues to show by basilar opacities, I suspect the patient may have developed a picture of ARDS secondary to his pulmonary contusion. However it seems to be improving, underlying pneumonia is not entirely ruled out. Patient has been on antibiotics, all cultures have been negative, hence we'll discontinue antibiotics. And that includes Rocephin and Flagyl Objective - Vital Signs Vital signs: Vital Signs Temp 97.2 F L 12/25/19 12:00 Pulse 68 12/25/19 12:30 Resp 21 12/25/19 12:00 BP 126/66 12/25/19 12:00 Pulse Ox 94 L 12/25/19 12:00 Intake & Output 12/24/19 12/25/19 12/25/19 18:59 06:59 18:59 Intake Total 2139.145 5583.935 531.707 Output Total 1295 845 415 Balance 394.253 483.935 116.707 Weight 125.3 kg 127.3 kg 128.1 kg Intake: IV 982 402 196 .9 NS 610 230 40 Pressure bags 72 72 6 cefTRIAXone 1 gm In 100 50 Sodium Chloride 0.9% 50 ml @ 100 mls/hr IVPB Q24HR [facility] Rx#:[id number] metroNIDAZOLE-NS PMX 500 200 100 100 mg In Saline 1 100ml.bag @ 100 mls/hr IVPB Q8HR [facility] Rx#:[id number] Intake, IV Titration 407.253 536.935 310.707 Amount Insulin Regular 100 unit 27.733 60.450 19.75 In Sodium Chloride 0.9% 100 ml @ Per Protocol IV .Q0M [facility] Rx#:[id number] propofoL 1,000 mg In 379.52 476.485 290.957 Empty Bag 1 bag @ Titrate IV .Q0M [facility] Rx#: [id number] Tube Feeding 300 300 25 Other 90 Output: Urine 1295 845 415 Other: Voiding Method Indwelling Catheter Indwelling Catheter Indwelling Catheter ABP, PAP, CO, CI - Last Documented Arterial Blood Pressure 136/42 - Exam Physical Exam: Revealed 59-year-old white male intubated, on mechanical ventilation, sedated, on propofol. Fully sedated. Head: Atraumatic, normocephalic. Orogastric tube and endotracheal tube are intact. HEENT:[Neck is supple.] [No neck masses.] [No thyromegaly.] [No JVD. ashley,EOMI, no icterus, Chest: [Diminished breath sounds at the bases minimal crackles bilaterally no rhonchi no wheezes. Cardiac Exam: [Normal S1 and S2, no S3 gallop, no murmur.] Abdomen: [Obese, slightly distended, no rebound no guarding, diminished bowel sounds. No bowel movements since admission. Extremities: [No clubbing, 2 + bipedal edema, no cyanosis.] Neurological Exam: Could not be assessed, patient is sedated, and on propofol. Psychiatric: Could not be assessed. Skin: Venous stasis changes in lower extremities some swelling. - Labs CBC & Chem 7: 12/25/19 04:45 12/25/19 04:45 Labs: Abnormal Lab Results - Last 24 Hours (Table) 12/24/19 12/24/19 12/24/19 Range/Units 13:07 14:14 15:10 RBC (4.30-5.90) m/uL Hgb (13.0-17.5) gm/dL Hct (39.0-53.0) % MCV (80.0-100.0) fL Lymphocytes # (1.0-4.8) k/uL ABG pH (7.35-7.45) ABG HCO3 (21-25) mmol/L Chloride (98-107) mmol/L Carbon Dioxide (22-30) mmol/L BUN (9-20) mg/dL Creatinine (0.66-1.25) mg/dL Glucose (74-99) mg/dL POC Glucose (mg/dL) 123 H 128 H 138 H (75-99) mg/dL Calcium (8.4-10.2) mg/dL 12/24/19 12/24/19 12/24/19 Range/Units 16:11 17:12 18:16 RBC (4.30-5.90) m/uL Hgb (13.0-17.5) gm/dL Hct (39.0-53.0) % MCV (80.0-100.0) fL Lymphocytes # (1.0-4.8) k/uL ABG pH (7.35-7.45) ABG HCO3 (21-25) mmol/L Chloride (98-107) mmol/L Carbon Dioxide (22-30) mmol/L BUN (9-20) mg/dL Creatinine (0.66-1.25) mg/dL Glucose (74-99) mg/dL POC Glucose (mg/dL) 142 H 140 H 131 H (75-99) mg/dL Calcium (8.4-10.2) mg/dL 12/24/19 12/24/19 12/24/19 Range/Units 19:10 20:02 21:00 RBC (4.30-5.90) m/uL Hgb (13.0-17.5) gm/dL Hct (39.0-53.0) % MCV (80.0-100.0) fL Lymphocytes # (1.0-4.8) k/uL ABG pH (7.35-7.45) ABG HCO3 (21-25) mmol/L Chloride (98-107) mmol/L Carbon Dioxide (22-30) mmol/L BUN (9-20) mg/dL Creatinine (0.66-1.25) mg/dL Glucose (74-99) mg/dL POC Glucose (mg/dL) 132 H 120 H 144 H (75-99) mg/dL Calcium (8.4-10.2) mg/dL 12/24/19 12/24/19 12/24/19 Range/Units 22:05 22:55 23:55 RBC (4.30-5.90) m/uL Hgb (13.0-17.5) gm/dL Hct (39.0-53.0) % MCV (80.0-100.0) fL Lymphocytes # (1.0-4.8) k/uL ABG pH (7.35-7.45) ABG HCO3 (21-25) mmol/L Chloride (98-107) mmol/L Carbon Dioxide (22-30) mmol/L BUN (9-20) mg/dL Creatinine (0.66-1.25) mg/dL Glucose (74-99) mg/dL POC Glucose (mg/dL) 167 H 152 H 146 H (75-99) mg/dL Calcium (8.4-10.2) mg/dL 12/25/19 12/25/19 12/25/19 Range/Units 00:52 02:01 02:59 RBC (4.30-5.90) m/uL Hgb (13.0-17.5) gm/dL Hct (39.0-53.0) % MCV (80.0-100.0) fL Lymphocytes # (1.0-4.8) k/uL ABG pH (7.35-7.45) ABG HCO3 (21-25) mmol/L Chloride (98-107) mmol/L Carbon Dioxide (22-30) mmol/L BUN (9-20) mg/dL Creatinine (0.66-1.25) mg/dL Glucose (74-99) mg/dL POC Glucose (mg/dL) 130 H 155 H 153 H (75-99) mg/dL Calcium (8.4-10.2) mg/dL 12/25/19 12/25/19 12/25/19 Range/Units 04:01 04:45 04:45 RBC 3.31 L (4.30-5.90) m/uL Hgb 11.4 L (13.0-17.5) gm/dL Hct 35.8 L (39.0-53.0) % MCV 108.0 H (80.0-100.0) fL Lymphocytes # 0.3 L (1.0-4.8) k/uL ABG pH (7.35-7.45) ABG HCO3 (21-25) mmol/L Chloride 121 H (98-107) mmol/L Carbon Dioxide 18 L (22-30) mmol/L BUN 115 H* (9-20) mg/dL Creatinine 1.69 H (0.66-1.25) mg/dL Glucose 170 H (74-99) mg/dL POC Glucose (mg/dL) 161 H (75-99) mg/dL Calcium 7.5 L (8.4-10.2) mg/dL 12/25/19 12/25/19 12/25/19 Range/Units 04:57 06:04 06:52 RBC (4.30-5.90) m/uL Hgb (13.0-17.5) gm/dL Hct (39.0-53.0) % MCV (80.0-100.0) fL Lymphocytes # (1.0-4.8) k/uL ABG pH (7.35-7.45) ABG HCO3 (21-25) mmol/L Chloride (98-107) mmol/L Carbon Dioxide (22-30) mmol/L BUN (9-20) mg/dL Creatinine (0.66-1.25) mg/dL Glucose (74-99) mg/dL POC Glucose (mg/dL) 168 H 199 H 151 H (75-99) mg/dL Calcium (8.4-10.2) mg/dL 12/25/19 12/25/19 12/25/19 Range/Units 07:41 07:44 09:26 RBC (4.30-5.90) m/uL Hgb (13.0-17.5) gm/dL Hct (39.0-53.0) % MCV (80.0-100.0) fL Lymphocytes # (1.0-4.8) k/uL ABG pH 7.31 L (7.35-7.45) ABG HCO3 19 L (21-25) mmol/L Chloride (98-107) mmol/L Carbon Dioxide (22-30) mmol/L BUN (9-20) mg/dL Creatinine (0.66-1.25) mg/dL Glucose (74-99) mg/dL POC Glucose (mg/dL) 165 H 179 H (75-99) mg/dL Calcium (8.4-10.2) mg/dL 12/25/19 12/25/19 Range/Units 11:01 12:00 RBC (4.30-5.90) m/uL Hgb (13.0-17.5) gm/dL Hct (39.0-53.0) % MCV (80.0-100.0) fL Lymphocytes # (1.0-4.8) k/uL ABG pH (7.35-7.45) ABG HCO3 (21-25) mmol/L Chloride (98-107) mmol/L Carbon Dioxide (22-30) mmol/L BUN (9-20) mg/dL Creatinine (0.66-1.25) mg/dL Glucose (74-99) mg/dL POC Glucose (mg/dL) 190 H 168 H (75-99) mg/dL Calcium (8.4-10.2) mg/dL Microbiology - Last 24 Hours (Table) 12/19/19 04:45 Blood Culture - Final Blood No Growth after 144 hours 12/19/19 04:21 Blood Culture - Final Blood No Growth after 144 hours 12/18/19 21:08 Blood Culture - Final Blood No Growth after 144 hours Assessment and Plan Assessment: Impression: Acute hypoxic/hypercapnic respiratory failure secondary to advanced COPD and blunt trauma to the chest with suspected pulmonary contusion. Suspect underlying ARDS secondary to pulmonary contusion. Underlying pneumonia is not entirely ruled out. But felt to be less likely. Severe COPD, FEV1 of 34%. History of obstructive sleep apnea syndrome, on CPAP on outpatient basis. Type 2 diabetes. Benign essential hypertension. Chronic generalized anxiety disorder. Acute kidney injury, improving mostly with hydration. Hepatitis C infection with positive hepatitis C RNA PCR, and significant C RNA quantitative load. Over 5.26 million Abdominal distention and constipation, will recommend a CT of the abdomen and pelvis without IV contrast. Acute metabolic encephalopathy, ordered ammonia level which is pending. May consider CT of the brain. Recommendation: Continue ventilatory support. Continue daily assessment of mental status, and sedation holidays. If tolerated. Continue GI and DVT prophylaxis. Cut down her IV fluid to KVO, give patient's free water for elevated sodium Continue nutritional support/enteral feeding. Continue hydration cautiously. Discontinue antibiotics., Consult surgery to evaluate for abdominal distention and for tracheostomy and PEG tube placement eventually.. In the meantime CT of the abdomen and pelvis was ordered. Patient is not quite ready for any weaning , has been unable to tolerate any form of weaning over the last few days. Overall prognosis remains extremely poor and guarded. Patient is critically ill, critical care time is 34 minutes. Time with Patient: Greater than 30
[2019-12-25 13:20] LABS: Glucose,Whole Blood 152 mg/dL (75-99)
--- NOTE | 2019-12-25 14:53 | P.PN ---
Subjective Progress Note Date: 12/25/19 Principal diagnosis: This is a 59-year-old male who was recently admitted with a known history of COPD and obstructive sleep apnea on a CPAP at home and had not been feeling well and subsequently fell the day prior landing on his left chest and abdomen and having abdominal pain since and was being closely monitored. Patient continued to have respiratory distress and becomes severely dyspneic and hypotensive and was given multiple fluid boluses. Patient respiratory status continued to deteriorate and was put on BiPAP along with pressors. Patient was sent to the MICU for close monitoring and was intubated and currently remains on Ventilator for acute hypoxic respiratory failure secondary to COPD exacerbation. Chest x- ray also showed right lower lobe pneumonia with sepsis. She is currently maintained on IV antibiotics in the form of IV ceftriaxone and Flagyl and will continue at this time. Multiple medical consultations following including pulmonary, GI, and general surgery as an ultrasound of the gallbladder was done showing hepatocellular disease with hepatic steatosis and hypertrophic gallbladder with some thickening and possible cholecystitis although no surgical intervention is being recommended at this time. Patient is also maintained on bronchodilators and IV steroids and will continue at this time. Will repeat a.m. labs and continue to monitor closely. 12/24/2019 Patient is seen and evaluated in follow-up and continues to be intubated on a oh RetiDiagical ventilator and is currently being monitored closely in the ICU. Patient remains on IV antibiotics in the form of ceftriaxone and Flagyl along with IV steroids and bronchodilators. She continues on an insulin drip at 8 units per hour. Chest x-ray today shows stable and correlate for CHF otherwise consider diffuse pneumonia. As mentioned previously patient is maintained on IV antibiotics and will continue at this time. White blood count is 6.2. Patient's BUNs is 108 and current creatinine is 1.55. Weaning was attempted yesterday although patient became agitated and restless and tachycardic and tachypneic and is maintained on propofol for sedation. Will repeat a.m. labs. 12/25/2019 Patient is seen in follow-up today and remains intubated on a mechanical ventilator and unable to tolerate weaning. Patient currently remains in the ICU being closely monitored. Multiple medical consultations following. Surgery being re-consulted for possible tracheostomy and PEG tube placement. CT of the abdomen was ordered and currently pending as patient continues to be distended. Patient currently remains on an insulin drip at 5 MLs per hour and will continue at this time. IV antibiotics being discontinued as patient's white count has remained within normal limits and patient has been afebrile. Creatinine continues to elevate at 1.69 today with a BUNs of 115 and patient is maintained on sodium bicarb and off of IV fluids. Nephrology is following closely. Chest x-ray today shows continued central vascular congestion with small to moderate bilateral pleural effusions and associated bibasilar atelectasis and/or infiltrate although overall stable. Review of systems: Unable to obtain as patient is currently intubated and sedated. Active Medications Albuterol Sulfate (Ventolin Nebulized) 2.5 mg INHALATION RT-QID PRN PRN Reason: Shortness Of Breath Last Admin: 12/18/19 20:00 Dose: 2.5 mg Documented by: Albuterol/Ipratropium (Duoneb 0.5 Mg-3 Mg/3 Ml Soln) 3 ml INHALATION RT-QID [facility] Last Admin: 12/25/19 12:18 Dose: 3 ml Documented by: Amlodipine Besylate (Norvasc) 5 mg PO BID [facility] Last Admin: 12/25/19 08:15 Dose: 5 mg Documented by: Barium Sulfate (Readi-Cat 2) 450 ml PO Q3HR PRN PRN Reason: CT Scan Stop: 12/26/19 09:08 Last Admin: 12/25/19 12:01 Dose: 450 ml Documented by: Chlorhexidine Gluconate (Peridex) 15 ml MUCOUS MEM BID [facility] Last Admin: 12/25/19 08:14 Dose: 15 ml Documented by: Clonidine HCl (Catapres-Tts 0.3mg Patch) 1 patch TRANSDERM Q7D [facility] Last Admin: 12/25/19 08:15 Dose: 1 patch Documented by: Diltiazem HCl (Cardizem Cd) 180 mg PO DAILY [facility] Last Admin: 12/25/19 08:15 Dose: 180 mg Documented by: Heparin Sodium (Porcine) (Heparin) 5,000 unit SQ Q8HR [facility] Last Admin: 12/25/19 08:14 Dose: 5,000 unit Documented by: Hydralazine HCl (Apresoline) 10 mg IVP Q4HR PRN PRN Reason: Blood Pressure - High Last Admin: 12/18/19 23:14 Dose: 10 mg Documented by: Hydromorphone HCl (Dilaudid) 0.5 mg IVP Q4HR PRN PRN Reason: Pain Last Admin: 12/22/19 03:28 Dose: 0.5 mg Documented by: Hydromorphone HCl (Dilaudid) 1 mg IVP Q4HR PRN PRN Reason: Pain Last Admin: 12/25/19 13:25 Dose: 1 mg Documented by: Ceftriaxone Sodium 1 gm/ (Sodium Chloride) 50 mls @ 100 mls/hr IVPB Q24HR [facility] Last Admin: 12/25/19 08:04 Dose: 100 mls/hr Documented by: Metronidazole 500 mg/ IV (Solution) 100 mls @ 100 mls/hr IVPB Q8HR [facility] Last Admin: 12/25/19 08:04 Dose: 100 mls/hr Documented by: Insulin Human Regular 100 unit (/ Sodium Chloride) 101 mls @ 0 mls/hr IV .Q0M [facility]; Protocol Last Titration: 12/25/19 13:20 Dose: 5 mls/hr, 5 mls/hr Documented by: Propofol 1,000 mg/ IV Solution 100 mls @ 0 mls/hr IV .Q0M [facility]; Protocol Last Admin: 12/25/19 14:12 Dose: 60 mcg/kg/min, 45.108 mls/hr Documented by: Sodium Chloride (Saline 0.9%) 1,000 mls @ 20 mls/hr IV .Q24H [facility] Last Admin: 12/25/19 08:19 Dose: 20 mls/hr Documented by: Insulin Human Regular (Humulin R Bolus From Bag) 11.6 unit 0.1 unit/kg (11.6 unit) IV ONCE PRN PRN Reason: Blood Sugar - High Stop: 01/18/20 08:19 Methylprednisolone Sodium Succinate (Solu-Medrol) 40 mg IV Q8HR [facility] Metoclopramide HCl (Reglan) 10 mg IVP Q6HR [facility] Last Admin: 12/25/19 14:16 Dose: Not Given Documented by: Metoprolol Tartrate (Lopressor) 12.5 mg PO TID [facility] Last Admin: 12/25/19 08:15 Dose: 12.5 mg Documented by: Miscellaneous Information (Pneumonia Protocol Utilized) 1 each PO ONCE PRN PRN Reason: Per Protocol Morphine Sulfate (Morphine Sulfate (Inj)) 4 mg IVP Q4HR PRN PRN Reason: Pain Last Admin: 12/25/19 01:48 Dose: 4 mg Documented by: Naloxone HCl (Narcan) 0.2 mg IV Q2M PRN PRN Reason: Opioid Reversal Pantoprazole Sodium (Protonix) 40 mg IV DAILY [facility] Last Admin: 12/25/19 08:15 Dose: 40 mg Documented by: Sodium Bicarbonate (Sodium Bicarbonate Tab) 650 mg PO BID [facility] Last Admin: 12/25/19 08:15 Dose: 650 mg Documented by: Objective - Vital Signs Vital signs: Vital Signs Temp 97.2 F L 12/25/19 12:00 Pulse 70 12/25/19 14:00 Resp 26 H 12/25/19 14:00 BP 126/66 12/25/19 14:00 Pulse Ox 94 L 12/25/19 14:00 Intake & Output 12/24/19 12/25/19 12/25/19 18:59 06:59 18:59 Intake Total 9295.708 0332.935 646.410 Output Total 1295 845 615 Balance 394.253 483.935 31.410 Weight 125.3 kg 127.3 kg 128.1 kg Intake: IV 982 402 196 .9 NS 610 230 40 Pressure bags 72 72 6 cefTRIAXone 1 gm In 100 50 Sodium Chloride 0.9% 50 ml @ 100 mls/hr IVPB Q24HR [facility] Rx#:[id number] metroNIDAZOLE-NS PMX 500 200 100 100 mg In Saline 1 100ml.bag @ 100 mls/hr IVPB Q8HR [facility] Rx#:[id number] Intake, IV Titration 407.253 536.935 425.410 Amount Insulin Regular 100 unit 27.733 60.450 35.967 In Sodium Chloride 0.9% 100 ml @ Per Protocol IV .Q0M [facility] Rx#:[id number] propofoL 1,000 mg In 379.52 476.485 389.443 Empty Bag 1 bag @ Titrate IV .Q0M [facility] Rx#: [id number] Tube Feeding 300 300 25 Other 90 Output: Urine 1295 845 615 Other: Voiding Method Indwelling Catheter Indwelling Catheter Indwelling Catheter ABP, PAP, CO, CI - Last Documented Arterial Blood Pressure 137/50 - Exam Patient is Currently sedated and intubated.on Mechanical ventilator. Temp is 97.2F, pulse is 68, respirations are 21, blood pressure is 126/66, oxygen saturation is 94% on mechanical vent with an FiO2 of 45. HEENT: Normocephalic. Neck is supple. Pupils reactive. Nostrils clear. Oral cavity is moist. Ears reveal no drainage. ET tube noted Neck reveals no JVD, carotid bruits, or thyromegaly. CHEST EXAMINATION: Trachea is central. Symmetrical expansion. Bibasilar diminished air entry and minimal right basilar crackles. Expiratory wheezing and scattered rhonchi noted on exam CARDIAC: Normal S1, S2 with no gallops. No murmurs ABDOMEN: Soft. Obese. Bowel sounds normal. No organomegaly. No abdominal bruits. Extremities: reveal no edema. No clubbing or cyanosis Neurologically . sedated. No focal deficits noted Skin: No rash or skin lesions. Psychiatric: could not be assesed completely. Musculoskeletal: No joint swelling or deformity. - Labs CBC & Chem 7: 12/25/19 04:45 12/25/19 04:45 Labs: Abnormal Lab Results - Last 24 Hours (Table) 12/24/19 12/24/19 12/24/19 Range/Units 15:10 16:11 17:12 RBC (4.30-5.90) m/uL Hgb (13.0-17.5) gm/dL Hct (39.0-53.0) % MCV (80.0-100.0) fL Lymphocytes # (1.0-4.8) k/uL ABG pH (7.35-7.45) ABG HCO3 (21-25) mmol/L Chloride (98-107) mmol/L Carbon Dioxide (22-30) mmol/L BUN (9-20) mg/dL Creatinine (0.66-1.25) mg/dL Glucose (74-99) mg/dL POC Glucose (mg/dL) 138 H 142 H 140 H (75-99) mg/dL Calcium (8.4-10.2) mg/dL Ammonia (<30) umol/L 12/24/19 12/24/19 12/24/19 Range/Units 18:16 19:10 20:02 RBC (4.30-5.90) m/uL Hgb (13.0-17.5) gm/dL Hct (39.0-53.0) % MCV (80.0-100.0) fL Lymphocytes # (1.0-4.8) k/uL ABG pH (7.35-7.45) ABG HCO3 (21-25) mmol/L Chloride (98-107) mmol/L Carbon Dioxide (22-30) mmol/L BUN (9-20) mg/dL Creatinine (0.66-1.25) mg/dL Glucose (74-99) mg/dL POC Glucose (mg/dL) 131 H 132 H 120 H (75-99) mg/dL Calcium (8.4-10.2) mg/dL Ammonia (<30) umol/L 12/24/19 12/24/19 12/24/19 Range/Units 21:00 22:05 22:55 RBC (4.30-5.90) m/uL Hgb (13.0-17.5) gm/dL Hct (39.0-53.0) % MCV (80.0-100.0) fL Lymphocytes # (1.0-4.8) k/uL ABG pH (7.35-7.45) ABG HCO3 (21-25) mmol/L Chloride (98-107) mmol/L Carbon Dioxide (22-30) mmol/L BUN (9-20) mg/dL Creatinine (0.66-1.25) mg/dL Glucose (74-99) mg/dL POC Glucose (mg/dL) 144 H 167 H 152 H (75-99) mg/dL Calcium (8.4-10.2) mg/dL Ammonia (<30) umol/L 12/24/19 12/25/19 12/25/19 Range/Units 23:55 00:52 02:01 RBC (4.30-5.90) m/uL Hgb (13.0-17.5) gm/dL Hct (39.0-53.0) % MCV (80.0-100.0) fL Lymphocytes # (1.0-4.8) k/uL ABG pH (7.35-7.45) ABG HCO3 (21-25) mmol/L Chloride (98-107) mmol/L Carbon Dioxide (22-30) mmol/L BUN (9-20) mg/dL Creatinine (0.66-1.25) mg/dL Glucose (74-99) mg/dL POC Glucose (mg/dL) 146 H 130 H 155 H (75-99) mg/dL Calcium (8.4-10.2) mg/dL Ammonia (<30) umol/L 12/25/19 12/25/19 12/25/19 Range/Units 02:59 04:01 04:45 RBC 3.31 L (4.30-5.90) m/uL Hgb 11.4 L (13.0-17.5) gm/dL Hct 35.8 L (39.0-53.0) % MCV 108.0 H (80.0-100.0) fL Lymphocytes # 0.3 L (1.0-4.8) k/uL ABG pH (7.35-7.45) ABG HCO3 (21-25) mmol/L Chloride (98-107) mmol/L Carbon Dioxide (22-30) mmol/L BUN (9-20) mg/dL Creatinine (0.66-1.25) mg/dL Glucose (74-99) mg/dL POC Glucose (mg/dL) 153 H 161 H (75-99) mg/dL Calcium (8.4-10.2) mg/dL Ammonia (<30) umol/L 12/25/19 12/25/19 12/25/19 Range/Units 04:45 04:57 06:04 RBC (4.30-5.90) m/uL Hgb (13.0-17.5) gm/dL Hct (39.0-53.0) % MCV (80.0-100.0) fL Lymphocytes # (1.0-4.8) k/uL ABG pH (7.35-7.45) ABG HCO3 (21-25) mmol/L Chloride 121 H (98-107) mmol/L Carbon Dioxide 18 L (22-30) mmol/L BUN 115 H* (9-20) mg/dL Creatinine 1.69 H (0.66-1.25) mg/dL Glucose 170 H (74-99) mg/dL POC Glucose (mg/dL) 168 H 199 H (75-99) mg/dL Calcium 7.5 L (8.4-10.2) mg/dL Ammonia (<30) umol/L 12/25/19 12/25/19 12/25/19 Range/Units 06:52 07:41 07:44 RBC (4.30-5.90) m/uL Hgb (13.0-17.5) gm/dL Hct (39.0-53.0) % MCV (80.0-100.0) fL Lymphocytes # (1.0-4.8) k/uL ABG pH 7.31 L (7.35-7.45) ABG HCO3 19 L (21-25) mmol/L Chloride (98-107) mmol/L Carbon Dioxide (22-30) mmol/L BUN (9-20) mg/dL Creatinine (0.66-1.25) mg/dL Glucose (74-99) mg/dL POC Glucose (mg/dL) 151 H 165 H (75-99) mg/dL Calcium (8.4-10.2) mg/dL Ammonia (<30) umol/L 12/25/19 12/25/19 12/25/19 Range/Units 09:26 11:01 12:00 RBC (4.30-5.90) m/uL Hgb (13.0-17.5) gm/dL Hct (39.0-53.0) % MCV (80.0-100.0) fL Lymphocytes # (1.0-4.8) k/uL ABG pH (7.35-7.45) ABG HCO3 (21-25) mmol/L Chloride (98-107) mmol/L Carbon Dioxide (22-30) mmol/L BUN (9-20) mg/dL Creatinine (0.66-1.25) mg/dL Glucose (74-99) mg/dL POC Glucose (mg/dL) 179 H 190 H 168 H (75-99) mg/dL Calcium (8.4-10.2) mg/dL Ammonia (<30) umol/L 12/25/19 12/25/19 Range/Units 13:19 14:00 RBC (4.30-5.90) m/uL Hgb (13.0-17.5) gm/dL Hct (39.0-53.0) % MCV (80.0-100.0) fL Lymphocytes # (1.0-4.8) k/uL ABG pH (7.35-7.45) ABG HCO3 (21-25) mmol/L Chloride (98-107) mmol/L Carbon Dioxide (22-30) mmol/L BUN (9-20) mg/dL Creatinine (0.66-1.25) mg/dL Glucose (74-99) mg/dL POC Glucose (mg/dL) 152 H (75-99) mg/dL Calcium (8.4-10.2) mg/dL Ammonia 60 H (<30) umol/L Microbiology - Last 24 Hours (Table) 12/19/19 04:45 Blood Culture - Final Blood No Growth after 144 hours 12/19/19 04:21 Blood Culture - Final Blood No Growth after 144 hours 12/18/19 21:08 Blood Culture - Final Blood No Growth after 144 hours Assessment and Plan Assessment: Acute hypoxic respiratory failure secondary to COPD exacerbation and right lower lobe pneumonia requiring intubation on mechanical ventilator Acute COPD exacerbation Right lower lobe pneumonia Septic shock Sepsis secondary to above Acute kidney injury likely prerenal. possible ATN Hypertensive urgency on admission History of recent fall, fell on his left side onto the abdomen and chest. CT of the abdomen pelvis showed no significant changes. Suspected gallbladder wall thickening and acute cholecystitis Mild transaminitis Obstructive sleep apnea on CPAP at home Hyperglycemia with uncontrolled diabetes type 2 insulin-dependent Morbid obesity BMI 40.2 Previous history of smoking and alcohol use DVT prophylaxis with heparin subq Recommendations and discussion: Patient is currently remains on mechanical ventilator and is being closely monitored in the ICU. Multiple medical consultations following. Continue with duo nebs and IV Solu-Medrol. Steroids have been titrated down and antibiotics have been discontinued. Current creatinine has worsened and is 1.69 with a BUNs of 115. Patient is maintained on sodium bicarb tablets and IV fluids have been discontinued. Nephrology also following. General surgery re-consulted for possible tracheostomy and PEG tube placement. CT of the abdomen was ordered and pending at this time. We'll continue to monitor blood sugars closely and remain on insulin drip at this time. Due to multiple complex medical issues, prognosis is extremely guarded. Further recommendations to follow.
[2019-12-25 14:59] LABS: Glucose,Whole Blood 148 mg/dL (75-99)
[2019-12-25] MEDS: methylPREDNISolone SOD SUCCI 40 MG/ML 1 ML VIAL IV SCH (15:10)
--- NOTE | 2019-12-25 15:18 | CT ---
EXAMINATION TYPE: CT abdomen pelvis wo con DATE OF EXAM: 12/25/2019 HISTORY: Abdominal distention CT DLP: 1993.2 mGycm. Automated Exposure Control for Dose Reduction was Utilized. TECHNIQUE: CT scan of the abdomen and pelvis is performed with oral but without IV contrast. COMPARISON: CT 5 days ago. FINDINGS: Within the limitations of a non-contrast study, the following observations are made. LUNG BASES: Small right greater than left pleural effusions with associated compressive atelectasis p rogressed from prior. LIVER/GB: Heterogeneous liver with some lobulation. New adjacent ascites. Correlate for underlying ci rrhosis. Gallbladder has distended margins. PANCREAS: Mild generalized fat replaced atrophy.. SPLEEN: Splenomegaly at 13.5 cm long axis coronal image 81. New surrounding ascites. ADRENALS: No significant abnormality is seen. KIDNEYS: No renal stones or hydronephrosis is seen bilaterally. Galaviz catheter in bladder which is pa rtially decompressed. BOWEL: Few scattered colonic diverticula. No CT evidence for acute diverticulitis. Nasogastric tube i s now present in the decompressed stomach. Oral contrast reaches level of the proximal sigmoid colon. No suspicious small large bowel dilatation. Mild/moderate wall thickening throughout the right colon . GENITAL ORGANS: No gross abnormality seen. LYMPH NODES: No greater than 1cm abdominal or pelvic lymph nodes are appreciated. OSSEOUS STRUCTURES: Slight scoliotic curvature with mild multilevel spurring old healed fracture righ t proximal femur. Mild anterior wedging T11 level redemonstrated. OTHER: New small to moderate amount of abdominal and pelvic ascites. New [id number] diffuse sof t tissue anasarca. IMPRESSION: 1. New small to moderate amount of abdominal and pelvic ascites. New mild/moderate diffuse soft tissu e anasarca. Small bilateral pleural effusions progressed from prior CT. Correlate for fluid overload state. Possible cirrhosis and underlying portal hypertension. Correlate clinically as splenomegaly is present. 2. No bowel obstruction. Possible new mild right-sided uncomplicated acute colitis, correlate clinica lly.
[2019-12-25] MEDS: LACTULOSE 20 GM/30 ML CUP PO SCH ×3 (15:30→20:01)
[2019-12-25 16:34] LABS: LD Isoenzymes 1 28 % (19-38); LD Isoenzymes 2 36 % (30-43); LD Isoenzymes 3 20 % (16-26); LD Isoenzymes 4 7 % (3-12); LD Isoenzymes 5 9 % (3-14); Lactacte Dehydrogenase(LD) ISO 202 U/L (120-250)
[2019-12-25 17:27] LABS: Glucose,Whole Blood 150 mg/dL (75-99)
[2019-12-25] MEDS: INSULIN REGULAR 100 UNIT in SODIUM CHLORIDE 0.9% 100 ML IV SCH (18:49)
[2019-12-25 18:54] LABS: Glucose,Whole Blood 142 mg/dL (75-99)
[2019-12-25 19:01] LABS: Albumin 2.3 g/dL (3.5-5.0); Total Bilirubin 1.9 mg/dL (0.2-1.3); Total Protein 5.4 g/dL (6.3-8.2)
--- NOTE | 2019-12-25 19:32 | P.GSCN ---
History of Present Illness Consult date: 12/25/19 Reason for Consult: Tracheostomy and PEG tube History of present illness: This a 59-year-old male who has history of COPD. Patient has respiratory failure. He is requiring prolonged mechanical ventilation. I've asked him regarding tracheostomy and PEG tube placement Past Medical History Past Medical History: Asthma, COPD, Diabetes Mellitus, Hypertension, Sleep Apnea/CPAP/BIPAP Additional Past Medical History / Comment(s): edema, type 1 diabetic History of Any Multi-Drug Resistant Organisms: None Reported Past Surgical History: Orthopedic Surgery, Tonsillectomy Additional Past Surgical History / Comment(s): right leg and hip surgery Past Anesthesia/Blood Transfusion Reactions: No Reported Reaction Past Psychological History: No Psychological Hx Reported Smoking Status: Former smoker Past Alcohol Use History: None Reported Past Drug Use History: None Reported - Past Family History Father Family Medical History: Diabetes Mellitus Mother Family Medical History: COPD Medications and Allergies Home Medications Medication Instructions Recorded Confirmed Type ALPRAZolam [Xanax] 0.5 mg PO HS PRN 01/21/17 12/18/19 History Diltiazem HCl [Diltiazem 24Hr ER] 180 mg PO DAILY 01/21/17 12/18/19 History Fluticasone Propionate 1 spray EA NOSTRIL DAILY 01/21/17 12/18/19 History INSULIN ASPART (NovoLOG) [NovoLOG See Protocol SQ TID 01/21/17 12/18/19 History (formulary)] Montelukast [Singulair] 10 mg PO DAILY 01/21/17 12/18/19 History lisinopriL 40 mg PO DAILY 01/21/17 12/18/19 History metFORMIN HCL [Glucophage] 500 mg PO TID 01/21/17 12/18/19 History Albuterol Sulfate [Ventolin HFA] 2 puff INHALATION RT-Q6H PRN 12/18/19 12/18/19 History Furosemide [Lasix] 40 mg PO DAILY 12/18/19 12/18/19 History Ibuprofen 200 - 400 mg PO Q6H PRN 12/18/19 12/18/19 History Insulin Glargine,Hum.rec.anlog 45 unit SQ HS 12/18/19 12/18/19 History [Basaglar Kwikpen U-100] Umeclidinium [place] [Incruse 1 puff INHALATION RT-DAILY 12/18/19 12/18/19 History Ellipta] Allergies Allergy/AdvReac Type Severity Reaction Status Date / Time iodine Allergy Unknown Verified 12/18/19 17:51 Penicillins Allergy Unknown Verified 12/18/19 17:51 Sulfa (Sulfonamide Allergy Unknown Verified 12/18/19 17:51 Antibiotics) Surgical - Exam Vital Signs Temp Pulse Resp BP Pulse Ox 98.5 F 128 H 24 203/93 92 L 12/18/19 14:56 12/18/19 14:56 12/18/19 14:56 12/18/19 14:56 12/18/19 14:56 - General Intubated on ventilator no distress - Eyes PERRL - ENT normal pinna - Abdomen Abdomen: soft, non tender Results - Labs 12/25/19 04:45 12/25/19 04:45 Abnormal Lab Results - Last 24 Hours (Table) 12/24/19 12/24/19 12/24/19 Range/Units 20:02 21:00 22:05 RBC (4.30-5.90) m/uL Hgb (13.0-17.5) gm/dL Hct (39.0-53.0) % MCV (80.0-100.0) fL Lymphocytes # (1.0-4.8) k/uL ABG pH (7.35-7.45) ABG HCO3 (21-25) mmol/L Chloride (98-107) mmol/L Carbon Dioxide (22-30) mmol/L BUN (9-20) mg/dL Creatinine (0.66-1.25) mg/dL Glucose (74-99) mg/dL POC Glucose (mg/dL) 120 H 144 H 167 H (75-99) mg/dL Calcium (8.4-10.2) mg/dL Total Bilirubin (0.2-1.3) mg/dL Ammonia (<30) umol/L Total Protein (6.3-8.2) g/dL Albumin (3.5-5.0) g/dL 12/24/19 12/24/19 12/25/19 Range/Units 22:55 23:55 00:52 RBC (4.30-5.90) m/uL Hgb (13.0-17.5) gm/dL Hct (39.0-53.0) % MCV (80.0-100.0) fL Lymphocytes # (1.0-4.8) k/uL ABG pH (7.35-7.45) ABG HCO3 (21-25) mmol/L Chloride (98-107) mmol/L Carbon Dioxide (22-30) mmol/L BUN (9-20) mg/dL Creatinine (0.66-1.25) mg/dL Glucose (74-99) mg/dL POC Glucose (mg/dL) 152 H 146 H 130 H (75-99) mg/dL Calcium (8.4-10.2) mg/dL Total Bilirubin (0.2-1.3) mg/dL Ammonia (<30) umol/L Total Protein (6.3-8.2) g/dL Albumin (3.5-5.0) g/dL 12/25/19 12/25/19 12/25/19 Range/Units 02:01 02:59 04:01 RBC (4.30-5.90) m/uL Hgb (13.0-17.5) gm/dL Hct (39.0-53.0) % MCV (80.0-100.0) fL Lymphocytes # (1.0-4.8) k/uL ABG pH (7.35-7.45) ABG HCO3 (21-25) mmol/L Chloride (98-107) mmol/L Carbon Dioxide (22-30) mmol/L BUN (9-20) mg/dL Creatinine (0.66-1.25) mg/dL Glucose (74-99) mg/dL POC Glucose (mg/dL) 155 H 153 H 161 H (75-99) mg/dL Calcium (8.4-10.2) mg/dL Total Bilirubin (0.2-1.3) mg/dL Ammonia (<30) umol/L Total Protein (6.3-8.2) g/dL Albumin (3.5-5.0) g/dL 12/25/19 12/25/19 12/25/19 Range/Units 04:45 04:45 04:57 RBC 3.31 L (4.30-5.90) m/uL Hgb 11.4 L (13.0-17.5) gm/dL Hct 35.8 L (39.0-53.0) % MCV 108.0 H (80.0-100.0) fL Lymphocytes # 0.3 L (1.0-4.8) k/uL ABG pH (7.35-7.45) ABG HCO3 (21-25) mmol/L Chloride 121 H (98-107) mmol/L Carbon Dioxide 18 L (22-30) mmol/L BUN 115 H* (9-20) mg/dL Creatinine 1.69 H (0.66-1.25) mg/dL Glucose 170 H (74-99) mg/dL POC Glucose (mg/dL) 168 H (75-99) mg/dL Calcium 7.5 L (8.4-10.2) mg/dL Total Bilirubin 1.9 H (0.2-1.3) mg/dL Ammonia (<30) umol/L Total Protein 5.4 L (6.3-8.2) g/dL Albumin 2.3 L (3.5-5.0) g/dL 12/25/19 12/25/19 12/25/19 Range/Units 06:04 06:52 07:41 RBC (4.30-5.90) m/uL Hgb (13.0-17.5) gm/dL Hct (39.0-53.0) % MCV (80.0-100.0) fL Lymphocytes # (1.0-4.8) k/uL ABG pH 7.31 L (7.35-7.45) ABG HCO3 19 L (21-25) mmol/L Chloride (98-107) mmol/L Carbon Dioxide (22-30) mmol/L BUN (9-20) mg/dL Creatinine (0.66-1.25) mg/dL Glucose (74-99) mg/dL POC Glucose (mg/dL) 199 H 151 H (75-99) mg/dL Calcium (8.4-10.2) mg/dL Total Bilirubin (0.2-1.3) mg/dL Ammonia (<30) umol/L Total Protein (6.3-8.2) g/dL Albumin (3.5-5.0) g/dL 12/25/19 12/25/19 12/25/19 Range/Units 07:44 09:26 11:01 RBC (4.30-5.90) m/uL Hgb (13.0-17.5) gm/dL Hct (39.0-53.0) % MCV (80.0-100.0) fL Lymphocytes # (1.0-4.8) k/uL ABG pH (7.35-7.45) ABG HCO3 (21-25) mmol/L Chloride (98-107) mmol/L Carbon Dioxide (22-30) mmol/L BUN (9-20) mg/dL Creatinine (0.66-1.25) mg/dL Glucose (74-99) mg/dL POC Glucose (mg/dL) 165 H 179 H 190 H (75-99) mg/dL Calcium (8.4-10.2) mg/dL Total Bilirubin (0.2-1.3) mg/dL Ammonia (<30) umol/L Total Protein (6.3-8.2) g/dL Albumin (3.5-5.0) g/dL 12/25/19 12/25/19 12/25/19 Range/Units 12:00 13:19 14:00 RBC (4.30-5.90) m/uL Hgb (13.0-17.5) gm/dL Hct (39.0-53.0) % MCV (80.0-100.0) fL Lymphocytes # (1.0-4.8) k/uL ABG pH (7.35-7.45) ABG HCO3 (21-25) mmol/L Chloride (98-107) mmol/L Carbon Dioxide (22-30) mmol/L BUN (9-20) mg/dL Creatinine (0.66-1.25) mg/dL Glucose (74-99) mg/dL POC Glucose (mg/dL) 168 H 152 H (75-99) mg/dL Calcium (8.4-10.2) mg/dL Total Bilirubin (0.2-1.3) mg/dL Ammonia 60 H (<30) umol/L Total Protein (6.3-8.2) g/dL Albumin (3.5-5.0) g/dL 12/25/19 12/25/19 12/25/19 Range/Units 14:58 17:25 18:52 RBC (4.30-5.90) m/uL Hgb (13.0-17.5) gm/dL Hct (39.0-53.0) % MCV (80.0-100.0) fL Lymphocytes # (1.0-4.8) k/uL ABG pH (7.35-7.45) ABG HCO3 (21-25) mmol/L Chloride (98-107) mmol/L Carbon Dioxide (22-30) mmol/L BUN (9-20) mg/dL Creatinine (0.66-1.25) mg/dL Glucose (74-99) mg/dL POC Glucose (mg/dL) 148 H 150 H 142 H (75-99) mg/dL Calcium (8.4-10.2) mg/dL Total Bilirubin (0.2-1.3) mg/dL Ammonia (<30) umol/L Total Protein (6.3-8.2) g/dL Albumin (3.5-5.0) g/dL Microbiology - Last 24 Hours (Table) 12/19/19 04:45 Blood Culture - Final Blood No Growth after 144 hours 12/19/19 04:21 Blood Culture - Final Blood No Growth after 144 hours 12/18/19 21:08 Blood Culture - Final Blood No Growth after 144 hours Diabetes panel 12/25/19 Range/Units 04:45 Sodium 144 (137-145) mmol/L Potassium 5.1 (3.5-5.1) mmol/L Chloride 121 H (98-107) mmol/L Carbon Dioxide 18 L (22-30) mmol/L BUN 115 H* (9-20) mg/dL Creatinine 1.69 H (0.66-1.25) mg/dL Glucose 170 H (74-99) mg/dL Calcium 7.5 L (8.4-10.2) mg/dL AST 41 (17-59) U/L ALT 44 (4-49) U/L Alkaline Phosphatase 90 (38-126) U/L Total Protein 5.4 L (6.3-8.2) g/dL Albumin 2.3 L (3.5-5.0) g/dL Calcium panel 12/25/19 Range/Units 04:45 Calcium 7.5 L (8.4-10.2) mg/dL Albumin 2.3 L (3.5-5.0) g/dL Pituitary panel 12/25/19 Range/Units 04:45 Sodium 144 (137-145) mmol/L Potassium 5.1 (3.5-5.1) mmol/L Chloride 121 H (98-107) mmol/L Carbon Dioxide 18 L (22-30) mmol/L BUN 115 H* (9-20) mg/dL Creatinine 1.69 H (0.66-1.25) mg/dL Glucose 170 H (74-99) mg/dL Calcium 7.5 L (8.4-10.2) mg/dL Adrenal panel 12/25/19 Range/Units 04:45 Sodium 144 (137-145) mmol/L Potassium 5.1 (3.5-5.1) mmol/L Chloride 121 H (98-107) mmol/L Carbon Dioxide 18 L (22-30) mmol/L BUN 115 H* (9-20) mg/dL Creatinine 1.69 H (0.66-1.25) mg/dL Glucose 170 H (74-99) mg/dL Calcium 7.5 L (8.4-10.2) mg/dL Total Bilirubin 1.9 H (0.2-1.3) mg/dL AST 41 (17-59) U/L ALT 44 (4-49) U/L Alkaline Phosphatase 90 (38-126) U/L Total Protein 5.4 L (6.3-8.2) g/dL Albumin 2.3 L (3.5-5.0) g/dL Assessment and Plan Assessment: Respiratory failure we'll perform tracheostomy Malnutrition, will place PEG tube
[2019-12-25 19:58] LABS: Glucose,Whole Blood 153 mg/dL (75-99)
[2019-12-25 21:55] LABS: Glucose,Whole Blood 166 mg/dL (75-99)
[2019-12-25 23:56] LABS: Glucose,Whole Blood 137 mg/dL (75-99)
[2019-12-26] MEDS: HEPARIN SODIUM,PORCINE 5,000 UNIT/ML 1 ML VIAL SQ SCH ×4 (00:05→23:06)
[2019-12-26] MEDS: methylPREDNISolone SOD SUCCI 40 MG/ML 1 ML VIAL IV SCH ×4 (00:05→23:06)
[2019-12-26] MEDS: METOCLOPRAMIDE 5 MG/ML 2 ML VIAL IVP SCH ×5 (00:05→23:06)
[2019-12-26] MEDS: metroNIDAZOLE-NS PMX 500 MG in SALINE 1 100ML.BAG IVPB SCH ×2 (00:05→09:16)
[2019-12-26 00:58] LABS: Glucose,Whole Blood 134 mg/dL (75-99)
[2019-12-26 02:01] LABS: Glucose,Whole Blood 151 mg/dL (75-99)
[2019-12-26 03:58] LABS: Glucose,Whole Blood 135 mg/dL (75-99)
[2019-12-26 04:57] LABS: Basophils % (A) 0 %; Eosinophils % (A) 0 %; HCT 36.9 % (39.0-53.0); HGB 11.5 gm/dL (13.0-17.5); Hypochromasia Moderate; Lymphocytes # (A) 0.3 k/uL (1.0-4.8); Lymphocytes % (A) 2 %; MCH 33.2 pg (25.0-35.0); MCHC 31.2 g/dL (31.0-37.0); MCV 106.4 fL (80.0-100.0); Macrocytosis Moderate; Mean Platelet Volume 9.3; Monocytes # (A) 0.9 k/uL (0-1.0); Monocytes % (A) 7 %; Neutrophils # (A) 11.8 k/uL (1.3-7.7); Neutrophils % (A) 90 %; Platelet Count 237 k/uL (150-450); RBC 3.46 m/uL (4.30-5.90); RDW 14.1 % (11.5-15.5); WBC 13.2 k/uL (3.8-10.6)
[2019-12-26 05:06] LABS: Calcium 7.7 mg/dL (8.4-10.2); Potassium 5.2 mmol/L (3.5-5.1)
[2019-12-26 05:24] LABS: Glucose,Whole Blood 136 mg/dL (75-99)
[2019-12-26] MEDS: HYDROmorphone 1 MG/ML 1 ML SYRINGE IVP PRN (06:02)
[2019-12-26 06:54] LABS: Glucose,Whole Blood 145 mg/dL (75-99)
[2019-12-26] MEDS: IPRATROPIUM-ALBUTEROL 3 ML NEB INHALATION SCH ×4 (07:50→19:20)
[2019-12-26 07:56] LABS: ABG Base Excess -6.5 mmol/L; ABG HCO3 20 mmol/L (21-25); ABG Oxygen Saturation 95.3 % (94-97); ABG PCO2 38 mmHg (35-45); ABG PH 7.32 (7.35-7.45); ABG PO2 81 mmHg (83-108); ABG TCO2 21 mmol/L (19-24)
[2019-12-26 07:57] LABS: Glucose,Whole Blood 142 mg/dL (75-99)
[2019-12-26 07:57] LABS: Allen Test Performed? NO
--- NOTE | 2019-12-26 08:26 | XR ---
EXAMINATION TYPE: XR chest 1V portable DATE OF EXAM: 12/26/2019 CLINICAL HISTORY: Tube placement TECHNIQUE: Portable frontal view of the chest obtained COMPARISON: Chest radiograph 12/25/2019 FINDINGS: Endotracheal tube distal tip just below the level of the clavicular heads. Enteric tube wi th nonvisualization of the distal tip. Left subclavian central venous catheter distal tip over the ca voatrial junction. Cardiomegaly and pulmonary vascular congestion unchanged. Small bilateral pleural effusions, mildly decreased on the left versus 12/25/2019 comparison. No pneumothorax. IMPRESSION: 1. Tubes and lines as above. 2. Small bilateral pleural effusions, mildly improved on the left versus 12/25/2019 comparison. 3. Unchanged cardiac megaly and pulmonary vascular congestion.
[2019-12-26] MEDS: amLODIPine 5 MG TAB PO SCH ×2 (08:41→21:17)
[2019-12-26] MEDS: SODIUM BICARBONATE TAB 650 MG TAB PO SCH ×2 (08:41→20:27)
[2019-12-26] MEDS: DILTIAZEM CD 180 MG CAP.ER.24H PO SCH (08:41)
[2019-12-26] MEDS: CHLORHEXIDINE GLUCONATE 15 ML CUP MUCOUS MEM SCH ×2 (08:41→20:27)
[2019-12-26] MEDS: PANTOPRAZOLE 40 MG/10 ML VIAL IV SCH (08:41)
[2019-12-26] MEDS: METOPROLOL TARTRATE 12.5 MG TAB PO SCH ×3 (08:41→21:46)
[2019-12-26] MEDS ORDERED: ROCURONIUM BROMIDE 10 MG/ML 5 ML VIAL IV ONE (08:59)
[2019-12-26] MEDS ORDERED: fentaNYL (PF) 50 MCG/ML 2 ML AMP ONE (08:59)
[2019-12-26] MEDS ORDERED: MIDAZOLAM 2 MG/2 ML VIAL ONE (08:59)
--- NOTE | 2019-12-26 09:00 | ECHOF ---
Referral Reason:Assess LV FX MEASUREMENTS -------- HEIGHT: 0.0 cm WEIGHT: 0.0 kg BP: RVIDd: 4.0 cm (< 3.3) IVSd: 1.0 cm (0.6 - 1.1) LVIDd: 4.7 cm (3.9 - 5.3) LVPWd: 1.7 cm (0.6 - 1.1) IVSs: 1.8 cm LVIDs: 3.6 cm LVPWs: 2.0 cm Ao Diam: 4.1 cm (2.0 - 3.7) AV Cusp: 2.6 cm (1.5 - 2.6) FINDINGS -------- Sinus rhythm. This was a techncally difficult study with suboptimal views, , Lumason utilized for enhancement of im ages. LV size, wall thickness and systolic function are normal, with an EF greater than 55%. The left arun tricular size is normal. The right ventricle is normal in size. The left atrial size is normal. The right atrial size is normal. The aortic valve was not well visualized. The mitral valve was not well visualized. The tricuspid valve was not well visualized. The pulmonic valve was not well visualized. The aortic root size is normal. There is a trivial pericardial effusion present. CONCLUSIONS -------- 1. This was a techncally difficult study with suboptimal views, , Lumason utilized for enhancement of images. 2. LV size, wall thickness and systolic function are normal, with an EF greater than 55%. 3. The left atrial size is normal. 4. The aortic valve was not well visualized. 5. The mitral valve was not well visualized. 6. The tricuspid valve was not well visualized. 7. There is a trivial pericardial effusion present. COURT ABSTRACTOR: Mignon Carbajal RDCS
[2019-12-26] MEDS ORDERED: IV FLUID CONTINUATION 1,000 ML IV ONE (09:12)
[2019-12-26] MEDS: LACTULOSE 20 GM/30 ML CUP PO SCH ×3 (09:17→20:27)
[2019-12-26 10:13] VITALS: BMI 43.6
--- NOTE | 2019-12-26 10:23 | P.OP ---
Date of Procedure: 12/26/19 Preoperative Diagnosis: Respiratory failure Postoperative Diagnosis: Respiratory failure Procedure(s) Performed: Tracheostomy Anesthesia: TREMAINE Surgeon: Gurmeet Garces Estimated Blood Loss (ml): 5 Pathology: none sent Condition: stable Disposition: PACU Description of Procedure: Patient's placed on the operating table supine position. He received general anesthesia. His neck was prepped. Sterile fashion. A standard Zach incision was made approximately 2 cm above the sternal notch. Using left cautery the subcutaneous and platysma was divided. The strap muscles then divided midline. The thyroid gland was exposed. Thyroid was then divided using left cautery. The trachea was exposed. The introducer was then placed in the right mainstem bronchus and patient was ventilated.. Ventilation and held. The tracheotomy was performed between second and third tracheal rings. A #8 extended length Protivin tracheostomy tube was placed. The patient's connected to the ventilator and end-tidal CO2 was confirmed. The skin was closed with 2-0 nylon suture. Tracheal dressing was applied. The trach ties were secured. Patient was sent to the ICU in stable condition.
[2019-12-26 11:12] LABS: Glucose,Whole Blood 153 mg/dL (75-99)
[2019-12-26] MEDS: INSULIN REGULAR 100 UNIT in SODIUM CHLORIDE 0.9% 100 ML IV SCH (11:20)
[2019-12-26] MEDS: SODIUM CHLORIDE 0.9% 1,000 ML IV SCH (12:00)
[2019-12-26] MEDS: DEXTROSE 5% IN WATER 1,000 ML IV SCH (12:00)
[2019-12-26 12:09] LABS: Glucose,Whole Blood 155 mg/dL (75-99)
[2019-12-26 13:01] LABS: Glucose,Whole Blood 150 mg/dL (75-99)
--- NOTE | 2019-12-26 14:31 | P.PN ---
Subjective Progress Note Date: 12/26/19 Principal diagnosis: This is a 59-year-old male who was recently admitted with a known history of COPD and obstructive sleep apnea on a CPAP at home and had not been feeling well and subsequently fell the day prior landing on his left chest and abdomen and having abdominal pain since and was being closely monitored. Patient continued to have respiratory distress and becomes severely dyspneic and hypotensive and was given multiple fluid boluses. Patient respiratory status continued to deteriorate and was put on BiPAP along with pressors. Patient was sent to the MICU for close monitoring and was intubated and currently remains on Ventilator for acute hypoxic respiratory failure secondary to COPD exacerbation. Chest x- ray also showed right lower lobe pneumonia with sepsis. She is currently maintained on IV antibiotics in the form of IV ceftriaxone and Flagyl and will continue at this time. Multiple medical consultations following including pulmonary, GI, and general surgery as an ultrasound of the gallbladder was done showing hepatocellular disease with hepatic steatosis and hypertrophic gallbladder with some thickening and possible cholecystitis although no surgical intervention is being recommended at this time. Patient is also maintained on bronchodilators and IV steroids and will continue at this time. Will repeat a.m. labs and continue to monitor closely. 12/24/2019 Patient is seen and evaluated in follow-up and continues to be intubated on a ne PolySpotical ventilator and is currently being monitored closely in the ICU. Patient remains on IV antibiotics in the form of ceftriaxone and Flagyl along with IV steroids and bronchodilators. She continues on an insulin drip at 8 units per hour. Chest x-ray today shows stable and correlate for CHF otherwise consider diffuse pneumonia. As mentioned previously patient is maintained on IV antibiotics and will continue at this time. White blood count is 6.2. Patient's BUNs is 108 and current creatinine is 1.55. Weaning was attempted yesterday although patient became agitated and restless and tachycardic and tachypneic and is maintained on propofol for sedation. Will repeat a.m. labs. 12/25/2019 Patient is seen in follow-up today and remains intubated on a mechanical ventilator and unable to tolerate weaning. Patient currently remains in the ICU being closely monitored. Multiple medical consultations following. Surgery being re-consulted for possible tracheostomy and PEG tube placement. CT of the abdomen was ordered and currently pending as patient continues to be distended. Patient currently remains on an insulin drip at 5 MLs per hour and will continue at this time. IV antibiotics being discontinued as patient's white count has remained within normal limits and patient has been afebrile. Creatinine continues to elevate at 1.69 today with a BUNs of 115 and patient is maintained on sodium bicarb and off of IV fluids. Nephrology is following closely. Chest x-ray today shows continued central vascular congestion with small to moderate bilateral pleural effusions and associated bibasilar atelectasis and/or infiltrate although overall stable. Review of systems: Unable to obtain as patient is currently intubated and sedated. 12/26/2019 Patient is seen and evaluated in follow-up currently remains in the ICU and is being closely monitored. Patient underwent tracheostomy with surgery today. Recent currently remains on the ventilator. Discussed with surgery and plans are for PEG tube placement on Sunday. Patient is currently maintained on nutritional support via the Dobbhoff system and will continue that at this time. Patient continued to have abdominal distention and underwent CT of the abdomen showing small to moderate amount of abdominal and pelvic ascites with new mild to moderate diffuse soft tissue anasarca with small bilateral pleural effusions and possible fluid overload with possible cirrhosis and underlying portal hypertension, and splenomegaly. No bowel obstruction was noted. Patient currently remains on an insulin drip and will continue at this time. Multiple medical consultations following. Patient is maintained on sodium bicarbonate tablets and has started IV dextrose 5% in water at 50 mL per hour. Patient remains on IV steroids along with breathing inhalational treatments and will continue at this time. Patient continues to remain sedated on propofol. Per nursing staff patient is now having bowel movements noted and continues to have urine output as well. Review of systems: Unable to obtain as patient currently remains intubated and sedated Active Medications Albuterol Sulfate (Ventolin Nebulized) 2.5 mg INHALATION RT-QID PRN PRN Reason: Shortness Of Breath Last Admin: 12/18/19 20:00 Dose: 2.5 mg Documented by: Albuterol/Ipratropium (Duoneb 0.5 Mg-3 Mg/3 Ml Soln) 3 ml INHALATION RT-QID [facility] Last Admin: 12/26/19 11:31 Dose: 3 ml Documented by: Amlodipine Besylate (Norvasc) 5 mg PO BID [facility] Last Admin: 12/26/19 08:41 Dose: 5 mg Documented by: Chlorhexidine Gluconate (Peridex) 15 ml MUCOUS MEM BID [facility] Last Admin: 12/26/19 08:41 Dose: 15 ml Documented by: Clonidine HCl (Catapres-Tts 0.3mg Patch) 1 patch TRANSDERM Q7D [facility] Last Admin: 12/25/19 08:15 Dose: 1 patch Documented by: Diltiazem HCl (Cardizem Cd) 180 mg PO DAILY [facility] Last Admin: 12/26/19 08:41 Dose: 180 mg Documented by: Heparin Sodium (Porcine) (Heparin) 5,000 unit SQ Q8HR [facility] Last Admin: 12/26/19 08:40 Dose: Not Given Documented by: Hydralazine HCl (Apresoline) 10 mg IVP Q4HR PRN PRN Reason: Blood Pressure - High Last Admin: 12/18/19 23:14 Dose: 10 mg Documented by: Hydromorphone HCl (Dilaudid) 0.5 mg IVP Q4HR PRN PRN Reason: Pain Last Admin: 12/22/19 03:28 Dose: 0.5 mg Documented by: Hydromorphone HCl (Dilaudid) 1 mg IVP Q4HR PRN PRN Reason: Pain Last Admin: 12/26/19 06:02 Dose: 1 mg Documented by: Insulin Human Regular 100 unit (/ Sodium Chloride) 101 mls @ 0 mls/hr IV .Q0M [facility]; Protocol Last Admin: 12/26/19 11:20 Dose: 5 mls/hr, 5 mls/hr Documented by: Propofol 1,000 mg/ IV Solution 100 mls @ 0 mls/hr IV .Q0M [facility]; Protocol Last Admin: 12/26/19 11:20 Dose: 50 mcg/kg/min, 37.92 mls/hr Documented by: Dextrose/Water (Dextrose 5%-Water Iv Soln) 1,000 mls @ 50 mls/hr IV .Q20H [facility] Last Admin: 12/26/19 12:00 Dose: 50 mls/hr Documented by: Insulin Human Regular (Humulin R Bolus From Bag) 11.6 unit 0.1 unit/kg (11.6 unit) IV ONCE PRN PRN Reason: Blood Sugar - High Stop: 01/18/20 08:19 Lactulose (Cephulac) 30 gm PO TID [facility] Last Admin: 12/26/19 09:17 Dose: Not Given Documented by: Methylprednisolone Sodium Succinate (Solu-Medrol) 40 mg IV Q8HR [facility] Last Admin: 12/26/19 08:40 Dose: 40 mg Documented by: Metoclopramide HCl (Reglan) 10 mg IVP Q6HR [facility] Last Admin: 12/26/19 05:12 Dose: 10 mg Documented by: Metoprolol Tartrate (Lopressor) 12.5 mg PO TID [facility] Last Admin: 12/26/19 08:41 Dose: 12.5 mg Documented by: Miscellaneous Information (Pneumonia Protocol Utilized) 1 each PO ONCE PRN PRN Reason: Per Protocol Morphine Sulfate (Morphine Sulfate (Inj)) 4 mg IVP Q4HR PRN PRN Reason: Pain Last Admin: 12/25/19 01:48 Dose: 4 mg Documented by: Naloxone HCl (Narcan) 0.2 mg IV Q2M PRN PRN Reason: Opioid Reversal Pantoprazole Sodium (Protonix) 40 mg IV DAILY [facility] Last Admin: 12/26/19 08:41 Dose: 40 mg Documented by: Sodium Bicarbonate (Sodium Bicarbonate Tab) 650 mg PO BID [facility] Last Admin: 12/26/19 08:41 Dose: 650 mg Documented by: Objective - Vital Signs Vital signs: Vital Signs Temp 97.8 F 12/26/19 13:00 Pulse 76 12/26/19 13:00 Resp 19 12/26/19 13:00 BP 157/69 12/26/19 13:00 Pulse Ox 93 L 12/26/19 13:00 Intake & Output 12/25/19 12/26/19 12/26/19 18:59 06:59 18:59 Intake Total 773.827 862.698 936.842 Output Total 1040 1145 635 Balance -266.173 -282.302 301.842 Weight 128.1 kg 126.4 kg 126.4 kg Intake: IV 196 366 716 .9 NS 40 200 130 Dextrose 5% in Water 1, 100 000 ml @ 50 mls/hr IV . Q20H [facility] Rx#:[id number] Pressure bags 6 66 36 cefTRIAXone 1 gm In 50 Sodium Chloride 0.9% 50 ml @ 100 mls/hr IVPB Q24HR [facility] Rx#:[id number] metroNIDAZOLE-NS PMX 500 100 100 mg In Saline 1 100ml.bag @ 100 mls/hr IVPB Q8HR [facility] Rx#:[id number] Intake, IV Titration 552.827 436.698 220.842 Amount Insulin Regular 100 unit 63.384 62.400 22.25 In Sodium Chloride 0.9% 100 ml @ Per Protocol IV .Q0M [facility] Rx#:[id number] propofoL 1,000 mg In 489.443 374.298 198.592 Empty Bag 1 bag @ Titrate IV .Q0M [facility] Rx#: [id number] Tube Feeding 25 0 Other 60 Output: Urine 1040 1145 630 Estimated Blood Loss 5 Other: Voiding Method Indwelling Catheter Indwelling Catheter Indwelling Catheter ABP, PAP, CO, CI - Last Documented Arterial Blood Pressure 164/71 - Exam Patient is Currently sedated and intubated.on Mechanical ventilator. Temp is 97.8F, pulse is 76, respirations are 19, blood pressure is 157/69, oxygen saturation is 93% on mechanical vent with an FiO2 of 45. HEENT: Normocephalic. Neck is supple. Pupils reactive. Nostrils clear. Oral cavity is moist. Ears reveal no drainage. ET tube noted Neck reveals no JVD, carotid bruits, or thyromegaly. Tracheostomy noted ventilatory support CHEST EXAMINATION: Trachea is central. Symmetrical expansion. Bibasilar diminished air entry and minimal right basilar crackles. Expiratory wheezing and scattered rhonchi noted on exam CARDIAC: Normal S1, S2 with no gallops. No murmurs ABDOMEN: Taut. Obese. Bowel sounds normal. No organomegaly. No abdominal bruits. Extremities: reveal no edema. No clubbing or cyanosis Neurologically . sedated. No focal deficits noted Skin: No rash or skin lesions. Psychiatric: could not be assesed completely. Musculoskeletal: No joint swelling or deformity. - Labs CBC & Chem 7: 12/26/19 04:15 12/26/19 04:15 Labs: Abnormal Lab Results - Last 24 Hours (Table) 12/25/19 12/25/19 12/25/19 Range/Units 04:45 14:00 14:58 WBC (3.8-10.6) k/uL RBC (4.30-5.90) m/uL Hgb (13.0-17.5) gm/dL Hct (39.0-53.0) % MCV (80.0-100.0) fL Neutrophils # (1.3-7.7) k/uL Lymphocytes # (1.0-4.8) k/uL ABG pH (7.35-7.45) ABG pO2 (83-108) mmHg ABG HCO3 (21-25) mmol/L Sodium (137-145) mmol/L Potassium (3.5-5.1) mmol/L Chloride 121 H (98-107) mmol/L Carbon Dioxide 18 L (22-30) mmol/L BUN 115 H* (9-20) mg/dL Creatinine 1.69 H (0.66-1.25) mg/dL Glucose 170 H (74-99) mg/dL POC Glucose (mg/dL) 148 H (75-99) mg/dL Calcium 7.5 L (8.4-10.2) mg/dL Total Bilirubin 1.9 H (0.2-1.3) mg/dL Ammonia 60 H (<30) umol/L Total Protein 5.4 L (6.3-8.2) g/dL Albumin 2.3 L (3.5-5.0) g/dL 12/25/19 12/25/19 12/25/19 Range/Units 17:25 18:52 19:56 WBC (3.8-10.6) k/uL RBC (4.30-5.90) m/uL Hgb (13.0-17.5) gm/dL Hct (39.0-53.0) % MCV (80.0-100.0) fL Neutrophils # (1.3-7.7) k/uL Lymphocytes # (1.0-4.8) k/uL ABG pH (7.35-7.45) ABG pO2 (83-108) mmHg ABG HCO3 (21-25) mmol/L Sodium (137-145) mmol/L Potassium (3.5-5.1) mmol/L Chloride (98-107) mmol/L Carbon Dioxide (22-30) mmol/L BUN (9-20) mg/dL Creatinine (0.66-1.25) mg/dL Glucose (74-99) mg/dL POC Glucose (mg/dL) 150 H 142 H 153 H (75-99) mg/dL Calcium (8.4-10.2) mg/dL Total Bilirubin (0.2-1.3) mg/dL Ammonia (<30) umol/L Total Protein (6.3-8.2) g/dL Albumin (3.5-5.0) g/dL 12/25/19 12/25/19 12/26/19 Range/Units 21:54 23:55 00:57 WBC (3.8-10.6) k/uL RBC (4.30-5.90) m/uL Hgb (13.0-17.5) gm/dL Hct (39.0-53.0) % MCV (80.0-100.0) fL Neutrophils # (1.3-7.7) k/uL Lymphocytes # (1.0-4.8) k/uL ABG pH (7.35-7.45) ABG pO2 (83-108) mmHg ABG HCO3 (21-25) mmol/L Sodium (137-145) mmol/L Potassium (3.5-5.1) mmol/L Chloride (98-107) mmol/L Carbon Dioxide (22-30) mmol/L BUN (9-20) mg/dL Creatinine (0.66-1.25) mg/dL Glucose (74-99) mg/dL POC Glucose (mg/dL) 166 H 137 H 134 H (75-99) mg/dL Calcium (8.4-10.2) mg/dL Total Bilirubin (0.2-1.3) mg/dL Ammonia (<30) umol/L Total Protein (6.3-8.2) g/dL Albumin (3.5-5.0) g/dL 12/26/19 12/26/19 12/26/19 Range/Units 01:59 03:56 04:15 WBC (3.8-10.6) k/uL RBC (4.30-5.90) m/uL Hgb (13.0-17.5) gm/dL Hct (39.0-53.0) % MCV (80.0-100.0) fL Neutrophils # (1.3-7.7) k/uL Lymphocytes # (1.0-4.8) k/uL ABG pH (7.35-7.45) ABG pO2 (83-108) mmHg ABG HCO3 (21-25) mmol/L Sodium 147 H (137-145) mmol/L Potassium 5.2 H (3.5-5.1) mmol/L Chloride 124 H (98-107) mmol/L Carbon Dioxide 20 L (22-30) mmol/L BUN 120 H* (9-20) mg/dL Creatinine 1.71 H (0.66-1.25) mg/dL Glucose 138 H (74-99) mg/dL POC Glucose (mg/dL) 151 H 135 H (75-99) mg/dL Calcium 7.7 L (8.4-10.2) mg/dL Total Bilirubin (0.2-1.3) mg/dL Ammonia (<30) umol/L Total Protein (6.3-8.2) g/dL Albumin (3.5-5.0) g/dL 12/26/19 12/26/19 12/26/19 Range/Units 04:15 05:23 06:53 WBC 13.2 H (3.8-10.6) k/uL RBC 3.46 L (4.30-5.90) m/uL Hgb 11.5 L (13.0-17.5) gm/dL Hct 36.9 L (39.0-53.0) % MCV 106.4 H (80.0-100.0) fL Neutrophils # 11.8 H (1.3-7.7) k/uL Lymphocytes # 0.3 L (1.0-4.8) k/uL ABG pH (7.35-7.45) ABG pO2 (83-108) mmHg ABG HCO3 (21-25) mmol/L Sodium (137-145) mmol/L Potassium (3.5-5.1) mmol/L Chloride (98-107) mmol/L Carbon Dioxide (22-30) mmol/L BUN (9-20) mg/dL Creatinine (0.66-1.25) mg/dL Glucose (74-99) mg/dL POC Glucose (mg/dL) 136 H 145 H (75-99) mg/dL Calcium (8.4-10.2) mg/dL Total Bilirubin (0.2-1.3) mg/dL Ammonia (<30) umol/L Total Protein (6.3-8.2) g/dL Albumin (3.5-5.0) g/dL 12/26/19 12/26/19 12/26/19 Range/Units 07:51 07:55 11:05 WBC (3.8-10.6) k/uL RBC (4.30-5.90) m/uL Hgb (13.0-17.5) gm/dL Hct (39.0-53.0) % MCV (80.0-100.0) fL Neutrophils # (1.3-7.7) k/uL Lymphocytes # (1.0-4.8) k/uL ABG pH 7.32 L (7.35-7.45) ABG pO2 81 L (83-108) mmHg ABG HCO3 20 L (21-25) mmol/L Sodium (137-145) mmol/L Potassium (3.5-5.1) mmol/L Chloride (98-107) mmol/L Carbon Dioxide (22-30) mmol/L BUN (9-20) mg/dL Creatinine (0.66-1.25) mg/dL Glucose (74-99) mg/dL POC Glucose (mg/dL) 142 H (75-99) mg/dL Calcium (8.4-10.2) mg/dL Total Bilirubin (0.2-1.3) mg/dL Ammonia 57 H (<30) umol/L Total Protein (6.3-8.2) g/dL Albumin (3.5-5.0) g/dL 12/26/19 12/26/19 12/26/19 Range/Units 11:08 12:07 13:00 WBC (3.8-10.6) k/uL RBC (4.30-5.90) m/uL Hgb (13.0-17.5) gm/dL Hct (39.0-53.0) % MCV (80.0-100.0) fL Neutrophils # (1.3-7.7) k/uL Lymphocytes # (1.0-4.8) k/uL ABG pH (7.35-7.45) ABG pO2 (83-108) mmHg ABG HCO3 (21-25) mmol/L Sodium (137-145) mmol/L Potassium (3.5-5.1) mmol/L Chloride (98-107) mmol/L Carbon Dioxide (22-30) mmol/L BUN (9-20) mg/dL Creatinine (0.66-1.25) mg/dL Glucose (74-99) mg/dL POC Glucose (mg/dL) 153 H 155 H 150 H (75-99) mg/dL Calcium (8.4-10.2) mg/dL Total Bilirubin (0.2-1.3) mg/dL Ammonia (<30) umol/L Total Protein (6.3-8.2) g/dL Albumin (3.5-5.0) g/dL Assessment and Plan Assessment: Acute hypoxic respiratory failure secondary to COPD exacerbation and right lower lobe pneumonia requiring intubation on mechanical ventilator Status post tracheostomy insertion Acute COPD exacerbation Right lower lobe pneumonia Septic shock Sepsis secondary to above Acute kidney injury likely prerenal. possible ATN Hypertensive urgency on admission History of recent fall, fell on his left side onto the abdomen and chest. CT of the abdomen pelvis showed no significant changes. Suspected gallbladder wall thickening and acute cholecystitis Mild transaminitis Obstructive sleep apnea on CPAP at home Hyperglycemia with uncontrolled diabetes type 2 insulin-dependent Morbid obesity BMI 40.2 Previous history of smoking and alcohol use DVT prophylaxis with heparin subq Recommendations and discussion: Patient is currently remains on mechanical ventilator and is being closely monitored in the ICU. Multiple medical consultations following. Continue with duo nebs and IV Solu-Medrol. Patient has been off antibiotics and monitoring closely.. Current creatinine has worsened and is 1.71 with a BUNs of 120. Patient is maintained on sodium bicarb tablets and IV fluids have been transitioned to D5 percent in water. Current sodium is 147. Nephrology also following. General surgery performed tracheostomy this morning and have plans for PEG tube placement on Sunday. Patient to continue on tube feedings via Dobbhoff at this time. Patient to continue on insulin drip as well. Due to multiple complex medical issues, prognosis is extremely guarded. Further recommendations to follow.
[2019-12-26 15:09] LABS: Glucose,Whole Blood 194 mg/dL (75-99)
--- NOTE | 2019-12-26 15:17 | P.PN ---
Subjective Progress Note Date: 12/26/19 Principal diagnosis: Acute hypoxic and hypercapnic respiratory failure secondary to advanced COPD and blunt trauma to the chest, possible right pulmonary contusion. This is a 59-year-old male patient with known history of severe COPD with an FEV1 of 34% of predicted maintained on a cruise on outpatient basis. He also doesn't rescue inhaler and albuterol chest on a when necessary basis. The patient has obstructive sleep apnea maintained on CPAP therapy, and his other comorbidities include obesity, diabetes mellitus, hypertension and he has chronic peripheral edema. The patient had a fall prior to him coming to the hospital. He landed on his left side of the chest. He has bruising over the left lateral wall of the abdomen and upper thigh. He did also have some blunt trauma to his chest. On 12/21/1999 and answering the patient for a follow-up. Note that the patient got intubated yesterday and placed on a mechanical ventilator. He progressively went into respiratory failure and became unresponsive for that reason he had to be intubated. Intubation process was very successful. The patient remained hemodynamically stable. The patient is currently on propofol at 35 g per KG per minute. The patient is also on normal saline at rate of 40 mL an hour. The patient is on insulin drip at 7 units an hour. The patient was started on enteral feeding for nutritional support. This morning, the patient is an assist-control at the rate of 24 with a tidal volume of 400 and FiO2 of 50% with a PEEP of 5. Blood gas showed a patient of 7.29 with a pCO2 47 and pO2 111. The peak air pressures around 26. The patient is obviously less bronchospastic and wheezy. He was given IV sedation holiday and he was able to arouse and follows some simple commands. He seems to be quite comfortable while on the mechanical ventilator. No active pain issues. I also performed CAT scan of the chest abdomen and pelvis on him yesterday. A CAT scan of the chest abdomen and pelvis was done. A surgical consultation was also obtained for the possibility of gallbladder disease gallbladder was cleared by the surgeons. CAT scan of the abdomen and pelvis did not show any cholelithiasis. There was no evidence of any cholecystitis. There was a small right-sided pleural effusion. Small hiatal hernia. Mild hepatomegaly. Mild free fluid within the pelvis. Mild wedging of the T11 vertebral body probably developmental in addition to degenerative changes of the spine. There was evidence of an altered left seventh rib fracture. Lungs are essentially clear and there was no evidence of any significant pneumonia. The patient remains on an empiric antibiotic coverage with a combination of low-dose Rocephin and Flagyl for now. He remains on bronchodilators. He remains on IV Solu-Medrol. Urine output was low and the patient be given another liter bolus for now. Patient was reevaluated today on 12/22/19, patient remains in the ICU, intubated and mechanically ventilated. Patient has severe underlying COPD, and what seems to be underlying pulmonary contusion of the right lung, doubt pneumonia. Patient is on assist control rate of 24 tidal volume is 400 FiO2 is 40% and PEEP is 5 ABG showed a pO2 of 74 pCO2 of 43 pH of 7.3. Patient is on insulin drip at 5 units per hour he is also on propofol at 55 mcg/kg/m, and IV fluid at 20 mL per hour. Considering his low urine output, I will give the patient a liter of IV fluid and will increase his IV fluid to 75 mL per hour. I have also increased his tidal volume to 450. Chest x-ray showed right lower lobe consolidation, I believe this is most likely a pulmonary contusion from his recent trauma. Although the possibility of pneumonia is not entirely ruled out. Patient is known to have history of severe COPD, his baseline FEV1 is 34%. Remains empirically on antibiotics, and I plan today to hold sedation and assessment of his status on this patient although the patient is not quite ready for extubation considering his ABG is marginal. Labs today showed relatively normal CBC, hemoglobin is a bit low at 9.4. His renal profile has been gradually getting worse since admission he had normal renal profile on admission and today his BUN is 100 creatinine is 1.96, hence I plan to hydrate the patient , and hold any diuretics. Patient was reevaluated today on 12/23/19, remains in the ICU, remains intubated and mechanically ventilated. His assist-control rate is 24 tidal volume is 450 FiO2 is 40% and PEEP is 5 ABG showed a pO2 of 72 pCO2 of 38 pH of 7.34. Hence no changes made with the ventilator settings. He remains on propofol at 55 mcg/kg/m, IV fluid 0.9 normal saline at 75 mL per hour and insulin at 8 units per hour. Patient is not requiring any pressors, seems to be hemodynamically st able. Chest x-ray is showing atelectasis and pleural effusion, I suspect that we may be dealing with pulmonary contusion. Patient is seen more fluids yesterday, and his renal functioning is improving today, creatinine is down to 1.57, hence I plan to continue IV fluids. Patient remains on Rocephin and Flagyl. His blood cultures and sputum cultures have remained negative. CBC is relatively normal today. Basic metabolic profile is relatively normal. BUN is down to 97 creatinine is down to 1.57. Patient remains sedated, however I plan to hold sedation awaken the patient, and at least check weaning parameters today. Reevaluated today on 12/24/19, remains in the ICU, intubated mechanically ventilated. His ventilator settings are assist control rate 24 tidal volume 450 FiO2 40%. ABG showed a pO2 of 69 pCO2 of 37 pH of 7.31, hence FiO2 was increased to 45%. Trial of sedation holiday was given yesterday, however the patient became extremely agitated, restless, did not follow any instructions, and he was quite tachypneic and tachycardic. Hence he had to be placed back on sedation, and he remains on propofol at 55 mcg/kg/m. He is also on insulin at 8 units per hour, IV fluid at 0.9 normal saline 1 25 mL per hour. And he is on enteral feeding which is being tolerated. Chest x-ray continues to show by basilar opacities, doubt congestive heart failure, patient is improving with IV fluids, and his renal profile is getting better on a daily basis with fluid challenges. Antibiotics remain about the same. Again the patient failed weaning trials yesterday, will try again to hold sedation and assessment of status and proceed to weaning trials as tolerated. All blood cultures and sputum cultures have been negative so far Patient was reevaluated today on 12/25/19, remains in the ICU, intubated and mechanically ventilated. Could not get the patient to wake up enough to assess weaning or start any weaning process. Off the propofol, the patient was noted to be extremely agitated, restless, tachycardic, asynchronous with mechanical ventilation, and he desaturates easily. Hence On mechanical ventilation and on propofol at 60 mcg/kg/m, his IV fluid is at KVO now, insulin drip 4 units per hour. Patient is on assist control rate of 24 tidal volume 450 FiO2 45% PEEP of 5. ABG showed a pO2 of 84 pCO2 of 38 pH of 7.30. No changes made in the vent settings. Again the patient did not tolerate any weaning trials yesterday. Remains on enteral feeding/tube feeding and he is up to goal. Chest x-ray continues to show by basilar opacities, I suspect the patient may have developed a picture of ARDS secondary to his pulmonary contusion. However it seems to be improving, underlying pneumonia is not entirely ruled out. Patient has been on antibiotics, all cultures have been negative, hence we'll discontinue antibiotics. And that includes Rocephin and Flagyl Patient was reevaluated today on 12/26/19, patient just underwent tracheostomy, and he scheduled to undergo a PEG tube placement next Sunday. Remains intubated sedated, on propofol at 40 mcg/kg/m, insulin drip at 4 units per hour. Patient had significant improvement in his chest x-ray noted today. Remains on the same ventilator settings, FiO2 is 45% tidal volume is 450 PEEP is 5 and assist control rate of 24. CBC is relatively normal except for slight elevation in his WBC count 13.2 hemoglobin is 11.5 electrolytes are relatively unremarkable except for elevated sodium of 147. BUN is 120 creatinine 1.71, and his ammonia level is 57. Patient is receiving lactulose, and it only went down from 60-57 in the last 24 hours hence we will add rifaximin at 550 mg twice a day. We will continue his free water via nasogastric tube to bring the sodium down from 147. Objective - Vital Signs Vital signs: Vital Signs Temp 97.8 F 12/26/19 13:00 Pulse 73 12/26/19 15:00 Resp 18 12/26/19 15:00 BP 146/64 12/26/19 15:00 Pulse Ox 93 L 12/26/19 15:00 Intake & Output 12/25/19 12/26/19 12/26/19 18:59 06:59 18:59 Intake Total 773.827 199.023 6962.842 Output Total 1040 1145 835 Balance -266.173 -282.302 213.842 Weight 128.1 kg 126.4 kg 126.4 kg Intake: IV 196 366 828 .9 NS 40 200 130 Dextrose 5% in Water 1, 200 000 ml @ 50 mls/hr IV . Q20H [facility] Rx#:[id number] Pressure bags 6 66 48 cefTRIAXone 1 gm In 50 Sodium Chloride 0.9% 50 ml @ 100 mls/hr IVPB Q24HR [facility] Rx#:[id number] metroNIDAZOLE-NS PMX 500 100 100 mg In Saline 1 100ml.bag @ 100 mls/hr IVPB Q8HR [facility] Rx#:[id number] Intake, IV Titration 552.827 436.698 220.842 Amount Insulin Regular 100 unit 63.384 62.400 22.25 In Sodium Chloride 0.9% 100 ml @ Per Protocol IV .Q0M [facility] Rx#:[id number] propofoL 1,000 mg In 489.443 374.298 198.592 Empty Bag 1 bag @ Titrate IV .Q0M [facility] Rx#: [id number] Tube Feeding 25 0 Other 60 Output: Urine 1040 1145 830 Estimated Blood Loss 5 Other: Voiding Method Indwelling Catheter Indwelling Catheter Indwelling Catheter ABP, PAP, CO, CI - Last Documented Arterial Blood Pressure 139/56 - Exam Physical Exam: Revealed 59-year-old white male intubated, on mechanical ventilation, Head: Atraumatic, normocephalic. Tracheostomy seems to be intact.. HEENT:[Neck is supple.] [No neck masses.] [No thyromegaly.] [No JVD. ashley,EOMI, no icterus, Chest: [Diminished breath sounds at the bases minimal crackles bilaterally no rhonchi no wheezes. Cardiac Exam: [Normal S1 and S2, no S3 gallop, no murmur.] Abdomen: [Obese, slightly distended, no rebound no guarding, diminished bowel sounds. Extremities: [No clubbing, 2 + bipedal edema, no cyanosis.] Neurological Exam: Could not be assessed, patient is sedated, and on propofol. Psychiatric: Could not be assessed. Skin: Venous stasis changes in lower extremities some swelling. - Labs CBC & Chem 7: 12/26/19 04:15 12/26/19 04:15 Labs: Abnormal Lab Results - Last 24 Hours (Table) 12/25/19 12/25/19 12/25/19 Range/Units 04:45 17:25 18:52 WBC (3.8-10.6) k/uL RBC (4.30-5.90) m/uL Hgb (13.0-17.5) gm/dL Hct (39.0-53.0) % MCV (80.0-100.0) fL Neutrophils # (1.3-7.7) k/uL Lymphocytes # (1.0-4.8) k/uL ABG pH (7.35-7.45) ABG pO2 (83-108) mmHg ABG HCO3 (21-25) mmol/L Sodium (137-145) mmol/L Potassium (3.5-5.1) mmol/L Chloride 121 H (98-107) mmol/L Carbon Dioxide 18 L (22-30) mmol/L BUN 115 H* (9-20) mg/dL Creatinine 1.69 H (0.66-1.25) mg/dL Glucose 170 H (74-99) mg/dL POC Glucose (mg/dL) 150 H 142 H (75-99) mg/dL Calcium 7.5 L (8.4-10.2) mg/dL Total Bilirubin 1.9 H (0.2-1.3) mg/dL Ammonia (<30) umol/L Total Protein 5.4 L (6.3-8.2) g/dL Albumin 2.3 L (3.5-5.0) g/dL 12/25/19 12/25/19 12/25/19 Range/Units 19:56 21:54 23:55 WBC (3.8-10.6) k/uL RBC (4.30-5.90) m/uL Hgb (13.0-17.5) gm/dL Hct (39.0-53.0) % MCV (80.0-100.0) fL Neutrophils # (1.3-7.7) k/uL Lymphocytes # (1.0-4.8) k/uL ABG pH (7.35-7.45) ABG pO2 (83-108) mmHg ABG HCO3 (21-25) mmol/L Sodium (137-145) mmol/L Potassium (3.5-5.1) mmol/L Chloride (98-107) mmol/L Carbon Dioxide (22-30) mmol/L BUN (9-20) mg/dL Creatinine (0.66-1.25) mg/dL Glucose (74-99) mg/dL POC Glucose (mg/dL) 153 H 166 H 137 H (75-99) mg/dL Calcium (8.4-10.2) mg/dL Total Bilirubin (0.2-1.3) mg/dL Ammonia (<30) umol/L Total Protein (6.3-8.2) g/dL Albumin (3.5-5.0) g/dL 12/26/19 12/26/19 12/26/19 Range/Units 00:57 01:59 03:56 WBC (3.8-10.6) k/uL RBC (4.30-5.90) m/uL Hgb (13.0-17.5) gm/dL Hct (39.0-53.0) % MCV (80.0-100.0) fL Neutrophils # (1.3-7.7) k/uL Lymphocytes # (1.0-4.8) k/uL ABG pH (7.35-7.45) ABG pO2 (83-108) mmHg ABG HCO3 (21-25) mmol/L Sodium (137-145) mmol/L Potassium (3.5-5.1) mmol/L Chloride (98-107) mmol/L Carbon Dioxide (22-30) mmol/L BUN (9-20) mg/dL Creatinine (0.66-1.25) mg/dL Glucose (74-99) mg/dL POC Glucose (mg/dL) 134 H 151 H 135 H (75-99) mg/dL Calcium (8.4-10.2) mg/dL Total Bilirubin (0.2-1.3) mg/dL Ammonia (<30) umol/L Total Protein (6.3-8.2) g/dL Albumin (3.5-5.0) g/dL 12/26/19 12/26/19 12/26/19 Range/Units 04:15 04:15 05:23 WBC 13.2 H (3.8-10.6) k/uL RBC 3.46 L (4.30-5.90) m/uL Hgb 11.5 L (13.0-17.5) gm/dL Hct 36.9 L (39.0-53.0) % MCV 106.4 H (80.0-100.0) fL Neutrophils # 11.8 H (1.3-7.7) k/uL Lymphocytes # 0.3 L (1.0-4.8) k/uL ABG pH (7.35-7.45) ABG pO2 (83-108) mmHg ABG HCO3 (21-25) mmol/L Sodium 147 H (137-145) mmol/L Potassium 5.2 H (3.5-5.1) mmol/L Chloride 124 H (98-107) mmol/L Carbon Dioxide 20 L (22-30) mmol/L BUN 120 H* (9-20) mg/dL Creatinine 1.71 H (0.66-1.25) mg/dL Glucose 138 H (74-99) mg/dL POC Glucose (mg/dL) 136 H (75-99) mg/dL Calcium 7.7 L (8.4-10.2) mg/dL Total Bilirubin (0.2-1.3) mg/dL Ammonia (<30) umol/L Total Protein (6.3-8.2) g/dL Albumin (3.5-5.0) g/dL 12/26/19 12/26/19 12/26/19 Range/Units 06:53 07:51 07:55 WBC (3.8-10.6) k/uL RBC (4.30-5.90) m/uL Hgb (13.0-17.5) gm/dL Hct (39.0-53.0) % MCV (80.0-100.0) fL Neutrophils # (1.3-7.7) k/uL Lymphocytes # (1.0-4.8) k/uL ABG pH 7.32 L (7.35-7.45) ABG pO2 81 L (83-108) mmHg ABG HCO3 20 L (21-25) mmol/L Sodium (137-145) mmol/L Potassium (3.5-5.1) mmol/L Chloride (98-107) mmol/L Carbon Dioxide (22-30) mmol/L BUN (9-20) mg/dL Creatinine (0.66-1.25) mg/dL Glucose (74-99) mg/dL POC Glucose (mg/dL) 145 H 142 H (75-99) mg/dL Calcium (8.4-10.2) mg/dL Total Bilirubin (0.2-1.3) mg/dL Ammonia (<30) umol/L Total Protein (6.3-8.2) g/dL Albumin (3.5-5.0) g/dL 12/26/19 12/26/19 12/26/19 Range/Units 11:05 11:08 12:07 WBC (3.8-10.6) k/uL RBC (4.30-5.90) m/uL Hgb (13.0-17.5) gm/dL Hct (39.0-53.0) % MCV (80.0-100.0) fL Neutrophils # (1.3-7.7) k/uL Lymphocytes # (1.0-4.8) k/uL ABG pH (7.35-7.45) ABG pO2 (83-108) mmHg ABG HCO3 (21-25) mmol/L Sodium (137-145) mmol/L Potassium (3.5-5.1) mmol/L Chloride (98-107) mmol/L Carbon Dioxide (22-30) mmol/L BUN (9-20) mg/dL Creatinine (0.66-1.25) mg/dL Glucose (74-99) mg/dL POC Glucose (mg/dL) 153 H 155 H (75-99) mg/dL Calcium (8.4-10.2) mg/dL Total Bilirubin (0.2-1.3) mg/dL Ammonia 57 H (<30) umol/L Total Protein (6.3-8.2) g/dL Albumin (3.5-5.0) g/dL 12/26/19 Range/Units 13:00 WBC (3.8-10.6) k/uL RBC (4.30-5.90) m/uL Hgb (13.0-17.5) gm/dL Hct (39.0-53.0) % MCV (80.0-100.0) fL Neutrophils # (1.3-7.7) k/uL Lymphocytes # (1.0-4.8) k/uL ABG pH (7.35-7.45) ABG pO2 (83-108) mmHg ABG HCO3 (21-25) mmol/L Sodium (137-145) mmol/L Potassium (3.5-5.1) mmol/L Chloride (98-107) mmol/L Carbon Dioxide (22-30) mmol/L BUN (9-20) mg/dL Creatinine (0.66-1.25) mg/dL Glucose (74-99) mg/dL POC Glucose (mg/dL) 150 H (75-99) mg/dL Calcium (8.4-10.2) mg/dL Total Bilirubin (0.2-1.3) mg/dL Ammonia (<30) umol/L Total Protein (6.3-8.2) g/dL Albumin (3.5-5.0) g/dL Assessment and Plan Assessment: Impression: Acute hypoxic/hypercapnic respiratory failure secondary to advanced COPD and blunt trauma to the chest with suspected pulmonary contusion. Suspect underlying ARDS secondary to pulmonary contusion. Underlying pneumonia is not entirely ruled out. But felt to be less likely. Severe COPD, FEV1 of 34%. History of obstructive sleep apnea syndrome, on CPAP on outpatient basis. Type 2 diabetes. Benign essential hypertension. Chronic generalized anxiety disorder. Acute kidney injury, improving mostly with hydration. Hepatitis C infection with positive hepatitis C RNA PCR, and significant C RNA quantitative load. Over 5.26 million Abdominal distention and constipation, will recommend a CT of the abdomen and pelvis without IV contrast. Acute metabolic encephalopathy, ordered ammonia level which is pending. Suspect ongoing hepatic encephalopathy. Status post tracheostomy on 12/26/19. Recommendation: Continue ventilatory support. Continue daily assessment of mental status, and sedation holidays. If tolerated. Continue GI and DVT prophylaxis. Free water for elevated sodium. Continue nutritional support/enteral feeding. Continue hydration cautiously. Abdomen rifaximin for his elevated ammonia level and continue lactulose Patient is not quite ready for any weaning Overall prognosis remains extremely poor and guarded. Patient is critically ill, critical care time is 32 minutes. PEG tube scheduled to be placed on Sunday. We'll continue to follow in the ICU Time with Patient: Greater than 30
[2019-12-26 16:29] LABS: Glucose,Whole Blood 238 mg/dL (75-99)
--- NOTE | 2019-12-26 16:51 | PN ---
PROGRESS NOTE Patient is seen for followup for acute kidney injury. Patient remains on the vent. His urine output is at about 75-100 mL an hour. Patient's blood pressure has had some fluctuations, mostly it is above 130 mmHg systolic. PHYSICAL EXAMINATION: FiO2 is at 45%. This morning blood pressure was 130/65. Examination of the heart S1, S2. Examination of the lungs, bilateral breath sounds are heard. Abdomen is soft, nontender, obese. Examination of the lower extremities shows edema 2+ bilaterally with chronic skin changes noted. FREIGHT FLAGMAN exam cannot be assessed. LABS: Show sodium 147, potassium 5.2, chloride 124, CO2 is 20, BUN 120, creatinine 1.71. ASSESSMENT: 1. Acute kidney injury ATN. Renal function slowly worsening. Patient does have evidence of volume overload. He is currently off of IV fluids. He has significant third spacing. However, he is stable on the vent. I will hold off on the Lasix given his hypernatremia. I will add D5W as currently patient is not maintained on tube feeding as he is scheduled for PEG tube placement tomorrow. 2. Hypernatremia associated with free water deficit. Increase free water down the feeding tube when tube feedings are restarted. In the meantime, start D5W at 70 mL an hour. 3. Status post fall and pulmonary contusion. 4. Acute hypoxic respiratory failure secondary to pulmonary contusion and currently status post tracheostomy. PLAN: Add D5W and increase free water down the feeding tube when tube feedings have been restarted. MMODL / IJN: [id number] /
[2019-12-26 17:32] LABS: Glucose,Whole Blood 220 mg/dL (75-99)
[2019-12-26 18:13] LABS: Glucose,Whole Blood 157 mg/dL (75-99)
[2019-12-26 19:18] LABS: Glucose,Whole Blood 148 mg/dL (75-99)
[2019-12-26 20:11] LABS: Glucose,Whole Blood 119 mg/dL (75-99)
[2019-12-26] MEDS: RIFAXIMIN 550 MG TABLET PO SCH (20:27)
[2019-12-26 21:09] LABS: Glucose,Whole Blood 139 mg/dL (75-99)
[2019-12-26 21:56] LABS: Glucose,Whole Blood 210 mg/dL (75-99)
[2019-12-26 22:39] LABS: Glucose,Whole Blood 190 mg/dL (75-99)
[2019-12-26 23:02] LABS: Glucose,Whole Blood 218 mg/dL (75-99)
[2019-12-26 23:56] LABS: Glucose,Whole Blood 170 mg/dL (75-99)
[2019-12-27 01:18] LABS: Glucose,Whole Blood 125 mg/dL (75-99)
[2019-12-27 02:12] LABS: Glucose,Whole Blood 136 mg/dL (75-99)
[2019-12-27] MEDS: INSULIN REGULAR 100 UNIT in SODIUM CHLORIDE 0.9% 100 ML IV SCH ×3 (03:20→19:37)
[2019-12-27 03:21] LABS: Glucose,Whole Blood 205 mg/dL (75-99)
[2019-12-27 04:14] LABS: Glucose,Whole Blood 202 mg/dL (75-99)
[2019-12-27 04:35] LABS: Basophils % (A) 0 %; Eosinophils # (A) 0.1 k/uL (0-0.7); Eosinophils % (A) 0 %; HCT 39.2 % (39.0-53.0); HGB 12.2 gm/dL (13.0-17.5); Hypochromasia Moderate; Lymphocytes # (A) 0.3 k/uL (1.0-4.8); Lymphocytes % (A) 1 %; MCH 32.9 pg (25.0-35.0); MCHC 31.1 g/dL (31.0-37.0); MCV 105.8 fL (80.0-100.0); Macrocytosis Moderate; Mean Platelet Volume 10.1; Monocytes # (A) 1.3 k/uL (0-1.0); Monocytes % (A) 7 %; Neutrophils # (A) 18.6 k/uL (1.3-7.7); Neutrophils % (A) 91 %; Platelet Count 248 k/uL (150-450); RDW 14.4 % (11.5-15.5); WBC 20.5 k/uL (3.8-10.6)
[2019-12-27 04:45] LABS: Albumin 2.6 g/dL (3.5-5.0); Potassium 5.1 mmol/L (3.5-5.1); Total Bilirubin 3.4 mg/dL (0.2-1.3); Total Protein 5.8 g/dL (6.3-8.2)
[2019-12-27 05:19] LABS: Glucose,Whole Blood 163 mg/dL (75-99)
[2019-12-27] MEDS: METOCLOPRAMIDE 5 MG/ML 2 ML VIAL IVP SCH ×3 (05:27→17:02)
[2019-12-27] MEDS: DEXTROSE 5% IN WATER 1,000 ML IV SCH (05:28)
[2019-12-27 06:00] LABS: Glucose,Whole Blood 138 mg/dL (75-99)
[2019-12-27 06:56] LABS: Glucose,Whole Blood 135 mg/dL (75-99)
--- NOTE | 2019-12-27 07:15 | XR ---
EXAMINATION TYPE: XR chest 1V portable DATE OF EXAM: 12/27/2019 HISTORY: pneumonia. REFERENCE: Previous study dated 12/26/2019. FINDINGS: The patient has been extubated. A tracheostomy tube is in place. Its tip overlies the trach eal air column in this single frontal projection. An NG tube remains in place. Its tip is within the stomach. There is a left subclavian catheter in place. Its tip is in the superior vena cava. There is bibasilar airspace disease. There are small effusions. Heart size is obscured. Pulmonary vas culature has improved. IMPRESSION: CONTINUING BIBASILAR AIRSPACE DISEASE WITH CONCOMITANT EFFUSIONS.
[2019-12-27 08:08] LABS: Glucose,Whole Blood 203 mg/dL (75-99)
[2019-12-27] MEDS: IPRATROPIUM-ALBUTEROL 3 ML NEB INHALATION SCH ×4 (08:09→20:32)
[2019-12-27 08:17] LABS: ABG Base Excess -8.2 mmol/L; ABG HCO3 18 mmol/L (21-25); ABG Oxygen Saturation 94.2 % (94-97); ABG PCO2 35 mmHg (35-45); ABG PH 7.32 (7.35-7.45); ABG PO2 77 mmHg (83-108); ABG TCO2 19 mmol/L (19-24)
[2019-12-27 08:19] LABS: Allen Test Performed? no
[2019-12-27] MEDS: HEPARIN SODIUM,PORCINE 5,000 UNIT/ML 1 ML VIAL SQ SCH ×2 (08:21→16:15)
[2019-12-27] MEDS: methylPREDNISolone SOD SUCCI 40 MG/ML 1 ML VIAL IV SCH ×2 (08:21→16:15)
[2019-12-27] MEDS: PANTOPRAZOLE 40 MG/10 ML VIAL IV SCH (08:21)
[2019-12-27] MEDS: SODIUM BICARBONATE TAB 650 MG TAB PO SCH (08:21)
[2019-12-27] MEDS: CHLORHEXIDINE GLUCONATE 15 ML CUP MUCOUS MEM SCH (08:21)
[2019-12-27] MEDS: amLODIPine 5 MG TAB PO SCH (08:21)
[2019-12-27] MEDS: METOPROLOL TARTRATE 12.5 MG TAB PO SCH ×2 (08:21→16:15)
[2019-12-27] MEDS: RIFAXIMIN 550 MG TABLET PO SCH (08:22)
[2019-12-27] MEDS: LACTULOSE 20 GM/30 ML CUP PO SCH ×2 (08:22→16:15)
[2019-12-27] MEDS: DILTIAZEM CD 180 MG CAP.ER.24H PO SCH (08:22)
[2019-12-27] MEDS ORDERED: CEFEPIME 1 GM in SODIUM CHLORIDE 0.9% 50 ML IVPB SCH (09:00)
[2019-12-27] MEDS: CLINDAMYCIN 600 MG in DEXTROSE 5% IN WATER 50 ML IVPB SCH ×4 (09:37→16:15)
[2019-12-27 09:47] LABS: Glucose,Whole Blood 266 mg/dL (75-99)
[2019-12-27] MEDS ORDERED: SODIUM CHLORIDE 0.9% 1,000 ML IV SCH (10:00)
[2019-12-27] MEDS ORDERED: DEXTROSE 5% IN WATER 1,000 ML with SODIUM BICARB (1 MEQ/ML) 150 ML IV SCH ×2 (10:00→12:00)
[2019-12-27 10:47] LABS: Glucose,Whole Blood 204 mg/dL (75-99)
[2019-12-27 11:47] LABS: Glucose,Whole Blood 157 mg/dL (75-99)
--- NOTE | 2019-12-27 12:01 | P.PN ---
Subjective Progress Note Date: 12/27/19 Principal diagnosis: Acute hypoxic and hypercapnic respiratory failure secondary to advanced COPD and blunt trauma to the chest, possible right pulmonary contusion. This is a 59-year-old male patient with known history of severe COPD with an FEV1 of 34% of predicted maintained on a cruise on outpatient basis. He also doesn't rescue inhaler and albuterol chest on a when necessary basis. The patient has obstructive sleep apnea maintained on CPAP therapy, and his other comorbidities include obesity, diabetes mellitus, hypertension and he has chronic peripheral edema. The patient had a fall prior to him coming to the hospital. He landed on his left side of the chest. He has bruising over the left lateral wall of the abdomen and upper thigh. He did also have some blunt trauma to his chest. On 12/21/1999 and answering the patient for a follow-up. Note that the patient got intubated yesterday and placed on a mechanical ventilator. He progressively went into respiratory failure and became unresponsive for that reason he had to be intubated. Intubation process was very successful. The patient remained hemodynamically stable. The patient is currently on propofol at 35 g per KG per minute. The patient is also on normal saline at rate of 40 mL an hour. The patient is on insulin drip at 7 units an hour. The patient was started on enteral feeding for nutritional support. This morning, the patient is an assist-control at the rate of 24 with a tidal volume of 400 and FiO2 of 50% with a PEEP of 5. Blood gas showed a patient of 7.29 with a pCO2 47 and pO2 111. The peak air pressures around 26. The patient is obviously less bronchospastic and wheezy. He was given IV sedation holiday and he was able to arouse and follows some simple commands. He seems to be quite comfortable while on the mechanical ventilator. No active pain issues. I also performed CAT scan of the chest abdomen and pelvis on him yesterday. A CAT scan of the chest abdomen and pelvis was done. A surgical consultation was also obtained for the possibility of gallbladder disease gallbladder was cleared by the surgeons. CAT scan of the abdomen and pelvis did not show any cholelithiasis. There was no evidence of any cholecystitis. There was a small right-sided pleural effusion. Small hiatal hernia. Mild hepatomegaly. Mild free fluid within the pelvis. Mild wedging of the T11 vertebral body probably developmental in addition to degenerative changes of the spine. There was evidence of an altered left seventh rib fracture. Lungs are essentially clear and there was no evidence of any significant pneumonia. The patient remains on an empiric antibiotic coverage with a combination of low-dose Rocephin and Flagyl for now. He remains on bronchodilators. He remains on IV Solu-Medrol. Urine output was low and the patient be given another liter bolus for now. Patient was reevaluated today on 12/22/19, patient remains in the ICU, intubated and mechanically ventilated. Patient has severe underlying COPD, and what seems to be underlying pulmonary contusion of the right lung, doubt pneumonia. Patient is on assist control rate of 24 tidal volume is 400 FiO2 is 40% and PEEP is 5 ABG showed a pO2 of 74 pCO2 of 43 pH of 7.3. Patient is on insulin drip at 5 units per hour he is also on propofol at 55 mcg/kg/m, and IV fluid at 20 mL per hour. Considering his low urine output, I will give the patient a liter of IV fluid and will increase his IV fluid to 75 mL per hour. I have also increased his tidal volume to 450. Chest x-ray showed right lower lobe consolidation, I believe this is most likely a pulmonary contusion from his recent trauma. Although the possibility of pneumonia is not entirely ruled out. Patient is known to have history of severe COPD, his baseline FEV1 is 34%. Remains empirically on antibiotics, and I plan today to hold sedation and assessment of his status on this patient although the patient is not quite ready for extubation considering his ABG is marginal. Labs today showed relatively normal CBC, hemoglobin is a bit low at 9.4. His renal profile has been gradually getting worse since admission he had normal renal profile on admission and today his BUN is 100 creatinine is 1.96, hence I plan to hydrate the patient , and hold any diuretics. Patient was reevaluated today on 12/23/19, remains in the ICU, remains intubated and mechanically ventilated. His assist-control rate is 24 tidal volume is 450 FiO2 is 40% and PEEP is 5 ABG showed a pO2 of 72 pCO2 of 38 pH of 7.34. Hence no changes made with the ventilator settings. He remains on propofol at 55 mcg/kg/m, IV fluid 0.9 normal saline at 75 mL per hour and insulin at 8 units per hour. Patient is not requiring any pressors, seems to be hemodynamically st able. Chest x-ray is showing atelectasis and pleural effusion, I suspect that we may be dealing with pulmonary contusion. Patient is seen more fluids yesterday, and his renal functioning is improving today, creatinine is down to 1.57, hence I plan to continue IV fluids. Patient remains on Rocephin and Flagyl. His blood cultures and sputum cultures have remained negative. CBC is relatively normal today. Basic metabolic profile is relatively normal. BUN is down to 97 creatinine is down to 1.57. Patient remains sedated, however I plan to hold sedation awaken the patient, and at least check weaning parameters today. Reevaluated today on 12/24/19, remains in the ICU, intubated mechanically ventilated. His ventilator settings are assist control rate 24 tidal volume 450 FiO2 40%. ABG showed a pO2 of 69 pCO2 of 37 pH of 7.31, hence FiO2 was increased to 45%. Trial of sedation holiday was given yesterday, however the patient became extremely agitated, restless, did not follow any instructions, and he was quite tachypneic and tachycardic. Hence he had to be placed back on sedation, and he remains on propofol at 55 mcg/kg/m. He is also on insulin at 8 units per hour, IV fluid at 0.9 normal saline 1 25 mL per hour. And he is on enteral feeding which is being tolerated. Chest x-ray continues to show by basilar opacities, doubt congestive heart failure, patient is improving with IV fluids, and his renal profile is getting better on a daily basis with fluid challenges. Antibiotics remain about the same. Again the patient failed weaning trials yesterday, will try again to hold sedation and assessment of status and proceed to weaning trials as tolerated. All blood cultures and sputum cultures have been negative so far Patient was reevaluated today on 12/25/19, remains in the ICU, intubated and mechanically ventilated. Could not get the patient to wake up enough to assess weaning or start any weaning process. Off the propofol, the patient was noted to be extremely agitated, restless, tachycardic, asynchronous with mechanical ventilation, and he desaturates easily. Hence On mechanical ventilation and on propofol at 60 mcg/kg/m, his IV fluid is at KVO now, insulin drip 4 units per hour. Patient is on assist control rate of 24 tidal volume 450 FiO2 45% PEEP of 5. ABG showed a pO2 of 84 pCO2 of 38 pH of 7.30. No changes made in the vent settings. Again the patient did not tolerate any weaning trials yesterday. Remains on enteral feeding/tube feeding and he is up to goal. Chest x-ray continues to show by basilar opacities, I suspect the patient may have developed a picture of ARDS secondary to his pulmonary contusion. However it seems to be improving, underlying pneumonia is not entirely ruled out. Patient has been on antibiotics, all cultures have been negative, hence we'll discontinue antibiotics. And that includes Rocephin and Flagyl Patient was reevaluated today on 12/26/19, patient just underwent tracheostomy, and he scheduled to undergo a PEG tube placement next Sunday. Remains intubated sedated, on propofol at 40 mcg/kg/m, insulin drip at 4 units per hour. Patient had significant improvement in his chest x-ray noted today. Remains on the same ventilator settings, FiO2 is 45% tidal volume is 450 PEEP is 5 and assist control rate of 24. CBC is relatively normal except for slight elevation in his WBC count 13.2 hemoglobin is 11.5 electrolytes are relatively unremarkable except for elevated sodium of 147. BUN is 120 creatinine 1.71, and his ammonia level is 57. Patient is receiving lactulose, and it only went down from 60-57 in the last 24 hours hence we will add rifaximin at 550 mg twice a day. We will continue his free water via nasogastric tube to bring the sodium down from 147. Patient was reevaluated today on 12/27/19, remains in the ICU, intubated and mechanically ventilated. His ventilator settings are assist control rate of 24 tidal volumes 450 FiO2 45% PEEP is 5 ABG showed a pO2 of 76 pCO2 of 35 pH of 7.31. Patient is showing leukocytosis today with WBC count up to 20.5 creatinine is slightly higher, bicarb is down to 15 and ammonia level is still elevated at 56. Today I went ahead and reviewed his chest x-ray, slightly worse compared to his x-ray yesterday, and I recommended restarting the patient on antibiotics empirically in the form of clindamycin and cefepime. Patient is on enteral feeding and he is on insulin at 5 units per hour, not requiring any pressors. IV fluid is 0.9 at 50 mL per hour. Patient is on propofol, and I plan to discontinue propofol, and arouse the patient and assess mental status at least today. May also consider a CT of the brain on this patient. Objective - Vital Signs Vital signs: Vital Signs Temp 98.0 F 12/27/19 04:00 Pulse 84 12/27/19 08:38 Resp 27 H 12/27/19 07:00 BP 141/68 12/27/19 07:00 Pulse Ox 93 L 12/27/19 07:00 Intake & Output 12/26/19 12/27/19 12/27/19 18:59 06:59 18:59 Intake Total 5676.656 3815.823 125.000 Output Total 1085 665 Balance 374.642 916.823 125.000 Weight 126.4 kg 127.1 kg Intake: IV 996 728 .9 NS 130 Dextrose 5% in Water 1, 350 650 000 ml @ 50 mls/hr IV . Q20H [facility] Rx#:[id number] Pressure bags 66 78 Intake, IV Titration 368.642 560.823 125.000 Amount Insulin Regular 100 unit 70.050 90.183 25.000 In Sodium Chloride 0.9% 100 ml @ Per Protocol IV .Q0M [facility] Rx#:[id number] propofoL 1,000 mg In 298.592 470.640 100 Empty Bag 1 bag @ Titrate IV .Q0M [facility] Rx#: [id number] Oral 95 Tube Feeding 203 Other 90 Output: Urine 1080 665 Estimated Blood Loss 5 Other: Voiding Method Indwelling Catheter Indwelling Catheter ABP, PAP, CO, CI - Last Documented Arterial Blood Pressure 117/50 - Exam Physical Exam: Revealed 59-year-old white male intubated, on mechanical ventilation, Head: Atraumatic, normocephalic. Tracheostomy seems to be intact.. HEENT:[Neck is supple.] [No neck masses.] [No thyromegaly.] [No JVD. ashley,EOMI, no icterus, Chest: [Diminished breath sounds at the bases minimal crackles bilaterally no rhonchi no wheezes. Cardiac Exam: [Normal S1 and S2, no S3 gallop, no murmur.] Abdomen: [Obese, slightly distended, no rebound no guarding, diminished bowel sounds. Extremities: [No clubbing, 2 + bipedal edema, no cyanosis.] Neurological Exam: Could not be assessed, patient is sedated, and on propofol. This will be placed on hold again today. Psychiatric: Could not be assessed. Skin: Venous stasis changes in lower extremities some swelling. - Labs CBC & Chem 7: 12/27/19 04:10 12/27/19 04:10 Labs: Abnormal Lab Results - Last 24 Hours (Table) 12/26/19 12/26/19 12/26/19 Range/Units 12:07 13:00 15:07 WBC (3.8-10.6) k/uL RBC (4.30-5.90) m/uL Hgb (13.0-17.5) gm/dL MCV (80.0-100.0) fL Neutrophils # (1.3-7.7) k/uL Lymphocytes # (1.0-4.8) k/uL Monocytes # (0-1.0) k/uL ABG pH (7.35-7.45) ABG pO2 (83-108) mmHg ABG HCO3 (21-25) mmol/L Chloride (98-107) mmol/L Carbon Dioxide (22-30) mmol/L BUN (9-20) mg/dL Creatinine (0.66-1.25) mg/dL Glucose (74-99) mg/dL POC Glucose (mg/dL) 155 H 150 H 194 H (75-99) mg/dL Calcium (8.4-10.2) mg/dL Total Bilirubin (0.2-1.3) mg/dL ALT (4-49) U/L Ammonia (<30) umol/L Total Protein (6.3-8.2) g/dL Albumin (3.5-5.0) g/dL 12/26/19 12/26/19 12/26/19 Range/Units 16:27 17:31 18:11 WBC (3.8-10.6) k/uL RBC (4.30-5.90) m/uL Hgb (13.0-17.5) gm/dL MCV (80.0-100.0) fL Neutrophils # (1.3-7.7) k/uL Lymphocytes # (1.0-4.8) k/uL Monocytes # (0-1.0) k/uL ABG pH (7.35-7.45) ABG pO2 (83-108) mmHg ABG HCO3 (21-25) mmol/L Chloride (98-107) mmol/L Carbon Dioxide (22-30) mmol/L BUN (9-20) mg/dL Creatinine (0.66-1.25) mg/dL Glucose (74-99) mg/dL POC Glucose (mg/dL) 238 H 220 H 157 H (75-99) mg/dL Calcium (8.4-10.2) mg/dL Total Bilirubin (0.2-1.3) mg/dL ALT (4-49) U/L Ammonia (<30) umol/L Total Protein (6.3-8.2) g/dL Albumin (3.5-5.0) g/dL 12/26/19 12/26/19 12/26/19 Range/Units 19:17 20:10 21:07 WBC (3.8-10.6) k/uL RBC (4.30-5.90) m/uL Hgb (13.0-17.5) gm/dL MCV (80.0-100.0) fL Neutrophils # (1.3-7.7) k/uL Lymphocytes # (1.0-4.8) k/uL Monocytes # (0-1.0) k/uL ABG pH (7.35-7.45) ABG pO2 (83-108) mmHg ABG HCO3 (21-25) mmol/L Chloride (98-107) mmol/L Carbon Dioxide (22-30) mmol/L BUN (9-20) mg/dL Creatinine (0.66-1.25) mg/dL Glucose (74-99) mg/dL POC Glucose (mg/dL) 148 H 119 H 139 H (75-99) mg/dL Calcium (8.4-10.2) mg/dL Total Bilirubin (0.2-1.3) mg/dL ALT (4-49) U/L Ammonia (<30) umol/L Total Protein (6.3-8.2) g/dL Albumin (3.5-5.0) g/dL 12/26/19 12/26/19 12/26/19 Range/Units 21:55 22:39 23:01 WBC (3.8-10.6) k/uL RBC (4.30-5.90) m/uL Hgb (13.0-17.5) gm/dL MCV (80.0-100.0) fL Neutrophils # (1.3-7.7) k/uL Lymphocytes # (1.0-4.8) k/uL Monocytes # (0-1.0) k/uL ABG pH (7.35-7.45) ABG pO2 (83-108) mmHg ABG HCO3 (21-25) mmol/L Chloride (98-107) mmol/L Carbon Dioxide (22-30) mmol/L BUN (9-20) mg/dL Creatinine (0.66-1.25) mg/dL Glucose (74-99) mg/dL POC Glucose (mg/dL) 210 H 190 H 218 H (75-99) mg/dL Calcium (8.4-10.2) mg/dL Total Bilirubin (0.2-1.3) mg/dL ALT (4-49) U/L Ammonia (<30) umol/L Total Protein (6.3-8.2) g/dL Albumin (3.5-5.0) g/dL 12/26/19 12/27/19 12/27/19 Range/Units 23:54 01:17 02:09 WBC (3.8-10.6) k/uL RBC (4.30-5.90) m/uL Hgb (13.0-17.5) gm/dL MCV (80.0-100.0) fL Neutrophils # (1.3-7.7) k/uL Lymphocytes # (1.0-4.8) k/uL Monocytes # (0-1.0) k/uL ABG pH (7.35-7.45) ABG pO2 (83-108) mmHg ABG HCO3 (21-25) mmol/L Chloride (98-107) mmol/L Carbon Dioxide (22-30) mmol/L BUN (9-20) mg/dL Creatinine (0.66-1.25) mg/dL Glucose (74-99) mg/dL POC Glucose (mg/dL) 170 H 125 H 136 H (75-99) mg/dL Calcium (8.4-10.2) mg/dL Total Bilirubin (0.2-1.3) mg/dL ALT (4-49) U/L Ammonia (<30) umol/L Total Protein (6.3-8.2) g/dL Albumin (3.5-5.0) g/dL 12/27/19 12/27/19 12/27/19 Range/Units 03:19 04:10 04:10 WBC 20.5 H (3.8-10.6) k/uL RBC 3.70 L (4.30-5.90) m/uL Hgb 12.2 L (13.0-17.5) gm/dL MCV 105.8 H (80.0-100.0) fL Neutrophils # 18.6 H (1.3-7.7) k/uL Lymphocytes # 0.3 L (1.0-4.8) k/uL Monocytes # 1.3 H (0-1.0) k/uL ABG pH (7.35-7.45) ABG pO2 (83-108) mmHg ABG HCO3 (21-25) mmol/L Chloride 121 H (98-107) mmol/L Carbon Dioxide 15 L (22-30) mmol/L BUN 135 H* (9-20) mg/dL Creatinine 1.97 H (0.66-1.25) mg/dL Glucose 198 H (74-99) mg/dL POC Glucose (mg/dL) 205 H (75-99) mg/dL Calcium 8.0 L (8.4-10.2) mg/dL Total Bilirubin 3.4 H (0.2-1.3) mg/dL ALT 57 H (4-49) U/L Ammonia (<30) umol/L Total Protein 5.8 L (6.3-8.2) g/dL Albumin 2.6 L (3.5-5.0) g/dL 12/27/19 12/27/19 12/27/19 Range/Units 04:10 05:17 05:58 WBC (3.8-10.6) k/uL RBC (4.30-5.90) m/uL Hgb (13.0-17.5) gm/dL MCV (80.0-100.0) fL Neutrophils # (1.3-7.7) k/uL Lymphocytes # (1.0-4.8) k/uL Monocytes # (0-1.0) k/uL ABG pH (7.35-7.45) ABG pO2 (83-108) mmHg ABG HCO3 (21-25) mmol/L Chloride (98-107) mmol/L Carbon Dioxide (22-30) mmol/L BUN (9-20) mg/dL Creatinine (0.66-1.25) mg/dL Glucose (74-99) mg/dL POC Glucose (mg/dL) 202 H 163 H 138 H (75-99) mg/dL Calcium (8.4-10.2) mg/dL Total Bilirubin (0.2-1.3) mg/dL ALT (4-49) U/L Ammonia (<30) umol/L Total Protein (6.3-8.2) g/dL Albumin (3.5-5.0) g/dL 12/27/19 12/27/19 12/27/19 Range/Units 06:00 06:55 08:06 WBC (3.8-10.6) k/uL RBC (4.30-5.90) m/uL Hgb (13.0-17.5) gm/dL MCV (80.0-100.0) fL Neutrophils # (1.3-7.7) k/uL Lymphocytes # (1.0-4.8) k/uL Monocytes # (0-1.0) k/uL ABG pH (7.35-7.45) ABG pO2 (83-108) mmHg ABG HCO3 (21-25) mmol/L Chloride (98-107) mmol/L Carbon Dioxide (22-30) mmol/L BUN (9-20) mg/dL Creatinine (0.66-1.25) mg/dL Glucose (74-99) mg/dL POC Glucose (mg/dL) 135 H 203 H (75-99) mg/dL Calcium (8.4-10.2) mg/dL Total Bilirubin (0.2-1.3) mg/dL ALT (4-49) U/L Ammonia 56 H (<30) umol/L Total Protein (6.3-8.2) g/dL Albumin (3.5-5.0) g/dL 12/27/19 12/27/19 12/27/19 Range/Units 08:14 09:35 10:45 WBC (3.8-10.6) k/uL RBC (4.30-5.90) m/uL Hgb (13.0-17.5) gm/dL MCV (80.0-100.0) fL Neutrophils # (1.3-7.7) k/uL Lymphocytes # (1.0-4.8) k/uL Monocytes # (0-1.0) k/uL ABG pH 7.32 L (7.35-7.45) ABG pO2 77 L (83-108) mmHg ABG HCO3 18 L (21-25) mmol/L Chloride (98-107) mmol/L Carbon Dioxide (22-30) mmol/L BUN (9-20) mg/dL Creatinine (0.66-1.25) mg/dL Glucose (74-99) mg/dL POC Glucose (mg/dL) 266 H 204 H (75-99) mg/dL Calcium (8.4-10.2) mg/dL Total Bilirubin (0.2-1.3) mg/dL ALT (4-49) U/L Ammonia (<30) umol/L Total Protein (6.3-8.2) g/dL Albumin (3.5-5.0) g/dL 12/27/19 Range/Units 11:45 WBC (3.8-10.6) k/uL RBC (4.30-5.90) m/uL Hgb (13.0-17.5) gm/dL MCV (80.0-100.0) fL Neutrophils # (1.3-7.7) k/uL Lymphocytes # (1.0-4.8) k/uL Monocytes # (0-1.0) k/uL ABG pH (7.35-7.45) ABG pO2 (83-108) mmHg ABG HCO3 (21-25) mmol/L Chloride (98-107) mmol/L Carbon Dioxide (22-30) mmol/L BUN (9-20) mg/dL Creatinine (0.66-1.25) mg/dL Glucose (74-99) mg/dL POC Glucose (mg/dL) 157 H (75-99) mg/dL Calcium (8.4-10.2) mg/dL Total Bilirubin (0.2-1.3) mg/dL ALT (4-49) U/L Ammonia (<30) umol/L Total Protein (6.3-8.2) g/dL Albumin (3.5-5.0) g/dL Assessment and Plan Assessment: Impression: Acute hypoxic/hypercapnic respiratory failure secondary to advanced COPD and blunt trauma to the chest with suspected pulmonary contusion. Suspect underlying ARDS secondary to pulmonary contusion. Possible aspiration pneumonia. Severe COPD, FEV1 of 34%. History of obstructive sleep apnea syndrome, on CPAP on outpatient basis. Type 2 diabetes. Benign essential hypertension. Chronic generalized anxiety disorder. Acute kidney injury, being followed by nephrology. Hepatitis C infection with positive hepatitis C RNA PCR, and significant C RNA quantitative load. Over 5.26 million Abdominal distention and constipation, improved since lactulose was added. Patient is stooling. Acute metabolic encephalopathy, ordered ammonia level which is pending. Suspect ongoing hepatic encephalopathy. Status post tracheostomy on 12/26/19. Recommendation: Arrange for CT of the brain since the patient's mental status is not improving much. Off propofol. Continue ventilatory support. Arrange for PEG tube placement next Sunday. Continue daily assessment of mental status, and sedation holidays. If tolerated. Continue GI and DVT prophylaxis. Free water for elevated sodium. Continue nutritional support/enteral feeding. Continue hydration cautiously. rifaximin for his elevated ammonia level and continue lactulose, was added yesterday per Patient is not quite ready for any weaning however will hold sedation and assessment of status today. Restart antibiotics in the form of clindamycin and cefepime for presumptive aspiration. Patient is ALLERGIC to penicillin. Overall prognosis remains extremely poor and guarded. Patient is critically ill, critical care time is 34 minutes. Time with Patient: Greater than 30
--- NOTE | 2019-12-27 12:08 | PN ---
PROGRESS NOTE Patient is seen for followup for acute kidney injury. Patient remains on the vent. He is sedated. He is going down for a CT scan of the head as patient is not waking up. He remains on the vent. FiO2 is at 45%. Urine output is maintained at 60-50 mL an hour. The patient is tolerating tube feeds. PHYSICAL EXAMINATION: On examination today, blood pressure 117/50, heart rate 81 per minute, he is afebrile. Examination of the heart S1, S2. Examination of the lungs, bilateral breath sounds are heard. Abdomen is distended, soft. Examination of lower extremities shows edema 2+ bilaterally with weeping noted upper and lower extremities. LAB: Show sodium of 143, potassium 5.1, CO2 is 15, chloride 121, BUN 135, serum creatinine 1.97, hemoglobin 12.2 g/dL. ASSESSMENT: 1. Acute kidney injury, acute tubular necrosis, currently nonoliguric with worsening of renal function slowly over the past few days. The patient's urine output is maintained. He has been started on IV fluids that was mainly for the hypernatremia. Blood pressures have not been significantly on the lower side and patient is not on any nephrotoxic medications. 2. Acute hypoxic respiratory failure associated with pulmonary contusion, possible pneumonia. 3. Disproportionately elevated BUN secondary to steroids. No obvious GI bleed noted. Hemoglobin is up to 12.2. 4. Non-gap metabolic acidosis associated with gastrointestinal fluid loss with loose bowel movements from lactulose, maintained on oral sodium bicarb. I will add IV bicarb. PLAN: Switch IV fluids to IV bicarb. Continue with oral sodium bicarb as well and repeat labs in a.m. Continue to avoid nephrotoxic agents. Overall prognosis is guarded. MMODL / IJN: [id number] /
--- NOTE | 2019-12-27 12:17 | CT ---
EXAMINATION TYPE: CT brain wo con DATE OF EXAM: 12/27/2019 COMPARISON: None HISTORY: Altered mental status CT DLP: 1154.4 mGycm Automated exposure control for dose reduction was used. FINDINGS: Atherosclerotic changes noted involving the intracranial vessels particularly left vertebral. There i s a degenerative changes with a much greater central component raising the possibility of hydrocephal us or normal pressure hydrocephalus areas of abnormal attenuation involving the right frontal lobe nguyen ggesting previous areas sizable remote infarct. Ex vacuole dilation of the right lateral ventricle no edgar. No midline shift. No mass effect. Calvarium intact. No acute hemorrhage. Suggestion of an nasal tube. 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 IMPRESSION: 1. Degenerative change with a far greater central component. This raises the possibility of normal pr essure hydrocephalus or hydrocephalus correlate clinically. 2. Remote infarct right frontal lobe. No acute hemorrhage. If there is concern for acute ischemia cor relate with MRI as clinically warranted.
--- NOTE | 2019-12-27 12:36 | P.PN ---
Subjective Progress Note Date: 12/27/19 CHIEF COMPLAINT: Ventral dependent respiratory failure, status post fall HISTORY OF PRESENT ILLNESS: The patient is a 59-year-old who was admitted 12/18/2019 after a fall. Patient is on mechanical ventilation and is status post tracheostomy 12/26/19. He is POD 1. Patient is somnolent. Per discussion with nursing, patient had a fall prior to admission with trauma to his head. No imaging obtained of his head since his fall. His fall was witnessed by his per discussion with nursing. He also has new lower abdominal subcutaneous bruising. He is pending a PEG tube placement for 12/29/19. Per nursing, patient has history of drinking which may have resulted in his fall. ROS: No fevers or chills. No productive sputum PHYSICAL EXAM: VITAL SIGNS: Reviewed CONSTITUTIONAL: Well developed and in no acute distress. EYES: Conjuctivae without sclera icterus. HEAD, EARS, NOSE, THROAT: Moist buccal mucosa. No nasal drainage. NECK: Trach site is clean, dry and intact RESPIRATORY: Mechanical ventilation. CARDIOVASCULAR: Palpable 2+ radial pulses. ABDOMEN: Protuberant. No peritonitis. Ecchymosis along left pelvis over 20 to 25 cm extending to left flank. MUSCULOSKELETAL: No gross deformity of the lower extremities noted. Doppler for bilateral pedal pulses NEUROLOGIC: Sedated. PSYCH: Sedated LABS: Blood sugar glucose over 160 to 270s. WBC elevated over 20,000 from 13,000 yesterday. Hemoglobin up from 11.5-12.2. STUDIES: CT Brain independently reviewed with large right hemispheric infarct. CT of the abdomen also independently reviewed with ascites about the liver and spleen. RADIOLOGY: CT brain report confirms large infarct of the right frontal lobe of the brain, unsure of old vs acute. MRI requested per radiologist CT of the abdomen and pelvis with generalized ascites confirmed. ASSESSMENT: 1. Vent dependent respiratory failure 2. Status post fall with history of alcohol abuse 3. New right hemispheric infarct 4. Respiratory failure s/p tracheostomy PLAN: 1. Results of CT brain reviewed with ICU team. 2. Per discussion with ICU team, transfer being requested to tertiary care center with neurosurgery support Objective - Vital Signs Vital signs: Vital Signs Temp 98.0 F 12/27/19 04:00 Pulse 90 12/27/19 12:13 Resp 27 H 07/25/20 07:00 BP 141/68 12/27/19 07:00 Pulse Ox 93 L 12/27/19 07:00 Intake & Output 12/26/19 12/27/19 12/27/19 18:59 06:59 18:59 Intake Total 1194.908 0539.823 125.000 Output Total 1085 665 Balance 374.642 916.823 125.000 Weight 126.4 kg 127.1 kg Intake: IV 996 728 .9 NS 130 Dextrose 5% in Water 1, 350 650 000 ml @ 50 mls/hr IV . Q20H [facility] Rx#:[id number] Pressure bags 66 78 Intake, IV Titration 368.642 560.823 125.000 Amount Insulin Regular 100 unit 70.050 90.183 25.000 In Sodium Chloride 0.9% 100 ml @ Per Protocol IV .Q0M [facility] Rx#:[id number] propofoL 1,000 mg In 298.592 470.640 100 Empty Bag 1 bag @ Titrate IV .Q0M [facility] Rx#: [id number] Oral 95 Tube Feeding 203 Other 90 Output: Urine 1080 665 Estimated Blood Loss 5 Other: Voiding Method Indwelling Catheter Indwelling Catheter ABP, PAP, CO, CI - Last Documented Arterial Blood Pressure 117/50 - Labs CBC & Chem 7: 12/27/19 04:10 12/27/19 04:10 Labs: Abnormal Lab Results - Last 24 Hours (Table) 12/26/19 12/26/19 12/26/19 Range/Units 13:00 15:07 16:27 WBC (3.8-10.6) k/uL RBC (4.30-5.90) m/uL Hgb (13.0-17.5) gm/dL MCV (80.0-100.0) fL Neutrophils # (1.3-7.7) k/uL Lymphocytes # (1.0-4.8) k/uL Monocytes # (0-1.0) k/uL ABG pH (7.35-7.45) ABG pO2 (83-108) mmHg ABG HCO3 (21-25) mmol/L Chloride (98-107) mmol/L Carbon Dioxide (22-30) mmol/L BUN (9-20) mg/dL Creatinine (0.66-1.25) mg/dL Glucose (74-99) mg/dL POC Glucose (mg/dL) 150 H 194 H 238 H (75-99) mg/dL Calcium (8.4-10.2) mg/dL Total Bilirubin (0.2-1.3) mg/dL ALT (4-49) U/L Ammonia (<30) umol/L Total Protein (6.3-8.2) g/dL Albumin (3.5-5.0) g/dL 12/26/19 12/26/19 12/26/19 Range/Units 17:31 18:11 19:17 WBC (3.8-10.6) k/uL RBC (4.30-5.90) m/uL Hgb (13.0-17.5) gm/dL MCV (80.0-100.0) fL Neutrophils # (1.3-7.7) k/uL Lymphocytes # (1.0-4.8) k/uL Monocytes # (0-1.0) k/uL ABG pH (7.35-7.45) ABG pO2 (83-108) mmHg ABG HCO3 (21-25) mmol/L Chloride (98-107) mmol/L Carbon Dioxide (22-30) mmol/L BUN (9-20) mg/dL Creatinine (0.66-1.25) mg/dL Glucose (74-99) mg/dL POC Glucose (mg/dL) 220 H 157 H 148 H (75-99) mg/dL Calcium (8.4-10.2) mg/dL Total Bilirubin (0.2-1.3) mg/dL ALT (4-49) U/L Ammonia (<30) umol/L Total Protein (6.3-8.2) g/dL Albumin (3.5-5.0) g/dL 12/26/19 12/26/19 12/26/19 Range/Units 20:10 21:07 21:55 WBC (3.8-10.6) k/uL RBC (4.30-5.90) m/uL Hgb (13.0-17.5) gm/dL MCV (80.0-100.0) fL Neutrophils # (1.3-7.7) k/uL Lymphocytes # (1.0-4.8) k/uL Monocytes # (0-1.0) k/uL ABG pH (7.35-7.45) ABG pO2 (83-108) mmHg ABG HCO3 (21-25) mmol/L Chloride (98-107) mmol/L Carbon Dioxide (22-30) mmol/L BUN (9-20) mg/dL Creatinine (0.66-1.25) mg/dL Glucose (74-99) mg/dL POC Glucose (mg/dL) 119 H 139 H 210 H (75-99) mg/dL Calcium (8.4-10.2) mg/dL Total Bilirubin (0.2-1.3) mg/dL ALT (4-49) U/L Ammonia (<30) umol/L Total Protein (6.3-8.2) g/dL Albumin (3.5-5.0) g/dL 12/26/19 12/26/19 12/26/19 Range/Units 22:39 23:01 23:54 WBC (3.8-10.6) k/uL RBC (4.30-5.90) m/uL Hgb (13.0-17.5) gm/dL MCV (80.0-100.0) fL Neutrophils # (1.3-7.7) k/uL Lymphocytes # (1.0-4.8) k/uL Monocytes # (0-1.0) k/uL ABG pH (7.35-7.45) ABG pO2 (83-108) mmHg ABG HCO3 (21-25) mmol/L Chloride (98-107) mmol/L Carbon Dioxide (22-30) mmol/L BUN (9-20) mg/dL Creatinine (0.66-1.25) mg/dL Glucose (74-99) mg/dL POC Glucose (mg/dL) 190 H 218 H 170 H (75-99) mg/dL Calcium (8.4-10.2) mg/dL Total Bilirubin (0.2-1.3) mg/dL ALT (4-49) U/L Ammonia (<30) umol/L Total Protein (6.3-8.2) g/dL Albumin (3.5-5.0) g/dL 12/27/19 12/27/19 12/27/19 Range/Units 01:17 02:09 03:19 WBC (3.8-10.6) k/uL RBC (4.30-5.90) m/uL Hgb (13.0-17.5) gm/dL MCV (80.0-100.0) fL Neutrophils # (1.3-7.7) k/uL Lymphocytes # (1.0-4.8) k/uL Monocytes # (0-1.0) k/uL ABG pH (7.35-7.45) ABG pO2 (83-108) mmHg ABG HCO3 (21-25) mmol/L Chloride (98-107) mmol/L Carbon Dioxide (22-30) mmol/L BUN (9-20) mg/dL Creatinine (0.66-1.25) mg/dL Glucose (74-99) mg/dL POC Glucose (mg/dL) 125 H 136 H 205 H (75-99) mg/dL Calcium (8.4-10.2) mg/dL Total Bilirubin (0.2-1.3) mg/dL ALT (4-49) U/L Ammonia (<30) umol/L Total Protein (6.3-8.2) g/dL Albumin (3.5-5.0) g/dL 12/27/19 12/27/19 12/27/19 Range/Units 04:10 04:10 04:10 WBC 20.5 H (3.8-10.6) k/uL RBC 3.70 L (4.30-5.90) m/uL Hgb 12.2 L (13.0-17.5) gm/dL MCV 105.8 H (80.0-100.0) fL Neutrophils # 18.6 H (1.3-7.7) k/uL Lymphocytes # 0.3 L (1.0-4.8) k/uL Monocytes # 1.3 H (0-1.0) k/uL ABG pH (7.35-7.45) ABG pO2 (83-108) mmHg ABG HCO3 (21-25) mmol/L Chloride 121 H (98-107) mmol/L Carbon Dioxide 15 L (22-30) mmol/L BUN 135 H* (9-20) mg/dL Creatinine 1.97 H (0.66-1.25) mg/dL Glucose 198 H (74-99) mg/dL POC Glucose (mg/dL) 202 H (75-99) mg/dL Calcium 8.0 L (8.4-10.2) mg/dL Total Bilirubin 3.4 H (0.2-1.3) mg/dL ALT 57 H (4-49) U/L Ammonia (<30) umol/L Total Protein 5.8 L (6.3-8.2) g/dL Albumin 2.6 L (3.5-5.0) g/dL 12/27/19 12/27/19 12/27/19 Range/Units 05:17 05:58 06:00 WBC (3.8-10.6) k/uL RBC (4.30-5.90) m/uL Hgb (13.0-17.5) gm/dL MCV (80.0-100.0) fL Neutrophils # (1.3-7.7) k/uL Lymphocytes # (1.0-4.8) k/uL Monocytes # (0-1.0) k/uL ABG pH (7.35-7.45) ABG pO2 (83-108) mmHg ABG HCO3 (21-25) mmol/L Chloride (98-107) mmol/L Carbon Dioxide (22-30) mmol/L BUN (9-20) mg/dL Creatinine (0.66-1.25) mg/dL Glucose (74-99) mg/dL POC Glucose (mg/dL) 163 H 138 H (75-99) mg/dL Calcium (8.4-10.2) mg/dL Total Bilirubin (0.2-1.3) mg/dL ALT (4-49) U/L Ammonia 56 H (<30) umol/L Total Protein (6.3-8.2) g/dL Albumin (3.5-5.0) g/dL 12/27/19 12/27/19 12/27/19 Range/Units 06:55 08:06 08:14 WBC (3.8-10.6) k/uL RBC (4.30-5.90) m/uL Hgb (13.0-17.5) gm/dL MCV (80.0-100.0) fL Neutrophils # (1.3-7.7) k/uL Lymphocytes # (1.0-4.8) k/uL Monocytes # (0-1.0) k/uL ABG pH 7.32 L (7.35-7.45) ABG pO2 77 L (83-108) mmHg ABG HCO3 18 L (21-25) mmol/L Chloride (98-107) mmol/L Carbon Dioxide (22-30) mmol/L BUN (9-20) mg/dL Creatinine (0.66-1.25) mg/dL Glucose (74-99) mg/dL POC Glucose (mg/dL) 135 H 203 H (75-99) mg/dL Calcium (8.4-10.2) mg/dL Total Bilirubin (0.2-1.3) mg/dL ALT (4-49) U/L Ammonia (<30) umol/L Total Protein (6.3-8.2) g/dL Albumin (3.5-5.0) g/dL 12/27/19 12/27/19 12/27/19 Range/Units 09:35 10:45 11:45 WBC (3.8-10.6) k/uL RBC (4.30-5.90) m/uL Hgb (13.0-17.5) gm/dL MCV (80.0-100.0) fL Neutrophils # (1.3-7.7) k/uL Lymphocytes # (1.0-4.8) k/uL Monocytes # (0-1.0) k/uL ABG pH (7.35-7.45) ABG pO2 (83-108) mmHg ABG HCO3 (21-25) mmol/L Chloride (98-107) mmol/L Carbon Dioxide (22-30) mmol/L BUN (9-20) mg/dL Creatinine (0.66-1.25) mg/dL Glucose (74-99) mg/dL POC Glucose (mg/dL) 266 H 204 H 157 H (75-99) mg/dL Calcium (8.4-10.2) mg/dL Total Bilirubin (0.2-1.3) mg/dL ALT (4-49) U/L Ammonia (<30) umol/L Total Protein (6.3-8.2) g/dL Albumin (3.5-5.0) g/dL Assessment and Plan (1) Focal infarction of brain Status: Acute Code(s): I63.9 - CEREBRAL INFARCTION, UNSPECIFIED SNOMED Code(s): 119785475 (2) Alcohol abuse Status: Acute Code(s): F10.10 - ALCOHOL ABUSE, UNCOMPLICATED SNOMED Code(s): 63851872 (3) Ascites Status: Acute Code(s): R18.8 - OTHER ASCITES SNOMED Code(s): 061944747 (4) Respiratory failure Status: Acute Code(s): J96.90 - RESPIRATORY FAILURE, UNSP, UNSP W HYPOXIA OR HYPERCAPNIA SNOMED Code(s): 569603226 (5) Morbid obesity due to excess calories Status: Acute Code(s): E66.01 - MORBID (SEVERE) OBESITY DUE TO EXCESS CALORIES SNOMED Code(s): 694028894 (6) Fall Status: Acute Code(s): W19.XXXA - UNSPECIFIED FALL, INITIAL ENCOUNTER SNOMED Code(s): 3196804
[2019-12-27 13:01] LABS: Glucose,Whole Blood 163 mg/dL (75-99)
[2019-12-27 14:05] LABS: Glucose,Whole Blood 208 mg/dL (75-99)
[2019-12-27 15:06] LABS: Glucose,Whole Blood 167 mg/dL (75-99)
[2019-12-27 16:11] LABS: Glucose,Whole Blood 205 mg/dL (75-99)
[2019-12-27 16:47] VITALS: TEMP 98.3
[2019-12-27 17:07] LABS: Glucose,Whole Blood 201 mg/dL (75-99)
[2019-12-27 17:58] LABS: Glucose,Whole Blood 238 mg/dL (75-99)
[2019-12-27 18:54] LABS: Glucose,Whole Blood 275 mg/dL (75-99)
[2019-12-27 20:17] VITALS: BP 146/71; PULSE 79; RESP 15
--- NOTE | 2019-12-28 07:57 | P.PN ---
Subjective Progress Note Date: 12/27/19 Principal diagnosis: Acute hypoxic/hypercapnic respiratory failure secondary to advanced COPD Possible right pulmonary contusion secondary to blunt trauma to chest Acute/subacute CVA 59-year-old male patient with severe COPD admitted to the hospital with uncontrolled hypertension and acute exacerbation COPD along with uncontrolled pain following fall with blunt trauma to left side of the chest; once admitted patient continued to deteriorate and decompensated and became hypotensive; he was transferred to ICU and subsequently admitted for acute respiratory failure due to acute exacerbation COPD; patient was treated with IV steroids and bronchodilator nebulizer treatments with empiric antibiotic coverage; patient did show improvement but could not be weaned off the vent; patient underwent tracheostomy followed by another attempt to wean off the ventilator which failed; CT of the head was done which showed remote frontal lobe infarct with recommendations to do an MRI for high suspicion of acute CVA 12/28/2019 Patient seen and evaluated in ICU; remains on mechanical ventilation; trach in place; CT of the head is reviewed and personally discussed with soa integration developer who is recommending patient be transferred to [facility] due to lack of neurology coverage at our facility over the weekend; case management is consulted to facilitate transfer Objective - Vital Signs Vital signs: Vital Signs Temp 98.0 F 12/27/19 04:00 Pulse 84 12/27/19 08:38 Resp 27 H 12/27/19 07:00 BP 141/68 12/27/19 07:00 Pulse Ox 93 L 12/27/19 07:00 Intake & Output 12/26/19 12/27/19 12/27/19 18:59 06:59 18:59 Intake Total 8914.278 1157.823 107.167 Output Total 1085 665 Balance 374.642 916.823 107.167 Weight 126.4 kg 127.1 kg Intake: IV 996 728 .9 NS 130 Dextrose 5% in Water 1, 350 650 000 ml @ 50 mls/hr IV . Q20H [facility] Rx#:[id number] Pressure bags 66 78 Intake, IV Titration 368.642 560.823 107.167 Amount Insulin Regular 100 unit 70.050 90.183 7.167 In Sodium Chloride 0.9% 100 ml @ Per Protocol IV .Q0M [facility] Rx#:[id number] propofoL 1,000 mg In 298.592 470.640 100 Empty Bag 1 bag @ Titrate IV .Q0M [facility] Rx#: [id number] Oral 95 Tube Feeding 203 Other 90 Output: Urine 1080 665 Estimated Blood Loss 5 Other: Voiding Method Indwelling Catheter Indwelling Catheter ABP, PAP, CO, CI - Last Documented Arterial Blood Pressure 117/50 - Exam Head: Atraumatic, normocephalic. Tracheostomy seems to be intact.. HEENT:[Neck is supple.] [No neck masses.] [No thyromegaly.] [No JVD. ashley,EOMI, no icterus, Chest: [Diminished breath sounds at the bases minimal crackles bilaterally no rhonchi no wheezes. Cardiac Exam: [Normal S1 and S2, no S3 gallop, no murmur.] Abdomen: [Obese, slightly distended, no rebound no guarding, diminished bowel sounds. Extremities: [No clubbing, 2 + bipedal edema, no cyanosis.] Neurological Exam: Could not be assessed, patient is sedated, and on propofol. - Labs CBC & Chem 7: 12/27/19 04:10 12/27/19 04:10 Labs: Abnormal Lab Results - Last 24 Hours (Table) 12/26/19 12/26/19 12/26/19 Range/Units 11:05 11:08 12:07 WBC (3.8-10.6) k/uL RBC (4.30-5.90) m/uL Hgb (13.0-17.5) gm/dL MCV (80.0-100.0) fL Neutrophils # (1.3-7.7) k/uL Lymphocytes # (1.0-4.8) k/uL Monocytes # (0-1.0) k/uL ABG pH (7.35-7.45) ABG pO2 (83-108) mmHg ABG HCO3 (21-25) mmol/L Chloride (98-107) mmol/L Carbon Dioxide (22-30) mmol/L BUN (9-20) mg/dL Creatinine (0.66-1.25) mg/dL Glucose (74-99) mg/dL POC Glucose (mg/dL) 153 H 155 H (75-99) mg/dL Calcium (8.4-10.2) mg/dL Total Bilirubin (0.2-1.3) mg/dL ALT (4-49) U/L Ammonia 57 H (<30) umol/L Total Protein (6.3-8.2) g/dL Albumin (3.5-5.0) g/dL 12/26/19 12/26/19 12/26/19 Range/Units 13:00 15:07 16:27 WBC (3.8-10.6) k/uL RBC (4.30-5.90) m/uL Hgb (13.0-17.5) gm/dL MCV (80.0-100.0) fL Neutrophils # (1.3-7.7) k/uL Lymphocytes # (1.0-4.8) k/uL Monocytes # (0-1.0) k/uL ABG pH (7.35-7.45) ABG pO2 (83-108) mmHg ABG HCO3 (21-25) mmol/L Chloride (98-107) mmol/L Carbon Dioxide (22-30) mmol/L BUN (9-20) mg/dL Creatinine (0.66-1.25) mg/dL Glucose (74-99) mg/dL POC Glucose (mg/dL) 150 H 194 H 238 H (75-99) mg/dL Calcium (8.4-10.2) mg/dL Total Bilirubin (0.2-1.3) mg/dL ALT (4-49) U/L Ammonia (<30) umol/L Total Protein (6.3-8.2) g/dL Albumin (3.5-5.0) g/dL 12/26/19 12/26/19 12/26/19 Range/Units 17:31 18:11 19:17 WBC (3.8-10.6) k/uL RBC (4.30-5.90) m/uL Hgb (13.0-17.5) gm/dL MCV (80.0-100.0) fL Neutrophils # (1.3-7.7) k/uL Lymphocytes # (1.0-4.8) k/uL Monocytes # (0-1.0) k/uL ABG pH (7.35-7.45) ABG pO2 (83-108) mmHg ABG HCO3 (21-25) mmol/L Chloride (98-107) mmol/L Carbon Dioxide (22-30) mmol/L BUN (9-20) mg/dL Creatinine (0.66-1.25) mg/dL Glucose (74-99) mg/dL POC Glucose (mg/dL) 220 H 157 H 148 H (75-99) mg/dL Calcium (8.4-10.2) mg/dL Total Bilirubin (0.2-1.3) mg/dL ALT (4-49) U/L Ammonia (<30) umol/L Total Protein (6.3-8.2) g/dL Albumin (3.5-5.0) g/dL 12/26/19 12/26/19 12/26/19 Range/Units 20:10 21:07 21:55 WBC (3.8-10.6) k/uL RBC (4.30-5.90) m/uL Hgb (13.0-17.5) gm/dL MCV (80.0-100.0) fL Neutrophils # (1.3-7.7) k/uL Lymphocytes # (1.0-4.8) k/uL Monocytes # (0-1.0) k/uL ABG pH (7.35-7.45) ABG pO2 (83-108) mmHg ABG HCO3 (21-25) mmol/L Chloride (98-107) mmol/L Carbon Dioxide (22-30) mmol/L BUN (9-20) mg/dL Creatinine (0.66-1.25) mg/dL Glucose (74-99) mg/dL POC Glucose (mg/dL) 119 H 139 H 210 H (75-99) mg/dL Calcium (8.4-10.2) mg/dL Total Bilirubin (0.2-1.3) mg/dL ALT (4-49) U/L Ammonia (<30) umol/L Total Protein (6.3-8.2) g/dL Albumin (3.5-5.0) g/dL 12/26/19 12/26/19 12/26/19 Range/Units 22:39 23:01 23:54 WBC (3.8-10.6) k/uL RBC (4.30-5.90) m/uL Hgb (13.0-17.5) gm/dL MCV (80.0-100.0) fL Neutrophils # (1.3-7.7) k/uL Lymphocytes # (1.0-4.8) k/uL Monocytes # (0-1.0) k/uL ABG pH (7.35-7.45) ABG pO2 (83-108) mmHg ABG HCO3 (21-25) mmol/L Chloride (98-107) mmol/L Carbon Dioxide (22-30) mmol/L BUN (9-20) mg/dL Creatinine (0.66-1.25) mg/dL Glucose (74-99) mg/dL POC Glucose (mg/dL) 190 H 218 H 170 H (75-99) mg/dL Calcium (8.4-10.2) mg/dL Total Bilirubin (0.2-1.3) mg/dL ALT (4-49) U/L Ammonia (<30) umol/L Total Protein (6.3-8.2) g/dL Albumin (3.5-5.0) g/dL 12/27/19 12/27/19 12/27/19 Range/Units 01:17 02:09 03:19 WBC (3.8-10.6) k/uL RBC (4.30-5.90) m/uL Hgb (13.0-17.5) gm/dL MCV (80.0-100.0) fL Neutrophils # (1.3-7.7) k/uL Lymphocytes # (1.0-4.8) k/uL Monocytes # (0-1.0) k/uL ABG pH (7.35-7.45) ABG pO2 (83-108) mmHg ABG HCO3 (21-25) mmol/L Chloride (98-107) mmol/L Carbon Dioxide (22-30) mmol/L BUN (9-20) mg/dL Creatinine (0.66-1.25) mg/dL Glucose (74-99) mg/dL POC Glucose (mg/dL) 125 H 136 H 205 H (75-99) mg/dL Calcium (8.4-10.2) mg/dL Total Bilirubin (0.2-1.3) mg/dL ALT (4-49) U/L Ammonia (<30) umol/L Total Protein (6.3-8.2) g/dL Albumin (3.5-5.0) g/dL 12/27/19 12/27/19 12/27/19 Range/Units 04:10 04:10 04:10 WBC 20.5 H (3.8-10.6) k/uL RBC 3.70 L (4.30-5.90) m/uL Hgb 12.2 L (13.0-17.5) gm/dL MCV 105.8 H (80.0-100.0) fL Neutrophils # 18.6 H (1.3-7.7) k/uL Lymphocytes # 0.3 L (1.0-4.8) k/uL Monocytes # 1.3 H (0-1.0) k/uL ABG pH (7.35-7.45) ABG pO2 (83-108) mmHg ABG HCO3 (21-25) mmol/L Chloride 121 H (98-107) mmol/L Carbon Dioxide 15 L (22-30) mmol/L BUN 135 H* (9-20) mg/dL Creatinine 1.97 H (0.66-1.25) mg/dL Glucose 198 H (74-99) mg/dL POC Glucose (mg/dL) 202 H (75-99) mg/dL Calcium 8.0 L (8.4-10.2) mg/dL Total Bilirubin 3.4 H (0.2-1.3) mg/dL ALT 57 H (4-49) U/L Ammonia (<30) umol/L Total Protein 5.8 L (6.3-8.2) g/dL Albumin 2.6 L (3.5-5.0) g/dL 12/27/19 12/27/19 12/27/19 Range/Units 05:17 05:58 06:00 WBC (3.8-10.6) k/uL RBC (4.30-5.90) m/uL Hgb (13.0-17.5) gm/dL MCV (80.0-100.0) fL Neutrophils # (1.3-7.7) k/uL Lymphocytes # (1.0-4.8) k/uL Monocytes # (0-1.0) k/uL ABG pH (7.35-7.45) ABG pO2 (83-108) mmHg ABG HCO3 (21-25) mmol/L Chloride (98-107) mmol/L Carbon Dioxide (22-30) mmol/L BUN (9-20) mg/dL Creatinine (0.66-1.25) mg/dL Glucose (74-99) mg/dL POC Glucose (mg/dL) 163 H 138 H (75-99) mg/dL Calcium (8.4-10.2) mg/dL Total Bilirubin (0.2-1.3) mg/dL ALT (4-49) U/L Ammonia 56 H (<30) umol/L Total Protein (6.3-8.2) g/dL Albumin (3.5-5.0) g/dL 12/27/19 12/27/19 12/27/19 Range/Units 06:55 08:06 08:14 WBC (3.8-10.6) k/uL RBC (4.30-5.90) m/uL Hgb (13.0-17.5) gm/dL MCV (80.0-100.0) fL Neutrophils # (1.3-7.7) k/uL Lymphocytes # (1.0-4.8) k/uL Monocytes # (0-1.0) k/uL ABG pH 7.32 L (7.35-7.45) ABG pO2 77 L (83-108) mmHg ABG HCO3 18 L (21-25) mmol/L Chloride (98-107) mmol/L Carbon Dioxide (22-30) mmol/L BUN (9-20) mg/dL Creatinine (0.66-1.25) mg/dL Glucose (74-99) mg/dL POC Glucose (mg/dL) 135 H 203 H (75-99) mg/dL Calcium (8.4-10.2) mg/dL Total Bilirubin (0.2-1.3) mg/dL ALT (4-49) U/L Ammonia (<30) umol/L Total Protein (6.3-8.2) g/dL Albumin (3.5-5.0) g/dL 12/27/19 Range/Units 09:35 WBC (3.8-10.6) k/uL RBC (4.30-5.90) m/uL Hgb (13.0-17.5) gm/dL MCV (80.0-100.0) fL Neutrophils # (1.3-7.7) k/uL Lymphocytes # (1.0-4.8) k/uL Monocytes # (0-1.0) k/uL ABG pH (7.35-7.45) ABG pO2 (83-108) mmHg ABG HCO3 (21-25) mmol/L Chloride (98-107) mmol/L Carbon Dioxide (22-30) mmol/L BUN (9-20) mg/dL Creatinine (0.66-1.25) mg/dL Glucose (74-99) mg/dL POC Glucose (mg/dL) 266 H (75-99) mg/dL Calcium (8.4-10.2) mg/dL Total Bilirubin (0.2-1.3) mg/dL ALT (4-49) U/L Ammonia (<30) umol/L Total Protein (6.3-8.2) g/dL Albumin (3.5-5.0) g/dL Assessment and Plan Assessment: 1. Acute hypoxic/hypercapnic respiratory failure secondary to advanced COPD and blunt trauma to the chest with suspected pulmonary contusion - Patient has history of severe COPD with FEV1 of 34 - Patient underwent tracheostomy on 12/26/2019 and remains mechanically ventilated; remains on steroids and bronchodilator therapy; chest x-ray shows worsening and patient is placed on empiric antibiotics in form of cefepime and clindamycin 2. Suspect underlying ARDS secondary to pulmonary contusion. Possible aspiration pneumonia; patient has been placed on IV cefepime and clindamycin by the [employer]. 3. History of obstructive sleep apnea syndrome, on CPAP on outpatient basis. 4. Type 2 diabetes; patient has been placed on enteral feeding and remains on insulin infusion at a rate of 5 units per hour. 5. Benign essential hypertension; remains stable on amlodipine and metoprolol. 6. Acute kidney injury; worsening, patient is being followed by nephrology. 7. Hepatitis C infection with positive hepatitis C RNA PCR, and significant C RNA quantitative load over 5.26 million; Abdominal distention and constipation, improved since lactulose was added.
--- NOTE | 2019-12-28 07:58 | P.DS ---
Providers Date of admission: 12/18/19 19:13 Expected date of discharge: 12/27/19 Attending physician: Gabi Gupta Consults: 12/18/19 19:13 Consult Physician Routine Consulting Provider: Mirian Mcmahon Consult Reason/Comments: karen?? Do you want consulting provider notified?: Yes Consult Physician Routine Consulting Provider: Amena Mcdonnell Consult Reason/Comments: cp Do you want consulting provider notified?: Yes 12/19/19 00:11 Consult Physician Routine Consulting Provider: Epifanio Chahal Consult Reason/Comments: ICU Management Do you want consulting provider notified?: Yes, Notify in am 12/22/19 13:03 Consult Physician Routine Consulting Provider: Hailee Renee Consult Reason/Comments: gera Do you want consulting provider notified?: Yes 12/25/19 09:06 Consult Physician Routine Consulting Provider: Gurmeet Garces Consult Reason/Comments: trach and peg Do you want consulting provider notified?: Yes Primary care physician: [facility] Course: Acute hypoxic/hypercapnic respiratory failure secondary to advanced COPD Possible right pulmonary contusion secondary to blunt trauma to chest Acute/subacute CVA 59-year-old male patient with severe COPD admitted to the hospital with uncontrolled hypertension and acute exacerbation COPD along with uncontrolled pain following fall with blunt trauma to left side of the chest; once admitted patient continued to deteriorate and decompensated and became hypotensive; he was transferred to ICU and subsequently admitted for acute respiratory failure due to acute exacerbation COPD; patient was treated with IV steroids and bronchodilator nebulizer treatments with empiric antibiotic coverage; patient did show improvement but could not be weaned off the vent; patient underwent tracheostomy followed by another attempt to wean off the ventilator which failed; CT of the head was done which showed remote frontal lobe infarct with recommendations to do an MRI for high suspicion of acute CVA 12/28/2019 Patient seen and evaluated in ICU; remains on mechanical ventilation; trach in place; CT of the head is reviewed and personally discussed with marketing administrator who is recommending patient be transferred to [facility] due to lack of neurology coverage at our facility over the weekend; case management is consulted to facilitate transfer Patient Condition at Discharge: Serious Plan - Discharge Summary Discharge Rx Participant: No New Discharge Prescriptions: No Action Fluticasone Propionate 1 spray EA NOSTRIL DAILY lisinopriL 40 mg PO DAILY ALPRAZolam [Xanax] 0.5 mg PO HS PRN PRN Reason: Anxiety INSULIN ASPART (NovoLOG) [NovoLOG (formulary)] See Protocol SQ TID metFORMIN HCL [Glucophage] 500 mg PO TID Montelukast [Singulair] 10 mg PO DAILY Diltiazem HCl [Diltiazem 24Hr ER] 180 mg PO DAILY Insulin Glargine,Hum.rec.anlog [Basaglar Kwikpen U-100] 45 unit SQ HS Ibuprofen 200 - 400 mg PO Q6H PRN PRN Reason: Pain Albuterol Sulfate [Ventolin HFA] 2 puff INHALATION RT-Q6H PRN PRN Reason: Shortness Of Breath Umeclidinium [place] [Incruse Ellipta] 1 puff INHALATION RT-DAILY Furosemide [Lasix] 40 mg PO DAILY Discharge Medication List ALPRAZolam [Xanax] 0.5 mg PO HS PRN 01/21/17 [History] Diltiazem HCl [Diltiazem 24Hr ER] 180 mg PO DAILY 01/21/17 [History] Fluticasone Propionate 1 spray EA NOSTRIL DAILY 01/21/17 [History] INSULIN ASPART (NovoLOG) [NovoLOG (formulary)] See Protocol SQ TID 01/21/17 [History] Montelukast [Singulair] 10 mg PO DAILY 01/21/17 [History] lisinopriL 40 mg PO DAILY 01/21/17 [History] metFORMIN HCL [Glucophage] 500 mg PO TID 01/21/17 [History] Albuterol Sulfate [Ventolin HFA] 2 puff INHALATION RT-Q6H PRN 12/18/19 [History] Furosemide [Lasix] 40 mg PO DAILY 12/18/19 [History] Ibuprofen 200 - 400 mg PO Q6H PRN 12/18/19 [History] Insulin Glargine,Hum.rec.anlog [Basaglar Kwikpen U-100] 45 unit SQ HS 12/18/19 [History] Umeclidinium [place] [Incruse Ellipta] 1 puff INHALATION RT-DAILY 12/18/19 [History] Follow up Appointment(s)/Referral(s): Maciej Valles MD [Primary Care Provider] - 1-2 days [facility], [NON-STAFF] - Discharge Disposition: [facility]
--- NOTE | 2019-12-29 10:53 | CDI ---
Documentation Clarification Form Date: 12/29/19 From: Samantha Butt CCS Phone: If you have a question about this query, please contact Fabiola Shrestha, Network Infrastructure Architect at [phone] between 8am and 5pm. Admit Date: 12/18/19 Discharge Date:12/27/19 Patient Name: Sammy Bates Visit Number: [id number] ATTENTION: The Clinical Documentation Specialists (CDI) and [facility] Coding Staff appreciate your assistance in clarifying documentation. Please respond to the clarification below the line at the bottom and electronically sign. The CDI & [facility] Coding staff will review the response and follow-up if needed. Please note: Queries are made part of the Legal Health Record. If you have any questions, please contact the author of this message via ITS. Dear Dr. Tatum, Malnutrition, will place PEG tube is documented in the 12/24 Consult. History/Risk Factors: Sepsis, Acute resp failure, Hepatic Enceph, Shock, ATN, PNA Clinical Indicators: Malnutrition, Vent, Enteral Nutrition Labs: Albumin 3.1, 2.3, 2.6- Total Protein 6.8, 5.4, 5.8 Current BMI: 43.6 Insufficient energy intake: Yes Treatment: Tube feed Dietary Consult: 12/20, 12/23, 12/25 In your professional opinion, can you please clarify if these findings signify one of the following conditions? Mild Protein-Calorie Malnutrition Moderate Protein-Calorie Malnutrition Severe Protein-Calorie Malnutrition Malnutrition, unspecified Malnutrition following GI surgery Other condition, please specify Unable to determine severe pro-long malnutrition MTDD
== END 2019-12-27 19:45 | disposition short-term general hospital (02) | DRG 4 ==
LOC: EC 14:54 → 4SSUR 19:13 → 3SCARD 21:59 → 2SICU 12-19 01:24
PROVIDERS: ADMIT Hospitalist; ATTEND Hospitalist
PROC: 3E033XZ Introduction of Vasopressor into Peripheral Vein, Percutaneous Approach (ICD-10-PCS; 2019-12-19)
PROC: 5A09457 Assistance with Respiratory Ventilation, 24-96 Consecutive Hours, Continuous Positive Airway Pressure (ICD-10-PCS; 2019-12-19)
PROC: 5A1955Z Respiratory Ventilation, Greater than 96 Consecutive Hours (ICD-10-PCS; principal; 2019-12-20)
PROC: 0DH67UZ Insertion of Feeding Device into Stomach, Via Natural or Artificial Opening (ICD-10-PCS; principal; 2019-12-20)
PROC: 02HV33Z Insertion of Infusion Device into Superior Vena Cava, Percutaneous Approach (ICD-10-PCS; principal; 2019-12-20)
PROC: 4A133J1 Monitoring of Arterial Pulse, Peripheral, Percutaneous Approach (ICD-10-PCS; principal; 2019-12-20)
PROC: 4A133B1 Monitoring of Arterial Pressure, Peripheral, Percutaneous Approach (ICD-10-PCS; principal; 2019-12-20)
PROC: 0BH17EZ Insertion of Endotracheal Airway into Trachea, Via Natural or Artificial Opening (ICD-10-PCS; principal; 2019-12-20)
PROC: 03HY32Z Insertion of Monitoring Device into Upper Artery, Percutaneous Approach (ICD-10-PCS; principal; 2019-12-20)
PROC: 3E0G76Z Introduction of Nutritional Substance into Upper GI, Via Natural or Artificial Opening (ICD-10-PCS; 2019-12-21)
PROC: 0B110F4 Bypass Trachea to Cutaneous with Tracheostomy Device, Open Approach (ICD-10-PCS; 2019-12-26)
DX: A41.9 Sepsis, unspecified organism (principal); J96.01 Acute respiratory failure with hypoxia; J96.02 Acute respiratory failure with hypercapnia; N17.0 Acute kidney failure with tubular necrosis; R65.21 Severe sepsis with septic shock; G93.41 Metabolic encephalopathy; I63.9 Cerebral infarction, unspecified; J69.0 Pneumonitis due to inhalation of food and vomit; E43 Unspecified severe protein-calorie malnutrition; K82.1 Hydrops of gallbladder; E46 Unspecified protein-calorie malnutrition; J90 Pleural effusion, not elsewhere classified; E87.2 Acidosis; E87.0 Hyperosmolality and hypernatremia; R18.8 Other ascites; S27.321A Contusion of lung, unilateral, initial encounter; J44.1 Chronic obstructive pulmonary disease with (acute) exacerbation; J44.0 Chronic obstructive pulmonary disease with (acute) lower respiratory infection; S22.32XA Fracture of one rib, left side, initial encounter for closed fracture; Z68.41 Body mass index [BMI] 40.0-44.9, adult; I16.1 Hypertensive emergency; Z20.828 Contact with and (suspected) exposure to other viral communicable diseases; K72.90 Hepatic failure, unspecified without coma; K76.0 Fatty (change of) liver, not elsewhere classified; F10.21 Alcohol dependence, in remission; E11.65 Type 2 diabetes mellitus with hyperglycemia; Z79.4 Long term (current) use of insulin; E66.01 Morbid (severe) obesity due to excess calories; I16.0 Hypertensive urgency; I10 Essential (primary) hypertension; G47.33 Obstructive sleep apnea (adult) (pediatric); F41.9 Anxiety disorder, unspecified; R26.81 Unsteadiness on feet; B19.20 Unspecified viral hepatitis C without hepatic coma; S20.212A Contusion of left front wall of thorax, initial encounter; M25.511 Pain in right shoulder; K44.9 Diaphragmatic hernia without obstruction or gangrene; F41.1 Generalized anxiety disorder; E87.70 Fluid overload, unspecified; T38.0X5A Adverse effect of glucocorticoids and synthetic analogues, initial encounter; K59.00 Constipation, unspecified; R14.0 Abdominal distension (gaseous); E86.9 Volume depletion, unspecified; M19.90 Unspecified osteoarthritis, unspecified site; M25.512 Pain in left shoulder; W18.30XA Fall on same level, unspecified, initial encounter; Z71.3 Dietary counseling and surveillance; Z79.899 Other long term (current) drug therapy; Z98.890 Other specified postprocedural states; Z87.891 Personal history of nicotine dependence; Z88.0 Allergy status to penicillin; Z88.2 Allergy status to sulfonamides; Z88.8 Allergy status to other drugs, medicaments and biological substances; Z83.3 Family history of diabetes mellitus; Z82.5 Family history of asthma and other chronic lower respiratory diseases
CPT/HCPCS: 36415; 36600; 70450; 71045; 71046; 71250; 74176; 76705; 80048; 80053; 80076; 81001; 82140; 82805; 83036; 83605; 83625; 83735; 84100; 84145; 84443; 84484; 85025; 85610; 85730; 87040; 87070; 87205; 87522; 93005; 93306; 94002; 94003; 94640; 94660; 96361; 96365; 96375; 96376; 99291